=== PATIENT | female | born 1935 | race Caucasian/White ===

== ENCOUNTER → 2016-12-12 | Outpatient (CLI) | payer MEDICARE, BC ==
--- NOTE | 2016-12-12 14:02 | MR ---
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 Neck pain per patient. TECHNIQUE: Multiplanar, multisequence imaging of the cervical spine is performed without IV contrast. COMPARISON: MRI cervical spine December. FINDINGS: Sagittal images of the cervical spine show the craniocervical junction to remained within n ormal limits. The cervical and upper thoracic spinal cord is normal in course, caliber, and signal. Vertebral alignment is straightened. The vertebral body and intravertebral disk heights are felt wi thin normal limits. There are multilevel small posterior disc herniation redemonstrated on sagittal i mages effacing anterior thecal sac. The bone marrow signal intensity is within normal limits. No sign ificant spurring is seen. Axial images at C2-C3 level redemonstrate focal central disc protrusion effacing anterior thecal sac, bilateral neural foramina are patent on axial image 43. No significant change from prior. Axial images at C3-C4 level redemonstrate broad-based right paracentral disc protrusion with more radha tral focal disc protrusion effacing anterolateral thecal sac on axial image 36, findings are slightly more prominent than prior study. Bilateral neural foramina remain patent. Slight flattening of ventr al wall spinal cord is noted. No cord effacement however is seen. Axial images C4-C5 level show broad-based right paracentral disc protrusion effacing anterolateral th ecal sac and causing asymmetric mild right-sided neural foraminal narrowing. Left-sided neural forame n is patent. No significant change from prior study is seen. Axial images at C5-C6 level show some uncovertebral facet arthropathy bilaterally with broad-based po sterior disc protrusion mildly effacing anterior thecal sac, bilateral neural foramina remain patent. No significant change from prior study is identified. Axial images at C6-C7 level show lobulated broad-based posterior and left paracentral disc protrusion effacing anterior thecal sac, bilateral neural foramina remain patent. No significant change from pr ior study is identified. Axial images at C7-T1 level are felt within normal limits. Thyroid gland is atrophic in appearance or surgically absent particularly right thyroid lobe. Tortuou s medial course to left common carotid artery is redemonstrated. IMPRESSION: Straightening of cervical spine with multilevel degenerative changes redemonstrated as de tailed above. No significant change from prior study.
== END | disposition home or self-care (01) ==
LOC: RADMRIMAIN 12:16
PROVIDERS: ATTEND Psychiatry & Neurology Neurology
DX: M47.812 Spondylosis without myelopathy or radiculopathy, cervical region (principal); M43.8X2 Other specified deforming dorsopathies, cervical region
CPT/HCPCS: 72141

== ENCOUNTER → 2017-10-05 | Outpatient (CLI) | payer MEDICARE, BC ==
--- NOTE | 2017-10-05 14:04 | MR ---
EXAMINATION TYPE: MR lumbar spine wo/w con DATE OF EXAM: 10/05/2017 COMPARISON: NONE HISTORY: Spinal stenosis, lumbar region per order. Bilateral leg weakness for couple years per patien t with history of back surgery roughly 10 years ago per patient. TECHNIQUE: Multiplanar, multisequence images of the lumbar spine is performed without and with IV contrast, util izing 7 mL intravenous Gadavist FINDINGS : Survey images shows levoconvex scoliosis centered in the mid lumbar spine with compression type fractures in the lower thoracic spine.: Sagittal images of the lumbar spine confirm moderate to advanced compression fracture at T11 level, moderate compression fracture at T12 level, mild to mode rate compression fracture at L1 level, mild height loss superior T10 endplate and moderate to advance d compression fracture at L4 level. No suspicious edema or enhancement is clearly seen to suggest acu te fractures. Multilevel disc desiccation is seen. There are multilevel posterior disc herniations on sagittal images effacing anterior thecal sac. Exaggerated lumbar lordosis is noted. The conus medul dl is normal in position and signal ending inferior L1 level. Moderate multilevel anterior spurrin g is present. Axial images at T12-L1 level shows mild facet degenerative change and ligamentum flavum hypertrophy e ffacing posterior lateral thecal sac and mild broad disc bulge minimally effacing anterior thecal sac near axial image 30. Bilateral neural foramina are patent. Axial images at L1-L2 level show mild to moderate facet degenerative changes and ligamentum flavum hy pertrophy effacing posterior lateral thecal sac on axial image 25. There is mild to moderate broad di sc bulge with left paracentral disc protrusion component effacing anterior thecal sac. Bilateral neur al foramina are patent. Axial images at L2-L3 level show mild to moderate facet arthropathy ligament flavum hypertrophy effac ing posterior lateral thecal sac. There is moderate broad disc bulge effacing anterior thecal sac on axial image 20. There is mild bilateral neural foraminal narrowing noted. Axial images at L3-L4 level show mild to moderate facet degenerative changes bilaterally. There is br oad-based posterior disc protrusion mildly effacing anterior thecal sac on axial image 14. There is m oderate to severe bilateral neural foraminal narrowing. Axial images at L4-L5 level show advanced left-sided facet degenerative change. There are bilateral l aminectomy defects and spinous process resection. Spinal canal is grossly preserved. There is broad d isc bulge seen. There is mild to moderate bilateral neural foraminal narrowing identified. Axial images at L5-S1 level show bilateral laminectomy defects and spinous process resection. There i s persistent moderate facet arthropathy this along with scar tissue effaces posterior lateral thecal sac on axial image 3. There is central disc protrusion. Bilateral neural foramina show mild to modera te narrowing. There is simple appearing 1.1 cm cyst medially lower pole level right kidney axial image 19. IMPRESSION: Postsurgical changes lower lumbar spine. There are multiple compression type fracture def ormities presumed chronic throughout the thoracolumbar spine. There are multilevel degenerative laura es seen as detailed above, most prominent spinal canal effacement or stenosis is noted L2-L3 level.
== END | disposition home or self-care (01) ==
LOC: RADMRIMAIN 12:12
PROVIDERS: ATTEND Psychiatry & Neurology Neurology
DX: M48.061 Spinal stenosis, lumbar region without neurogenic claudication (principal); M47.816 Spondylosis without myelopathy or radiculopathy, lumbar region; S22.000A Wedge compression fracture of unspecified thoracic vertebra, initial encounter for closed fracture; S32.000A Wedge compression fracture of unspecified lumbar vertebra, initial encounter for closed fracture; Z98.890 Other specified postprocedural states; Z13.89 Encounter for screening for other disorder
CPT/HCPCS: 82565; 72158; A9581

== ENCOUNTER → 2018-10-08 | Outpatient (CLI) | payer MEDICARE, BC ==
--- NOTE | 2018-10-08 17:12 | MR ---
EXAMINATION TYPE: MR lumbar spine wo/w con DATE OF EXAM: 10/08/2018 COMPARISON: 10/05/2017 HISTORY: 83-year-old female Spondylosis without myelopathy or radiculopathy Technique: Multiplanar, multisequence images of the lumbar spine were obtained before and after admin istration of 7 mL intravenous Gadavist gadolinium contrast. FINDINGS: Heterogeneous marrow redemonstrated without definite suspicious bone marrow placement. Multiple vertebral compression deformities are present. These appear to be largely chronic, involving T11, T12, L1, and L4 vertebral bodies. Some low signal within these vertebral bodies could represent vacuum or vertebroplasty cement. No new vertebral compression collapse is seen. Mild retropulsion at the T11, T12, L1, and L4 levels encroaching onto the ventral spinal canal. Accentuated lower lumbar lordosis. Hypertrophic facet arthropathy throughout with a degenerated levoconvex scoliosis. Moderate multilevel degenerative disc disease with disc desiccation and disc bulging throughout. Scattered ligamentum flavum thickening is also present. The graft conus medullaris is normal. Laminectomy changes lower lumbar spine redemonstrated. At T10-T11, redemonstrated retropulsion impressing on to the ventral thecal sac and ventral cord with mild overall spinal canal stenosis which may be slightly increased from prior. At T11-T12, mild retropulsion impressing on the ventral thecal sac. Mild to moderate bilateral neurof oraminal stenosis. At T12-L1, mild retropulsion impressing on the ventral thecal sac. Facet arthropathy with mild bilate ral neuroforaminal narrowing. At L1-L2, bulging disc with ligamentum flavum thickening and facet arthropathy. Changes result in mod erate spinal canal stenosis, similar to prior. There is left paracentral annular fissure here. Change s within mild right neuroforaminal stenosis. At L2-L3, bulging disc with ligamentum flavum thickening and facet degenerative change. There has bee n interval laminectomy change here with enhancing scar tissue posteriorly. There is a 2.6 x 0.6 x 1.3 cm peripherally enhancing fluid collection along the posterior midline located 6 mm deep to the skin surface at this level. Residual mild narrowing of the spinal canal at this level, improved from prio r. Similar moderate right greater than left neuroforaminal stenosis. At L3-L4, retropulsion impressing on the ventral thecal sac. Ligamentum flavum thickening and hypertr ophic facet arthropathy. Changes result in moderate to severe left and moderate right neuroforaminal stenosis without significant spinal canal stenosis. At L4-L5, bulging disc with hypertrophic facet arthropathy and prior laminectomy. Similar severe left and [id number] right neuroforaminal stenosis. At L5-S1, bulging disc with prior laminectomy and hypertrophic facet arthropathy. Similar moderate le ft neural foraminal stenosis. No spinal canal stenosis. No abnormal enhancement seen within the spinal canal. IMPRESSION: 1. Multiple chronic compression collapse is as above. Associated low signal areas could represent air clefts or cement from prior vertebroplasty. Clinically correlate. No new vertebral compression colla pse as compared to 10/05/2017. 2. Interval laminectomy at L2-L3 with improvement in the spinal canal stenosis at this level. However , there is enhancing posterior paraspinal scar/granulation tissue and a 2.6 x 0.6 x 1.3 cm peripheral ly enhancing fluid collection along the posterior midline, 6 mm deep to the skin surface. Chronic hem atoma, postoperative seroma, and postoperative abscess are all in the differential. Further clinical correlation recommended. Similar moderate right greater than left neuroforaminal stenosis. 3. Continued moderate spinal canal stenosis at L1-L2. Left paracentral annular fissure here. 4. Continued moderate to severe left and moderate right neural foraminal stenosis at L3-L4. Severe le ft and [id number] right at L4-L5. Similar moderate left L5-S1. 5. Retropulsion impressing on the ventral thecal sac at T10-T11 with increased mild overall spinal ca nal stenosis at this level.
== END ==
LOC: RADMRIMAIN 12:32
PROVIDERS: ATTEND Neurological Surgery
DX: M48.061 Spinal stenosis, lumbar region without neurogenic claudication (principal); M48.07 Spinal stenosis, lumbosacral region
CPT/HCPCS: 72158; A9585

== ENCOUNTER 2019-05-12 16:02 | Inpatient (IN) | payer MEDICARE, BC ==
[2019-05-12 16:50] LABS: Glucose,Whole Blood 196 mg/dL (75-99)
[2019-05-12] MEDS ORDERED: SODIUM CHLORIDE 0.9% 1,000 ML IV STA ×2 (16:58)
--- NOTE | 2019-05-12 17:05 | ED ---
General Adult HPI - General Chief complaint: Syncope Stated complaint: Syncope Time Seen by Provider: 05/12/19 16:36 Source: patient, family, RN notes reviewed Mode of arrival: ambulatory Limitations: no limitations - History of Present Illness Initial comments: Patient is a pleasant 84-year-old female presenting to the emergency department following syncopal episode. Patient was doing fine at the grocery store and then did not feel well at checkout. Family had the patient sit down and she became unresponsive for a second or 2. Patient then seemed to do better. Patient did vomit during triage and again just now on them room. Patient does complain of some abdominal discomfort. Patient did not complain of any abdominal discomfort earlier. Family states they do not believe patient urinated in the past several hours. They also added that patient took 2 of her pain pills today where normally she only takes 1. Patient takes pain pills for chronic back pain. Chronic back pain is unchanged from baseline. No confusion or weakness. - Related Data Home Medications Medication Instructions Recorded Confirmed ALPRAZolam [Xanax] 0.25 mg PO DAILY PRN 07/25/15 07/25/15 Ascorbic Acid [Vitamin C] 500 mg PO HS 07/25/15 07/25/15 Aspirin 81 mg PO HS 07/25/15 07/25/15 Atorvastatin [Lipitor] 80 mg PO HS 07/25/15 07/25/15 Citalopram Hydrobromide [CeleXA] 20 mg PO HS 07/25/15 07/25/15 Fluticasone/Salmeterol [Advair 1 puff INHALATION RT-BID 07/25/15 07/25/15 250-50 Diskus] Levothyroxine Sodium [Synthroid] 75 mcg PO QAM 07/25/15 07/25/15 Metoprolol Succinate [Toprol XL] 25 mg PO HS 07/25/15 07/25/15 Nitroglycerin Sl Tabs [Nitrostat] 0.4 mg SUBLINGUAL Q5M PRN 07/25/15 07/25/15 Omeprazole [PriLOSEC] 20 mg PO AC-BID 07/25/15 07/25/15 Propranolol [Inderal] 40 mg PO BID 07/25/15 07/25/15 Sucralfate [Carafate] 1 gm PO BID 07/25/15 07/25/15 buPROPion HCL [Wellbutrin XL] 300 mg PO QAM 07/25/15 07/25/15 Previous Rx's Medication Instructions Recorded Cefuroxime Axetil [Ceftin] 500 mg PO BID #14 tablet 07/29/15 predniSONE 10 mg PO DIRECTED #40 tab 07/29/15 Albuterol Nebulized [Ventolin 2.5 mg INHALATION QID #120 nebu 07/30/15 Nebulized] Ibuprofen [Motrin] 600 mg PO BID PRN #0 07/30/15 Ipratropium Nebulized [Atrovent 0.5 mg INHALATION RT-QID #120 nebu 07/30/15 Nebulized 0.2 MG/ML] Isosorbide Mononitrate ER [Imdur] 30 mg PO DAILY #30 tab.er.24h 07/30/15 Multivitamins, Thera [Multivitamin 1 each PO DAILY@1200 #30 tab 07/30/15 (formulary)] Nicotine 14Mg/24Hr Patch [Habitrol] 1 patch TRANSDERM DAILY #30 patch 07/30/15 amLODIPine [Norvasc] 10 mg PO DAILY #30 tab 07/30/15 Allergies Allergy/AdvReac Type Severity Reaction Status Date / Time venom-honey bee Allergy Anaphylaxis Verified 07/25/15 15:44 [bee venom (honey bee)] Review of Systems ROS Statement: Those systems with pertinent positive or pertinent negative responses have been documented in the HPI. ROS Other: All systems not noted in ROS Statement are negative. Constitutional: Denies: fever Eyes: Denies: eye pain ENT: Denies: ear pain Respiratory: Denies: cough, dyspnea Cardiovascular: Denies: chest pain Endocrine: Denies: fatigue Gastrointestinal: Reports: as per HPI, abdominal pain, nausea, vomiting. Denies: diarrhea, constipation Genitourinary: Denies: dysuria Musculoskeletal: Reports: as per HPI Skin: Denies: rash Neurological: Reports: as per HPI. Denies: headache Past Medical History Past Medical History: Coronary Artery Disease (CAD), GERD/Reflux, Hypertension, Osteoarthritis (OA), Thyroid Disorder Additional Past Medical History / Comment(s): Parkinson's disease, depression. History of Any Multi-Drug Resistant Organisms: None Reported Past Surgical History: Coronary Bypass/CABG Additional Past Surgical History / Comment(s): STENT X1 Past Anesthesia/Blood Transfusion Reactions: Postoperative Nausea & Vomiting (PONV) Past Psychological History: Anxiety, Depression Smoking Status: Current every day smoker Past Alcohol Use History: None Reported Past Drug Use History: None Reported - Past Family History Mother Family Medical History: CVA/TIA, Myocardial Infarction ([place]), Rheumatoid Arthritis ([place]) Father Family Medical History: Myocardial Infarction ([place]) Additional Family Medical History / Comment(s): ANEURYSM-UNKNOWN LOCATION General Exam Limitations: no limitations General appearance: alert, in no apparent distress Head exam: Present: normocephalic Eye exam: Present: normal appearance, PERRL ENT exam: Present: normal oropharynx Neck exam: Present: normal inspection Respiratory exam: Present: normal lung sounds bilaterally Cardiovascular Exam: Present: regular rate, normal rhythm Expanded Peripheral pulses: 2+: Radial (R), Radial (L), Posterior Tibialis (R), Posterior Tibialis (L), Dorsalis Pedis (R), Dorsalis Pedis (L) GI/Abdominal exam: Present: soft, normal bowel sounds. Absent: distended, tenderness, guarding, rebound, rigid, pulsatile mass Extremities exam: Present: normal inspection. Absent: pedal edema, calf tenderness Neurological exam: Present: alert, oriented X3, CN II-XII intact. Absent: motor sensory deficit Expanded Neurological exam: Present: protecting the airway Patient oriented to: Present: person, place, time Speech: Present: fluid speech Cranial nerves: EOM's Intact: Normal Sensory exam: Upper Extremity Light Touch: Normal, Lower Extremity Light Touch: Normal Motor strength exam: RUE: 5, LUE: 5, RLE: 5, LLE: 5 Eye Response: (4) open spontaneously Motor Response: (6) obeys commands Verbal Response: (5) oriented Psychiatric exam: Present: normal affect, normal mood Skin exam: Present: normal color Course Vital Signs 05/12/19 16:06 Temperature 97.5 F L Pulse Rate 63 Respiratory 17 Rate Blood Pressure 106/38 O2 Sat by Pulse 90 L Oximetry EKG Findings - EKG Comments: EKG Findings:: Sinus rhythm at 73. For screening AV block GA of 236. QRS 128. QT 474. QTC 522. Superior axis. Nonspecific interventricular block. Diffuse Q waves. Previous EKGs reviewed. Medical Decision Making - Medical Decision Making Patient reevaluated. Patient and family updated. Case discussed with Dr. Whyte, who will admit for Dr. Kang. - Lab Data Result diagrams: 05/12/19 16:46 05/12/19 16:46 Lab Results 05/12/19 05/12/19 05/12/19 Range/Units 16:46 16:46 16:46 WBC 7.4 (3.8-10.6) k/uL RBC 4.69 (3.80-5.40) m/uL Hgb 15.0 (11.4-16.0) gm/dL Hct 45.4 (34.0-46.0) % MCV 96.8 (80.0-100.0) fL MCH 32.0 (25.0-35.0) pg MCHC 33.1 (31.0-37.0) g/dL RDW 12.4 (11.5-15.5) % Plt Count 326 (150-450) k/uL Neutrophils % 69 % Lymphocytes % 26 % Monocytes % 3 % Eosinophils % 1 % Basophils % 0 % Neutrophils # 5.1 (1.3-7.7) k/uL Lymphocytes # 2.0 (1.0-4.8) k/uL Monocytes # 0.2 (0-1.0) k/uL Eosinophils # 0.1 (0-0.7) k/uL Basophils # 0.0 (0-0.2) k/uL PT 10.5 (9.0-12.0) sec INR 1.0 (<1.2) APTT 19.1 L (22.0-30.0) sec Sodium 135 L (137-145) mmol/L Potassium 4.7 (3.5-5.1) mmol/L Chloride 105 (98-107) mmol/L Carbon Dioxide 17 L (22-30) mmol/L Anion Gap 13 mmol/L BUN 23 H (7-17) mg/dL Creatinine 1.35 H (0.52-1.04) mg/dL Est GFR (CKD-EPI)AfAm 42 (>60 ml/min/1.73 sqM) Est GFR (CKD-EPI)NonAf 37 (>60 ml/min/1.73 sqM) Glucose 184 H (74-99) mg/dL POC Glucose (mg/dL) (75-99) mg/dL POC Glu [employer] Hand ID Calcium 10.3 H (8.4-10.2) mg/dL Magnesium 2.1 (1.6-2.3) mg/dL Total Bilirubin 0.7 (0.2-1.3) mg/dL AST 46 H (14-36) U/L ALT 30 (9-52) U/L Alkaline Phosphatase 135 H (38-126) U/L Troponin I (0.000-0.034) ng/mL Total Protein 6.8 (6.3-8.2) g/dL Albumin 4.1 (3.5-5.0) g/dL 05/12/19 05/12/19 Range/Units 16:46 16:48 WBC (3.8-10.6) k/uL RBC (3.80-5.40) m/uL Hgb (11.4-16.0) gm/dL Hct (34.0-46.0) % MCV (80.0-100.0) fL MCH (25.0-35.0) pg MCHC (31.0-37.0) g/dL RDW (11.5-15.5) % Plt Count (150-450) k/uL Neutrophils % % Lymphocytes % % Monocytes % % Eosinophils % % Basophils % % Neutrophils # (1.3-7.7) k/uL Lymphocytes # (1.0-4.8) k/uL Monocytes # (0-1.0) k/uL Eosinophils # (0-0.7) k/uL Basophils # (0-0.2) k/uL PT (9.0-12.0) sec INR (<1.2) APTT (22.0-30.0) sec Sodium (137-145) mmol/L Potassium (3.5-5.1) mmol/L Chloride (98-107) mmol/L Carbon Dioxide (22-30) mmol/L Anion Gap mmol/L BUN (7-17) mg/dL Creatinine (0.52-1.04) mg/dL Est GFR (CKD-EPI)AfAm (>60 ml/min/1.73 sqM) Est GFR (CKD-EPI)NonAf (>60 ml/min/1.73 sqM) Glucose (74-99) mg/dL POC Glucose (mg/dL) 196 H (75-99) mg/dL POC Glu [employer] Hand ID Abril Christopher Calcium (8.4-10.2) mg/dL Magnesium (1.6-2.3) mg/dL Total Bilirubin (0.2-1.3) mg/dL AST (14-36) U/L ALT (9-52) U/L Alkaline Phosphatase (38-126) U/L Troponin I 0.020 (0.000-0.034) ng/mL Total Protein (6.3-8.2) g/dL Albumin (3.5-5.0) g/dL - Radiology Data Radiology results: report reviewed (Computed tomography scan of the brain shows no acute process. Atrophy. Computed tomography scan abdomen pelvis shows some fluid and large bowel, correlate for colitis.), image reviewed (Chest x-ray shows no acute lung disease.) Disposition Clinical Impression: Syncope Disposition: ADMITTED IP TO THIS HOSP Is patient prescribed a controlled substance at d/c from ED?: No Referrals: Lashaun Kang III, MD [Primary Care Provider] - 1-2 days Decision Time: 19:16
[2019-05-12 17:19] LABS: Basophils % (A) 0 %; Eosinophils # (A) 0.1 k/uL (0-0.7); Eosinophils % (A) 1 %; HCT 45.4 % (34.0-46.0); Lymphocytes % (A) 26 %; MCHC 33.1 g/dL (31.0-37.0); MCV 96.8 fL (80.0-100.0); Mean Platelet Volume 8.5; Monocytes # (A) 0.2 k/uL (0-1.0); Monocytes % (A) 3 %; Neutrophils # (A) 5.1 k/uL (1.3-7.7); Neutrophils % (A) 69 %; Platelet Count 326 k/uL (150-450); RBC 4.69 m/uL (3.80-5.40); RDW 12.4 % (11.5-15.5); WBC 7.4 k/uL (3.8-10.6)
[2019-05-12 17:28] LABS: Albumin 4.1 g/dL (3.5-5.0); Calcium 10.3 mg/dL (8.4-10.2); Magnesium 2.1 mg/dL (1.6-2.3); Potassium 4.7 mmol/L (3.5-5.1); Total Bilirubin 0.7 mg/dL (0.2-1.3); Total Protein 6.8 g/dL (6.3-8.2)
[2019-05-12 18:01] LABS: Prothrombin Time 10.5 sec (9.0-12.0)
[2019-05-12 18:03] LABS: Partial Thromboplastin Time 19.1 sec (22.0-30.0)
--- NOTE | 2019-05-12 18:54 | XR ---
EXAMINATION TYPE: XR chest 2V DATE OF EXAM: 05/12/2019 COMPARISON: 07/29/2015 HISTORY: Weakness TECHNIQUE: Frontal and lateral views of the chest are obtained. FINDINGS: There is no heart failure nor confluent pneumonic infiltrate. Costophrenic angles are greyson r. There are sternal wires. There is thoracolumbar kyphotic deformity with anterior wedging of lower thoracic vertebra and multil evel vertebroplasty. There is hiatal hernia. IMPRESSION: Hiatal hernia. No acute lung disease. Osteoporotic multiple compression fractures. No si gnificant change compared to old exam.
--- NOTE | 2019-05-12 18:59 | CT ---
EXAMINATION TYPE: CT abdomen pelvis w con DATE OF EXAM: 05/12/2019 COMPARISON: None HISTORY: Weakness, vomiting and diarrhea CT DLP: 664.2 mGycm Automated exposure control for dose reduction was used. CONTRAST: Performed with IV Contrast, patient injected with 80 mL of Isovue 300. Lung bases show no pulmonary consolidation. There is no pleural effusion. There is moderate size hiat al hernia. There is no pericardial effusion. Liver and spleen appear normal. Bile ducts are not dilated. Gallbladder is intact. There is no pancre atic mass. There is no adrenal mass. Kidneys show satisfactory contrast opacification. There is no hydronephrosi s. There are renal vascular calcifications. I see no definite urinary tract calculus. There is no hyd ronephrosis. There is 1 cm cortical cyst lower pole right kidney. Ureters are not dilated. Bladder di stends smoothly. There is no inguinal hernia. There are some distended fluid-filled loops of the left colon down to the rectum. There is mild wall thickening of the transverse colon distally. There is n o free air. There is no ascites. Small bowel is not dilated. There is multiple compression fractures in the lumbar spine involving L4 and L1 and T12 and T11 with vertebral plasties. There is osteopenia. The bony pelvis is intact. There is mild lumbar levoscoliosis. IMPRESSION: Hiatal hernia. Atherosclerotic vascular disease. Large bowel fluid consistent with diarrhea. Nonspecific mild wall thickening of the distal transverse colon could relate to some colitis.
--- NOTE | 2019-05-12 19:01 | CT ---
EXAMINATION TYPE: CT brain wo con DATE OF EXAM: 05/12/2019 COMPARISON: None HISTORY: Weakness, vomiting and diarrhea CT DLP: 1086.4 mGycm Automated exposure control for dose reduction was used. There is cerebral cortical atrophy. There is no mass effect nor midline shift. There is no sign of in tracranial hemorrhage. Calvarium is intact. IMPRESSION: Cerebral atrophy. No acute intracranial abnormality.
[2019-05-12] MEDS ORDERED: NALOXONE 0.4 MG/ML 1 ML VIAL IV PRN (19:17)
[2019-05-12] MEDS ORDERED: SODIUM CHLORIDE 0.9% 1,000 ML IV SCH (19:30)
[2019-05-12] MEDS ORDERED: PANTOPRAZOLE 40 MG/10 ML VIAL IV SCH (19:30)
[2019-05-12] MEDS: ONDANSETRON 4 MG/2 ML VIAL IVP PRN (21:04)
[2019-05-12 21:53] LABS: Basophils % (A) 0 %; Eosinophils # (A) 0.2 k/uL (0-0.7); Eosinophils % (A) 1 %; HCT 39.4 % (34.0-46.0); HGB 12.8 gm/dL (11.4-16.0); Lymphocytes # (A) 0.6 k/uL (1.0-4.8); Lymphocytes % (A) 4 %; MCH 32.1 pg (25.0-35.0); MCHC 32.4 g/dL (31.0-37.0); MCV 99.1 fL (80.0-100.0); Mean Platelet Volume 7.7; Monocytes # (A) 0.5 k/uL (0-1.0); Monocytes % (A) 3 %; Neutrophils # (A) 14.3 k/uL (1.3-7.7); Neutrophils % (A) 91 %; Platelet Count 298 k/uL (150-450); RBC 3.98 m/uL (3.80-5.40); RDW 12.5 % (11.5-15.5); WBC 15.7 k/uL (3.8-10.6)
[2019-05-12 22:08] LABS: Calcium 8.7 mg/dL (8.4-10.2); Magnesium 1.9 mg/dL (1.6-2.3); Potassium 4.1 mmol/L (3.5-5.1)
[2019-05-12] MEDS: MORPHINE SULFATE 2 MG/ML SYRINGE IVP PRN (23:33)
[2019-05-12] MEDS: SODIUM CHLORIDE 0.9% 1,000 ML IV SCH (23:37)
[2019-05-13 02:32] LABS: Appearance,Urine Clear (Clear); Bilirubin,Urine Negative (Negative); Blood,Urine Trace (Negative); Color,Urine Yellow; Glucose,Urine (UA) Negative (Negative); Hyaline Casts,Urine 3 /lpf (0-2); Ketones,Urine Trace (Negative); Leukocyte Esterase,Urine Negative (Negative); Mucus,Urine Rare /hpf; Nitrite,Urine Negative (Negative); PH, Urine 5.5 (5.0-8.0); Protein,Urine Trace (Negative); RBC,Urine 2 /hpf (0-5); Squamous Epithelial Cell,Urine <1 /hpf (0-4); WBC,Urine 1 /hpf (0-5)
[2019-05-13] MEDS: MORPHINE SULFATE 2 MG/ML SYRINGE IVP PRN ×2 (03:11→16:41)
[2019-05-13 05:30] LABS: Basophils % (A) 0 %; Eosinophils # (A) 0.1 k/uL (0-0.7); Eosinophils % (A) 1 %; HCT 37.3 % (34.0-46.0); HGB 12.1 gm/dL (11.4-16.0); Lymphocytes # (A) 0.7 k/uL (1.0-4.8); Lymphocytes % (A) 5 %; MCH 31.8 pg (25.0-35.0); MCHC 32.4 g/dL (31.0-37.0); MCV 98.1 fL (80.0-100.0); Mean Platelet Volume 7.5; Monocytes # (A) 0.4 k/uL (0-1.0); Monocytes % (A) 3 %; Neutrophils # (A) 13.7 k/uL (1.3-7.7); Neutrophils % (A) 91 %; Platelet Count 288 k/uL (150-450); RDW 12.6 % (11.5-15.5); WBC 15.2 k/uL (3.8-10.6)
[2019-05-13 05:43] LABS: Calcium 8.4 mg/dL (8.4-10.2); Magnesium 1.9 mg/dL (1.6-2.3); Phosphorus 4.7 mg/dL (2.5-4.5); Potassium 4.2 mmol/L (3.5-5.1); Total Bilirubin 0.5 mg/dL (0.2-1.3); Total Protein 5.3 g/dL (6.3-8.2)
[2019-05-13] MEDS ORDERED: Magnesium Replacement Protocol 1 EACH MISC MISCELLANE PRN (05:48)
[2019-05-13] MEDS: MAGNESIUM SULFATE-D5W PMX 1 GM in DEXTROSE/WATER 1 100ML.BAG IVPB SCH ×2 (05:56→06:54)
--- NOTE | 2019-05-13 08:16 | XR ---
EXAMINATION TYPE: XR chest 1V DATE OF EXAM: 05/13/2019 COMPARISON: Prior chest x-ray 05/12/[address] 05/12/2019 HISTORY: Abnormal chest x-ray, weakness TECHNIQUE: Single frontal view of the chest is obtained. FINDINGS: Patient is post median sternotomy. Aorta is dense. Heart is enlarged. Interstitium is incr eased. Some patchy density at the lung bases may represent scarring or subsegmental atelectatic laura e, correlate for pneumonia. No evident pneumothorax. Multiple vertebral plasty levels are noted near the lower thoracic and lumbar spine level. There are overlying cardiac leads. Pulmonary vascularity a nd oliver within normal limits. Retrocardiac density persists. Nodular density seen on prior CT in the right lower lobe is not seen definitively. IMPRESSION: Correlate for pneumonia, subsegmental atelectasis. Hiatal hernia. Right lower lobe lung nodule not seen on plain film, follow-up recommended. Cardiomegaly. Postop changes. A Yellow level critical message alert has been initiated for Rafa Rivas via the [employer] Critical Results System on 05/13/2019 8:13 AM. This message alert has been sent to Rafa Rivas via the preferences provided by the clinician for the receipt of Radiology Critical Findings. Message ID [id number].
--- NOTE | 2019-05-13 08:31 | P.HPIM ---
History of Present Illness This is a pleasant 84 years old female with past medical history of coronary artery disease status post CABG and 1 stent, hypertension, cigarette smoker, GERD, hypothyroidism, Parkinson disease, depression, chronic back pain. Patient presents because of syncope. Patient states that she was going to the grocery store with her daughter when she felt lightheadedness and she has to sit on a chair, and immediately she was on and off about 2 times associated with urine incontinence but no seizure like activity as per patient daughter. Patient decided to come to the hospital where she started having upper and lower abdominal pain with diarrhea, pain is in the mid part of the abdomen both upper and lower, about 6-8/10 in severity, pain is nonradiating but continuous home associated with 5-6 times of loose bowel movement with some blunt as the patient has been told, associated with coffee ground vomitus. Patient is smokes about 1 pack per day, she follows with Dr. Ibrahim the reinsurance claim analyst and she supposed to see him today for checkup. On admission patient had fever of 100.6, blood pressure 132/44, she is saturatin g 93% on 2 L oxygen. Labs showed leukocytosis of 15.2, INR is normal at 1.0, sodium 135 and 136, creatinine was elevated 1.35, came down to normal this morning at 1.0, glucose 184 and 120, Is not suspicious of infection. Troponins are negative 3.chest x-ray: Clinical hernia, no acute process. CT of the abdomen and pelvis with contrast: Possible distal transverse colitis with wall thickening and large fluid consistent with the area. CT of the brain showed no acute process per radiologist. EKG: Showing sinus rhythm with first-degree AV block at 73 BPM, with QTC of 522 In the emergency room patient was given magnesium replacement and IV fluid, 2 L of normal saline and then started at 75 mL/h From emergency room so far consults has been ordered including pulmonary, gastroenterology for GI bleed and neurologist Review of Systems CONSTITUTIONAL: No fever, no malaise, no fatigue. HEENT: No recent visual problems or hearing problems. Denied any sore throat. CARDIOVASCULAR: No orthopnea, PND, no palpitations, no syncope. PULMONARY: No shortness of breath, no cough, no hemoptysis. GASTROINTESTINAL: Normoactive bowel sounds. NEUROLOGICAL: No headaches, no weakness, no numbness. HEMATOLOGICAL: Denies any bleeding or petechiae. GENITOURINARY: Denies any burning micturition, frequency, or urgency. MUSCULOSKELETAL/RHEUMATOLOGICAL: Denies any joint pain, swelling, or any muscle pain. ENDOCRINE: Denies any polyuria or polydipsia. Past Medical History Past Medical History: Coronary Artery Disease (CAD), GERD/Reflux, Hypertension, Osteoarthritis (OA), Thyroid Disorder Additional Past Medical History / Comment(s): Parkinson's disease, depression. History of Any Multi-Drug Resistant Organisms: None Reported Past Surgical History: Coronary Bypass/CABG Additional Past Surgical History / Comment(s): STENT X1 Past Anesthesia/Blood Transfusion Reactions: Postoperative Nausea & Vomiting (PONV) Past Psychological History: Anxiety, Depression Smoking Status: Current every day smoker Past Alcohol Use History: None Reported Past Drug Use History: None Reported - Past Family History Mother Family Medical History: CVA/TIA, Myocardial Infarction ([place]), Rheumatoid Arthritis (RA) Father Family Medical History: Myocardial Infarction ([place]) Additional Family Medical History / Comment(s): ANEURYSM-UNKNOWN LOCATION Medications and Allergies Home Medications Medication Instructions Recorded Confirmed Type ALPRAZolam [Xanax] 0.25 mg PO Q12H PRN 07/25/15 05/12/19 History Ascorbic Acid [Vitamin C] 500 mg PO HS 07/25/15 05/12/19 History Aspirin 81 mg PO HS 07/25/15 05/12/19 History Atorvastatin [Lipitor] 80 mg PO HS 07/25/15 05/12/19 History Citalopram Hydrobromide [CeleXA] 20 mg PO HS 07/25/15 05/12/19 History Fluticasone/Salmeterol [Advair 1 puff INHALATION RT-BID 07/25/15 05/12/19 History 250-50 Diskus] Levothyroxine Sodium [Synthroid] 75 mcg PO QAM 07/25/15 05/12/19 History Nitroglycerin Sl Tabs [Nitrostat] 0.4 mg SUBLINGUAL Q5M PRN 07/25/15 05/12/19 History Omeprazole [PriLOSEC] 20 mg PO AC-BID 07/25/15 05/12/19 History buPROPion HCL [Wellbutrin XL] 300 mg PO QAM 07/25/15 05/12/19 History Isosorbide Mononitrate ER [Imdur] 30 mg PO DAILY #30 tab.er.24h 07/30/15 05/12/19 Rx Nicotine 14Mg/24Hr Patch [Habitrol] 1 patch TRANSDERM DAILY #30 patch 07/30/15 05/12/19 Rx Gabapentin [Neurontin] 100 mg PO BID 05/12/19 05/12/19 History Lisinopril [Zestril] 2.5 mg PO DAILY 05/12/19 05/12/19 History Primidone [Mysoline] 50 mg PO HS 05/12/19 05/12/19 History Propranolol HCl [Inderal Xl] 80 mg PO DAILY 05/12/19 05/12/19 History Allergies Allergy/AdvReac Type Severity Reaction Status Date / Time venom-honey bee Allergy Anaphylaxis Verified 05/12/19 20:48 [bee venom (honey bee)] Physical Exam Vitals: Vital Signs Temp Pulse Pulse Resp BP BP Pulse Ox 05/13/19 06:00 87 17 132/44 93 L 05/13/19 05:00 79 25 H 137/48 92 L 05/13/19 04:00 100.6 F H 80 19 120/47 92 L 05/13/19 03:00 72 15 142/31 94 L 05/13/19 02:00 73 23 100/81 96 05/13/19 01:00 70 13 130/47 93 L 05/13/19 00:00 98.4 F 70 21 151/58 92 L 05/12/19 23:00 66 13 145/55 93 L 05/12/19 22:00 98.6 F 72 18 96 05/12/19 21:23 97.8 F 77 18 149/74 96 05/12/19 20:25 18 05/12/19 20:00 97.5 F L 67 18 132/66 98 05/12/19 19:49 71 18 154/90 98 05/12/19 16:06 97.5 F L 63 17 106/38 90 L Intake and Output 05/12/19 05/13/19 05/13/19 22:59 06:59 14:59 Intake Total 600 Output Total 400 690 Balance -400 -90 Intake: IV 600 0.9 NS 600 Output: Urine 690 Uretheral (Schafer) 450 Stool 200 Emesis 200 Other: Voiding Method Indwelling Catheter # Bowel Movements 1 Weight 58.967 kg 62.3 kg GENERAL: The patient is alert and oriented x3, not in any acute distress. Well developed, well nourished. HEENT: Pupils are round and equally reacting to light. EOMI. No scleral icterus. No conjunctival pallor. Normocephalic, atraumatic. No pharyngeal erythema. No thyromegaly. CARDIOVASCULAR: S1 and S2 present. No murmurs, rubs, or gallops. PULMONARY: Chest is clear to auscultation, no wheezing or crackles. -ABDOMEN: Soft, mid abdominal tenderness with no rebound tenderness or guarding, nondistended, normoactive bowel sounds. No palpable organomegaly. MUSCULOSKELETAL: No joint swelling or deformity. EXTREMITIES: No cyanosis, clubbing, or pedal edema. NEUROLOGICAL: Gross neurological examination did not reveal any focal deficits. SKIN: No rashes. No petechiae Results CBC & Chem 7: 05/13/19 05:12 05/13/19 05:12 Labs: Abnormal Lab Results - Last 24 Hours (Table) 05/12/19 05/12/19 05/12/19 Range/Units 16:46 16:46 16:48 WBC (3.8-10.6) k/uL Neutrophils # (1.3-7.7) k/uL Lymphocytes # (1.0-4.8) k/uL APTT 19.1 L (22.0-30.0) sec Sodium 135 L (137-145) mmol/L Chloride (98-107) mmol/L Carbon Dioxide 17 L (22-30) mmol/L BUN 23 H (7-17) mg/dL Creatinine 1.35 H (0.52-1.04) mg/dL Glucose 184 H (74-99) mg/dL POC Glucose (mg/dL) 196 H (75-99) mg/dL Calcium 10.3 H (8.4-10.2) mg/dL Phosphorus (2.5-4.5) mg/dL AST 46 H (14-36) U/L Alkaline Phosphatase 135 H (38-126) U/L Total Protein (6.3-8.2) g/dL Albumin (3.5-5.0) g/dL Urine Protein (Negative) Urine Ketones (Negative) Urine Blood (Negative) Hyaline Casts (0-2) /lpf Urine Mucus (None) /hpf 05/12/19 05/12/19 05/13/19 Range/Units 21:36 21:36 02:15 WBC 15.7 H (3.8-10.6) k/uL Neutrophils # 14.3 H (1.3-7.7) k/uL Lymphocytes # 0.6 L (1.0-4.8) k/uL APTT (22.0-30.0) sec Sodium 135 L (137-145) mmol/L Chloride 110 H (98-107) mmol/L Carbon Dioxide 19 L (22-30) mmol/L BUN 25 H (7-17) mg/dL Creatinine 1.19 H (0.52-1.04) mg/dL Glucose 128 H (74-99) mg/dL POC Glucose (mg/dL) (75-99) mg/dL Calcium (8.4-10.2) mg/dL Phosphorus (2.5-4.5) mg/dL AST (14-36) U/L Alkaline Phosphatase (38-126) U/L Total Protein (6.3-8.2) g/dL Albumin (3.5-5.0) g/dL Urine Protein Trace H (Negative) Urine Ketones Trace H (Negative) Urine Blood Trace H (Negative) Hyaline Casts 3 H (0-2) /lpf Urine Mucus Rare H (None) /hpf 05/13/19 05/13/19 Range/Units 05:12 05:12 WBC 15.2 H (3.8-10.6) k/uL Neutrophils # 13.7 H (1.3-7.7) k/uL Lymphocytes # 0.7 L (1.0-4.8) k/uL APTT (22.0-30.0) sec Sodium 136 L (137-145) mmol/L Chloride 112 H (98-107) mmol/L Carbon Dioxide 17 L (22-30) mmol/L BUN 21 H (7-17) mg/dL Creatinine (0.52-1.04) mg/dL Glucose 120 H (74-99) mg/dL POC Glucose (mg/dL) (75-99) mg/dL Calcium (8.4-10.2) mg/dL Phosphorus 4.7 H (2.5-4.5) mg/dL AST 40 H (14-36) U/L Alkaline Phosphatase (38-126) U/L Total Protein 5.3 L (6.3-8.2) g/dL Albumin 3.0 L (3.5-5.0) g/dL Urine Protein (Negative) Urine Ketones (Negative) Urine Blood (Negative) Hyaline Casts (0-2) /lpf Urine Mucus (None) /hpf Thrombosis Risk Factor Assmnt - Choose All That Apply Other congenital or acquired thrombophilia - If yes, enter type in comment: No Assessment and Plan Assessment: Syncope SIRS syndrome with leukocytosis and fever Possible sepsis secondary to colitis History of coronary artery disease status post CABG and stent Nicotine dependence Hypertension Hypothyroidism Parkinson disease Gastroesophageal reflux disease Primary osteoarthritis History of depression, not an active issue Chronic back pain Plan: This is a pleasant 84 years old female who presents with syncope and colitis. We'll start the patient on ceftriaxone and flagyl, send for stool culture. Follow-up recommendations by other consultants from GI, pulmonary/critical care and neurologist services consulted from ED. Last for reinsurance claim analyst evaluation since patient has significant heart disease and she supposed to see her c ardiologist. We'll send for stool culture and C. diff, and occult blood in stool. Continue with hydration and pain management. Continue with Protonix twice daily. Labs and medication were reviewed.. Continue same treatment. Continue with symptomatic treatment. Resume home medication. Monitor lytes and vitals. DVT and GI prophylaxis. Further recommendations of the clinical course of the patient DVT Prophylaxis : no heparin in view of GI bleed GI Prophylaxis: Protonix Prognosis is guarded
[2019-05-13] MEDS: ONDANSETRON 4 MG/2 ML VIAL IVP PRN (09:31)
[2019-05-13] MEDS: metroNIDAZOLE-NS PMX 500 MG in SALINE 1 100ML.BAG IVPB SCH ×3 (09:37→23:13)
[2019-05-13] MEDS: PANTOPRAZOLE 40 MG/10 ML VIAL IVP SCH ×2 (09:41→21:37)
--- NOTE | 2019-05-13 10:20 | CONS ---
CONSULTATION PULMONARY/CRITICAL CARE CONSULTATION DATE OF CONSULTATION: May 13, 2019 This is an 84-year-old female who apparently was admitted through the emergency room with a diagnosis of syncope and GI bleed. She apparently presented to the emergency room on 05/12. She apparently had a syncopal episode. She was apparently doing fine and then at the grocery store did not feel well at the checkout counter. The patient apparently had to sit down and became unresponsive for a few seconds. In triage, she apparently vomited up some blood. She was complaining of some abdominal discomfort. The patient was admitted to the hospital to the observation unit with GI bleed. Sometime thereafter, because of ongoing hematemesis, the patient was transferred to the ICU. Currently, she is resting comfortably. She is getting O2 at 2 L. Her IV is saline at 75 mL an hour. Her hemoglobin has gone from 15 to 12.8 to 12.1. Since coming to the ICU, she has had no further episodes of any vomiting up of blood. She has had a few small bowel movements that were apparently darker or maroon colored. She has been stable and the plan is possible EGD today. I think the patient could probably be transferred out to the general medical floor pending the results of the EGD. Currently not complaining of anything. Feeling back to baseline. Denies a prior history of any GI bleed. She only takes a baby aspirin daily. Does not take any thing like nonsteroidal anti-inflammatory drugs or steroids. Currently, she is very stable, both from the respiratory status and from the hemodynamic status. HOME MEDICATIONS: Her home medications include Xanax, vitamin C, baby aspirin, Lipitor, Celexa, Advair Diskus, Synthroid, Toprol XL, Nitrostat, Prilosec, Inderal, Carafate, Wellbutrin XL, Imdur, multivitamins, nicotine patch, and amlodipine. ALLERGIES: Allergies include BEE VENOM. PAST MEDICAL HISTORY: Her past medical history is positive for CAD, GERD, hypertension, DJD, hypothyroidism, Parkinson disease, depression, and COPD. SURGICAL HISTORY: Surgical history includes bypass grafting and stent placement x1. SOCIAL HISTORY: Positive for ongoing tobacco use with nicotine addiction, without evidence of any illicit drug use or significant alcohol use. FAMILY HISTORY: Family history is positive for a mother with CVA, myocardial infarction, and rheumatoid arthritis. Father's history is positive for an aneurysm and myocardial infarction. REVIEW OF SYSTEMS: CONSTITUTIONAL: Weakness. NEUROLOGIC: Presyncope. HEENT: Negative. CARDIOVASCULAR: Negative. PULMONARY: Negative. GI: Apparent hematemesis/GI bleed and maroon stools per rectum. : Negative. RHEUMATOLOGIC: Negative. IMMUNOLOGIC: Negative. ENDOCRINOLOGIC: Negative. DERMATOLOGIC: Negative. PHYSICAL EXAMINATION: VITAL SIGNS: Current vital signs are reviewed. Temperature is 99, heart rate 77, respiratory rate 19, blood pressure 132/57, mean 82 and 2 L saturation 95%. GENERAL: Appears in no acute distress. HEENT: Examination is grossly unremarkable. Mucous membranes are moist. No oral lesions. NECK: Supple. Full range of motion. No adenopathy or thyromegaly. Neck veins are flat. CARDIOVASCULAR: Examination reveals regular rhythm and rate. Heart rate 77. S1, S2 normal. No S3, S4, or murmur. LUNGS: Reveal relatively clear breath sounds. No wheezes, rhonchi, or crackles. ABDOMEN: Soft. Bowel sounds are heard. No tenderness. EXTREMITIES: Are intact. No cyanosis, clubbing, or edema. SKIN: Without rash. NEUROLOGIC: Examination is brief but nonfocal. LAB DATA: Lab data is reviewed. White count 15.2, hemoglobin 12.1, hematocrit 37.3, platelet count 288,000. PT, INR and PTT are all normal. Sodium 136, potassium 4.2, chloride 112, CO2 of 17. Anion gap is 7. BUN and creatinine were 21 and 1.03. The rest of the labs look okay. Urine is noted. A chest x-ray shows some atelectasis, left greater than right at the lung bases. CT scan of the belly shows hiatal hernia, atherosclerotic cardiovascular disease, and some nonspecific mild wall thickening of the distal transverse colon which could relate to some colitis. Brain CT is negative with a trace of cerebral atrophy. MEDICATIONS: Medications are reviewed. She is currently on Rocephin, magnesium replacement, Flagyl, morphine, Narcan, Zofran, Protonix. ASSESSMENT: 1. Acute gastrointestinal bleed, with suspected upper gastrointestinal source. 2. No prior history of gastrointestinal bleed. 3. Suspected chronic obstructive pulmonary disease from previous heavy tobacco use. 4. Hyperlipidemia. 5. Hypothyroidism. 6. History of hypertension. 7. History of coronary artery disease with previous bypass grafting. 8. History of gastroesophageal reflux disease. 9. Degenerative joint disease. 10.History of Parkinson disease. 11.History of depression. PLAN: Currently, the patient is doing well. Since she has been here in the ICU, her respiratory status and hemodynamic status has been stable. The patient's hemoglobin is stable. The patient may be going for an EGD today. We will continue to follow. Prognosis is guarded. No additional recommendations are made. If the EGD is negative, without evidence of active GI bleed or stigmata of bleeding, the patient could be transferred to general medical floor. MMRAHATL / JASMYNEN: [id number] /
--- NOTE | 2019-05-13 11:06 | CONS ---
CONSULTATION Mrs. Vences is an 84-year-old female who is seen for the evaluation of syncope. Patient's electronic medical records as well as the old charts were reviewed. This patient has a known history of coronary artery disease with a prior history of coronary artery bypass surgery as well as history of stent placement and hypertension. The patient has Parkinson disease and chronic back pain. The patient gives a history that she went to the grocery store with her daughter when she started feeling lightheadedness and she had to sit down. According to the daughter, patient was having some upper and lower abdominal pain with diarrhea. Patient had 5 to 6 loose bowel movements. She also took one extra pain pill. She did not have any chest pain or palpitations. When the patient arrived, she appeared to be dehydrated and she was given intravenous fluids. During the night, the patient had a temperature of 100.6. The CT of the abdomen is suggestive of possible some degree of transverse colitis with wall thickening. PAST MEDICAL HISTORY: Past medical history includes coronary artery bypass surgery, stent placement. The patient is currently everyday smoker. History of Parkinson disease, hypertension and thyroid disorder. MEDICATIONS: Patient's medications include Xanax, vitamin C, Lipitor, Advair, Prilosec, Imdur, Neurontin, Zestril, Mysoline, and Inderal XL. PHYSICAL EXAMINATION: Physical examination at present reveals an 84-year-old female who does not appear to be in any acute distress. Patient has a low-grade temperature of 99. The patient had a temperature of a 100.6 yesterday. Blood pressure is 123/53 mmHg. Head/EENT examination is negative. Neck is supple. There is no increase in jugular venous pressure. Both the carotid pulses are felt. There is no bruit. Chest is symmetrical. HEART: The PMI is not felt. First and second heart sounds are heard. Lungs are clinically clear to auscultation and percussion. Abdomen is soft. There is a mild generalized tenderness present. EXTREMITIES: Peripheral pulsations are 1+. EKG shows normal sinus rhythm with intraventricular conduction delay. It is unchanged from before. Cardiac enzymes are normal. Patient's initial creatinine was 1.35. Repeat creatinine is 1.03. FINAL IMPRESSION: 1. Syncope most likely secondary to abdominal pain, diarrhea, and vasovagal syncope or orthostatic hypotension. At present, there is no evidence of any acute myocardial infarction. No significant dysrhythmias are noted. 2. Patient has a stable coronary artery disease with a prior history of coronary artery bypass surgery. We will do echocardiogram to assess the left ventricular systolic function. DAPHNE / JASMYNEN: [id number] /
--- NOTE | 2019-05-13 11:29 | P.CNNES ---
History of Present Illness Consult date: 05/13/19 Requesting physician: Jay Colon Reason for Consult: Syncope History of Present Illness: Patient is a 84-year-old female, who was at grocery, doing shopping, when while standing at the line at checkout, patient started feeling weak, sat down in the chair and then passed out when her eyes rolled back and was not responsive, jaw tremoring. Patient then started vomiting dark brown material, which it later turned to coffee color. Patient's daughter brought her to the hospital. Her blood pressure was 106/38, pulse rate 63 temperature 97.5 and saturation 90% on room air. Patient's hemoglobin on arrival was 15, which dropped down to 12.1 now. WBC 15.2. Sodium 136 potassium 4.2, BUN 23, creatinine 1.35. It has i mproved to 21 and 1.03 respectively. Patient's AST was mildly elevated 46 with ALT normal 30. Troponin negative, UA negative. Patient's B12 was 423 on 09/02/2018, RBC folate was normal. Patient states that she does take Motrin, for her osteoarthritis and chronic back pain. Patient also has history of tremors for which patient follows a Dr. Orona, and is currently on primidone. Patient states that she has Parkinson's disease, previously tried Sinemet, which made her tremors worse, but now is better on primidone. CT head showed cerebral atrophy with no acute process. Chest x-ray shows c orrelation for pneumonia, subsegmental atelectasis, hiatal hernia. Right lower lobe lung nodule not seen on plain film, follow-up recommended. Cardiomegaly. Patient states that she had history of a syncopal spell a Dr. Orona's office few years ago. No other history of syncopal spells. No history of seizures. Patient has history of right CEA more than 5 years ago. She has not had any carotid ultrasound follow-up since then. Patient smokes, smokes one pack per day for last 50 years. Review of Systems Complains of abdominal pain, nausea, denies any focal symptoms. Denies any diplopia, no numbness. Denies chest pain. She appears slightly short of breath. Past Medical History Past Medical History: Coronary Artery Disease (CAD), GERD/Reflux, Hypertension, Osteoarthritis (OA), Thyroid Disorder Additional Past Medical History / Comment(s): Parkinson's disease, depression. History of Any Multi-Drug Resistant Organisms: None Reported Past Surgical History: Coronary Bypass/CABG Additional Past Surgical History / Comment(s): STENT X1. Right carotid endarterectomy Past Anesthesia/Blood Transfusion Reactions: Postoperative Nausea & Vomiting (PONV) Past Psychological History: Anxiety, Depression Smoking Status: Current every day smoker Past Alcohol Use History: None Reported Past Drug Use History: None Reported - Past Family History Mother Family Medical History: CVA/TIA, Myocardial Infarction ([place]), Rheumatoid Arthritis ([place]) Father Family Medical History: Myocardial Infarction ([place]) Additional Family Medical History / Comment(s): ANEURYSM-UNKNOWN LOCATION Medications and Allergies Home Medications Medication Instructions Recorded Confirmed Type ALPRAZolam [Xanax] 0.25 mg PO Q12H PRN 07/25/15 05/12/19 History Ascorbic Acid [Vitamin C] 500 mg PO HS 07/25/15 05/12/19 History Aspirin 81 mg PO HS 07/25/15 05/12/19 History Atorvastatin [Lipitor] 80 mg PO HS 07/25/15 05/12/19 History Citalopram Hydrobromide [CeleXA] 20 mg PO HS 07/25/15 05/12/19 History Fluticasone/Salmeterol [Advair 1 puff INHALATION RT-BID 07/25/15 05/12/19 History 250-50 Diskus] Levothyroxine Sodium [Synthroid] 75 mcg PO QAM 07/25/15 05/12/19 History Nitroglycerin Sl Tabs [Nitrostat] 0.4 mg SUBLINGUAL Q5M PRN 07/25/15 05/12/19 History Omeprazole [PriLOSEC] 20 mg PO AC-BID 07/25/15 05/12/19 History buPROPion HCL [Wellbutrin XL] 300 mg PO QAM 07/25/15 05/12/19 History Isosorbide Mononitrate ER [Imdur] 30 mg PO DAILY #30 tab.er.24h 07/30/15 05/12/19 Rx Nicotine 14Mg/24Hr Patch [Habitrol] 1 patch TRANSDERM DAILY #30 patch 07/30/15 05/12/19 Rx Gabapentin [Neurontin] 100 mg PO BID 05/12/19 05/12/19 History Lisinopril [Zestril] 2.5 mg PO DAILY 05/12/19 05/12/19 History Primidone [Mysoline] 50 mg PO HS 05/12/19 05/12/19 History Propranolol HCl [Inderal Xl] 80 mg PO DAILY 05/12/19 05/12/19 History Allergies Allergy/AdvReac Type Severity Reaction Status Date / Time venom-honey bee Allergy Anaphylaxis Verified 05/12/19 20:48 [bee venom (honey bee)] Physical Examination - Vital Signs Vital Signs: Vital Signs Temp Pulse Pulse Resp BP BP Pulse Ox 05/13/19 10:00 77 23 142/77 96 05/13/19 09:00 73 21 123/53 95 05/13/19 08:00 99.0 F 77 19 132/57 95 05/13/19 07:00 78 20 133/44 92 L 05/13/19 06:00 87 17 132/44 93 L 05/13/19 05:00 79 25 H 137/48 92 L 05/13/19 04:00 100.6 F H 80 19 120/47 92 L 05/13/19 03:00 72 15 142/31 94 L 05/13/19 02:00 73 23 100/81 96 05/13/19 01:00 70 13 130/47 93 L 05/13/19 00:00 98.4 F 70 21 151/58 92 L 05/12/19 23:00 66 13 145/55 93 L 05/12/19 22:00 98.6 F 72 18 96 05/12/19 21:23 97.8 F 77 18 149/74 96 05/12/19 20:25 18 05/12/19 20:00 97.5 F L 67 18 132/66 98 05/12/19 19:49 71 18 154/90 98 05/12/19 16:06 97.5 F L 63 17 106/38 90 L Intake and Output 05/12/19 05/13/19 05/13/19 22:59 06:59 14:59 Intake Total 600 380 Output Total 400 690 260 Balance -400 -90 120 Intake: IV 600 300 0.9 NS 600 300 Lipid 80 0.9 NS 80 Output: Urine 690 260 Uretheral (Schafer) 450 Stool 200 Emesis 200 Other: Voiding Method Indwelling Catheter Indwelling Catheter # Bowel Movements 1 1 Weight 58.967 kg 62.3 kg On examination patient is an elderly female, appears slightly restless and ill. Patient is alert awake oriented to time place and person. Speech and language functions are normal. Patient appears slightly restless, ill. On cranial nerve examination pupils are round and reacting. Patient has prominent arcus senilis. Visual felipe are full, extraocular muscles are intact. Face is symmetric and tongue protrudes the midline. On muscle strength testing there is no pronator drift and the strength is normal in the arms and legs. Patient has mild resting tremor of the right hand, and also of the feet. Tone is very mildly increased. Bulk of muscles normal. No ataxia. Gait deferred. Patient has mild bruit on the right side. Results - Laboratory Findings CBC and BMP: 05/13/19 05:12 05/13/19 05:12 Abnormal Lab Findings: Abnormal Labs 05/12/19 05/12/19 05/12/19 16:46 16:46 16:48 WBC Neutrophils # Lymphocytes # APTT 19.1 L Sodium 135 L Chloride Carbon Dioxide 17 L BUN 23 H Creatinine 1.35 H Glucose 184 H POC Glucose (mg/dL) 196 H Calcium 10.3 H Phosphorus AST 46 H Alkaline Phosphatase 135 H Total Protein Albumin Urine Protein Urine Ketones Urine Blood Hyaline Casts Urine Mucus 05/12/19 05/12/19 05/13/19 21:36 21:36 02:15 WBC 15.7 H Neutrophils # 14.3 H Lymphocytes # 0.6 L APTT Sodium 135 L Chloride 110 H Carbon Dioxide 19 L BUN 25 H Creatinine 1.19 H Glucose 128 H POC Glucose (mg/dL) Calcium Phosphorus AST Alkaline Phosphatase Total Protein Albumin Urine Protein Trace H Urine Ketones Trace H Urine Blood Trace H Hyaline Casts 3 H Urine Mucus Rare H 05/13/19 05/13/19 05:12 05:12 WBC 15.2 H Neutrophils # 13.7 H Lymphocytes # 0.7 L APTT Sodium 136 L Chloride 112 H Carbon Dioxide 17 L BUN 21 H Creatinine Glucose 120 H POC Glucose (mg/dL) Calcium Phosphorus 4.7 H AST 40 H Alkaline Phosphatase Total Protein 5.3 L Albumin 3.0 L Urine Protein Urine Ketones Urine Blood Hyaline Casts Urine Mucus Assessment and Plan Assessment: * Syncopal spell, likely orthostatic from hypovolemia due to acute GI bleed. * History of right ICA stenosis, status post CEA * Chronic back pain. * History of tremors, currently on primidone. Plan: * Patient's syncope was likely due to hypovolemia from GI bleed. Patient to undergo EGD later today. * Patient has history of right ICA stenosis, status post CEA several years ago. She continues to smoke a pack per day. We will recheck carotid Doppler to rule out restenosis. * Counseled about tobacco cessation.
[2019-05-13] MEDS ORDERED: fentaNYL (PF) 50 MCG/ML 2 ML AMP ONE (12:35)
[2019-05-13] MEDS ORDERED: PROPOFOL 10 MG/ML 20 ML VIAL IV ONE (12:35)
[2019-05-13] MEDS ORDERED: LIDOCAINE 1% INJ 10MG/ML (20 ML MDV) ONE (12:35)
[2019-05-13] MEDS ORDERED: IV FLUID CONTINUATION 1,000 ML IV ONE (12:41)
--- NOTE | 2019-05-13 14:17 | P.CONS ---
History of Present Illness - Reason for Consult Consult date: 05/13/19 Coffee-ground emesis Requesting physician: Alexys E Sheet - Chief Complaint Syncope - History of Present Illness 84-year-old female with a medical history significant for tobacco abuse, GERD, hypothyroidism, Parkinson's disease, depression, chronic back pain and prior coronary artery bypass graft who presented to the hospital with complaints of a syncopal episode. The patient reported this sensation of lightheadedness after which she sat down and subsequently had the episodes of syncope with associated urinary incontinence no witnessed seizure-like activity. The patient in the hospital for further evaluation. In the emergency department the patient episodes of coffee-ground emesis. She also had multiple episodes of loose mucoid diarrhea with some associated blood tinge seen. She denies any excessive NSAID use. Reports a remote HISTORY of prior endoscopy. No prior episodes of GI bleed. The patient did have a significant leukocytosis with a WBC of 15 on presentation and computed tomography scan findings of a hiatal hernia with fluid in the colon suggestive of diarrhea and some mild thickening of the distal transverse colon suggestive of possible colitis. Review of Systems REVIEW OF SYSTEMS: CONSTITUTIONAL: Denies any fevers, chills, weight change or fatigue. CARDIOVASCULAR: Denies any chest pain, palpitations high or low blood pressures, but did report 2 syncopal episodes prior to presentation RESPIRATORY: Denies any shortness of breath, hemoptysis or cough. GENITOURINARY: No dysuria or hematuria. MUSCULOSKELETAL: No weakness reported. SKIN: Denies any new rashes or lesions, jaundice or pallor. PSYCHIATRIC: Denies any depression or anxiety. NEUROLOGY: Denies headache, denies any new focal deficits. EARS/NOSE/THROAT: No recent hearing change, congestion, nasal discharge or sore throat. EYES: No pain in eyes, discharge or change in vision. GASTROINTESTINAL: As per HPI. Past Medical History Past Medical History: Coronary Artery Disease (CAD), GERD/Reflux, Hypertension, Osteoarthritis (OA), Thyroid Disorder Additional Past Medical History / Comment(s): Parkinson's disease, depression. History of Any Multi-Drug Resistant Organisms: None Reported Past Surgical History: Coronary Bypass/CABG Additional Past Surgical History / Comment(s): STENT X1 Past Anesthesia/Blood Transfusion Reactions: Postoperative Nausea & Vomiting (PONV) Past Psychological History: Anxiety, Depression Smoking Status: Current every day smoker Past Alcohol Use History: None Reported Past Drug Use History: None Reported - Past Family History Mother Family Medical History: CVA/TIA, Myocardial Infarction ([place]), Rheumatoid Arthritis (RA) Father Family Medical History: Myocardial Infarction ([place]) Additional Family Medical History / Comment(s): ANEURYSM-UNKNOWN LOCATION Medications and Allergies Home Medications Medication Instructions Recorded Confirmed Type ALPRAZolam [Xanax] 0.25 mg PO Q12H PRN 07/25/15 05/12/19 History Ascorbic Acid [Vitamin C] 500 mg PO HS 07/25/15 05/12/19 History Aspirin 81 mg PO HS 07/25/15 05/12/19 History Atorvastatin [Lipitor] 80 mg PO HS 07/25/15 05/12/19 History Citalopram Hydrobromide [CeleXA] 20 mg PO HS 07/25/15 05/12/19 History Fluticasone/Salmeterol [Advair 1 puff INHALATION RT-BID 07/25/15 05/12/19 History 250-50 Diskus] Levothyroxine Sodium [Synthroid] 75 mcg PO QAM 07/25/15 05/12/19 History Nitroglycerin Sl Tabs [Nitrostat] 0.4 mg SUBLINGUAL Q5M PRN 07/25/15 05/12/19 History Omeprazole [PriLOSEC] 20 mg PO AC-BID 07/25/15 05/12/19 History buPROPion HCL [Wellbutrin XL] 300 mg PO QAM 07/25/15 05/12/19 History Isosorbide Mononitrate ER [Imdur] 30 mg PO DAILY #30 tab.er.24h 07/30/15 Rx Nicotine 14Mg/24Hr Patch [Habitrol] 1 patch TRANSDERM DAILY #30 patch 07/30/15 05/12/19 Rx Gabapentin [Neurontin] 100 mg PO BID 05/12/19 05/12/19 History Lisinopril [Zestril] 2.5 mg PO DAILY 05/12/19 05/12/19 History Primidone [Mysoline] 50 mg PO HS 05/12/19 05/12/19 History Propranolol HCl [Inderal Xl] 80 mg PO DAILY 05/12/19 05/12/19 History Allergies Allergy/AdvReac Type Severity Reaction Status Date / Time venom-honey bee Allergy Anaphylaxis Verified 05/12/19 20:48 [bee venom (honey bee)] Physical Exam Vitals: Vital Signs Temp Pulse Pulse Resp BP BP Pulse Ox 05/13/19 06:00 87 17 132/44 93 L 05/13/19 05:00 79 25 H 137/48 92 L 05/13/19 04:00 100.6 F H 80 19 120/47 92 L 05/13/19 03:00 72 15 142/31 94 L 05/13/19 02:00 73 23 100/81 96 05/13/19 01:00 70 13 130/47 93 L 05/13/19 00:00 98.4 F 70 21 151/58 92 L 05/12/19 23:00 66 13 145/55 93 L 05/12/19 22:00 98.6 F 72 18 96 05/12/19 21:23 97.8 F 77 18 149/74 96 05/12/19 20:25 18 05/12/19 20:00 97.5 F L 67 18 132/66 98 05/12/19 19:49 71 18 154/90 98 05/12/19 16:06 97.5 F L 63 17 106/38 90 L Intake and Output 05/12/19 05/12/19 05/13/19 14:59 22:59 06:59 Intake Total 600 Output Total 400 690 Balance -400 -90 Intake: IV 600 0.9 NS 600 Output: Urine 690 Uretheral (Schafer) 450 Stool 200 Emesis 200 Other: Voiding Method Indwelling Catheter # Bowel Movements 1 Weight 58.967 kg 62.3 kg On physical examination, patient appears comfortable in no apparent distress. HEAD: Normocephalic, atraumatic. EYES: No scleral icterus. No conjunctival injection. MOUTH: No lesions, tongue midline. NECK: Trachea midline, no gross abnormalities. CHEST: Clear to auscultation with no wheezing or rhonchi appreciated. HEART: S1-S2 appreciated. ABDOMEN: Soft, mildly tender to palpation. Bowel sounds are positive. No organomegaly. No guarding or rigidity. EXTREMITIES: No pedal edema. SKIN: No rashes, no jaundice. NEUROLOGIC: Alert and oriented x3. No focal deficits. Results CBC & Chem 7: 05/13/19 05:12 05/13/19 05:12 Labs: Abnormal Lab Results - Last 24 Hours (Table) 05/12/19 05/12/19 05/12/19 Range/Units 16:46 16:46 16:48 WBC (3.8-10.6) k/uL Neutrophils # (1.3-7.7) k/uL Lymphocytes # (1.0-4.8) k/uL APTT 19.1 L (22.0-30.0) sec Sodium 135 L (137-145) mmol/L Chloride (98-107) mmol/L Carbon Dioxide 17 L (22-30) mmol/L BUN 23 H (7-17) mg/dL Creatinine 1.35 H (0.52-1.04) mg/dL Glucose 184 H (74-99) mg/dL POC Glucose (mg/dL) 196 H (75-99) mg/dL Calcium 10.3 H (8.4-10.2) mg/dL Phosphorus (2.5-4.5) mg/dL AST 46 H (14-36) U/L Alkaline Phosphatase 135 H (38-126) U/L Total Protein (6.3-8.2) g/dL Albumin (3.5-5.0) g/dL Urine Protein (Negative) Urine Ketones (Negative) Urine Blood (Negative) Hyaline Casts (0-2) /lpf Urine Mucus (None) /hpf 05/12/19 05/12/19 05/13/19 Range/Units 21:36 21:36 02:15 WBC 15.7 H (3.8-10.6) k/uL Neutrophils # 14.3 H (1.3-7.7) k/uL Lymphocytes # 0.6 L (1.0-4.8) k/uL APTT (22.0-30.0) sec Sodium 135 L (137-145) mmol/L Chloride 110 H (98-107) mmol/L Carbon Dioxide 19 L (22-30) mmol/L BUN 25 H (7-17) mg/dL Creatinine 1.19 H (0.52-1.04) mg/dL Glucose 128 H (74-99) mg/dL POC Glucose (mg/dL) (75-99) mg/dL Calcium (8.4-10.2) mg/dL Phosphorus (2.5-4.5) mg/dL AST (14-36) U/L Alkaline Phosphatase (38-126) U/L Total Protein (6.3-8.2) g/dL Albumin (3.5-5.0) g/dL Urine Protein Trace H (Negative) Urine Ketones Trace H (Negative) Urine Blood Trace H (Negative) Hyaline Casts 3 H (0-2) /lpf Urine Mucus Rare H (None) /hpf 05/13/19 05/13/19 Range/Units 05:12 05:12 WBC 15.2 H (3.8-10.6) k/uL Neutrophils # 13.7 H (1.3-7.7) k/uL Lymphocytes # 0.7 L (1.0-4.8) k/uL APTT (22.0-30.0) sec Sodium 136 L (137-145) mmol/L Chloride 112 H (98-107) mmol/L Carbon Dioxide 17 L (22-30) mmol/L BUN 21 H (7-17) mg/dL Creatinine (0.52-1.04) mg/dL Glucose 120 H (74-99) mg/dL POC Glucose (mg/dL) (75-99) mg/dL Calcium (8.4-10.2) mg/dL Phosphorus 4.7 H (2.5-4.5) mg/dL AST 40 H (14-36) U/L Alkaline Phosphatase (38-126) U/L Total Protein 5.3 L (6.3-8.2) g/dL Albumin 3.0 L (3.5-5.0) g/dL Urine Protein (Negative) Urine Ketones (Negative) Urine Blood (Negative) Hyaline Casts (0-2) /lpf Urine Mucus (None) /hpf CT scan - abdomen: report reviewed (Computed tomography scan of the abdomen with findings of a hiatal hernia, fluid-filled colon and mild thickening of the distal transverse colon suggestive of colitis.) Assessment and Plan (1) Colitis Narrative/Plan: 84-year-old female with multiple medical comorbidities who presented to the hospital with complaints of syncopal episode. The patient also reported abdominal pain with multiple episodes of coffee-ground emesis as well as diarrhea with some blood noted with bowel movements. No similar presentations. No prior hospitalizations for GI bleed. Does report a remote history of endosc opy. Denies any NSAID use. Patient was found to have a significant leukocytosis with a WBC of 15 on presentation with computed tomography scan of the abdomen with findings of a hiatal hernia, fluid-filled colon and some mild thickening of the distal transverse colon suggestive of colitis. Unknown etiology, suspicion is for infectious or ischemic etiology with inflammatory process less likely. Current Visit: Yes Status: Acute Code(s): K52.9 - NONINFECTIVE GASTROENTERITIS AND COLITIS, UNSPECIFIED SNOMED Code(s): 42069914 (2) Abdominal pain Current Visit: Yes Status: Acute Code(s): R10.9 - UNSPECIFIED ABDOMINAL PAIN SNOMED Code(s): 08148461 (3) Coffee ground emesis Narrative/Plan: Multiple episodes of reported coffee-ground emesis. Hemoglobin has remained stable at 12. No prior episodes of upper GI bleed. No excessive NSAID use. Unclear if patient has previously had EGD. Current Visit: Yes Status: Acute Code(s): K92.0 - HEMATEMESIS SNOMED Code(s): 19002240 Plan: Supportive care IV fluid hydration Nothing by mouth Protonix 40 mg IV twice a day Continue to monitor hemoglobin and hematocrit and transfuse as needed Continue antibiotic therapy with metronidazole and ceftriaxone Plan for EGD for evaluation of symptoms of coffee-ground emesis Patient will need colonoscopy in 4-6 weeks after discharge for evaluation of suspected colitis Thank you for allowing us to participate in the care of the patient we will continue to follow
--- NOTE | 2019-05-13 14:19 | P.PCN ---
Date of Procedure: 05/13/19 Description of Procedure: BRIEF HISTORY: 84-year-old female with a medical history significant for tobacco abuse, GERD, hypothyroidism, Parkinson's disease, depression, chronic back pain and prior coronary artery bypass graft who presented to the hospital with complaints of a syncopal episode. The patient reported this sensation of lightheadedness after which she sat down and subsequently had the episodes of syncope with associated urinary incontinence no witnessed seizure-like activity. The patient in the hospital for further evaluation. In the emergency department the patient episodes of coffee-ground emesis. She also had multiple episodes of loose mucoid diarrhea with some associated blood tinge seen. She denies any excessive NSAID use. Reports a remote HISTORY of prior endoscopy. No prior episodes of GI bleed. The patient did have a significant leukocytosis with a WBC of 15 on presentation and computed tomography scan findings of a hiatal hernia with fluid in the colon suggestive of diarrhea and some mild thickening of the distal transverse colon suggestive of possible colitis. PROCEDURE PERFORMED: Esophagogastroduodenoscopy. PREOPERATIVE DIAGNOSIS: Coffee-ground emesis, nausea and vomiting. ESTIMATED BLOOD LOSS: Minimal. IV sedation per anesthesia. PROCEDURE: After informed consent was obtained, the patient was brought into the endoscopy unit. IV sedation was administered by Anesthesia under continuous monitoring. Initially the Olympus GIF-190 video endoscope was inserted into the mouth. Esophagus intubated without any difficulty. It was gradually advanced into the stomach and duodenum and carefully examined. The bulb and the second part of the duodenum appeared normal. The scope at this time was withdrawn to the stomach, adequately insufflated with air, and upon careful examination, mucosa of the antrum, body, cardia and the fundus appeared normal. The scope was then withdrawn into the esophagus. The GE junction was located at 32 cm from the incisors, with a 3 cm hiatal hernia noted. The esophagus appeared normal. There were no erosions or ulcerations seen and the patient tolerated the procedure well. IMPRESSION: 1. No active bleeding, old blood or pathology to explain symptoms of coffee- ground emesis. 2. Moderate sized hiatal hernia. RECOMMENDATIONS: The findings of this examination were discussed with the patient and her family. Okay for liquid diet. Continue current medical management with broad-spectrum antibiotic therapy. Continue evaluation by cardiology and neurology services. She will need colonoscopy in 4-6 weeks for evaluation of computed tomography scan findings of colitis of the distal transverse colon.
[2019-05-13] MEDS: SODIUM CHLORIDE 0.9% 1,000 ML IV SCH ×2 (16:41→21:37)
--- NOTE | 2019-05-13 17:05 | US ---
EXAMINATION TYPE: US carotid duplex BILAT DATE OF EXAM: 05/13/2019 COMPARISON: NONE CLINICAL HISTORY: Syncope, history of right CEA, currently smoker. EXAM MEASUREMENTS: RIGHT: Peak Systolic Velocity (PSV) cm/sec ----- Right CCA: 85.0 ----- Right ICA: 96.1 ----- Right ECA: 209.4 ICA/CCA ratio: 1.1 RIGHT: End Diastole cm/sec ----- Right CCA: 13.9 ----- Right ICA: 19.0 ----- Right ECA: 12.6 LEFT: Peak Systolic Velocity (PSV) cm/sec ----- Left CCA: 76.7 ----- Left ICA: 172.0 ----- Left ECA: 239.2 ICA/CCA ratio: 2.2 LEFT: End Diastole cm/sec ----- Left CCA: 13.1 ----- Left ICA: 27.7 ----- Left ECA: 10.7 VERTEBRALS (direction of flow): Right Vertebral: Antegrade Left Vertebral: Antegrade Rhythm: Normal IMPRESSION: JAMES IMPRESSION: Mild atherosclerotic changes on right with no significant velocity incre ase in ICA; patient had endarterectomy 5 years ago. LICA IMPRESSION: Left side shows severe plaque and atherosclerotic changes with narrow vessels; no s ignificant velocity increase in ICA. BILATERAL VERTEBRALS: Antegrade flow.
[2019-05-14] MEDS: MORPHINE SULFATE 2 MG/ML SYRINGE IVP PRN (03:04)
[2019-05-14] MEDS ORDERED: PROPRANOLOL HCL 80 MG PO SCH (05:00)
[2019-05-14] MEDS: LISINOPRIL 2.5 MG TAB PO SCH (05:15)
[2019-05-14] MEDS: ISOSORBIDE MONONITRATE ER 30 MG TAB.ER.24H PO SCH (05:15)
[2019-05-14] MEDS: PROPRANOLOL LA 80 MG CAP.SA.24H PO SCH (05:16)
[2019-05-14] MEDS: PANTOPRAZOLE 40 MG/10 ML VIAL IVP SCH (08:06)
[2019-05-14] MEDS: metroNIDAZOLE-NS PMX 500 MG in SALINE 1 100ML.BAG IVPB SCH (08:07)
[2019-05-14 08:12] LABS: Basophils % (A) 0 %; Eosinophils % (A) 0 %; HCT 33.6 % (34.0-46.0); HGB 11.4 gm/dL (11.4-16.0); Lymphocytes # (A) 1.4 k/uL (1.0-4.8); Lymphocytes % (A) 11 %; MCH 32.6 pg (25.0-35.0); MCHC 33.9 g/dL (31.0-37.0); MCV 96.3 fL (80.0-100.0); Mean Platelet Volume 7.5; Monocytes # (A) 0.5 k/uL (0-1.0); Monocytes % (A) 4 %; Neutrophils # (A) 10.6 k/uL (1.3-7.7); Neutrophils % (A) 84 %; Platelet Count 242 k/uL (150-450); RBC 3.49 m/uL (3.80-5.40); RDW 12.6 % (11.5-15.5); WBC 12.7 k/uL (3.8-10.6)
[2019-05-14 08:25] LABS: Calcium 8.1 mg/dL (8.4-10.2); Magnesium 2.1 mg/dL (1.6-2.3); Potassium 3.8 mmol/L (3.5-5.1)
--- NOTE | 2019-05-14 10:00 | ECHOF ---
Referral Reason:syncope MEASUREMENTS -------- HEIGHT: 149.9 cm WEIGHT: 62.1 kg BP: 123/53 RVIDd: 2.6 cm (< 3.3) IVSd: 1.1 cm (0.6 - 1.1) LVIDd: 3.9 cm (3.9 - 5.3) LVPWd: 1.2 cm (0.6 - 1.1) IVSs: 1.7 cm LVIDs: 2.4 cm LVPWs: 1.7 cm LA Diam: 3.7 cm (2.7 - 3.8) LAESV Index (A-L): 24.21 ml/m Ao Diam: 2.7 cm (2.0 - 3.7) AV Cusp: 1.7 cm (1.5 - 2.6) MV EXCURSION: 18.525 mm (> 18.000) MV EF SLOPE: 60 mm/s (70 - 150) EPSS: 0.3 cm MV E Lewis: 1.22 m/s MV DecT: 204 ms MV A Lewis: 1.17 m/s MV E/A Ratio: 1.04 RAP: 5.00 mmHg RVSP: 39.23 mmHg FINDINGS -------- Sinus rhythm. This was a technically good study. The left ventricular size is normal. There is borderline concentric left ventricular hypertrophy. Overall left ventricular systolic function is low-normal with, an EF between 50 - 55 %. Apical inf erior LV wall motion is hypokinetic. The right ventricle is normal in size. Normal LA size by volume 22+/-6 ml/m2. The right atrium is normal in size. Interatrial and interventricular septum intact. There is mild aortic valve sclerosis. There is trace mitral regurgitation. Mild tricuspid regurgitation present. There is mild pulmonary hypertension. The right ventricular systolic pressure, as measured by Doppler, is 39.23mmHg. Trace/mild (physiologic) pulmonic regurgitation. The aortic root size is normal. Normal inferior vena cava with normal inspiratory collapse consistent with estimated right atrial pre ssure of 5 mmHg. There is no pericardial effusion. CONCLUSIONS -------- 1. Sinus rhythm. 2. This was a technically good study. 3. The left ventricular size is normal. 4. There is borderline concentric left ventricular hypertrophy. 5. Overall left ventricular systolic function is low-normal with, an EF between 50 - 55 %. 6. Apical inferior LV wall motion is hypokinetic. 7. The right ventricle is normal in size. 8. Normal LA size by volume 22+/-6 ml/m2. 9. The right atrium is normal in size. 10. Interatrial and interventricular septum intact. 11. There is mild aortic valve sclerosis. 12. There is trace mitral regurgitation. 13. Mild tricuspid regurgitation present. 14. There is mild pulmonary hypertension. 15. The right ventricular systolic pressure, as measured by Doppler, is 39.23mmHg. 16. Trace/mild (physiologic) pulmonic regurgitation. 17. The aortic root size is normal. 18. Normal inferior vena cava with normal inspiratory collapse consistent with estimated right atrial pressure of 5 mmHg. 19. There is no pericardial effusion. OIL SPRAYER: Tasha Sue RDCS
[2019-05-14] MEDS: ACETAMINOPHEN TAB 325 MG TAB PO PRN ×3 (10:02→22:38)
[2019-05-14] MEDS ORDERED: MORPHINE SULFATE 4 MG/ML SYRINGE IVP PRN (10:12)
--- NOTE | 2019-05-14 11:57 | P.PN ---
Subjective Progress Note Date: 05/14/19 Patient denies any new symptoms. No further syncopal spells. She is now on a regular floor. She had EGD performed yesterday, which showed no significant abnormalities. Patient has evidence of colitis for which she will need colonoscopy in the future. Patient's hemoglobin A1c 11.4, hematocrit 33.6, platelets 242. WBC 12.7. Sodium 131 potassium 3.8 renal functions normal. Stool occult blood is pos itive. Objective - Vital Signs Vital signs: Vital Signs Temp 98.4 F 05/14/19 04:43 Pulse 63 05/14/19 04:43 Resp 17 05/14/19 04:43 BP 183/73 05/14/19 04:43 Pulse Ox 92 L 05/14/19 04:43 Intake & Output 05/13/19 05/14/19 05/14/19 18:59 06:59 18:59 Intake Total 875 200 Output Total 940 1200 Balance -65 -1000 Weight 59 kg Intake: IV 875 200 0.9 NS 675 100 metroNIDAZOLE-NS PMX 500 100 mg In Saline 1 100ml.bag @ 100 mls/hr IVPB Q8HR [facility] Rx#:[id number] Output: Urine 740 1200 Stool 200 Other: Voiding Method Indwelling Catheter Indwelling Catheter Bedside Commode # Bowel Movements 1 - Exam Nonfocal. Mental status speech and language functions cranial nerves normal. - Labs CBC & Chem 7: 05/14/19 07:32 05/14/19 07:32 Labs: Abnormal Lab Results - Last 24 Hours (Table) 05/13/19 05/14/19 05/14/19 Range/Units 15:00 07:32 07:32 WBC 12.7 H (3.8-10.6) k/uL RBC 3.49 L (3.80-5.40) m/uL Hct 33.6 L (34.0-46.0) % Neutrophils # 10.6 H (1.3-7.7) k/uL Sodium 131 L (137-145) mmol/L Carbon Dioxide 19 L (22-30) mmol/L Calcium 8.1 L (8.4-10.2) mg/dL Stool Occult Blood Positive H (Negative) Microbiology - Last 24 Hours (Table) 05/13/19 05:12 Blood Culture - Preliminary Blood No Growth after 24 hours 05/13/19 15:00 Stool Culture - Preliminary Stool Assessment and Plan Assessment: * Syncopal spell, likely orthostatic from hypovolemia due to acute GI bleed. * History of right ICA stenosis, status post CEA * Chronic back pain. * History of tremors, currently on primidone. Plan: * Patient's syncope was likely due to hypovolemia from GI bleed. EGD showed no significant abnormalities. * Carotid Doppler showed mild atherosclerotic changes on the right with no significant velocity increase in the ICA. Patient had endarterectomy 5 years ago. On the left side showed severe plaque and atherosclerotic changes with narrow vessels, no significant velocity increase in ICA. Antegrade flow in both vertebral arteries. * Suggested patient to resume aspirin 81 mg daily, when medically cleared. * Counseled about tobacco cessation. * No other neurological workup indicated. Patient clear from neurology point.
--- NOTE | 2019-05-14 12:36 | P.PN ---
Subjective This is a pleasant 84 years old female with past medical history of coronary artery disease status post CABG and 1 stent, hypertension, cigarette smoker, GERD, hypothyroidism, Parkinson disease, depression, chronic back pain. Patient presents because of syncope. Patient states that she was going to the grocery store with her daughter when she felt lightheadedness and she has to sit on a chair, and immediately she was on and off about 2 times associated with urine incontinence but no seizure like activity as per patient daughter. Patient d ecided to come to the hospital where she started having upper and lower abdominal pain with diarrhea, pain is in the mid part of the abdomen both upper and lower, about 6-8/10 in severity, pain is nonradiating but continuous home associated with 5-6 times of loose bowel movement with some blunt as the patient has been told, associated with coffee ground vomitus. Patient is smokes about 1 pack per day, she follows with Dr. Ibrahim the media strategist and she supposed to see him today for checkup. On admission patient had fever of 100.6, blood pressure 132/44, she is saturating 93% on 2 L oxygen. Labs showed leukocytosis of 15.2, INR is normal at 1.0, sodium 135 and 136, creatinine was elevated 1.35, came down to normal this morning at 1.0, glucose 184 and 120, Is not suspicious of infection. Troponins are negative 3.chest x-ray: Clinical hernia, no acute process. CT of the abdomen and pelvis with contrast: Possible distal transverse colitis with wall thickening and large fluid consistent with the area. CT of the brain showed no acute process per radiologist. EKG: Showing sinus rhythm with first-degree AV block at 73 BPM, with QTC of 522 In the emergency room patient was given magnesium replacement and IV fluid, 2 L of normal saline and then started at 75 mL/h From emergency room so far consults has been ordered including pulmonary, gastroenterology for GI bleed and neurologist 05/14/2019 Patient breathing is better today, she is tolerating diet with no nausea vomiting, however she still have significant abdominal pain about 8/10 however improved compared to yesterday. She has one episode of loose bowel movement. Abdominal exam showing tenderness with no rebound tenderness. Patient was transferred to the general medical floor. EGD was unremarkable. Patient c ontinued on antibiotics in the form of ceftriaxone and Flagyl as well as normal saline and Protonix twice a day.leukocytosis is improving from 15.2 down to 12.7 K. Hemoglobin stable at 11.4.occult blood in the stool is positive as well as lactoferrin in the stool. C. diff test is negative review of systems CONSTITUTIONAL: No fever, no malaise, no fatigue. HEENT: No recent visual problems or hearing problems. Denied any sore throat. CARDIOVASCULAR: No orthopnea, PND, no palpitations, no syncope. PULMONARY: No shortness of breath, no cough, no hemoptysis. GASTROINTESTINAL: Normoactive bowel sounds. NEUROLOGICAL: No headaches, no weakness, no numbness. HEMATOLOGICAL: Denies any bleeding or petechiae. GENITOURINARY: Denies any burning micturition, frequency, or urgency. MUSCULOSKELETAL/RHEUMATOLOGICAL: Denies any joint pain, swelling, or any muscle pain. ENDOCRINE: Denies any polyuria or polydipsia. Active Medications Generic Name Dose Route Start Last Admin Trade Name Freq PRN Reason Stop Dose Admin Acetaminophen 650 mg 05/14/19 09:36 05/14/19 10:02 Tylenol Tab PO 650 mg Q6HR PRN Administration Fever and/ or Pain Sodium Chloride 1,000 mls @ 75 mls/hr 05/12/19 23:30 05/13/19 21:37 Saline 0.9% IV 75 mls/hr .[id number] [facility] Administration Ceftriaxone Sodium 1 gm/ 50 mls @ 100 mls/hr 05/13/19 09:00 05/14/19 09:18 Sodium Chloride IVPB 100 mls/hr Q24HR [facility] Administration Isosorbide Mononitrate 30 mg 05/14/19 05:00 05/14/19 05:15 Imdur PO 30 mg DAILY [facility] Administration Lisinopril 2.5 mg 05/14/19 05:00 05/14/19 05:15 Zestril PO 2.5 mg DAILY [facility] Administration Metronidazole 500 mg 05/14/19 16:00 Flagyl PO Q8HR [facility] Morphine Sulfate 4 mg 05/14/19 10:12 Morphine Sulfate (Inj) IVP Q4H PRN Pain/Discomfort Naloxone HCl 0.2 mg 05/12/19 19:17 Narcan IV Q2M PRN Opioid Reversal Ondansetron HCl 4 mg 05/12/19 19:17 05/13/19 09:31 Zofran IVP 4 mg Q8HR PRN Administration Nausea And Vomiting Pantoprazole Sodium 40 mg 05/14/19 17:30 Protonix PO AC-BID [facility] Propranolol HCl 80 mg 05/14/19 05:00 05/14/19 05:16 Inderal La PO 80 mg DAILY [facility] Administration Objective - Vital Signs Vital signs: Vital Signs Temp 98.5 F 05/14/19 12:30 Pulse 59 L 05/14/19 12:30 Resp 18 05/14/19 12:30 BP 136/57 05/14/19 12:30 Pulse Ox 94 L 05/14/19 12:30 Intake & Output 05/13/19 05/14/19 05/14/19 18:59 06:59 18:59 Intake Total 875 200 Output Total 940 1200 Balance -65 -1000 Weight 59 kg Intake: IV 875 200 0.9 NS 675 100 metroNIDAZOLE-NS PMX 500 100 mg In Saline 1 100ml.bag @ 100 mls/hr IVPB Q8HR [facility] Rx#:[id number] Output: Urine 740 1200 Stool 200 Other: Voiding Method Indwelling Catheter Indwelling Catheter Bedside Commode # Bowel Movements 1 - Exam GENERAL: The patient is alert and oriented x3, not in any acute distress. Well developed, well nourished. HEENT: Pupils are round and equally reacting to light. EOMI. No scleral icterus. No conjunctival pallor. Normocephalic, atraumatic. No pharyngeal erythema. No thyromegaly. CARDIOVASCULAR: S1 and S2 present. No murmurs, rubs, or gallops. PULMONARY: Chest is clear to auscultation, no wheezing or crackles. -ABDOMEN: Soft, mid abdominal tenderness with no rebound tenderness or guarding, nondistended, normoactive bowel sounds. No palpable organomegaly. MUSCULOSKELETAL: No joint swelling or deformity. EXTREMITIES: No cyanosis, clubbing, or pedal edema. NEUROLOGICAL: Gross neurological examination did not reveal any focal deficits. SKIN: No rashes. No petechiae - Labs CBC & Chem 7: 05/14/19 07:32 05/14/19 07:32 Labs: Abnormal Lab Results - Last 24 Hours (Table) 05/13/19 05/13/19 05/14/19 Range/Units 15:00 15:00 07:32 WBC 12.7 H (3.8-10.6) k/uL RBC 3.49 L (3.80-5.40) m/uL Hct 33.6 L (34.0-46.0) % Neutrophils # 10.6 H (1.3-7.7) k/uL Sodium (137-145) mmol/L Carbon Dioxide (22-30) mmol/L Calcium (8.4-10.2) mg/dL Stool Occult Blood Positive H (Negative) Stool Lactoferrin POSITIVE H (NEGATIVE) 05/14/19 Range/Units 07:32 WBC (3.8-10.6) k/uL RBC (3.80-5.40) m/uL Hct (34.0-46.0) % Neutrophils # (1.3-7.7) k/uL Sodium 131 L (137-145) mmol/L Carbon Dioxide 19 L (22-30) mmol/L Calcium 8.1 L (8.4-10.2) mg/dL Stool Occult Blood (Negative) Stool Lactoferrin (NEGATIVE) Microbiology - Last 24 Hours (Table) 05/13/19 05:12 Blood Culture - Preliminary Blood No Growth after 24 hours 05/13/19 15:00 Stool Culture - Preliminary Stool Assessment and Plan Assessment: Syncope SIRS syndrome with leukocytosis and fever Possible sepsis secondary to colitis History of coronary artery disease status post CABG and stent Nicotine dependence Hypertension Hypothyroidism Parkinson disease Gastroesophageal reflux disease Primary osteoarthritis History of depression, not an active issue Chronic back pain Plan: This is a pleasant 84 years old female who presents with syncope and colitis. We'll start the patient on ceftriaxone and flagyl, pending stool culture. Follow-up recommendations by other consultants from GI, pulmonary/critical care, media strategist and neurologist services consulted from ED. Continue with hydration and pain management. Continue with Protonix twice daily. Labs and medication were reviewed.. Continue same treatment. Continue with symptomatic treatment. Resume home medication. Monitor lytes and vitals. DVT and GI prophylaxis. Further recommendations of the clinical course of the patient DVT Prophylaxis : no heparin in view of GI bleed GI Prophylaxis: Protonix Prognosis is guarded son at bedside and his questions were answered
--- NOTE | 2019-05-14 13:34 | P.PN ---
Subjective Progress Note Date: 05/14/19 Principal diagnosis: Acute gastrointestinal bleed suspect upper GI in nature The patient is seen today 05/14/2019 in follow-up on the regular medical floor. She was seen in consultation yesterday in the intensive care unit for an acute GI bleed. She has not had any further bleeding in the past 24 hours. EGD was performed yesterday with no active bleeding, old blood or pathology to explain coffee-ground emesis. There is a moderate sized hiatal hernia. She is currently awake and alert in no acute distress. She is maintaining O2 saturations in the 90s on room air. She's afebrile. Hemodynamically stable. Blood cultures reveal no growth. White count 12.7. Hemoglobin 11.4. Creatinine 0.74. Stool for occult blood was positive. Stool for lactoferrin was positive. C. difficile screen was negative. She remains on ceftriaxone and Flagyl. Objective - Vital Signs Vital signs: Vital Signs Temp 98.5 F 05/14/19 12:30 Pulse 59 L 05/14/19 12:30 Resp 18 05/14/19 12:30 BP 136/57 05/14/19 12:30 Pulse Ox 94 L 05/14/19 12:30 Intake & Output 05/13/19 05/14/19 05/14/19 18:59 06:59 18:59 Intake Total 290 186 9358 Output Total 940 1200 Balance -65 -1000 1550 Weight 59 kg Intake: IV 875 200 100 0.9 NS 675 100 metroNIDAZOLE-NS PMX 500 100 100 mg In Saline 1 100ml.bag @ 100 mls/hr IVPB Q8HR [facility] Rx#:[id number] Intake, IV Titration 600 Amount Sodium Chloride 0.9% 1, 600 000 ml @ 75 mls/hr IV . [id number] [facility] Rx#:[id number] Oral 850 Output: Urine 740 1200 Stool 200 Other: Voiding Method Indwelling Catheter Indwelling Catheter Bedside Commode # Voids 2 # Bowel Movements 1 - Exam GENERAL EXAM: Alert, pleasant 84-year-old female patient, active, comfortable in no apparent distress. On room air. HEAD: Normocephalic. EYES: Normal reaction of pupils, equal size. NOSE: Clear with pink turbinates. THROAT: No erythema or exudates. NECK: No masses, no JVD. CHEST: No chest wall deformity. LUNGS: Equal air entry with no crackles, wheeze, rhonchi or dullness. CVS: S1 and S2 normal with no audible murmur, regular rhythm. ABDOMEN: No hepatosplenomegaly, normal bowel sounds, no guarding or rigidity. SPINE: No scoliosis or deformity SKIN: No rashes CENTRAL NERVOUS SYSTEM: No focal deficits, tone is normal in all 4 extremities. EXTREMITIES: There is no peripheral edema. No clubbing, no cyanosis. Peripheral pulses are intact. - Labs CBC & Chem 7: 05/14/19 07:32 05/14/19 07:32 Labs: Abnormal Lab Results - Last 24 Hours (Table) 05/13/19 05/13/19 05/14/19 Range/Units 15:00 15:00 07:32 WBC 12.7 H (3.8-10.6) k/uL RBC 3.49 L (3.80-5.40) m/uL Hct 33.6 L (34.0-46.0) % Neutrophils # 10.6 H (1.3-7.7) k/uL Sodium (137-145) mmol/L Carbon Dioxide (22-30) mmol/L Calcium (8.4-10.2) mg/dL Stool Occult Blood Positive H (Negative) Stool Lactoferrin POSITIVE H (NEGATIVE) 05/14/19 Range/Units 07:32 WBC (3.8-10.6) k/uL RBC (3.80-5.40) m/uL Hct (34.0-46.0) % Neutrophils # (1.3-7.7) k/uL Sodium 131 L (137-145) mmol/L Carbon Dioxide 19 L (22-30) mmol/L Calcium 8.1 L (8.4-10.2) mg/dL Stool Occult Blood (Negative) Stool Lactoferrin (NEGATIVE) Microbiology - Last 24 Hours (Table) 05/13/19 05:12 Blood Culture - Preliminary Blood No Growth after 24 hours 05/13/19 15:00 Stool Culture - Preliminary Stool Assessment and Plan Assessment: #1 Acute gastrointestinal bleed, EGD did not reveal any active bleeding, old blood or pathology to explain coffee-ground emesis. #2 Chronic tobacco dependence with some suspected chronic obstructive pulmonary disease, currently inactive and stable. #3 Hyperlipidemia. #4 Hypothyroidism. #5 Gastroesophageal reflux disease. #6 Degenerative joint disease. #7 History of Parkinson's disease. #8 History of depression. Plan: The patient was seen and evaluated by Dr. Rivas. She remains stable from the pulmonary and critical care standpoint. We'll see the patient on as-needed basis. I, the cosigning physician, performed a history & physical examination of the patient. Lungs sounds are clear. Maintaining good O2 saturations in the 90s on room air. I discussed the assessment and plan of care with my nurse practitioner, Gladys Carcamo. I attest to the above note as dictated by her.
[2019-05-14] MEDS: metroNIDAZOLE 500 MG TAB PO SCH ×2 (16:04→23:15)
[2019-05-14] MEDS: SODIUM CHLORIDE 0.9% 1,000 ML IV SCH (16:05)
[2019-05-14] MEDS ORDERED: PANTOPRAZOLE 40 MG TABLET PO SCH (17:30)
--- NOTE | 2019-05-14 19:54 | P.PN ---
Subjective Progress Note Date: 05/14/19 Principal diagnosis: GI bleed, colitis Patient seen walking in the halls and bedside today. Feeling better. As tolerated a liquid diet and asking for diet to be advanced. No signs or symptoms of GI bleed reported. Objective - Vital Signs Vital signs: Vital Signs Temp 98.4 F 05/14/19 04:43 Pulse 63 05/14/19 04:43 Resp 17 05/14/19 04:43 BP 183/73 05/14/19 04:43 Pulse Ox 92 L 05/14/19 04:43 Intake & Output 05/13/19 05/14/19 05/14/19 18:59 06:59 18:59 Intake Total 875 200 Output Total 940 1200 Balance -65 -1000 Weight 59 kg Intake: IV 875 200 0.9 NS 675 100 metroNIDAZOLE-NS PMX 500 100 mg In Saline 1 100ml.bag @ 100 mls/hr IVPB Q8HR [facility] Rx#:[id number] Output: Urine 740 1200 Stool 200 Other: Voiding Method Indwelling Catheter Indwelling Catheter Bedside Commode # Bowel Movements 1 - Exam On physical examination, patient appears comfortable in no apparent distress. HEAD: Normocephalic, atraumatic. EYES: No scleral icterus. No conjunctival injection. MOUTH: No lesions, tongue midline. NECK: Trachea midline, no gross abnormalities. CHEST: Decreased air entry in all lung felipe. ABDOMEN: Soft, thin, nontender. Bowel sounds are positive. No organomegaly. No guarding or rigidity. EXTREMITIES: No pedal edema. SKIN: No rashes, no jaundice. NEUROLOGIC: Alert and oriented x3. No focal deficits. - Labs CBC & Chem 7: 05/14/19 07:32 05/14/19 07:32 Labs: Abnormal Lab Results - Last 24 Hours (Table) 05/13/19 05/14/19 05/14/19 Range/Units 15:00 07:32 07:32 WBC 12.7 H (3.8-10.6) k/uL RBC 3.49 L (3.80-5.40) m/uL Hct 33.6 L (34.0-46.0) % Neutrophils # 10.6 H (1.3-7.7) k/uL Sodium 131 L (137-145) mmol/L Carbon Dioxide 19 L (22-30) mmol/L Calcium 8.1 L (8.4-10.2) mg/dL Stool Occult Blood Positive H (Negative) Microbiology - Last 24 Hours (Table) 05/13/19 05:12 Blood Culture - Preliminary Blood No Growth after 24 hours 05/13/19 15:00 Stool Culture - Preliminary Stool Assessment and Plan (1) Colitis Narrative/Plan: 84-year-old female with multiple medical comorbidities who presented to the hospital with complaints of syncopal episode. The patient also reported abdominal pain with multiple episodes of coffee-ground emesis as well as diarrhea with some blood noted with bowel movements. No similar presentations. No prior hospitalizations for GI bleed. Does report a remote history of endoscopy. Denies any NSAID use. Patient was found to have a significant leukocytosis with a WBC of 15 on presentation with computed tomography scan of the abdomen with findings of a hiatal hernia, fluid-filled colon and some mild thickening of the distal transverse colon suggestive of colitis. Unknown e tiology, suspicion is for infectious or ischemic etiology with inflammatory process less likely. Current Visit: Yes Status: Acute Code(s): K52.9 - NONINFECTIVE GASTROENTERITIS AND COLITIS, UNSPECIFIED SNOMED Code(s): 52859300 (2) Abdominal pain Current Visit: Yes Status: Acute Code(s): R10.9 - UNSPECIFIED ABDOMINAL PAIN SNOMED Code(s): 36184665 (3) Coffee ground emesis Narrative/Plan: Multiple episodes of reported coffee-ground emesis. Hemoglobin has remained stable at 11.4 today. No prior episodes of upper GI bleed. No excessive NSAID use. EGD significant for hiatal hernia without old blood, active bleeding or source of bleeding, maybe secondary to Jamilah-Beltran tear in the setting of retching.. Current Visit: Yes Status: Acute Code(s): K92.0 - HEMATEMESIS SNOMED Code(s): 45814646 Plan: Supportive care IV fluid hydration Full liquid diet, okay to advance to low fiber/low residual tomorrow if stable We'll change Protonix to 40 mg daily Continue to monitor hemoglobin and hematocrit and transfuse as needed Continue antibiotic therapy with metronidazole and ceftriaxone, for possible infectious versus ischemic colitis Patient will need colonoscopy in 4-6 weeks after discharge for evaluation of suspected colitis Thank you for allowing us to participate in the care of the patient we will continue to follow
[2019-05-15] MEDS: SODIUM CHLORIDE 0.9% 1,000 ML IV SCH ×3 (04:30→19:30)
[2019-05-15 08:31] LABS: Basophils % (A) 0 %; Eosinophils # (A) 0.1 k/uL (0-0.7); Eosinophils % (A) 1 %; HCT 36.2 % (34.0-46.0); HGB 11.7 gm/dL (11.4-16.0); Lymphocytes # (A) 0.9 k/uL (1.0-4.8); Lymphocytes % (A) 9 %; MCH 30.9 pg (25.0-35.0); MCHC 32.4 g/dL (31.0-37.0); MCV 95.3 fL (80.0-100.0); Mean Platelet Volume 7.4; Monocytes # (A) 0.4 k/uL (0-1.0); Monocytes % (A) 4 %; Neutrophils # (A) 8.7 k/uL (1.3-7.7); Neutrophils % (A) 85 %; Platelet Count 238 k/uL (150-450); RDW 12.5 % (11.5-15.5); WBC 10.3 k/uL (3.8-10.6)
[2019-05-15] MEDS ORDERED: NITROGLYCERIN SL TABS 0.4 MG TAB SUBLINGUAL PRN (08:45)
[2019-05-15 08:47] LABS: African American GFR (CKD) >90 (>60 ml/min/1.73 sqM); Anion Gap 9 mmol/L; Blood Urea Nitrogen 8 mg/dL (7-17); Calcium 8.3 mg/dL (8.4-10.2); Carbon Dioxide 18 mmol/L (22-30); Chloride 108 mmol/L (98-107); Glucose 113 mg/dL (74-99); Non-African American GFR(CKD) 81 (>60 ml/min/1.73 sqM); Potassium 3.2 mmol/L (3.5-5.1); Sodium 135 mmol/L (137-145)
[2019-05-15] MEDS ORDERED: amLODIPine 2.5 MG TAB PO SCH (09:00)
--- NOTE | 2019-05-15 09:22 | P.PN ---
Subjective This is a pleasant 84 years old female with past medical history of coronary artery disease status post CABG and 1 stent, hypertension, cigarette smoker, GERD, hypothyroidism, Parkinson disease, depression, chronic back pain. Patient presents because of syncope. Patient states that she was going to the grocery store with her daughter when she felt lightheadedness and she has to sit on a chair, and immediately she was on and off about 2 times associated with urine incontinence but no seizure like activity as per patient daughter. Patient d ecided to come to the hospital where she started having upper and lower abdominal pain with diarrhea, pain is in the mid part of the abdomen both upper and lower, about 6-8/10 in severity, pain is nonradiating but continuous home associated with 5-6 times of loose bowel movement with some blunt as the patient has been told, associated with coffee ground vomitus. Patient is smokes about 1 pack per day, she follows with Dr. Ibrahim the bee worker and she supposed to see him today for checkup. On admission patient had fever of 100.6, blood pressure 132/44, she is saturating 93% on 2 L oxygen. Labs showed leukocytosis of 15.2, INR is normal at 1.0, sodium 135 and 136, creatinine was elevated 1.35, came down to normal this morning at 1.0, glucose 184 and 120, Is not suspicious of infection. Troponins are negative 3.chest x-ray: Clinical hernia, no acute process. CT of the abdomen and pelvis with contrast: Possible distal transverse colitis with wall thickening and large fluid consistent with the area. CT of the brain showed no acute process per radiologist. EKG: Showing sinus rhythm with first-degree AV block at 73 BPM, with QTC of 522 In the emergency room patient was given magnesium replacement and IV fluid, 2 L of normal saline and then started at 75 mL/h From emergency room so far consults has been ordered including pulmonary, gastroenterology for GI bleed and neurologist 05/14/2019 Patient breathing is better today, she is tolerating diet with no nausea vomiting, however she still have significant abdominal pain about 8/10 however improved compared to yesterday. She has one episode of loose bowel movement. Abdominal exam showing tenderness with no rebound tenderness. Patient was transferred to the general medical floor. EGD was unremarkable. Patient c ontinued on antibiotics in the form of ceftriaxone and Flagyl as well as normal saline and Protonix twice a day.leukocytosis is improving from 15.2 down to 12.7 K. Hemoglobin stable at 11.4.occult blood in the stool is positive as well as lactoferrin in the stool. C. diff test is negative 05/15/2019 Patient is breathing quietly. She is fully awake and oriented. She's generally weak. She still complaining of from left lower quadrant abdominal pain and tenderness. She has about 3-4 loose bowel movement small amount since yesterday no blood. No nausea vomiting. Blood pressure on the high side at 173/64. We lowered the normal saline from 75 down to 50 mL per hour and was started Norvasc 2.5 mg daily. We'll discuss with GI team the need to restart subcu heparin and baby aspirin in view of positive FOBT in her stool although her hemoglobin was stable. Her sodium is better at 135, potassium is low at 3.2. WBC is 10.3 K. Hemoglobin 11.7. Patient is feeling generally weak, physical therapy recommended subacute rehab, I have elected discussion with the patient, as well as the staff and family who are aware with this recommendation. We are going to consult social media editor for placement and patient agrees with going to rehab at this time. Also I emphasized to the patient as yesterday when her son was at bedside the need for outpatient colonoscopy in 4-6 weeks after resolution of her colitis. Risks including but not limited to cancer are explained and she verbalized understanding and acceptance and follow-up. review of systems CONSTITUTIONAL: No fever, no malaise, no fatigue. HEENT: No recent visual problems or hearing problems. Denied any sore throat. CARDIOVASCULAR: No orthopnea, PND, no palpitations, no syncope. PULMONARY: No shortness of breath, no cough, no hemoptysis. GASTROINTESTINAL: Normoactive bowel sounds. NEUROLOGICAL: No headaches, no weakness, no numbness. HEMATOLOGICAL: Denies any bleeding or petechiae. GENITOURINARY: Denies any burning micturition, frequency, or urgency. MUSCULOSKELETAL/RHEUMATOLOGICAL: Denies any joint pain, swelling, or any muscle pain. ENDOCRINE: Denies any polyuria or polydipsia. Active Medications Generic Name Dose Route Start Last Admin Trade Name Freq PRN Reason Stop Dose Admin Acetaminophen 650 mg 05/14/19 09:36 05/14/19 10:02 Tylenol Tab PO 650 mg Q6HR PRN Administration Fever and/ or Pain Sodium Chloride 1,000 mls @ 75 mls/hr 05/12/19 23:30 05/13/19 21:37 Saline 0.9% IV 75 mls/hr .[id number] AMBROSIO Administration Ceftriaxone Sodium 1 gm/ 50 mls @ 100 mls/hr 05/13/19 09:00 05/14/19 09:18 Sodium Chloride IVPB 100 mls/hr Q24HR AMBROSIO Administration Isosorbide Mononitrate 30 mg 05/14/19 05:00 05/14/19 05:15 Imdur PO 30 mg DAILY AMBROSIO Administration Lisinopril 2.5 mg 05/14/19 05:00 05/14/19 05:15 Zestril PO 2.5 mg DAILY AMBROSIO Administration Metronidazole 500 mg 05/14/19 16:00 Flagyl PO Q8HR AMBROSIO Morphine Sulfate 4 mg 05/14/19 10:12 Morphine Sulfate (Inj) IVP Q4H PRN Pain/Discomfort Naloxone HCl 0.2 mg 05/12/19 19:17 Narcan IV Q2M PRN Opioid Reversal Ondansetron HCl 4 mg 05/12/19 19:17 05/13/19 09:31 Zofran IVP 4 mg Q8HR PRN Administration Nausea And Vomiting Pantoprazole Sodium 40 mg 05/14/19 17:30 Protonix PO AC-BID [facility] Propranolol HCl 80 mg 05/14/19 05:00 05/14/19 05:16 Inderal La PO 80 mg DAILY AMBROSIO Administration Objective - Vital Signs Vital signs: Vital Signs Temp 97.7 F 05/15/19 05:00 Pulse 75 05/15/19 05:00 Resp 20 05/15/19 05:00 BP 173/64 05/15/19 05:00 Pulse Ox 90 L 05/15/19 05:00 Intake & Output 05/14/19 05/15/19 05/15/19 18:59 06:59 18:59 Intake Total 1550 1095 Balance 1550 1095 Weight 59.466 kg Intake: IV 100 metroNIDAZOLE-NS PMX 500 100 mg In Saline 1 100ml.bag @ 100 mls/hr IVPB Q8HR [facility] Rx#:[id number] Intake, IV Titration 600 675 Amount Sodium Chloride 0.9% 1, 600 675 000 ml @ 75 mls/hr IV . [id number] [facility] Rx#:[id number] Oral 850 420 Other: Voiding Method Toilet Toilet Bedside Commode Bedside Commode # Voids 2 2 - Exam GENERAL: The patient is alert and oriented x3, not in any acute distress. Well developed, well nourished. HEENT: Pupils are round and equally reacting to light. EOMI. No scleral icterus. No conjunctival pallor. Normocephalic, atraumatic. No pharyngeal erythema. No thyromegaly. CARDIOVASCULAR: S1 and S2 present. No murmurs, rubs, or gallops. PULMONARY: Chest is clear to auscultation, no wheezing or crackles. -ABDOMEN: Soft, LLQ tenderness with no rebound tenderness or guarding, nond istended, normoactive bowel sounds. No palpable organomegaly. MUSCULOSKELETAL: No joint swelling or deformity. EXTREMITIES: No cyanosis, clubbing, or pedal edema. NEUROLOGICAL: Gross neurological examination did not reveal any focal deficits. SKIN: No rashes. No petechiae - Labs CBC & Chem 7: 05/15/19 08:16 05/15/19 08:16 Labs: Abnormal Lab Results - Last 24 Hours (Table) 05/13/19 05/15/19 05/15/19 Range/Units 15:00 08:16 08:16 Neutrophils # 8.7 H (1.3-7.7) k/uL Lymphocytes # 0.9 L (1.0-4.8) k/uL Sodium 135 L (137-145) mmol/L Potassium 3.2 L (3.5-5.1) mmol/L Chloride 108 H (98-107) mmol/L Carbon Dioxide 18 L (22-30) mmol/L Glucose 113 H (74-99) mg/dL Calcium 8.3 L (8.4-10.2) mg/dL Stool Lactoferrin POSITIVE H (NEGATIVE) Microbiology - Last 24 Hours (Table) 05/13/19 05:12 Blood Culture - Preliminary Blood No Growth after 48 hours Assessment and Plan Assessment: Left lower quadrant colitis Syncope, mostly related to her colitis and hypovolemia SIRS syndrome with leukocytosis and fever Possible sepsis secondary to colitis History of coronary artery disease status post CABG and stent Nicotine dependence Hypertension Hypothyroidism Parkinson disease Gastroesophageal reflux disease Primary osteoarthritis History of depression, not an active issue Chronic back pain Plan: This is a pleasant 84 years old female who presents with syncope and colitis. We'll start the patient on ceftriaxone and flagyl, pending stool culture. F ollow-up recommendations by other consultants from GI, pulmonary/critical care, bee worker and neurologist services consulted from ED. Continue with gentle hydration and pain management. Continue with Protonix twice daily. Labs and medication were reviewed.. Continue same treatment. Continue with symptomatic treatment. Resume home medication. Monitor lytes and vitals. DVT and GI prophylaxis. Further recommendations of the clinical course of the patient DVT Prophylaxis : no heparin in view of GI bleed GI Prophylaxis: Protonix Prognosis is guarded son at bedside and his questions were answered
[2019-05-15] MEDS: PANTOPRAZOLE 40 MG TABLET PO SCH (10:15)
[2019-05-15] MEDS: metroNIDAZOLE 500 MG TAB PO SCH ×3 (10:15→22:54)
[2019-05-15] MEDS: ISOSORBIDE MONONITRATE ER 30 MG TAB.ER.24H PO SCH (10:15)
[2019-05-15] MEDS: LISINOPRIL 2.5 MG TAB PO SCH (10:15)
[2019-05-15] MEDS: NICOTINE 14MG/24HR PATCH TRANSDERM SCH (10:16)
[2019-05-15] MEDS: GABAPENTIN 100 MG CAP PO SCH ×2 (10:16→22:55)
[2019-05-15] MEDS: buPROPion XL 300 MG TAB.ER.24H PO SCH (10:16)
--- NOTE | 2019-05-15 10:23 | P.PN ---
Subjective Progress Note Date: 05/15/19 Patient denies any new symptoms. No further syncopal spells. She is now on a regular floor. She had EGD performed 05/13/2019, which showed no significant abnormalities. Patient has evidence of colitis for which she will need colonoscopy in the future. Patient's hemoglobin 11.7, hematocrit 36.2, platelets 242. Patient's hemoglobin A1c 6.3 on 07/25/2015. B12 423, RBC folate normal. WBC 12.7. Sodium 131 potassium 3.8 renal functions normal. Stool occult blood is positive. Objective - Vital Signs Vital signs: Vital Signs Temp 97.7 F 05/15/19 05:00 Pulse 75 05/15/19 05:00 Resp 20 05/15/19 05:00 BP 173/64 05/15/19 05:00 Pulse Ox 90 L 05/15/19 05:00 Intake & Output 05/14/19 05/15/19 05/15/19 18:59 06:59 18:59 Intake Total 1550 1095 Balance 1550 1095 Weight 59.466 kg Intake: IV 100 metroNIDAZOLE-NS PMX 500 100 mg In Saline 1 100ml.bag @ 100 mls/hr IVPB Q8HR [facility] Rx#:[id number] Intake, IV Titration 600 675 Amount Sodium Chloride 0.9% 1, 600 675 000 ml @ 75 mls/hr IV . [id number] [facility] Rx#:[id number] Oral 850 420 Other: Voiding Method Toilet Toilet Bedside Commode Bedside Commode # Voids 2 2 - Exam Nonfocal. Mental status speech and language functions cranial nerves normal. Muscle strength is normal in the arms and legs. - Labs CBC & Chem 7: 05/15/19 08:16 05/15/19 08:16 Labs: Abnormal Lab Results - Last 24 Hours (Table) 05/13/19 05/15/19 05/15/19 Range/Units 15:00 08:16 08:16 Neutrophils # 8.7 H (1.3-7.7) k/uL Lymphocytes # 0.9 L (1.0-4.8) k/uL Sodium 135 L (137-145) mmol/L Potassium 3.2 L (3.5-5.1) mmol/L Chloride 108 H (98-107) mmol/L Carbon Dioxide 18 L (22-30) mmol/L Glucose 113 H (74-99) mg/dL Calcium 8.3 L (8.4-10.2) mg/dL Stool Lactoferrin POSITIVE H (NEGATIVE) Microbiology - Last 24 Hours (Table) 05/13/19 05:12 Blood Culture - Preliminary Blood No Growth after 48 hours Assessment and Plan Assessment: * Syncopal spell, likely orthostatic from hypovolemia due to acute GI bleed. * History of right ICA stenosis, status post CEA * Chronic back pain. * History of tremors, currently on primidone. Plan: * Patient's syncope was likely due to hypovolemia from GI bleed. EGD showed no significant abnormalities. * Carotid Doppler showed mild atherosclerotic changes on the right with no s ignificant velocity increase in the ICA. Patient had endarterectomy 5 years ago. On the left side showed severe plaque and atherosclerotic changes with narrow vessels, no significant velocity increase in ICA. Antegrade flow in both vertebral arteries. * Suggested patient to resume aspirin 81 mg daily, when medically cleared. * Counseled about tobacco cessation. * No other neurological workup indicated. Patient clear from neurology point. * Neurology will sign off.
[2019-05-15] MEDS: PROPRANOLOL LA 80 MG CAP.SA.24H PO SCH (12:20)
[2019-05-15] MEDS ORDERED: Potassium Replacement Protocol 1 EACH MISC MISCELLANE PRN (17:34)
[2019-05-15] MEDS ORDERED: amLODIPine 5 MG TAB PO SCH (18:15)
[2019-05-15] MEDS: POTASSIUM CHLORIDE ER 20 MEQ TAB.ER PO SCH ×2 (19:31→20:08)
[2019-05-15] MEDS ORDERED: ATORVASTATIN 80 MG TAB PO SCH (21:00)
[2019-05-15] MEDS ORDERED: ASPIRIN 81 MG PO SCH (21:00)
[2019-05-15] MEDS ORDERED: PRIMIDONE 50 MG TAB PO SCH (21:00)
[2019-05-15] MEDS ORDERED: CITALOPRAM HYDROBROMIDE 20 MG TAB PO SCH (21:00)
--- NOTE | 2019-05-15 21:03 | P.PN ---
Subjective Progress Note Date: 05/15/19 Principal diagnosis: GI bleed, colitis Attempts to see the patient today however she was not in her room, will follow up tomorrow Objective - Vital Signs Vital signs: Vital Signs Temp 97.7 F 05/15/19 05:00 Pulse 75 05/15/19 05:00 Resp 20 05/15/19 05:00 BP 173/64 05/15/19 05:00 Pulse Ox 90 L 05/15/19 05:00 Intake & Output 05/14/19 05/15/19 05/15/19 18:59 06:59 18:59 Intake Total 1550 1095 Output Total 200 Balance 1550 1095 -200 Weight 59.466 kg Intake: IV 100 metroNIDAZOLE-NS PMX 500 100 mg In Saline 1 100ml.bag @ 100 mls/hr IVPB Q8HR [facility] Rx#:[id number] Intake, IV Titration 600 675 Amount Sodium Chloride 0.9% 1, 600 675 000 ml @ 75 mls/hr IV . [id number] [facility] Rx#:[id number] Oral 850 420 Output: Stool 200 Other: Voiding Method Toilet Toilet Toilet Bedside Commode Bedside Commode Bedside Commode # Voids 2 2 - Labs CBC & Chem 7: 05/15/19 08:16 05/15/19 20:40 Labs: Abnormal Lab Results - Last 24 Hours (Table) 05/15/19 05/15/19 Range/Units 08:16 08:16 Neutrophils # 8.7 H (1.3-7.7) k/uL Lymphocytes # 0.9 L (1.0-4.8) k/uL Sodium 135 L (137-145) mmol/L Potassium 3.2 L (3.5-5.1) mmol/L Chloride 108 H (98-107) mmol/L Carbon Dioxide 18 L (22-30) mmol/L Glucose 113 H (74-99) mg/dL Calcium 8.3 L (8.4-10.2) mg/dL Microbiology - Last 24 Hours (Table) 05/13/19 05:12 Blood Culture - Preliminary Blood No Growth after 48 hours Assessment and Plan (1) Colitis Current Visit: Yes Status: Acute Code(s): K52.9 - NONINFECTIVE GASTROENTERITIS AND COLITIS, UNSPECIFIED SNOMED Code(s): 30911394 (2) Abdominal pain Current Visit: Yes Status: Acute Code(s): R10.9 - UNSPECIFIED ABDOMINAL PAIN SNOMED Code(s): 83886407 (3) Coffee ground emesis Current Visit: Yes Status: Acute Code(s): K92.0 - HEMATEMESIS SNOMED Code(s): 22530909
[2019-05-15] MEDS: HEPARIN SODIUM,PORCINE 5,000 UNIT/ML 1 ML VIAL SQ SCH (22:55)
[2019-05-16] MEDS: hydrALAZINE HCL 25 MG TAB PO PRN ×2 (04:06→12:55)
[2019-05-16] MEDS ORDERED: LEVOTHYROXINE 75 MCG TAB PO SCH (06:30)
[2019-05-16 07:54] LABS: African American GFR (CKD) >90 (>60 ml/min/1.73 sqM); Anion Gap 8 mmol/L; Blood Urea Nitrogen 10 mg/dL (7-17); Calcium 8.3 mg/dL (8.4-10.2); Carbon Dioxide 19 mmol/L (22-30); Chloride 108 mmol/L (98-107); Glucose 90 mg/dL (74-99); Magnesium 1.7 mg/dL (1.6-2.3); Non-African American GFR(CKD) 78 (>60 ml/min/1.73 sqM); Potassium 3.4 mmol/L (3.5-5.1); Sodium 135 mmol/L (137-145)
[2019-05-16] MEDS ORDERED: hydrALAZINE HCL 25 MG TAB PO SCH (09:00)
[2019-05-16] MEDS: NICOTINE 14MG/24HR PATCH TRANSDERM SCH (09:23)
[2019-05-16] MEDS: GABAPENTIN 100 MG CAP PO SCH (09:31)
[2019-05-16] MEDS: LISINOPRIL 2.5 MG TAB PO SCH (09:31)
[2019-05-16] MEDS: buPROPion XL 300 MG TAB.ER.24H PO SCH (09:31)
[2019-05-16] MEDS: metroNIDAZOLE 500 MG TAB PO SCH (09:31)
[2019-05-16] MEDS: HEPARIN SODIUM,PORCINE 5,000 UNIT/ML 1 ML VIAL SQ SCH (09:31)
[2019-05-16] MEDS: ISOSORBIDE MONONITRATE ER 30 MG TAB.ER.24H PO SCH (09:31)
[2019-05-16] MEDS: PANTOPRAZOLE 40 MG TABLET PO SCH (09:31)
[2019-05-16] MEDS: PROPRANOLOL LA 80 MG CAP.SA.24H PO SCH (09:32)
[2019-05-16] MEDS ORDERED: POTASSIUM CHLORIDE ER 20 MEQ TAB.ER PO STA (09:49)
--- NOTE | 2019-05-16 11:15 | P.DS ---
Providers Date of admission: 05/12/19 21:47 Attending physician: Alpesh Bo MD Consults: 05/12/19 19:17 Consult Physician Urgent Consulting Provider: Mary Noe Consult Reason/Comments: syncope Do you want consulting provider notified?: Yes 05/12/19 19:18 Consult Physician Urgent Consulting Provider: Pablo Harper Consult Reason/Comments: syncope Do you want consulting provider notified?: Yes 05/12/19 22:33 Consult Physician Routine Consulting Provider: Rafa Rivas Consult Reason/Comments: ICU management Do you want consulting provider notified?: Already Contacted 05/12/19 23:17 Consult Physician Routine Consulting Provider: Damon Gleason Consult Reason/Comments: GI Bleed Do you want consulting provider notified?: Already Contacted Primary care physician: Lashaun Uriostegui [facility] Course: diagnoses: Left lower quadrant Abdominal pain secondary to acute colitis Syncope, mostly related to her colitis and hypovolemia SIRS syndrome with leukocytosis and fever Possible sepsis secondary to colitis right lower lung nodulein the chest x-ray from 05/13/2019 History of coronary artery disease status post CABG and stent Nicotine dependence Hypertension Hypothyroidism Parkinson disease Gastroesophageal reflux disease Primary osteoarthritis History of depression, not an active issue Chronic back pain hospital course: This is a pleasant 84 years old female with past medical history of coronary artery disease status post CABG and 1 stent, hypertension, cigarette smoker, GERD, hypothyroidism, Parkinson disease, depression, chronic back pain. Patient presents because of syncope. Patient states that she was going to the grocery store with her daughter when she felt lightheadedness and she has to sit on a chair, and immediately she was on and off about 2 times associated with urine incontinence but no seizure like activity as per patient daughter. Patient decided to come to the hospital where she started having upper and lower abdominal pain with diarrhea, pain is in the mid part of the abdomen both upper and lower, about 6-8/10 in severity, pain is nonradiating but continuous home associated with 5-6 times of loose bowel movement with some blunt as the patient has been told, associated with possiblecoffee ground vomitus.lecturer in computer science evaluated the patient. EGD was unremarkable.Patient was treated with Rocephin and Flagyl and IV fluids. Patient showed interval improvement.and on the discharge day she is tolerating diet well, no nausea vomiting. Abdominal pain is completely resolved and draped in 0/10 by patient. She still have loose eduard l movement. No other symptoms. No chest pain or dyspnea. No dizziness. No fever. No change in urine bowel habits. low k and mg replaced. Patient was cleared by all consultants for discharge including the lecturer in computer science, vision impaired teacher, hooker up and neurologist physical therapist recommended subacute rehab, Patient be discharged a short course of antibiotics and antiacids. Also patient was informed about her lung nodule and the need to follow up as an outpatient with her lung specialist, risks including but not limited to cancer are explained to the patient and she verbalized understanding and acceptance. also patient will need colonoscopy in 4-6 weeks with the lecturer in computer science as an outpatient. Risk of cancer is also explained to her and she understands. Problems and management plan were discussed with the patient and he verbalized understanding and acceptance Patient was found stable and can be discharged home however he needs follow-up as an outpatient. Patient was instructed to follow up with PCP within one week and patient agrees. pt agrees with appointments and timing made for her with pcp, pulmonology and GI service and pt agree ( i talked to the daughter at bed side and she agrees with all appointments as well) risk of cancer explained to pt and cornell . Gen: patient is a AAOx3, no distress CVS: S1-S2, RRR, no murmur Lungs: B/L CTA, no wheezing Abdomen: soft, no distention, no tenderness, positive bowel sounds Extremity: no leg edema or induration Time spent more than 35 minutes Plan - Discharge Summary Discharge Rx Participant: No New Discharge Prescriptions: New Cefuroxime Axetil [Ceftin] 500 mg PO BID 7 Days #14 tab metroNIDAZOLE [Flagyl] 500 mg PO Q8HR #21 tab hydrALAZINE HCL [Apresoline] 25 mg PO BID #60 tab Nicotine 14Mg/24Hr Patch [Habitrol] 1 patch TRANSDERM DAILY #30 patch Continue Nitroglycerin Sl Tabs [Nitrostat] 0.4 mg SUBLINGUAL Q5M PRN PRN Reason: Pain Fluticasone/Salmeterol [Advair 250-50 Diskus] 1 puff INHALATION RT-BID buPROPion HCL [Wellbutrin XL] 300 mg PO QAM Citalopram Hydrobromide [CeleXA] 20 mg PO HS Omeprazole [PriLOSEC] 20 mg PO AC-BID Levothyroxine Sodium [Synthroid] 75 mcg PO QAM Atorvastatin [Lipitor] 80 mg PO HS Ascorbic Acid [Vitamin C] 500 mg PO HS Isosorbide Mononitrate ER [Imdur] 30 mg PO DAILY #30 tab.er.24h Nicotine 14Mg/24Hr Patch [Habitrol] 1 patch TRANSDERM DAILY #30 patch Propranolol HCl [Inderal Xl] 80 mg PO DAILY Lisinopril [Zestril] 2.5 mg PO DAILY Primidone [Mysoline] 50 mg PO HS Gabapentin [Neurontin] 100 mg PO BID Aspirin 81 mg PO HS #30 tab Discontinued ALPRAZolam [Xanax] 0.25 mg PO Q12H PRN PRN Reason: Anxiety Discharge Medication List Ascorbic Acid [Vitamin C] 500 mg PO HS 07/25/15 [History] Atorvastatin [Lipitor] 80 mg PO HS 07/25/15 [History] Citalopram Hydrobromide [CeleXA] 20 mg PO HS 07/25/15 [History] Fluticasone/Salmeterol [Advair 250-50 Diskus] 1 puff INHALATION RT-BID 07/25/15 [History] Levothyroxine Sodium [Synthroid] 75 mcg PO QAM 07/25/15 [History] Nitroglycerin Sl Tabs [Nitrostat] 0.4 mg SUBLINGUAL Q5M PRN 07/25/15 [History] Omeprazole [PriLOSEC] 20 mg PO AC-BID 07/25/15 [History] buPROPion HCL [Wellbutrin XL] 300 mg PO QAM 07/25/15 [History] Isosorbide Mononitrate ER [Imdur] 30 mg PO DAILY #30 tab.er.24h 07/30/15 [Rx] Nicotine 14Mg/24Hr Patch [Habitrol] 1 patch TRANSDERM DAILY #30 patch 07/30/15 [Rx] Gabapentin [Neurontin] 100 mg PO BID 05/12/19 [History] Lisinopril [Zestril] 2.5 mg PO DAILY 05/12/19 [History] Primidone [Mysoline] 50 mg PO HS 05/12/19 [History] Propranolol HCl [Inderal Xl] 80 mg PO DAILY 05/12/19 [History] Cefuroxime Axetil [Ceftin] 500 mg PO BID 7 Days #14 tab 05/15/19 [Rx] metroNIDAZOLE [Flagyl] 500 mg PO Q8HR #21 tab 05/15/19 [Rx] Aspirin 81 mg PO HS #30 tab 05/16/19 [Rx] Nicotine 14Mg/24Hr Patch [Habitrol] 1 patch TRANSDERM DAILY #30 patch 05/16/19 [Rx] hydrALAZINE HCL [Apresoline] 25 mg PO BID #60 tab 05/16/19 [Rx] Follow up Appointment(s)/Referral(s): Lashaun Kang III, MD [Primary Care Provider] - 05/20/19 3:00 pm Rafa Rivas DO [Doctor of Osteopathic Medicine] - 05/29/19 1:15 pm (for your right lung nodule on cxr) [facility] Visiting Nurse, [NON-STAFF] - 1 Week Damon Gleason MD [STAFF PHYSICIAN] - 05/26/19 11:45 am (We recommend colonoscopy in 4-6 weeks. please arrive at 11:20 to fill out paper work.) Patient Instructions/Handouts: Cefuroxime (By mouth), Aspirin (By mouth), Metronidazole (By mouth), Nicotine (Absorbed through the skin), Hydralazine (By mouth), How to Stop Smoking (DC), Syncope (DC), Fall Prevention for Older Adults (DC), Infectious Colitis (GEN) Activity/Diet/Wound Care/Special Instructions: Activity as tolerated---Safety precautions to ensure fall prevention. Diet as tolerated. Discharge Disposition: HOME WITH HOME HEALTH SERVICES
[2019-05-16] MEDS: MAGNESIUM SULFATE-D5W PMX 1 GM in DEXTROSE/WATER 1 100ML.BAG IVPB SCH ×2 (11:27→12:49)
[2019-05-16 11:45] VITALS: BP 192/79; PULSE 59; RESP 18; TEMP 97.9
== END 2019-05-16 14:40 | disposition home health service (06) | DRG 872 ==
LOC: EC 16:02 → 1SOBS 19:17 → 2SICU 21:45 → OBSVTOIN 21:47 → 3NMEDONC 05-14 02:47
PROVIDERS: ADMIT Internal Medicine; ATTEND Internal Medicine
PROC: 0DJ08ZZ Inspection of Upper Intestinal Tract, Via Natural or Artificial Opening Endoscopic (ICD-10-PCS; principal; 2019-05-13 07:30)
DX: A41.9 Sepsis, unspecified organism (principal); J98.11 Atelectasis; K52.9 Noninfective gastroenteritis and colitis, unspecified; E03.9 Hypothyroidism, unspecified; E78.5 Hyperlipidemia, unspecified; E86.1 Hypovolemia; F17.210 Nicotine dependence, cigarettes, uncomplicated; F32.9 Major depressive disorder, single episode, unspecified; F41.9 Anxiety disorder, unspecified; G20 Parkinson's disease; G89.29 Other chronic pain; I11.9 Hypertensive heart disease without heart failure; I25.10 Atherosclerotic heart disease of native coronary artery without angina pectoris; I44.0 Atrioventricular block, first degree; J44.9 Chronic obstructive pulmonary disease, unspecified; K21.9 Gastro-esophageal reflux disease without esophagitis; K44.9 Diaphragmatic hernia without obstruction or gangrene; M19.91 Primary osteoarthritis, unspecified site; R32 Unspecified urinary incontinence; Z79.82 Long term (current) use of aspirin; Z79.890 Hormone replacement therapy; Z79.899 Other long term (current) drug therapy; Z82.3 Family history of stroke; Z82.49 Family history of ischemic heart disease and other diseases of the circulatory system; Z95.1 Presence of aortocoronary bypass graft; Z95.5 Presence of coronary angioplasty implant and graft; M54.9 Dorsalgia, unspecified; Z91.030 Bee allergy status
CPT/HCPCS: 36415; 43235; 70450; 71045; 71046; 74177; 80048; 80053; 81001; 82272; 83630; 83735; 84100; 84132; 84484; 85025; 85610; 85730; 87040; 87045; 87046; 87324; 93005; 93306; 93880; 96360; 99285

== ENCOUNTER 2020-01-19 17:09 | Inpatient (IN) | payer MEDICARE, BC ==
[2020-01-19] MEDS ORDERED: SODIUM CHLORIDE 0.9% 500 ML 500 ML IV ONE (17:28)
[2020-01-19 17:36] LABS: Glucose,Whole Blood 163 mg/dL (75-99)
--- NOTE | 2020-01-19 17:37 | ED ---
General Adult HPI - General Chief complaint: Seizure Stated complaint: seizures Time Seen by Provider: 01/19/20 17:22 Source: patient, RN notes reviewed, old records reviewed Mode of arrival: ambulatory Limitations: no limitations - History of Present Illness Initial comments: 84-year-old female presenting for evaluation of vomiting and suspected seizure activity. Patient had an episode similar to this in the past approximately one year ago where she became dehydrated, had several episodes of vomiting and developed seizures. She is not currently on any seizure medication. She was out with her daughter, shopping and had eaten lunch at a restaurant. She began vomiting while at a department store and had an episode of her body shaking which was similar to previous episode and was concerning for seizure. There was no postictal period patient denies headache. She denies chest pain. She does report abdominal pain and persistent nausea. She's had 2 episodes of vomiting since her arrival to the emergency department. - Related Data Home Medications Medication Instructions Recorded Confirmed Ascorbic Acid [Vitamin C] 500 mg PO HS 07/25/15 05/12/19 Atorvastatin [Lipitor] 80 mg PO HS 07/25/15 05/12/19 Citalopram Hydrobromide [CeleXA] 20 mg PO HS 07/25/15 05/12/19 Fluticasone/Salmeterol [Advair 1 puff INHALATION RT-BID 07/25/15 05/12/19 250-50 Diskus] Levothyroxine Sodium [Synthroid] 75 mcg PO QAM 07/25/15 05/12/19 Nitroglycerin Sl Tabs [Nitrostat] 0.4 mg SUBLINGUAL Q5M PRN 07/25/15 05/12/19 Omeprazole [PriLOSEC] 20 mg PO AC-BID 07/25/15 05/12/19 buPROPion HCL [Wellbutrin XL] 300 mg PO QAM 07/25/15 05/12/19 Gabapentin [Neurontin] 100 mg PO BID 05/12/19 05/12/19 Primidone [Mysoline] 50 mg PO HS 05/12/19 05/12/19 Propranolol HCl [Inderal Xl] 80 mg PO DAILY 05/12/19 05/12/19 lisinopriL [Zestril] 2.5 mg PO DAILY 05/12/19 05/12/19 Previous Rx's Medication Instructions Recorded Isosorbide Mononitrate ER [Imdur] 30 mg PO DAILY #30 tab.er.24h 07/30/15 Nicotine 14Mg/24Hr Patch [Habitrol] 1 patch TRANSDERM DAILY #30 patch 07/30/15 Cefuroxime Axetil [Ceftin] 500 mg PO BID 7 Days #14 tab 05/15/19 metroNIDAZOLE [Flagyl] 500 mg PO Q8HR #21 tab 05/15/19 Aspirin 81 mg PO HS #30 tab 05/16/19 Nicotine 14Mg/24Hr Patch [Habitrol] 1 patch TRANSDERM DAILY #30 patch 05/16/19 hydrALAZINE HCL [Apresoline] 25 mg PO BID #60 tab 05/16/19 Allergies Allergy/AdvReac Type Severity Reaction Status Date / Time venom-honey bee Allergy Anaphylaxis Verified 01/19/20 19:26 [bee venom (honey bee)] Review of Systems ROS Statement: Those systems with pertinent positive or pertinent negative responses have been documented in the HPI. ROS Other: All systems not noted in ROS Statement are negative. Past Medical History Past Medical History: Coronary Artery Disease (CAD), GERD/Reflux, Hypertension, Osteoarthritis (OA), Thyroid Disorder Additional Past Medical History / Comment(s): Parkinson's disease, depression. History of Any Multi-Drug Resistant Organisms: None Reported Past Surgical History: Coronary Bypass/CABG Additional Past Surgical History / Comment(s): STENT X1 Past Anesthesia/Blood Transfusion Reactions: Postoperative Nausea & Vomiting (PONV) Past Psychological History: Anxiety, Depression Smoking Status: Never smoker Past Alcohol Use History: None Reported Past Drug Use History: None Reported - Past Family History Mother Family Medical History: CVA/TIA, Myocardial Infarction ([place]), Rheumatoid Arthritis (RA) Father Family Medical History: Myocardial Infarction ([place]) Additional Family Medical History / Comment(s): ANEURYSM-UNKNOWN LOCATION General Exam Limitations: no limitations General appearance: lethargic, in distress Head exam: Present: atraumatic, normocephalic Eye exam: Present: normal appearance, PERRL ENT exam: Present: mucous membranes dry Neck exam: Present: normal inspection. Absent: tenderness, meningismus Respiratory exam: Present: normal lung sounds bilaterally. Absent: respiratory distress, wheezes Cardiovascular Exam: Present: regular rate, normal rhythm GI/Abdominal exam: Present: soft, tenderness (Mild generalized tenderness) Extremities exam: Present: pedal edema Neurological exam: Present: alert Skin exam: Present: diaphoretic. Absent: warm (Cool) Course Vital Signs 01/19/20 01/19/20 01/19/20 17:12 17:40 18:12 Temperature 97.9 F Pulse Rate 66 81 75 Respiratory 18 18 18 Rate Blood Pressure 149/110 74/47 93/38 O2 Sat by Pulse 92 L 99 97 Oximetry 01/19/20 18:50 Temperature Pulse Rate 82 Respiratory 18 Rate Blood Pressure 114/68 O2 Sat by Pulse 96 Oximetry EKG Findings - EKG Comments: EKG Findings:: EKG: Sinus rhythm with a first-degree AV block, left bundle branch block, rate of 93, KS interval 220, QRS duration 1:30, QTC 419, does not meet Sgarbossa criteria. Previous intraventricular block compared to EKG May. Medical Decision Making - Medical Decision Making 84-year-old female presenting for evaluation of nausea vomiting, suspected seizure. At this time I doubt seizure activity as the patient is alert and oriented with no postictal phase. She did have some generalized shaking prior to episode of vomiting. She had several episodes of vomiting followed by profound diarrhea. Workup was initiated, chest x-ray showing left-sided atelect asis, no cough, no fever doubt pneumonia at this time. She has normal CBC, CMP shows some mild acidosis with a CO2 of 18. She has a CT brain which is negative for intracranial hemorrhage, showing chronic ischemic change. CT CT of the abdomen shows fecal impaction although she has had a large amount of stool output while in the emergency department. She will be admitted for IV hydration and close monitoring. - Lab Data Result diagrams: 01/19/20 17:33 01/19/20 17:33 Lab Results 01/19/20 01/19/20 01/19/20 Range/Units 17:23 17:33 17:33 WBC 8.0 (3.8-10.6) k/uL RBC 4.40 (3.80-5.40) m/uL Hgb 13.7 (11.4-16.0) gm/dL Hct 43.2 (34.0-46.0) % MCV 98.1 (80.0-100.0) fL MCH 31.1 (25.0-35.0) pg MCHC 31.7 (31.0-37.0) g/dL RDW 13.4 (11.5-15.5) % Plt Count 310 (150-450) k/uL Neutrophils % 45 % Lymphocytes % 49 % Monocytes % 3 % Eosinophils % 2 % Basophils % 0 % Neutrophils # 3.6 (1.3-7.7) k/uL Lymphocytes # 3.9 (1.0-4.8) k/uL Monocytes # 0.3 (0-1.0) k/uL Eosinophils # 0.1 (0-0.7) k/uL Basophils # 0.0 (0-0.2) k/uL PT 9.9 (9.0-12.0) sec INR 1.0 (<1.2) APTT 18.7 L (22.0-30.0) sec Sodium (137-145) mmol/L Potassium (3.5-5.1) mmol/L Chloride (98-107) mmol/L Carbon Dioxide (22-30) mmol/L Anion Gap mmol/L BUN (7-17) mg/dL Creatinine (0.52-1.04) mg/dL Est GFR (CKD-EPI)AfAm (>60 ml/min/1.73 sqM) Est GFR (CKD-EPI)NonAf (>60 ml/min/1.73 sqM) Glucose (74-99) mg/dL POC Glucose (mg/dL) 163 H (75-99) mg/dL POC Glu [employer] Director ID Scales, Julia Calcium (8.4-10.2) mg/dL Magnesium (1.6-2.3) mg/dL Total Bilirubin (0.2-1.3) mg/dL AST (14-36) U/L ALT (4-34) U/L Alkaline Phosphatase (38-126) U/L Troponin I (0.000-0.034) ng/mL NT-Pro-B Natriuret Pep pg/mL Total Protein (6.3-8.2) g/dL Albumin (3.5-5.0) g/dL 01/19/20 01/19/20 01/19/20 Range/Units 17:33 17:33 17:33 WBC (3.8-10.6) k/uL RBC (3.80-5.40) m/uL Hgb (11.4-16.0) gm/dL Hct (34.0-46.0) % MCV (80.0-100.0) fL MCH (25.0-35.0) pg MCHC (31.0-37.0) g/dL RDW (11.5-15.5) % Plt Count (150-450) k/uL Neutrophils % % Lymphocytes % % Monocytes % % Eosinophils % % Basophils % % Neutrophils # (1.3-7.7) k/uL Lymphocytes # (1.0-4.8) k/uL Monocytes # (0-1.0) k/uL Eosinophils # (0-0.7) k/uL Basophils # (0-0.2) k/uL PT (9.0-12.0) sec INR (<1.2) APTT (22.0-30.0) sec Sodium 133 L (137-145) mmol/L Potassium 4.4 (3.5-5.1) mmol/L Chloride 105 (98-107) mmol/L Carbon Dioxide 18 L (22-30) mmol/L Anion Gap 10 mmol/L BUN 16 (7-17) mg/dL Creatinine 1.01 (0.52-1.04) mg/dL Est GFR (CKD-EPI)AfAm 60 (>60 ml/min/1.73 sqM) Est GFR (CKD-EPI)NonAf 52 (>60 ml/min/1.73 sqM) Glucose 154 H (74-99) mg/dL POC Glucose (mg/dL) (75-99) mg/dL POC Glu [employer] Director ID Calcium 9.4 (8.4-10.2) mg/dL Magnesium 2.3 (1.6-2.3) mg/dL Total Bilirubin 0.5 (0.2-1.3) mg/dL AST 54 H (14-36) U/L ALT 23 (4-34) U/L Alkaline Phosphatase 139 H (38-126) U/L Troponin I <0.012 (0.000-0.034) ng/mL NT-Pro-B Natriuret Pep 805 pg/mL Total Protein 6.5 (6.3-8.2) g/dL Albumin 3.9 (3.5-5.0) g/dL Disposition Clinical Impression: Syncope, Nausea vomiting and diarrhea, Dehydration Disposition: ADMITTED IP TO THIS HOSP Condition: Stable Is patient prescribed a controlled substance at d/c from ED?: No Referrals: Lashaun Kang III, MD [Primary Care Provider] - 1-2 days Decision to Admit Reason: Admit from EC Decision Date: 01/19/20 Decision Time: 19:33
[2020-01-19 17:49] LABS: Basophils % (A) 0 %; Eosinophils # (A) 0.1 k/uL (0-0.7); Eosinophils % (A) 2 %; HCT 43.2 % (34.0-46.0); HGB 13.7 gm/dL (11.4-16.0); Lymphocytes # (A) 3.9 k/uL (1.0-4.8); Lymphocytes % (A) 49 %; MCH 31.1 pg (25.0-35.0); MCHC 31.7 g/dL (31.0-37.0); MCV 98.1 fL (80.0-100.0); Mean Platelet Volume 8.5; Monocytes # (A) 0.3 k/uL (0-1.0); Monocytes % (A) 3 %; Neutrophils # (A) 3.6 k/uL (1.3-7.7); Neutrophils % (A) 45 %; Platelet Count 310 k/uL (150-450); RDW 13.4 % (11.5-15.5)
[2020-01-19 17:58] LABS: Albumin 3.9 g/dL (3.5-5.0); Calcium 9.4 mg/dL (8.4-10.2); Magnesium 2.3 mg/dL (1.6-2.3); Potassium 4.4 mmol/L (3.5-5.1); Total Bilirubin 0.5 mg/dL (0.2-1.3); Total Protein 6.5 g/dL (6.3-8.2)
[2020-01-19] MEDS ORDERED: METOCLOPRAMIDE 5 MG/ML 2 ML VIAL IVP STA (18:04)
[2020-01-19 18:26] LABS: Prothrombin Time 9.9 sec (9.0-12.0)
[2020-01-19 18:29] LABS: Partial Thromboplastin Time 18.7 sec (22.0-30.0)
--- NOTE | 2020-01-19 18:29 | CT ---
EXAMINATION TYPE: CT brain wo con DATE OF EXAM: 01/19/2020 COMPARISON: 05/12/2019 HISTORY: Weakness, vomiting CT DLP: 1103.4 mGycm Automated exposure control for dose reduction was used. There is cerebral cortical atrophy. There is no mass effect nor midline shift. There is no sign of in tracranial hemorrhage. There is some hypodensity in the periventricular white matter. The calvarium i s intact. IMPRESSION: Cerebral atrophy. Chronic small vessel ischemia. Atrophy more noticeable in the frontal lobes. No caron nge compared to old exam.
--- NOTE | 2020-01-19 18:38 | CT ---
EXAMINATION TYPE: CT abdomen pelvis wo con DATE OF EXAM: 01/19/2020 COMPARISON: 05/12/2019 HISTORY: Weakness, vomiting CT DLP: 524.2 mGycm Automated exposure control for dose reduction was used. Multiple axial sections were obtained from the diaphragm to the floor the pelvis without contrast. FINDINGS: There is minimal subsegmental atelectasis at the lung bases. There is moderate size hiatal hernia. He art appears normal. There is no pericardial effusion. Liver shows no focal defect. Spleen is intact. There is no evidence of pancreatic mass. There is yajaira edly dilated large bowel with gas and fecal material. There is retained fecal material in the rectum that measures 6.5 cm. Most of the stomach appears to be contained in the hiatal hernia. There is no adrenal mass. There is mild renal atrophy. There is no hydronephrosis. There is mild anushka l vascular calcification. Small renal calculi are possible. Ureters are not dilated. There is no retroperitoneal adenopathy. Abdominal aorta is atheromatous. The re is extensive calcification in the iliac arteries. Bladder distends smoothly. There is no evidence of ascites. There is no sign of free air. There is no mesenteric edema. There is evidence for some wall thickening of the distal small bowel. Small bowel measures up to 2.8 cm. There is compression deformity of multiple vertebra including L4 L1 and T12 and T11 and T9. There is loss of height up to 50%. The bony pelvis appears intact. IMPRESSION: Dilated large bowel consistent with constipation and rectal fecal impaction. There is probably large bowel ileus. There is secondarily apparent mild enlargement of the small bowel up to 2.8 cm in diamet er. Small bowel inflammatory process is possible.
--- NOTE | 2020-01-19 18:41 | XR ---
EXAMINATION TYPE: XR chest 1V portable DATE OF EXAM: 01/19/2020 COMPARISON: 05/13/2019 HISTORY: Chest pain TECHNIQUE: FINDINGS: There is some mild infiltrate left lower lobe. There is no gross heart failure. Heart size is probably normal. There is 4 inspiration. There are sternal wires. There are chest leads. IMPRESSION: There is some infiltrate and atelectasis left lower lobe slightly worse than old exam. No obvious heart failure. Poor inspiration that is worse than last exam.
[2020-01-19] MEDS ORDERED: NALOXONE 0.4 MG/ML 1 ML VIAL IV PRN (19:29)
[2020-01-19] MEDS ORDERED: ONDANSETRON 4 MG/2 ML VIAL IVP PRN (19:31)
[2020-01-19] MEDS: ACETAMINOPHEN TAB 325 MG TAB PO PRN (19:59)
[2020-01-19] MEDS: SODIUM CHLORIDE 0.9% 1,000 ML IV SCH (19:59)
[2020-01-19] MEDS ORDERED: BACLOFEN 10 MG TAB PO PRN (21:08)
[2020-01-19] MEDS ORDERED: ALBUTEROL NEBULIZED 2.5 MG/3 ML INHALATION PRN (21:08)
[2020-01-19] MEDS ORDERED: PROPRANOLOL LA 80 MG CAP.SA.24H PO SCH (21:15)
[2020-01-20] MEDS: ASPIRIN 81 MG PO SCH ×2 (02:16→20:27)
[2020-01-20] MEDS: GABAPENTIN 100 MG CAP PO SCH ×3 (02:16→20:27)
[2020-01-20] MEDS: ACETAMINOPHEN TAB 325 MG TAB PO PRN ×2 (03:55→16:15)
[2020-01-20] MEDS: SODIUM CHLORIDE 0.9% 1,000 ML IV SCH ×3 (06:02→20:28)
[2020-01-20] MEDS: LEVOTHYROXINE 75 MCG TAB PO SCH (06:02)
[2020-01-20] MEDS: PANTOPRAZOLE 40 MG TABLET PO SCH (06:03)
[2020-01-20 06:44] LABS: Basophils % (A) 0 %; Eosinophils # (A) 0.1 k/uL (0-0.7); Eosinophils % (A) 0 %; HCT 35.9 % (34.0-46.0); HGB 11.1 gm/dL (11.4-16.0); Lymphocytes # (A) 0.8 k/uL (1.0-4.8); Lymphocytes % (A) 5 %; MCH 29.9 pg (25.0-35.0); MCHC 30.9 g/dL (31.0-37.0); MCV 96.7 fL (80.0-100.0); Monocytes # (A) 0.7 k/uL (0-1.0); Monocytes % (A) 4 %; Neutrophils # (A) 14.9 k/uL (1.3-7.7); Neutrophils % (A) 90 %; Platelet Count 261 k/uL (150-450); RBC 3.71 m/uL (3.80-5.40); RDW 13.5 % (11.5-15.5); WBC 16.6 k/uL (3.8-10.6)
[2020-01-20 06:54] LABS: Potassium 4.6 mmol/L (3.5-5.1)
[2020-01-20] MEDS: SYMBICORT 160-4.5 MCG INHALER INHALATION SCH ×2 (08:08→19:48)
[2020-01-20] MEDS: CITALOPRAM HYDROBROMIDE 20 MG TAB PO SCH (09:08)
[2020-01-20] MEDS: ATORVASTATIN 80 MG TAB PO SCH (09:08)
[2020-01-20] MEDS: ASCORBIC ACID 500 MG TAB PO SCH (09:08)
[2020-01-20] MEDS: ISOSORBIDE MONONITRATE ER 30 MG TAB.ER.24H PO SCH (09:08)
[2020-01-20] MEDS: PRIMIDONE 50 MG TAB PO SCH (09:08)
--- NOTE | 2020-01-20 09:48 | CONS ---
CONSULTATION CHIEF COMPLAINT: Syncope. HISTORY OF PRESENT ILLNESS: Bria is an 84-year-old lady with history of coronary artery disease status post CABG, hypertension, dyslipidemia, prior inferior wall myocardial infarction who was out shopping with her daughter. She had lunch and subsequently was in the bathroom and developed episodes of vomiting and diarrhea. During this process, she had episodes of syncope and a seizure-like event. She came to the emergency room where again she was vomiting and had a syncopal event. Early this morning on telemetry, patient has had high-grade AV block with AV dissociation, but did not have any syncope. At the time of my evaluation this morning, she appears comfortable at rest. Her vomiting continues, but has improved. The patient has had a similar event about a year ago when she had a syncopal event when they thought she was dehydrated. Patient's EKG shows sinus rhythm with left bundle branch block. She had a CT scan of the brain that was stable compared to an old exam. Her white cell count is elevated. Potassium is normal. Creatinine is normal. One set of troponin is normal. BNP is elevated at 805, but this is not consistent with a diagnosis of congestive heart failure. The patient is definitely having episodes of high-grade AV block, but this is probably vasovagal related to the nausea and vomiting. I will obtain a 2D echo to evaluate her LV function. Monitor on telemetry and if she has episodes of high-grade AV block in the absence of nausea and vomiting, then she will need a pacemaker. The patient is on a beta ulysses, which I am going to hold at this time. PAST MEDICAL HISTORY: Significant for coronary artery disease status post CABG, hypothyroidism, hypertension, dyslipidemia. CURRENT MEDICATIONS: Include Prilosec, Neurontin, Zestril 2.5 daily, Synthroid, Imdur, Inderal, Wellbutrin, Celexa, Lipitor, aspirin, vitamin C. ALLERGIES: BEE VENOM. FAMILY HISTORY: Negative for premature coronary artery disease. SOCIAL HISTORY: Negative for smoking, EtOH abuse, or drug abuse. REVIEW OF SYSTEMS: HEENT: Significant for syncope. CARDIAC: As described above. RESPIRATORY: Negative. GI: Significant for vomiting and diarrhea. PSYCHOSOCIAL: Negative. ENDOCRINE: Negative. DERM: Negative. CONSTITUTIONAL: Negative. ONCOLOGICAL: Negative. The rest of the system review is not relevant. PHYSICAL EXAM: Patient is comfortable at rest. Heart rate is 76 beats per minute. Blood pressure is 133/63, respirations 16, temperature is 99.2, O2 saturation is 95% on room air. There is no jugular venous distention. Carotid upstroke is normal. There is no bruit. Chest exam reveals good air entry bilaterally. Heart exam reveals first and second heart sounds. Systolic murmur at the left lower sternal border. Abdomen is soft. Exam of extremities did not reveal any edema. Peripheral pulses are felt. TEST DATA: The patient had a stress test in October of 2018 that revealed normal myocardial perfusion and function. She has history of right carotid endarterectomy. Had an echo in 2016 that revealed normal LV function. LABS: As described above. ASSESSMENT: 1. Syncope secondary to bradycardia and high-grade AV block, probably vasovagal in origin. 2. Coronary artery disease, status post coronary artery bypass grafting. 3. Carotid stenosis status post carotid endarterectomy. 4. Hypertension. 5. Dyslipidemia. PLAN: We will continue to watch her on telemetry. Stop the beta blockers. Check a TSH. Check an echocardiogram. Obtain another set of troponins. If patient has evidence of high-grade AV block in the absence of nausea and vomiting, she will need a pacemaker. MMODL / IJN: [id number] /
[2020-01-20] MEDS ORDERED: LORazepam 2 MG/ML INJ IM PRN (09:57)
[2020-01-20] MEDS ORDERED: AMOXIC-POT CLAV 875-125MG 1 EACH TAB PO SCH (10:00)
[2020-01-20] MEDS ORDERED: PIPERACILLIN-TAZOBACTAM 3.375 GM in SODIUM CHLORIDE 0.9% 100 ML IVPB SCH (10:15)
--- NOTE | 2020-01-20 10:16 | P.HPIM ---
History of Present Illness This is a pleasant 84 years old female with past medical history of coronary artery disease status post CABG and 1 stent, hypertension, cigarette smoker, GERD, hypothyroidism, Parkinson disease, depression, chronic back pain. right lower lung nodule, history of colitis. She has history of COPD and follow-up with Dr. Rivas, she has Parkinson disease and follow-up with Fritz Pitts and she is patient of Dr. Kang. Patient was shopping with her daughter and after lunch went to the restroom and when she came out she started having several bouts of vomiting about 5-6 time, and the daughter drove her back where she kept vomiting and in the middle she passed out but a daughter thinks she had a seizure because her head was back in and her eyes rolled up, however patient woke up immediately. Also patient has periumbilical abdominal pain moderate to severe, radiating from one side to another about 9/10 in severity. Patient is every day smoker about half pack per day, she has chronic cough with white phlegm with no recent worsening, no recent worsening of dyspnea as per patient Patient states she has bowel movement every day, and in ER she has big bowel movement. Patient has stress incontinence as well Vitals are stable. Labs showed leukocytosis went up from normal WBC 8.0K to 16.6 K, hemoglobin 11.1, platelets normal at 260 1K, INR 1.0, BMP is unremarkable, sugar controlled. Troponin 1 is less than 0.012, TSH is normal at 1.2. EKG showing first-degree heart block at 93 BPM with nonspecific interventricular block and QTC of 519 Chest x-ray showing possible left lower lobe infiltrate CT of the abdomen and pelvis without contrast showing markedly dilated large bowel and fecal material in the rectum duct measures 6.[address] of the brain is negative for acute process. An emergency room patient got Reglan and normal saline 500 mL bolus and started at 4 30 mL/h [facility] [employer] evaluated the patient and recommended TSH and echocardiogram and telemetry Review of Systems CONSTITUTIONAL: No fever, no malaise, no fatigue. HEENT: No recent visual problems or hearing problems. Denied any sore throat. CARDIOVASCULAR: No orthopnea, PND, no palpitations, no syncope. PULMONARY: No shortness of breath, no hemoptysis. GASTROINTESTINAL: No diarrhea, Normoactive bowel sounds. NEUROLOGICAL: No headaches, no weakness, no numbness. HEMATOLOGICAL: Denies any bleeding or petechiae. GENITOURINARY: Denies any burning micturition, frequency, or urgency. MUSCULOSKELETAL/RHEUMATOLOGICAL: Denies any joint pain, swelling, or any muscle pain. ENDOCRINE: Denies any polyuria or polydipsia. Past Medical History Past Medical History: Coronary Artery Disease (CAD), COPD, GERD/Reflux, Hypertension, Myocardial Infarction ([place]), Osteoarthritis (OA), Thyroid Disorder Additional Past Medical History / Comment(s): Parkinson's disease, depression. Last Myocardial Infarction Date:: 2009 History of Any Multi-Drug Resistant Organisms: None Reported Past Surgical History: Back Surgery, Bladder Surgery, Coronary Bypass/CABG, Hysterectomy, Orthopedic Surgery Additional Past Surgical History / Comment(s): STENT X1 Past Anesthesia/Blood Transfusion Reactions: Postoperative Nausea & Vomiting (PONV) Past Psychological History: Anxiety, Depression Smoking Status: Current every day smoker Past Drug Use History: None Reported - Past Family History Mother Family Medical History: CVA/TIA, Myocardial Infarction ([place]), Rheumatoid Arthritis ([place]) Father Family Medical History: Myocardial Infarction ([place]) Additional Family Medical History / Comment(s): ANEURYSM-UNKNOWN LOCATION Medications and Allergies Home Medications Medication Instructions Recorded Confirmed Type Ascorbic Acid [Vitamin C] 500 mg PO DAILY 07/25/15 01/19/20 History Atorvastatin [Lipitor] 80 mg PO DAILY 07/25/15 01/19/20 History Levothyroxine Sodium [Synthroid] 75 mcg PO QAM 07/25/15 01/19/20 History Nitroglycerin Sl Tabs [Nitrostat] 0.4 mg SUBLINGUAL Q5M PRN 07/25/15 01/19/20 History Omeprazole [PriLOSEC] 20 mg PO AC-BID 07/25/15 01/19/20 History buPROPion HCL [Wellbutrin XL] 300 mg PO QAM 07/25/15 01/19/20 History Isosorbide Mononitrate ER [Imdur] 30 mg PO DAILY #30 tab.er.24h 07/30/15 01/19/20 Rx Gabapentin [Neurontin] 100 mg PO BID 05/12/19 01/19/20 History Primidone [Mysoline] 300 mg PO DAILY 05/12/19 01/19/20 History Propranolol HCl [Inderal Xl] 80 mg PO HS 05/12/19 01/19/20 History lisinopriL [Zestril] 2.5 mg PO DAILY 05/12/19 01/19/20 History Aspirin 81 mg PO HS #30 tab 05/16/19 01/19/20 Rx Albuterol Sulfate [Ventolin HFA] 2 puff INHALATION RT-Q4H PRN 01/19/20 01/19/20 History Baclofen [Lioresal] 5 - 10 mg PO TID PRN 01/19/20 01/19/20 History Budesonide/Formoterol Fumarate 2 puff INHALATION RT-BID 01/19/20 01/19/20 History [Symbicort 160-4.5 Mcg Inhaler] Citalopram Hydrobromide [CeleXA] 40 mg PO DAILY 01/19/20 01/19/20 History EPINEPHrine (Auto Inject) [Epipen] 0.3 mg IM ONCE PRN 01/19/20 01/19/20 History Lidocaine 5% Patch [Lidoderm] 1 - 3 patch TOPICAL DAILY PRN 01/19/20 01/19/20 History Allergies Allergy/AdvReac Type Severity Reaction Status Date / Time venom-honey bee Allergy Anaphylaxis Verified 01/19/20 19:26 [bee venom (honey bee)] Physical Exam Vitals: Vital Signs Temp Pulse Pulse Resp BP BP Pulse Ox 01/20/20 08:00 99.2 F 76 16 132/63 95 01/20/20 04:00 98.7 F 81 18 118/56 96 01/20/20 00:00 73 18 114/63 94 L 01/19/20 20:35 77 16 01/19/20 20:25 97.9 F 77 16 131/57 94 L 01/19/20 20:00 78 16 105/55 97 01/19/20 18:50 82 18 114/68 96 01/19/20 18:12 75 18 93/38 97 01/19/20 17:40 81 18 74/47 99 01/19/20 17:12 97.9 F 66 18 149/110 92 L Intake and Output 01/19/20 01/20/20 01/20/20 22:59 06:59 14:59 Intake Total 400 1170 Balance 400 1170 Intake: IV 1170 Sodium Chloride 0.9% 1, 1170 000 ml @ 130 mls/hr IV . [facility] Rx#:[id number] Oral 400 Other: Weight 54.431 kg 54.5 kg gENERAL: The patient is alert and oriented x3, not in any acute distress. Well developed, well nourished. HEENT: Pupils are round and equally reacting to light. EOMI. No scleral icterus. No conjunctival pallor. Normocephalic, atraumatic. No pharyngeal erythema. No thyromegaly. CARDIOVASCULAR: S1 and S2 present. No murmurs, rubs, or gallops. PULMONARY: Chest is clear to auscultation, no wheezing or crackles. -ABDOMEN: Soft, periumbilical tenderness with no guarding but no rebound tenderness, nondistended, normoactive bowel sounds. No palpable organomegaly. MUSCULOSKELETAL: No joint swelling or deformity. EXTREMITIES: No cyanosis, clubbing, or pedal edema. -NEUROLOGICAL: Gross neurological examination did not reveal any focal deficits. Bilateral contrasting tremor, more on the right side, stacchato speech SKIN: No rashes. No petechiae Results CBC & Chem 7: 01/20/20 06:14 01/20/20 06:14 Labs: Abnormal Lab Results - Last 24 Hours (Table) 01/19/20 01/19/20 01/19/20 Range/Units 17:23 17:33 17:33 WBC (3.8-10.6) k/uL RBC (3.80-5.40) m/uL Hgb (11.4-16.0) gm/dL MCHC (31.0-37.0) g/dL Neutrophils # (1.3-7.7) k/uL Lymphocytes # (1.0-4.8) k/uL APTT 18.7 L (22.0-30.0) sec Sodium 133 L (137-145) mmol/L Chloride (98-107) mmol/L Carbon Dioxide 18 L (22-30) mmol/L BUN (7-17) mg/dL Glucose 154 H (74-99) mg/dL POC Glucose (mg/dL) 163 H (75-99) mg/dL Calcium (8.4-10.2) mg/dL AST 54 H (14-36) U/L Alkaline Phosphatase 139 H (38-126) U/L 01/20/20 01/20/20 Range/Units 06:14 06:14 WBC 16.6 H (3.8-10.6) k/uL RBC 3.71 L (3.80-5.40) m/uL Hgb 11.1 L (11.4-16.0) gm/dL MCHC 30.9 L (31.0-37.0) g/dL Neutrophils # 14.9 H (1.3-7.7) k/uL Lymphocytes # 0.8 L (1.0-4.8) k/uL APTT (22.0-30.0) sec Sodium 135 L (137-145) mmol/L Chloride 109 H (98-107) mmol/L Carbon Dioxide (22-30) mmol/L BUN 19 H (7-17) mg/dL Glucose 138 H (74-99) mg/dL POC Glucose (mg/dL) (75-99) mg/dL Calcium 8.0 L (8.4-10.2) mg/dL AST (14-36) U/L Alkaline Phosphatase (38-126) U/L Thrombosis Risk Factor Assmnt - Choose All That Apply Any of the Below Risk Factors Present?: Yes Each Factor Represents 1 point: Abnormal pulmonary function (COPD), Obesity (BMI >25) Each Risk Factor Represents 3 Points: Age 75 years or older Thrombosis Risk Factor Assessment Total Risk Factor Score: 5 Thrombosis Risk Factor Assessment Level: High Risk Assessment and Plan Assessment: Dilated large bowel with constipation and rectal fecal impaction, suspicious for large bowel ileus. With secondary mild enlargement of the small bowel up to 2.8 cm Possible syncope could be present fecal or secondary to cardiac rhythm problem, less likely seizure Multiple pauses on telemetry with interventricular block on EKG. Possible left lower loben early aspiration pneumonia parkinson disease right lower lung nodulein the chest x-ray from 05/13/2019 History of coronary artery disease status post CABG and stent Nicotine dependence Hypertension Hypothyroidism Parkinson disease Gastroesophageal reflux disease Primary osteoarthritis History of depression, not an active issue Chronic back pain Plan: this is a pleasant 84 years old female who presents with ileus versus bowel obstruction secondary to fecal impaction. Continue with Ativan as needed and consult neurology. Placed patient on by mouth with bowel rest, continue with IV hydration and pain management and surgical consult. [facility] has been consulted for multiple pauses, we'll do serial troponins. Echocardiogram, TSH and telemetry. Continue with IV fluids, start the patient oZosyn or possible aspiration pneumonia with leukocytosis and possible bowel infection. Labs and medication were reviewed.. Continue same treatment. Continue with symptomatic treatment. Resume home medication. Monitor lytes and vitals. DVT and GI prophylaxis. Further recommendations of the clinical course of the patient DVT prophylaxis: Subcutaneous heparin GI Prophylaxis: Pepcid PT/OT: Pending Prognosis is guarded
[2020-01-20] MEDS: buPROPion XL 300 MG TAB.ER.24H PO SCH (10:31)
--- NOTE | 2020-01-20 12:38 | ECHOF ---
Referral Reason:pauses on EKG MEASUREMENTS -------- HEIGHT: 149.9 cm WEIGHT: 54.4 kg BP: 118/56 RVIDd: 3.4 cm (< 3.3) IVSd: 1.5 cm (0.6 - 1.1) LVIDd: 3.1 cm (3.9 - 5.3) LVPWd: 1.2 cm (0.6 - 1.1) IVSs: 1.8 cm LVIDs: 1.3 cm LVPWs: 1.7 cm LAESV Index (A-L): 35.40 ml/m Ao Diam: 2.6 cm (2.0 - 3.7) AV Cusp: 2.1 cm (1.5 - 2.6) LA Diam: 3.1 cm (2.7 - 3.8) MV EXCURSION: 15.488 mm (> 18.000) MV EF SLOPE: 34 mm/s (70 - 150) EPSS: 0.4 cm MV E Lewis: 1.05 m/s MV DecT: 137 ms MV A Lewis: 1.09 m/s MV E/A Ratio: 0.97 AR PHT: 180 ms RAP: 5.00 mmHg RVSP: 24.48 mmHg TAPSE: 22.56 mm FINDINGS -------- This was a technically good study. The left ventricular size is normal. There is moderate concentric left ventricular hypertrophy. O verall left ventricular systolic function is normal with, an EF between 55 - 60 %. Increased LAP Gr myrna 2 Diastolic Dysfunction. The right ventricle is mildly enlarged. LA is moderately dilated 34-39 ml/m2 The right atrial size is normal. Aortic valve is trileaflet and is mildly thickened. Trace amount of aortic regurgitation. The mitral valve is normal. The mitral valve leaflets are mildly thickened. There is trace mitral regurgitation. The tricuspid valve appears structurally normal. Mild tricuspid regurgitation present. Right vent ricular systolic pressure is normal at < 35 mmHg. There is no pulmonic regurgitation present. The aortic root size is normal. IVC Not well visulized. There is no pericardial effusion. CONCLUSIONS -------- 1. The left ventricular size is normal. 2. There is moderate concentric left ventricular hypertrophy. 3. Overall left ventricular systolic function is normal with, an EF between 55 - 60 %. 4. Increased LAP Grade 2 Diastolic Dysfunction. 5. The right ventricle is mildly enlarged. 6. LA is moderately dilated 34-39 ml/m2 7. Aortic valve is trileaflet and is mildly thickened. 8. Trace amount of aortic regurgitation. 9. The mitral valve leaflets are mildly thickened. 10. There is trace mitral regurgitation. 11. Mild tricuspid regurgitation present. DEPUTY CLERK OF SUPERIOR COURT: Skye Engel RDCS
--- NOTE | 2020-01-20 13:15 | P.GSCN ---
History of Present Illness Consult date: 01/20/20 History of present illness: CHIEF COMPLAINT: Abdominal pain with nausea and vomiting HISTORY OF PRESENT ILLNESS: This is a 84-year-old female with a known history of Parkinson's, myocardial infarction with CABG in 2009, GERD, hypertension and hypothyroidism. Yesterday she was at the diner eating with her daughter. She started vomiting and had shaking and there is questions of possible suspected seizure. Patient is reporting lower abdominal pain more so on the left. She is still having some clearish vomiting this morning. She had a CAT scan showed a dilated large bowel consistent with constipation and rectal fecal impaction. We have been consulted for her abdominal pain. She did have one large bowel movement of diarrhea yesterday in the ER. It appears that she is also having some cardiac causes and cardiology has been consulted. She denies any fever, chills or sweats. She does report having history of constipation. PAST MEDICAL HISTORY: See list. PAST SURGICAL HISTORY: See list. MEDICATIONS: See list. ALLERGIES: See list. SOCIAL HISTORY: No illicit drug use. REVIEW OF SYSTEMS: CONSTITUTIONAL: Denies fever or chills. HEENT: Denies blurred vision, vision changes, or eye pain. Denies hemoptysis CARDIOVASCULAR: Denies chest pain or pressure. RESPIRATORY: No shortness of breath. GASTROINTESTINAL: See HPI for pertinent findings HEMATOLOGIC: Denies bleeding disorders. GENITOURINARY: Denies any blood in urine or increased urinary frequency. SKIN: Denies pruitis. Denies rash. PHYSICAL EXAM: VITAL SIGNS: Reviewed GENERAL: Well-developed in no acute distress. HEENT: No sclera icterus. Extraocular movements grossly intact. Moist buccal mucosa. Head is atraumatic, normocephalic. No nasal drainage. ABDOMEN: Soft. Mildly distended. Diffuse tenderness. NEUROLOGIC: Alert and oriented. Cranial nerves II through XII grossly intact. LABORATORY DATA: WBC 16.6 hemoglobin 11.1 AST 54 ALT 23 alk phos 139 IMAGING: Computed tomography scan of the abdomen and pelvis reported a dilated large bowel consistent with constipation and rectal fecal impaction. There is probably large bowel ileus. There is secondary. Mild enlargement of the small bowel up to 2.8 centimeters in diameter. Small bowel inflammatory process is possible ASSESSMENT: 1. Abdominal pain likely secondary to constipation and rectal fecal impaction 2. Possible ileus PLAN: -We'll give 4 soapsuds enemas -Continue with IV fluids -Continue nothing by mouth -Continue Zofran for nausea and vomiting -GI and DVT prophylaxis Thank you for this consultation. We will continue to follow with you. Physician Director Of Patient Safety note has been reviewed by physician. Signing provider agrees with the documented findings, assessment, and plan of care. Abdominal pain with nausea and vomiting Past Medical History Past Medical History: Coronary Artery Disease (CAD), COPD, GERD/Reflux, Hypertension, Myocardial Infarction ([place]), Osteoarthritis (OA), Thyroid Disorder Additional Past Medical History / Comment(s): Parkinson's disease, depression. Last Myocardial Infarction Date:: 2009 History of Any Multi-Drug Resistant Organisms: None Reported Past Surgical History: Back Surgery, Bladder Surgery, Coronary Bypass/CABG, H ysterectomy, Orthopedic Surgery Additional Past Surgical History / Comment(s): STENT X1 Past Anesthesia/Blood Transfusion Reactions: Postoperative Nausea & Vomiting (PONV) Past Psychological History: Anxiety, Depression Smoking Status: Current every day smoker Past Drug Use History: None Reported - Past Family History Mother Family Medical History: CVA/TIA, Myocardial Infarction ([place]), Rheumatoid Arthritis ([place]) Father Family Medical History: Myocardial Infarction ([place]) Additional Family Medical History / Comment(s): ANEURYSM-UNKNOWN LOCATION Medications and Allergies Home Medications Medication Instructions Recorded Confirmed Type Ascorbic Acid [Vitamin C] 500 mg PO DAILY 07/25/15 01/19/20 History Atorvastatin [Lipitor] 80 mg PO DAILY 07/25/15 01/19/20 History Levothyroxine Sodium [Synthroid] 75 mcg PO QAM 07/25/15 01/19/20 History Nitroglycerin Sl Tabs [Nitrostat] 0.4 mg SUBLINGUAL Q5M PRN 07/25/15 01/19/20 History Omeprazole [PriLOSEC] 20 mg PO AC-BID 07/25/15 01/19/20 History buPROPion HCL [Wellbutrin XL] 300 mg PO QAM 07/25/15 01/19/20 History Isosorbide Mononitrate ER [Imdur] 30 mg PO DAILY #30 tab.er.24h 07/30/15 01/19/20 Rx Gabapentin [Neurontin] 100 mg PO BID 05/12/19 01/19/20 History Primidone [Mysoline] 300 mg PO DAILY 05/12/19 01/19/20 History Propranolol HCl [Inderal Xl] 80 mg PO HS 05/12/19 01/19/20 History lisinopriL [Zestril] 2.5 mg PO DAILY 05/12/19 01/19/20 History Aspirin 81 mg PO HS #30 tab 05/16/19 01/19/20 Rx Albuterol Sulfate [Ventolin HFA] 2 puff INHALATION RT-Q4H PRN 01/19/20 01/19/20 History Baclofen [Lioresal] 5 - 10 mg PO TID PRN 01/19/20 01/19/20 History Budesonide/Formoterol Fumarate 2 puff INHALATION RT-BID 01/19/20 01/19/20 His tory [Symbicort 160-4.5 Mcg Inhaler] Citalopram Hydrobromide [CeleXA] 40 mg PO DAILY 01/19/20 01/19/20 History EPINEPHrine (Auto Inject) [Epipen] 0.3 mg IM ONCE PRN 01/19/20 01/19/20 History Lidocaine 5% Patch [Lidoderm] 1 - 3 patch TOPICAL DAILY PRN 01/19/20 01/19/20 History Allergies Allergy/AdvReac Type Severity Reaction Status Date / Time venom-honey bee Allergy Anaphylaxis Verified 01/19/20 19:26 [bee venom (honey bee)] Surgical - Exam Vital Signs Temp Pulse Resp BP Pulse Ox 97.9 F 66 18 149/110 92 L 01/19/20 17:12 01/19/20 17:12 01/19/20 17:12 01/19/20 17:12 01/19/20 17:12 Results - Labs 01/20/20 06:14 01/20/20 06:14 Abnormal Lab Results - Last 24 Hours (Table) 01/19/20 01/19/20 01/19/20 Range/Units 17:23 17:33 17:33 WBC (3.8-10.6) k/uL RBC (3.80-5.40) m/uL Hgb (11.4-16.0) gm/dL MCHC (31.0-37.0) g/dL Neutrophils # (1.3-7.7) k/uL Lymphocytes # (1.0-4.8) k/uL APTT 18.7 L (22.0-30.0) sec Sodium 133 L (137-145) mmol/L Chloride (98-107) mmol/L Carbon Dioxide 18 L (22-30) mmol/L BUN (7-17) mg/dL Glucose 154 H (74-99) mg/dL POC Glucose (mg/dL) 163 H (75-99) mg/dL Calcium (8.4-10.2) mg/dL AST 54 H (14-36) U/L Alkaline Phosphatase 139 H (38-126) U/L 01/20/20 01/20/20 Range/Units 06:14 06:14 WBC 16.6 H (3.8-10.6) k/uL RBC 3.71 L (3.80-5.40) m/uL Hgb 11.1 L (11.4-16.0) gm/dL MCHC 30.9 L (31.0-37.0) g/dL Neutrophils # 14.9 H (1.3-7.7) k/uL Lymphocytes # 0.8 L (1.0-4.8) k/uL APTT (22.0-30.0) sec Sodium 135 L (137-145) mmol/L Chloride 109 H (98-107) mmol/L Carbon Dioxide (22-30) mmol/L BUN 19 H (7-17) mg/dL Glucose 138 H (74-99) mg/dL POC Glucose (mg/dL) (75-99) mg/dL Calcium 8.0 L (8.4-10.2) mg/dL AST (14-36) U/L Alkaline Phosphatase (38-126) U/L Diabetes panel 01/19/20 01/20/20 Range/Units 17:33 06:14 Sodium 133 L 135 L (137-145) mmol/L Potassium 4.4 4.6 (3.5-5.1) mmol/L Chloride 105 109 H (98-107) mmol/L Carbon Dioxide 18 L 22 (22-30) mmol/L BUN 16 19 H (7-17) mg/dL Creatinine 1.01 0.97 (0.52-1.04) mg/dL Glucose 154 H 138 H (74-99) mg/dL Calcium 9.4 8.0 L (8.4-10.2) mg/dL AST 54 H (14-36) U/L ALT 23 (4-34) U/L Alkaline Phosphatase 139 H (38-126) U/L Total Protein 6.5 (6.3-8.2) g/dL Albumin 3.9 (3.5-5.0) g/dL Thyroid panel 01/20/20 Range/Units 06:14 TSH 1.230 (0.465-4.680) mIU/L Calcium panel 01/19/20 01/20/20 Range/Units 17:33 06:14 Calcium 9.4 8.0 L (8.4-10.2) mg/dL Albumin 3.9 (3.5-5.0) g/dL Pituitary panel 01/19/20 01/20/20 01/20/20 Range/Units 17:33 06:14 06:14 Sodium 133 L 135 L (137-145) mmol/L Potassium 4.4 4.6 (3.5-5.1) mmol/L Chloride 105 109 H (98-107) mmol/L Carbon Dioxide 18 L 22 (22-30) mmol/L BUN 16 19 H (7-17) mg/dL Creatinine 1.01 0.97 (0.52-1.04) mg/dL Glucose 154 H 138 H (74-99) mg/dL Calcium 9.4 8.0 L (8.4-10.2) mg/dL TSH 1.230 (0.465-4.680) mIU/L Adrenal panel 01/19/20 01/20/20 Range/Units 17:33 06:14 Sodium 133 L 135 L (137-145) mmol/L Potassium 4.4 4.6 (3.5-5.1) mmol/L Chloride 105 109 H (98-107) mmol/L Carbon Dioxide 18 L 22 (22-30) mmol/L BUN 16 19 H (7-17) mg/dL Creatinine 1.01 0.97 (0.52-1.04) mg/dL Glucose 154 H 138 H (74-99) mg/dL Calcium 9.4 8.0 L (8.4-10.2) mg/dL Total Bilirubin 0.5 (0.2-1.3) mg/dL AST 54 H (14-36) U/L ALT 23 (4-34) U/L Alkaline Phosphatase 139 H (38-126) U/L Total Protein 6.5 (6.3-8.2) g/dL Albumin 3.9 (3.5-5.0) g/dL
--- NOTE | 2020-01-20 15:40 | P.CNNES ---
History of Present Illness Consult date: 01/20/20 Requesting physician: Iesha Dye Reason for Consult: Possible seizure History of Present Illness: Patient is a 84-year-old female admitted to the hospital for evaluation of vomiting and suspected seizure activity. Patient had an episode similar to this in the past about a year ago where she became dehydrated, had several episodes of vomiting and then had a syncopal episode. Patient states that she is out for only a very brief moment. No tongue bite or urinary incontinence. No previous history of seizures. Patient currently not on any seizure medication. She was out with her daughter, shopping and had eaten lunch at a restaurant. She began vomiting in the departmental store and had an episode of her body shaking which was similar to previous episode and was concerning for seizures. There was no postictal period. No headaches. No chest pain. Patient underwent CT head 01/19/2020 showed cerebral atrophy. Chronic small vessel ischemia. Atrophy more noticeable in the frontal lobe. No change co mpared to old exam. CT of abdomen and pelvis showed dilated large bowel consistent with constipation and rectal fecal impaction. This probably large bowel ileus. There is secondarily apparent mild enlargement of the small bowel up to 2.8 cm in diameter. Small bowel inflammatory process is possible. Chest x-ray showed some infiltrate and atelectasis left lower lobe slightly worse than old exam. No obvious heart failure. EKG shows sinus rhythm with first-degree AV block. Nonspecific intraventricular block. Anterolateral infarct, age undetermined. Patient's carotid Doppler from 05/13/2019 showed antegrade flow in both vertebral arteries. Mild atherosclerotic changes on right ICA with no significant velocity increase. Patient had endarterectomy 5 years ago. Left side shows severe plaque and atherosclerotic changes with narrow vessels. No significant velocity increase in ICA. 2-D echo from 05/13/2019 showed sinus rhythm, borderline concentric LVH. EF is between 50-55%. Apical inferior left- ventricular wall motion is hypokinetic. Normal left atrial size. MRI of the cervical spine from 12/12/2016 showed straightening of cervical spine with multilevel degenerative changes redemonstrated. MRI of the lumbar spine showed multiple chronic compression collapse. Associated low signal areas could represent air clefts or cement from prior vertebroplasty. No new vertebral compression collapse. Some degenerative changes as per report. Patient at present is complaining of stomach hurting. Patient has history of hypertension denies diabetes. Patient has smoked half pack per day for 60 years. Denies any alcohol use. Patient also has history of tremors involving her right side of the body. Patient states that she follows up with Dr. Yanes has been diagnosed with Parkinson's disease, however is currently on primidone, which is typically given for benign tremors. The tremors have been present for last couple years, involving right side more than left. Review of Systems As above in detail in HPI. All other 14 point review of systems unremarkable. Patient has impacted bowels, constipation, abdominal pain. Patient states that she does have bowel movement every morning but it is not full. Past Medical History Past Medical History: Coronary Artery Disease (CAD), COPD, GERD/Reflux, H ypertension, Myocardial Infarction (HI), Osteoarthritis (OA), Thyroid Disorder Additional Past Medical History / Comment(s): Parkinson's disease, depression. Last Myocardial Infarction Date:: 2009 History of Any Multi-Drug Resistant Organisms: None Reported Past Surgical History: Back Surgery, Bladder Surgery, Coronary Bypass/CABG, Hysterectomy, Orthopedic Surgery Additional Past Surgical History / Comment(s): STENT X1 Past Anesthesia/Blood Transfusion Reactions: Postoperative Nausea & Vomiting (PONV) Past Psychological History: Anxiety, Depression Smoking Status: Current every day smoker Past Drug Use History: None Reported - Past Family History Mother Family Medical History: CVA/TIA, Myocardial Infarction (HI), Rheumatoid Arthritis (RA) Father Family Medical History: Myocardial Infarction (HI) Additional Family Medical History / Comment(s): ANEURYSM-UNKNOWN LOCATION Medications and Allergies Home Medications Medication Instructions Recorded Confirmed Type Ascorbic Acid [Vitamin C] 500 mg PO DAILY 07/25/15 01/19/20 History Atorvastatin [Lipitor] 80 mg PO DAILY 07/25/15 01/19/20 History Levothyroxine Sodium [Synthroid] 75 mcg PO QAM 07/25/15 01/19/20 History Nitroglycerin Sl Tabs [Nitrostat] 0.4 mg SUBLINGUAL Q5M PRN 07/25/15 01/19/20 History Omeprazole [PriLOSEC] 20 mg PO AC-BID 07/25/15 01/19/20 History buPROPion HCL [Wellbutrin XL] 300 mg PO QAM 07/25/15 01/19/20 History Isosorbide Mononitrate ER [Imdur] 30 mg PO DAILY #30 tab.er.24h 07/30/15 01/19/20 Rx Gabapentin [Neurontin] 100 mg PO BID 05/12/19 01/19/20 History Primidone [Mysoline] 300 mg PO DAILY 05/12/19 01/19/20 History Propranolol HCl [Inderal Xl] 80 mg PO HS 05/12/19 01/19/20 History lisinopriL [Zestril] 2.5 mg PO DAILY 05/12/19 01/19/20 History Aspirin 81 mg PO HS #30 tab 05/16/19 01/19/20 Rx Albuterol Sulfate [Ventolin HFA] 2 puff INHALATION RT-Q4H PRN 01/19/20 01/19/20 History Baclofen [Lioresal] 5 - 10 mg PO TID PRN 01/19/20 01/19/20 History Budesonide/Formoterol Fumarate 2 puff INHALATION RT-BID 01/19/20 01/19/20 History [Symbicort 160-4.5 Mcg Inhaler] Citalopram Hydrobromide [CeleXA] 40 mg PO DAILY 01/19/20 01/19/20 History EPINEPHrine (Auto Inject) [Epipen] 0.3 mg IM ONCE PRN 01/19/20 01/19/20 History Lidocaine 5% Patch [Lidoderm] 1 - 3 patch TOPICAL DAILY PRN 01/19/20 01/19/20 History Allergies Allergy/AdvReac Type Severity Reaction Status Date / Time venom-honey bee Allergy Anaphylaxis Verified 01/19/20 19:26 [bee venom (honey bee)] Physical Examination - Vital Signs Vital Signs: Vital Signs Temp Pulse Pulse Resp BP BP Pulse Ox 01/20/20 08:00 99.2 F 76 16 132/63 95 01/20/20 04:00 98.7 F 81 18 118/56 96 01/20/20 00:00 73 18 114/63 94 L 01/19/20 20:35 77 16 01/19/20 20:25 97.9 F 77 16 131/57 94 L 01/19/20 20:00 78 16 105/55 97 01/19/20 18:50 82 18 114/68 96 01/19/20 18:12 75 18 93/38 97 01/19/20 17:40 81 18 74/47 99 01/19/20 17:12 97.9 F 66 18 149/110 92 L Intake and Output 01/19/20 01/20/20 01/20/20 22:59 06:59 14:59 Intake Total 400 1170 Balance 400 1170 Intake: IV 1170 Sodium Chloride 0.9% 1, 1170 000 ml @ 100 mls/hr IV . Q10H [facility] Rx#:[id number] Oral 400 Other: # Voids 1 Weight 54.431 kg 54.5 kg On examination patient is an elderly female, appears younger than her stated age. She is alert and awake fully oriented to time place and person. Speech is mildly hoarse but no aphasia or dysarthria. On cranial nerve ex amination pupils are round and reactive to light, visual felipe are full on confrontation. Extraocular muscles are intact with no nystagmus. Face is symmetric, tongue protrudes to the midline. Palatal elevation and sensation normal. Hearing and shoulder shrug normal. On muscle strength testing there is no pronator drift and the strength is normal in arms and legs distally and proximally, reflexes symmetric plantars downgoing. Sensory touch is equal. No ataxia for [id number] testing. Patient has some resting tremor noted of her right arm and right leg. Gait was deferred. He has bilateral carotid bruit. She is also a murmur heard. Abdomen is soft. Chest is clear. No peripheral edema. Results - Laboratory Findings CBC and BMP: 01/22/20 06:25 01/22/20 06:25 Abnormal Lab Findings: Abnormal Labs 01/19/20 01/19/20 01/19/20 17:23 17:33 17:33 WBC RBC Hgb MCHC Neutrophils # Lymphocytes # APTT 18.7 L Sodium 133 L Chloride Carbon Dioxide 18 L BUN Glucose 154 H POC Glucose (mg/dL) 163 H Calcium AST 54 H Alkaline Phosphatase 139 H 01/20/20 01/20/20 06:14 06:14 WBC 16.6 H RBC 3.71 L Hgb 11.1 L MCHC 30.9 L Neutrophils # 14.9 H Lymphocytes # 0.8 L APTT Sodium 135 L Chloride 109 H Carbon Dioxide BUN 19 H Glucose 138 H POC Glucose (mg/dL) Calcium 8.0 L AST Alkaline Phosphatase Assessment and Plan Assessment: * Syncopal spell, likely vasovagal, possible pancho-arrhythmia. Patient's telemetry monitoring showing sinus pauses of 5-8 seconds, probable heart block. * Tobacco use * Impacted bowels. * Carotid atherosclerotic disease with history of right CEA Plan: * EEG has been completed. We will review the results. * Patient's syncope is likely related to heart block versus vasovagal phenomenon. Cardiology following the patient. Continue telemetry monitoring. Patient may be candidate for pacemaker placement. * Continue aspirin 81 mg and Lipitor. * Suggest of Wellbutrin, as it can lower seizure threshold. * No other neurological workup indicated.
[2020-01-20] MEDS: PIPERACILLIN-TAZOBACTAM 3.375 GM in SODIUM CHLORIDE 0.9% 100 ML IVPB SCH (17:21)
--- NOTE | 2020-01-20 19:32 | EEG ---
ELECTROENCEPHALOGRAM REPORT DATE OF SERVICE: 01/20/2020 PREAMBLE: This is an 84-year-old female with syncopal spells. This study is performed to evaluate for any epileptiform activity. EEG FINDINGS: This is a 21-channel routine EEG recording in a patient utilizing 10-20 international system with referential and bipolar montages. Background consists of well- developed, moderately well-regulated, mixed frequencies of 8 hertz alpha, with some 6-7 hertz theta activity. Intermittent brief generalized rhythmic delta activity with frontal predominance was seen sporadically. Photic driving response was not seen. Different stages of sleep were not seen. No focal or generalized epileptiform activity was seen. IMPRESSION: This is a mildly abnormal EEG due to mild background slowing. This is suggestive of generalized cerebral dysfunction as can be seen with encephalopathy of toxic metabolic, vascular or degenerative process. No epileptiform activity was seen. MMODL / IJN: [id number] / MTDD
[2020-01-20] MEDS: FAMOTIDINE 20 MG/2 ML VIAL IV SCH (20:27)
[2020-01-20] MEDS: HEPARIN SODIUM,PORCINE 5,000 UNIT/ML 1 ML VIAL SQ SCH (20:27)
[2020-01-21] MEDS: PIPERACILLIN-TAZOBACTAM 3.375 GM in SODIUM CHLORIDE 0.9% 100 ML IVPB SCH ×3 (02:37→18:08)
[2020-01-21] MEDS: LEVOTHYROXINE 75 MCG TAB PO SCH (06:27)
[2020-01-21] MEDS: PANTOPRAZOLE 40 MG TABLET PO SCH (06:27)
[2020-01-21] MEDS: SODIUM CHLORIDE 0.9% 1,000 ML IV SCH ×2 (06:27→20:45)
[2020-01-21 06:28] LABS: Basophils % (A) 0 %; Eosinophils # (A) 0.1 k/uL (0-0.7); Eosinophils % (A) 1 %; HGB 10.9 gm/dL (11.4-16.0); Hypochromasia Slight; Lymphocytes # (A) 1.5 k/uL (1.0-4.8); Lymphocytes % (A) 12 %; MCH 31.3 pg (25.0-35.0); MCHC 32.2 g/dL (31.0-37.0); MCV 96.9 fL (80.0-100.0); Mean Platelet Volume 7.8; Monocytes # (A) 0.5 k/uL (0-1.0); Monocytes % (A) 4 %; Neutrophils # (A) 10.1 k/uL (1.3-7.7); Neutrophils % (A) 81 %; Platelet Count 218 k/uL (150-450); RDW 13.4 % (11.5-15.5); WBC 12.5 k/uL (3.8-10.6)
[2020-01-21 06:31] LABS: Calcium 8.1 mg/dL (8.4-10.2); Potassium 3.9 mmol/L (3.5-5.1)
[2020-01-21] MEDS: SYMBICORT 160-4.5 MCG INHALER INHALATION SCH ×2 (08:07→19:14)
[2020-01-21] MEDS: CITALOPRAM HYDROBROMIDE 20 MG TAB PO SCH (09:33)
[2020-01-21] MEDS: ISOSORBIDE MONONITRATE ER 30 MG TAB.ER.24H PO SCH (09:33)
[2020-01-21] MEDS: ATORVASTATIN 80 MG TAB PO SCH (09:33)
[2020-01-21] MEDS: ASCORBIC ACID 500 MG TAB PO SCH (09:33)
[2020-01-21] MEDS: HEPARIN SODIUM,PORCINE 5,000 UNIT/ML 1 ML VIAL SQ SCH ×2 (09:33→20:41)
[2020-01-21] MEDS: GABAPENTIN 100 MG CAP PO SCH ×2 (09:34→20:40)
[2020-01-21] MEDS: PRIMIDONE 50 MG TAB PO SCH (09:34)
[2020-01-21] MEDS: buPROPion XL 300 MG TAB.ER.24H PO SCH (09:40)
[2020-01-21] MEDS: IOPAMIDOL CONTRAST (ORAL USE) VIAL PO PRN ×2 (12:32→13:44)
--- NOTE | 2020-01-21 12:45 | P.PN ---
Subjective Progress Note Date: 01/21/20 CHIEF COMPLAINT: Abdominal pain with nausea and vomiting HISTORY OF PRESENT ILLNESS: Patient presented with abdominal pain secondary to constipation and rectal fecal impaction. She had large bowel movements after the forceps out in a month's. However, she is still having vomiting and her abdomen is more distended today. A repeat computed tomography scan of the abdomen with oral contrast has been ordered. She also reports poor emptying of her bladder. Bladder scan ordered. Patient did have cardiac causes yesterday he has been seen by cardiology. They've discontinued her beta ulysses. They're monitoring her for possible pacemaker. Patient afebrile. WBC 12.5 hemoglobin 10.9 PHYSICAL EXAM: VITAL SIGNS: Reviewed. GENERAL: Well-developed in no acute distress. HEENT: No sclera icterus. Extraocular movements grossly intact. Moist buccal mucosa. Head is atraumatic, normocephalic. ABDOMEN: Soft. More distended today mild tenderness with palpation NEUROLOGIC: Alert and oriented. Cranial nerves II through XII grossly intact. ASSESSMENT: 1. Abdominal pain likely secondary to constipation and rectal fecal impaction 2. Possible ileus 3. Syncope likely secondary to bradycardia and high grade AV block. Patient being followed by cardiology and they are assessing her for possible pacemaker. PLAN: -Repeat computed tomography scan of the abdomen and pelvis with oral contrast on ly for further evaluation of abdominal pain and abdominal distention -Continue with IV fluids -Continue nothing by mouth -Continue Zofran for nausea and vomiting -GI and DVT prophylaxis Physician Water Supervisor note has been reviewed by physician. Signing provider agrees with the documented findings, assessment, and plan of care. Objective - Vital Signs Vital signs: Vital Signs Temp 98.5 F 01/21/20 08:00 Pulse 90 01/21/20 08:00 Resp 18 01/21/20 08:00 BP 144/80 01/21/20 08:00 Pulse Ox 95 01/21/20 08:00 Intake & Output 01/20/20 01/21/20 01/21/20 18:59 06:59 18:59 Intake Total 500 240 Balance 500 240 Weight 56.5 kg Intake: IV 500 Sodium Chloride 0.9% 1, 500 000 ml @ 75 mls/hr IV . [id number] [facility] Rx#:[id number] Oral 240 Other: # Voids 2 1 - Labs CBC & Chem 7: 01/21/20 05:53 01/21/20 05:53 Labs: Abnormal Lab Results - Last 24 Hours (Table) 01/21/20 01/21/20 Range/Units 05:53 05:53 WBC 12.5 H (3.8-10.6) k/uL RBC 3.50 L (3.80-5.40) m/uL Hgb 10.9 L (11.4-16.0) gm/dL Neutrophils # 10.1 H (1.3-7.7) k/uL Sodium 135 L (137-145) mmol/L Chloride 111 H (98-107) mmol/L Carbon Dioxide 19 L (22-30) mmol/L Calcium 8.1 L (8.4-10.2) mg/dL
--- NOTE | 2020-01-21 13:00 | P.PN ---
Subjective This is a pleasant 84 years old female with past medical history of coronary artery disease status post CABG and 1 stent, hypertension, cigarette smoker, GERD, hypothyroidism, Parkinson disease, depression, chronic back pain. right lower lung nodule, history of colitis. She has history of COPD and follow-up with Dr. Rivas, she has Parkinson disease and follow-up with Fritz Pitts and she is patient of Dr. Kang. Patient was shopping with her daughter and after lunch went to the restroom and when she came out she started having several tresa uts of vomiting about 5-6 time, and the daughter drove her back where she kept vomiting and in the middle she passed out but a daughter thinks she had a seizure because her head was back in and her eyes rolled up, however patient woke up immediately. Also patient has periumbilical abdominal pain moderate to severe, radiating from one side to another about 9/10 in severity. Patient is every day smoker about half pack per day, she has chronic cough with white phlegm with no recent worsening, no recent worsening of dyspnea as per patient Patient states she has bowel movement every day, and in ER she has big bowel movement. Patient has stress incontinence as well Vitals are stable. Labs showed leukocytosis went up from normal WBC 8.0K to 16.6 K, hemoglobin 11.1, platelets normal at 260 1K, INR 1.0, BMP is unremarkable, sugar controlled. Troponin 1 is less than 0.012, TSH is normal at 1.2. EKG showing first-degree heart block at 93 BPM with nonspecific interventricular block and QTC of 519 Chest x-ray showing possible left lower lobe infiltrate CT of the abdomen and pelvis without contrast showing markedly dilated large bowel and fecal material in the rectum duct measures 6.[address] of the brain is negative for acute process. An emergency room patient got Reglan and normal saline 500 mL bolus and started at 4 30 mL/h Horse Wrangler evaluated the patient and recommended TSH and echocardiogram and telemetry 01/21/2020 Patient is awake and alert, she had an enema yesterday and she had bowel movement after that however today she vomited again one more time and she had a positive during the vomiting only. No chest pain or dyspnea however she has lower abdominal pain and tenderness, and patient is going for a CAT scan of the abdomen and pelvis with contrast per surgical team recommendation No more syncope, EEG showing no seizure. Leukocytosis improvement to 12.5, BMP is unremarkable. Continue with Zosyn and normal sinus 75 mL/h Review of Systems CONSTITUTIONAL: No fever, no malaise, no fatigue. HEENT: No recent visual problems or hearing problems. Denied any sore throat. CARDIOVASCULAR: No orthopnea, PND, no palpitations, no syncope. PULMONARY: No shortness of breath, no hemoptysis. GASTROINTESTINAL: No diarrhea, Normoactive bowel sounds. NEUROLOGICAL: No headaches, no weakness, no numbness. HEMATOLOGICAL: Denies any bleeding or petechiae. GENITOURINARY: Denies any burning micturition, frequency, or urgency. MUSCULOSKELETAL/RHEUMATOLOGICAL: Denies any joint pain, swelling, or any muscle pain. ENDOCRINE: Denies any polyuria or polydipsia. Active Medications Generic Name Dose Route Start Last Admin Trade Name Freq PRN Reason Stop Dose Admin Acetaminophen 650 mg 01/19/20 19:29 01/20/20 16:15 Tylenol Tab PO 650 mg Q6HR PRN Administration Mild Pain or Fever > 100.5 Albuterol Sulfate 2.5 mg 01/19/20 21:08 Ventolin Nebulized INHALATION RT-Q4H PRN Shortness Of Breath Ascorbic Acid 500 mg 01/20/20 09:00 01/21/20 09:33 Vitamin C PO 500 mg DAILY AMBROSIO Administration Aspirin 81 mg 01/19/20 21:15 01/20/20 20:27 Aspirin PO 81 mg HS [facility]BR[facility]IO Administration Atorvastatin Calcium 80 mg 01/20/20 09:00 01/21/20 09:33 Lipitor PO 80 mg DAILY AMBROSIO Administration Baclofen 5 - 10 mg 01/19/20 21:08 Lioresal PO TID PRN Muscle Pain Budesonide/Formoterol Fumarate 2 puff 01/20/20 08:00 01/21/20 08:07 Symbicort 160-4.5 Mcg Inhaler INHALATION 2 puff RT-BID [facility]IO Administration Bupropion HCl 300 mg 01/20/20 09:00 01/21/20 09:40 Wellbutrin Xl PO 300 mg QAM [facility]IO Administration Citalopram Hydrobromide 40 mg 01/20/20 09:00 01/21/20 09:33 Celexa PO 40 mg DAILY [facility]IO Administration Famotidine 20 mg 01/20/20 21:00 01/20/20 20:27 Pepcid IV 20 mg Q24H [facility]IO Administration Gabapentin 100 mg 01/19/20 21:15 01/21/20 09:34 Neurontin PO 100 mg BID [facility]IO Administration Heparin Sodium (Porcine) 5,000 unit 01/20/20 21:00 01/21/20 09:33 Heparin SQ 5,000 unit Q12HR [facility] Administration Sodium Chloride 1,000 mls @ 75 mls/hr 01/19/20 19:30 01/21/20 06:27 Saline 0.9% IV 75 mls/hr .[id number] [facility]IO Administration Piperacillin Sod/Tazobactam 100 mls @ 25 mls/hr 01/20/20 18:00 01/21/20 11:03 Sod 3.375 gm/ Sodium Chloride IVPB 25 mls/hr Q8H [facility] Administration Iopamidol 30 ml 01/21/20 11:20 01/21/20 12:32 Isovue-300 (For Oral Use) PO 01/22/20 11:21 30 ml Q60M PRN Administration CT Scan Isosorbide Mononitrate 30 mg 01/20/20 09:00 01/21/20 09:33 Imdur PO 30 mg DAILY [facility]IO Administration Levothyroxine Sodium 75 mcg 01/20/20 06:30 01/21/20 06:27 Synthroid PO 75 mcg DAILY@0630 [facility] Administration Lisinopril 2.5 mg 01/20/20 09:00 01/21/20 09:34 Zestril PO 2.5 mg DAILY [facility]IO Administration Lorazepam 1 mg 01/20/20 09:57 Ativan IM Q6HR PRN Seizures Naloxone HCl 0.2 mg 01/19/20 19:29 Narcan IV Q2M PRN Opioid Reversal Ondansetron HCl 4 mg 01/19/20 19:31 01/19/20 22:07 Zofran IVP 4 mg Q8HR PRN Administration Nausea And Vomiting Pantoprazole Sodium 40 mg 01/20/20 07:30 01/21/20 06:27 Protonix PO 40 mg [id number] [facility] Administration Primidone 300 mg 01/20/20 09:00 01/21/20 09:34 Mysoline PO 300 mg DAILY AMBR[facility]IO Administration Objective - Vital Signs Vital signs: Vital Signs Temp 98.5 F 01/21/20 08:00 Pulse 90 08/19/20 08:00 Resp 18 01/21/20 08:00 BP 144/80 01/21/20 08:00 Pulse Ox 95 01/21/20 08:00 Intake & Output 01/20/20 01/21/20 01/21/20 18:59 06:59 18:59 Intake Total 500 240 Balance 500 240 Weight 56.5 kg Intake: IV 500 Sodium Chloride 0.9% 1, 500 000 ml @ 75 mls/hr IV . [id number] [facility] Rx#:[id number] Oral 240 Other: # Voids 2 1 - Exam GENERAL: The patient is alert and oriented x3, not in any acute distress. Well developed, well nourished. HEENT: Pupils are round and equally reacting to light. EOMI. No scleral icterus. No conjunctival pallor. Normocephalic, atraumatic. No pharyngeal erythema. No thyromegaly. CARDIOVASCULAR: S1 and S2 present. No murmurs, rubs, or gallops. PULMONARY: Chest is clear to auscultation, no wheezing or crackles. -ABDOMEN: Soft, left lower abdomen tenderness with some guarding, no rebound tenderness, nondistended, normoactive bowel sounds. No palpable organomegaly. MUSCULOSKELETAL: No joint swelling or deformity. EXTREMITIES: No cyanosis, clubbing, or pedal edema. NEUROLOGICAL: Gross neurological examination did not reveal any focal deficits. SKIN: No rashes. no petechiae. - Labs CBC & Chem 7: 01/21/20 05:53 01/21/20 05:53 Labs: Abnormal Lab Results - Last 24 Hours (Table) 01/21/20 01/21/20 Range/Units 05:53 05:53 WBC 12.5 H (3.8-10.6) k/uL RBC 3.50 L (3.80-5.40) m/uL Hgb 10.9 L (11.4-16.0) gm/dL Neutrophils # 10.1 H (1.3-7.7) k/uL Sodium 135 L (137-145) mmol/L Chloride 111 H (98-107) mmol/L Carbon Dioxide 19 L (22-30) mmol/L Calcium 8.1 L (8.4-10.2) mg/dL Assessment and Plan Assessment: Dilated large bowel with constipation and rectal fecal impaction, suspicious for large bowel ileus. With secondary mild enlargement of the small bowel up to 2.8 cm Possible syncope could be present fecal or secondary to cardiac rhythm problem, less likely seizure Multiple pauses on telemetry with interventricular block on EKG. Possible left lower loben early aspiration pneumonia parkinson disease right lower lung nodulein the chest x-ray from 05/13/2019 History of coronary artery disease status post CABG and stent Nicotine dependence Hypertension Hypothyroidism Parkinson disease Gastroesophageal reflux disease Primary osteoarthritis History of depression, not an active issue Chronic back pain Plan: this is a pleasant 84 years old female who presents with ileus versus bowel obs truction secondary to fecal impaction. Patient likely has seizure, most likely she has bowel obstruction causing nausea vomiting with secondary pauses. Patient is felt also by surgery and cardiology team. Patient is going for a CAT scan of the abdomen On this she has pauses without vomiting, then she might need a pacemaker however currently she does not. Continue with Zosyn on normal saline Labs and medication were reviewed.. Continue same treatment. Continue with symptomatic treatment. Resume home medication. Monitor lytes and vitals. DVT and GI prophylaxis. Further recommendations of the clinical course of the patient DVT prophylaxis: Subcutaneous heparin GI Prophylaxis: Pepcid PT/OT: Pending Prognosis is guarded
--- NOTE | 2020-01-21 14:01 | P.PN ---
Subjective Progress Note Date: 01/21/20 CHIEF COMPLAINT: Pauses HISTORY OF PRESENT ILLNESS: Patient examined at the bedside this morning. She reports an episode of vomiting this morning. Patient has not had any further significant pauses per electro mechanical technologist. BP 144/80. HR 90s. Echocardiogram completed revealed ejection fraction between 55 and 60%. PHYSICAL EXAM: VITAL SIGNS: Reviewed. GENERAL: Well-developed in no acute distress. NECK: Supple. No JVD or thyromegaly LUNGS: Respirations even and unlabored. Lungs essentially clear to auscultation bilaterally. HEART: Regular rate and rhythm. S1 and S2 heard. EXTREMITIES: Normal range of motion. No clubbing or cyanosis. Peripheral pulses intact. No lower extremity edema ASSESSMENT: 1. Syncope related to bradycardia and high-grade AV block, likely vasovagal in origin 2 Coronary artery disease status post coronary artery bypass grafting 3. Carotid stenosis status post carotid endarterectomy 4. Hypertension 5. Hyperlipidemia PLAN: -Continue to monitor telemetry -If patient continues to have high grade AV block in the absence of nausea/vomiting, she will require a pacemaker Nurse practitioner note has been reviewed by physician. Signing provider agrees with the documented findings, assessment, and plan of care. Objective - Vital Signs Vital signs: Vital Signs Temp 98.5 F 01/21/20 08:00 Pulse 90 01/21/20 08:00 Resp 18 01/21/20 08:00 BP 144/80 01/21/20 08:00 Pulse Ox 95 01/21/20 08:00 Intake & Output 01/20/20 01/21/20 01/21/20 18:59 06:59 18:59 Intake Total 500 Balance 500 Weight 56.5 kg Intake: IV 500 Sodium Chloride 0.9% 1, 500 000 ml @ 75 mls/hr IV . [id number] [facility]BR[facility]IO Rx#:[id number] Other: # Voids 2 1 - Labs CBC & Chem 7: 01/21/20 05:53 01/21/20 05:53 Labs: Abnormal Lab Results - Last 24 Hours (Table) 01/21/20 01/21/20 Range/Units 05:53 05:53 WBC 12.5 H (3.8-10.6) k/uL RBC 3.50 L (3.80-5.40) m/uL Hgb 10.9 L (11.4-16.0) gm/dL Neutrophils # 10.1 H (1.3-7.7) k/uL Sodium 135 L (137-145) mmol/L Chloride 111 H (98-107) mmol/L Carbon Dioxide 19 L (22-30) mmol/L Calcium 8.1 L (8.4-10.2) mg/dL
--- NOTE | 2020-01-21 14:47 | CT ---
EXAMINATION TYPE: CT abdomen pelvis wo con DATE OF EXAM: 01/21/2020 HISTORY: Nausea, vomiting, diarrhea, hypotension and near syncope. Abdominal pain and distention. CT DLP: 481.2 mGycm. Automated Exposure Control for Dose Reduction was Utilized. TECHNIQUE: CT scan of the abdomen and pelvis is performed with oral but without IV contrast. COMPARISON: CT abdomen and pelvis 2 days earlier and older study May 12, 2019 FINDINGS: Within the limitations of a non-contrast study, the following observations are made. LUNG BASES: New tiny right and small left bilateral pleural effusions. Elevated left hemidiaphragm re demonstrated with associated left basilar compressive atelectasis. Partial visualization post-CABG ch anges. LIVER/GB: No significant abnormality is appreciated. PANCREAS: No significant abnormality is seen. SPLEEN: No significant abnormality is seen. ADRENALS: No significant abnormality is seen. KIDNEYS: Central vascular calcifications. No renal stones or hydronephrosis. Cortical thinning bilate rally. New Moderate to severely distended bladder extending to above level of the iliac crests. BOWEL: Persistent large fixed hiatal hernia or intrathoracic stomach with abnormal twisting redemons trated. Oral contrast seen in nondistended stomach above the level below diaphragm. No suspicious dil atation of the duodenal sweep. There is contrast dilated jejunal loops in the left and mid abdomen. T here is gradual transition into fluid dilated small bowel loops throughout the upper to mid abdomen. There are fluid-filled prominent less dilated small bowel loops in the right abdomen. There is moderate to severe concentric wall thickening of the colon from the splenic flexure to the p roximal sigmoid colon level. [id number]-zo-mamdffru surrounding fat stranding and fluid is noted. Some redu ndancy of the sigmoid colon at level of splenic flexure is present. Cecum now not identified in the r ight lower quadrant. It likely is dilated with air-fluid level in the right upper quadrant anterior t o the liver. There is poor visualization of the mid transverse colon on current study. GENITAL ORGANS: Uterus surgically absent or markedly atrophic. LYMPH NODES: No new greater than 1cm abdominal or pelvic lymph nodes are appreciated. OSSEOUS STRUCTURES: Demineralization with underlying scoliosis. Multilevel compression type fracture deformities and vertebroplasty in the thoracolumbar spine. OTHER: Moderate to severe calcified plaque of the aorta extends into branch vessels. Somewhat small c aliber aortoiliac system redemonstrated. IMPRESSION: 1. Marginal improvement in severe colonic fecal stasis. There is however marked worsening of diffuse small bowel dilatation and proximal colonic distention with multiple air-fluid levels. There is left- sided colitis noted. This is not definitive etiology of the new worsening bowel obstruction. Change i n position of the cecum is present. 2. New moderate to severe distention of bladder. Consider Schafer catheter placement.
--- NOTE | 2020-01-21 15:30 | P.PN ---
Subjective Progress Note Date: 01/21/20 Patient states she is feeling better. No further syncopal spells. Patient's daughter was present today. Telemetry monitoring showing 2 second pause on one occasion, and 1.2 second on another. No focal symptoms. Objective - Vital Signs Vital signs: Vital Signs Temp 98.5 F 01/21/20 08:00 Pulse 101 H 01/21/20 12:00 Resp 18 01/21/20 12:00 BP 136/95 01/21/20 12:00 Pulse Ox 93 L 01/21/20 12:00 Intake & Output 01/20/20 01/21/20 01/21/20 18:59 06:59 18:59 Intake Total 500 940 Balance 500 940 Weight 56.5 kg Intake: IV 500 Sodium Chloride 0.9% 1, 500 000 ml @ 75 mls/hr IV . [id number] [facility] Rx#:[id number] Intake, IV Titration 100 Amount Piperacillin-Tazobactam 3 100 .375 gm In Sodium Chloride 0.9% 100 ml @ 25 mls/hr IVPB Q8H [facility] Rx#: [id number] Oral 840 Other: # Voids 2 1 - Exam Nonfocal. - Labs CBC & Chem 7: 01/21/20 05:53 01/21/20 05:53 Labs: Abnormal Lab Results - Last 24 Hours (Table) 01/21/20 01/21/20 Range/Units 05:53 05:53 WBC 12.5 H (3.8-10.6) k/uL RBC 3.50 L (3.80-5.40) m/uL Hgb 10.9 L (11.4-16.0) gm/dL Neutrophils # 10.1 H (1.3-7.7) k/uL Sodium 135 L (137-145) mmol/L Chloride 111 H (98-107) mmol/L Carbon Dioxide 19 L (22-30) mmol/L Calcium 8.1 L (8.4-10.2) mg/dL Assessment and Plan Assessment: * Syncopal spell, likely vasovagal, possible pancho-arrhythmia. Patient's telemetry monitoring showing sinus pauses of 5-8 seconds, probable heart block. * Tobacco use * Impacted bowels. * Carotid atherosclerotic disease with history of right CEA Plan: * EEG was reviewed. No epileptiform activity seen. Patient has mild generalized slowing, which may be related to mild encephalopathy. * Patient's syncope is likely related to heart block versus vasovagal phenomenon. Cardiology following the patient. Continue telemetry monitoring. Patient had 2 second pause associated with vomiting today, noted on telemetry. * Continue aspirin 81 mg and Lipitor. * Suggest discontinue Wellbutrin, as it can lower seizure threshold. * Patient also has possible bowel obstruction with constipation. Patient underwent CT abdomen and pelvis. Report reviewed. * No other neurological workup indicated. * Patient recommended complete tobacco cessation. * Neurology will sign off. Please reconsult neurology if any other concerns.
[2020-01-21] MEDS: ASPIRIN 81 MG PO SCH (20:40)
[2020-01-21] MEDS: FAMOTIDINE 20 MG/2 ML VIAL IV SCH (20:40)
[2020-01-21] MEDS: ACETAMINOPHEN TAB 325 MG TAB PO PRN (20:41)
[2020-01-22] MEDS: PIPERACILLIN-TAZOBACTAM 3.375 GM in SODIUM CHLORIDE 0.9% 100 ML IVPB SCH ×3 (02:59→17:12)
[2020-01-22] MEDS: LEVOTHYROXINE 75 MCG TAB PO SCH (06:11)
[2020-01-22] MEDS: PANTOPRAZOLE 40 MG TABLET PO SCH (06:11)
[2020-01-22 06:59] LABS: Basophils % (A) 0 %; Eosinophils % (A) 0 %; HGB 10.5 gm/dL (11.4-16.0); Hypochromasia Slight; Lymphocytes # (A) 1.2 k/uL (1.0-4.8); Lymphocytes % (A) 10 %; MCH 29.9 pg (25.0-35.0); MCHC 30.8 g/dL (31.0-37.0); Mean Platelet Volume 7.8; Monocytes # (A) 0.5 k/uL (0-1.0); Monocytes % (A) 4 %; Neutrophils # (A) 10.3 k/uL (1.3-7.7); Neutrophils % (A) 83 %; Platelet Count 235 k/uL (150-450); RBC 3.51 m/uL (3.80-5.40); RDW 13.5 % (11.5-15.5); WBC 12.3 k/uL (3.8-10.6)
[2020-01-22 07:20] LABS: Potassium 3.5 mmol/L (3.5-5.1)
[2020-01-22] MEDS: SYMBICORT 160-4.5 MCG INHALER INHALATION SCH ×2 (07:58→19:52)
--- NOTE | 2020-01-22 08:27 | XR ---
EXAMINATION TYPE: XR chest 1V portable DATE OF EXAM: 01/22/2020 Comparison: 01/19/2020 Clinical History: 84-year-old female NG tube placement Findings: Median sternotomy wires are present. Strandy right mid to lower lung opacities. More patchy and confl uent airspace opacity at the left base and retrocardiac region. The NG tube has a tortuous course and tip is not seen beyond the diaphragmatic level. Impression: 1. Tortuous course of the NG tube in keeping with the patient's underlying moderate to large hiatal h ernia. The tip is seen to approximately the diaphragmatic level which would place it in the stomach l umen. The sidehole could be at the GE junction or outside the stomach. 2. Left basilar and retrocardiac airspace disease and more strandy atelectasis at the right lower edinson g.
[2020-01-22] MEDS: ATORVASTATIN 80 MG TAB PO SCH (09:40)
[2020-01-22] MEDS: GABAPENTIN 100 MG CAP PO SCH ×2 (09:41→19:48)
[2020-01-22] MEDS: PRIMIDONE 50 MG TAB PO SCH (09:41)
[2020-01-22] MEDS: CITALOPRAM HYDROBROMIDE 20 MG TAB PO SCH (09:41)
[2020-01-22] MEDS: ASCORBIC ACID 500 MG TAB PO SCH (09:41)
[2020-01-22] MEDS: HEPARIN SODIUM,PORCINE 5,000 UNIT/ML 1 ML VIAL SQ SCH ×2 (09:42→19:48)
[2020-01-22] MEDS: ISOSORBIDE MONONITRATE ER 30 MG TAB.ER.24H PO SCH (09:52)
[2020-01-22] MEDS: buPROPion XL 300 MG TAB.ER.24H PO SCH (09:52)
[2020-01-22] MEDS: SODIUM CHLORIDE 0.9% 1,000 ML IV SCH (10:06)
--- NOTE | 2020-01-22 12:54 | P.PN ---
Subjective Progress Note Date: 01/22/20 CHIEF COMPLAINT: Abdominal pain with nausea and vomiting HISTORY OF PRESENT ILLNESS: Patient presented with abdominal pain secondary to constipation and rectal fecal impaction. Patient had a repeat computed tomography scan of the abdomen and pelvis yesterday due to abdominal distention with vomiting. Computed tomography scan shows marginal improvement in severe colonic fecal stasis. There is however marked worsening of diffuse small bowel dilation and proximal colonic distention with multiple air-fluid levels. There is left-sided colitis noted. There is not definitive etiology of new worsening bowel obstruction. Change in position of the cecum is present. New moderate to severe distention of bladder. Also noted a large fixed hiatal hernia or intrathoracic stomach with abnormal twisting redemonstrated. Those results were reviewed with Dr. Bray and he ordered NG tube and Schafer catheter to be placed. Patient did have a large bowel movement this morning. NG tube output had decreased. NG tube was pulled this morning. And she's been started on a clear liquid diet. Patient still having some abdominal distention. Her pain is better than when she came in. Afebrile. WBC 12.3 hemoglobin 10.5 PHYSICAL EXAM: VITAL SIGNS: Reviewed. GENERAL: Well-developed in no acute distress. HEENT: No sclera icterus. Extraocular movements grossly intact. Moist buccal mucosa. Head is atraumatic, normocephalic. ABDOMEN: Soft. More distended today mild tenderness with palpation NEUROLOGIC: Alert and oriented. Cranial nerves II through XII grossly intact. ASSESSMENT: 1. Abdominal pain 2. constipation and rectal fecal impaction 3. Ileus 4. Large hiatal hernia with twisting of the stomach 5. Urinary retention: Continue Schafer catheter 6. Syncope likely secondary to bradycardia and high grade AV block. Patient being followed by cardiology and they are assessing her for possible pacemaker. PLAN: -NG tube pulled this morning. -Start patient on clear liquid diet -Continue with IV fluids -Continue Zofran for nausea and vomiting -GI and DVT prophylaxis Physician Ground Crewman note has been reviewed by physician. Signing provider agrees with the documented findings, assessment, and plan of care. Objective - Vital Signs Vital signs: Vital Signs Temp 97.6 F 01/22/20 08:00 Pulse 80 01/22/20 11:48 Resp 16 01/22/20 11:48 BP 156/70 01/22/20 11:48 Pulse Ox 98 01/22/20 11:48 Intake & Output 01/21/20 01/22/20 01/22/20 18:59 06:59 18:59 Intake Total 940 100 0 Output Total 1450 640 Balance -510 -540 0 Weight 58.5 kg Intake: Intake, IV Titration 100 100 Amount Piperacillin-Tazobactam 3 100 100 .375 gm In Sodium Chloride 0.9% 100 ml @ 25 mls/hr IVPB Q8H [facility] Rx#: [id number] Oral 840 0 0 Output: Gastric Drainage 190 Urine 1450 450 Uretheral (Schafer) 1450 Other: Voiding Method Indwelling Catheter Indwelling Catheter # Bowel Movements 2 - Labs CBC & Chem 7: 01/22/20 06:25 01/22/20 06:25 Labs: Abnormal Lab Results - Last 24 Hours (Table) 01/22/20 01/22/20 Range/Units 06:25 06:25 WBC 12.3 H (3.8-10.6) k/uL RBC 3.51 L (3.80-5.40) m/uL Hgb 10.5 L (11.4-16.0) gm/dL MCHC 30.8 L (31.0-37.0) g/dL Neutrophils # 10.3 H (1.3-7.7) k/uL Chloride 113 H (98-107) mmol/L Carbon Dioxide 15 L (22-30) mmol/L Glucose 63 L (74-99) mg/dL Calcium 8.0 L (8.4-10.2) mg/dL
--- NOTE | 2020-01-22 17:33 | P.PN ---
Subjective Progress Note Date: 01/22/20 Principal diagnosis: Bradycardia Patient examined at the bedside this morning. She denies any chest pain or pressure. She states overall she is feeling better without any further episodes of vomiting. No further bradycardic or high-grade AV block noted. PHYSICAL EXAM: VITAL SIGNS: Reviewed. GENERAL: Well-developed in no acute distress. NECK: Supple. No JVD or thyromegaly LUNGS: Respirations even and unlabored. Lungs essentially clear to auscultation bilaterally. HEART: Regular rate and rhythm. S1 and S2 heard. EXTREMITIES: Normal range of motion. No clubbing or cyanosis. Peripheral pulses intact. No lower extremity edema ASSESSMENT: 1. Syncope related to bradycardia and high-grade AV block, likely vasovagal in origin 2 Coronary artery disease status post coronary artery bypass grafting 3. Carotid stenosis status post carotid endarterectomy 4. Hypertension 5. Hyperlipidemia PLAN: -Continue to monitor telemetry -No further high degree AV block noted. Continue to monitor. Your workup of patient's nausea and vomiting which appears to be improving. Continue supportive care. Objective - Vital Signs Vital signs: Vital Signs Temp 98.3 F 01/22/20 15:59 Pulse 80 01/22/20 15:59 Resp 16 01/22/20 15:59 BP 155/68 01/22/20 15:59 Pulse Ox 95 01/22/20 15:59 Intake & Output 01/21/20 01/22/20 01/22/20 18:59 06:59 18:59 Intake Total 940 100 600 Output Total 1450 640 Balance -510 -540 600 Weight 58.5 kg Intake: Intake, IV Titration 100 100 Amount Piperacillin-Tazobactam 3 100 100 .375 gm In Sodium Chloride 0.9% 100 ml @ 25 mls/hr IVPB Q8H [facility] Rx#: [id number] Oral 840 0 600 Output: Gastric Drainage 190 Urine 1450 450 Uretheral (Schfaer) 1450 Other: Voiding Method Indwelling Catheter Indwelling Catheter # Bowel Movements 2 4 - Labs CBC & Chem 7: 01/22/20 06:25 01/22/20 06:25 Labs: Abnormal Lab Results - Last 24 Hours (Table) 01/22/20 01/22/20 Range/Units 06:25 06:25 WBC 12.3 H (3.8-10.6) k/uL RBC 3.51 L (3.80-5.40) m/uL Hgb 10.5 L (11.4-16.0) gm/dL MCHC 30.8 L (31.0-37.0) g/dL Neutrophils # 10.3 H (1.3-7.7) k/uL Chloride 113 H (98-107) mmol/L Carbon Dioxide 15 L (22-30) mmol/L Glucose 63 L (74-99) mg/dL Calcium 8.0 L (8.4-10.2) mg/dL
[2020-01-22] MEDS: ASPIRIN 81 MG PO SCH (19:48)
--- NOTE | 2020-01-22 20:54 | P.PN ---
Subjective This is a pleasant 84 years old female with past medical history of coronary artery disease status post CABG and 1 stent, hypertension, cigarette smoker, GERD, hypothyroidism, Parkinson disease, depression, chronic back pain. right lower lung nodule, history of colitis. She has history of COPD and follow-up with Dr. Rivas, she has Parkinson disease and follow-up with Fritz Pitts and she is patient of Dr. Kang. Patient was shopping with her daughter and after lunch went to the restroom and when she came out she started having several tresa uts of vomiting about 5-6 time, and the daughter drove her back where she kept vomiting and in the middle she passed out but a daughter thinks she had a seizure because her head was back in and her eyes rolled up, however patient woke up immediately. Also patient has periumbilical abdominal pain moderate to severe, radiating from one side to another about 9/10 in severity. Patient is every day smoker about half pack per day, she has chronic cough with white phlegm with no recent worsening, no recent worsening of dyspnea as per patient Patient states she has bowel movement every day, and in ER she has big bowel movement. Patient has stress incontinence as well Vitals are stable. Labs showed leukocytosis went up from normal WBC 8.0K to 16.6 K, hemoglobin 11.1, platelets normal at 260 1K, INR 1.0, BMP is unremarkable, sugar controlled. Troponin 1 is less than 0.012, TSH is normal at 1.2. EKG showing first-degree heart block at 93 BPM with nonspecific interventricular block and QTC of 519 Chest x-ray showing possible left lower lobe infiltrate CT of the abdomen and pelvis without contrast showing markedly dilated large bowel and fecal material in the rectum duct measures 6.[address] of the brain is negative for acute process. An emergency room patient got Reglan and normal saline 500 mL bolus and started at 4 30 mL/h Car Dumper Operator evaluated the patient and recommended TSH and echocardiogram and telemetry 01/21/2020 Patient is awake and alert, she had an enema yesterday and she had bowel movement after that however today she vomited again one more time and she had a positive during the vomiting only. No chest pain or dyspnea however she has lower abdominal pain and tenderness, and patient is going for a CAT scan of the abdomen and pelvis with contrast per surgical team recommendation No more syncope, EEG showing no seizure. Leukocytosis improvement to 12.5, BMP is unremarkable. Continue with Zosyn and normal sinus 75 mL/h 01/22/2020 Patient is awake. Her abdominal pain is significantly improved, she is finishing about 5200% of her meal. I've. today and her abdomen is significantly soft compared to the lower abdominal pain and tenderness are noted yesterday. NG tube was taken out and patient was started on clear liquid diet patient Schafer catheter is in place, it was placed due to urinary retention, I admitted the patient about the plan and she verbali zed understanding and acceptance, PT/OT recommended subacute rehab, social media strategist was consulted Objective - Vital Signs Vital signs: Vital Signs Temp 98.3 F 01/22/20 15:59 Pulse 80 01/22/20 15:59 Resp 16 01/22/20 15:59 BP 155/68 01/22/20 15:59 Pulse Ox 95 01/22/20 15:59 Intake & Output 01/21/20 01/22/20 01/22/20 18:59 06:59 18:59 Intake Total 940 100 600 Output Total 1450 640 Balance -510 -540 600 Weight 58.5 kg Intake: Intake, IV Titration 100 100 Amount Piperacillin-Tazobactam 3 100 100 .375 gm In Sodium Chloride 0.9% 100 ml @ 25 mls/hr IVPB Q8H [facility] Rx#: [id number] Oral 840 0 600 Output: Gastric Drainage 190 Urine 1450 450 Uretheral (Schafer) 1450 Other: Voiding Method Indwelling Catheter Indwelling Catheter # Bowel Movements 2 4 - Exam GENERAL: The patient is alert and oriented x3, not in any acute distress. Well developed, well nourished. HEENT: Pupils are round and equally reacting to light. EOMI. No scleral icterus. No conjunctival pallor. Normocephalic, atraumatic. No pharyngeal erythema. No thyromegaly. CARDIOVASCULAR: S1 and S2 present. No murmurs, rubs, or gallops. PULMONARY: Chest is clear to auscultation, no wheezing or crackles. -ABDOMEN: Soft, left lower abdomen tenderness with some guarding, no rebound tenderness, nondistended, normoactive bowel sounds. No palpable organomegaly. MUSCULOSKELETAL: No joint swelling or deformity. EXTREMITIES: No cyanosis, clubbing, or pedal edema. NEUROLOGICAL: Gross neurological examination did not reveal any focal deficits. SKIN: No rashes. no petechiae. - Labs CBC & Chem 7: 01/22/20 06:25 01/22/20 06:25 Labs: Abnormal Lab Results - Last 24 Hours (Table) 01/22/20 01/22/20 Range/Units 06:25 06:25 WBC 12.3 H (3.8-10.6) k/uL RBC 3.51 L (3.80-5.40) m/uL Hgb 10.5 L (11.4-16.0) gm/dL MCHC 30.8 L (31.0-37.0) g/dL Neutrophils # 10.3 H (1.3-7.7) k/uL Chloride 113 H (98-107) mmol/L Carbon Dioxide 15 L (22-30) mmol/L Glucose 63 L (74-99) mg/dL Calcium 8.0 L (8.4-10.2) mg/dL Assessment and Plan Assessment: Dilated large bowel with constipation and rectal fecal impaction, suspicious for large bowel ileus. With secondary mild enlargement of the small bowel up to 2.8 cm, improving Possible syncope could be present fecal or secondary to cardiac rhythm problem, no more syncope Multiple pauses on telemetry with interventricular block on EKG. improved Possible left lower loben early aspiration pneumonia. Improved parkinson disease right lower lung nodulein the chest x-ray from 05/13/2019 History of coronary artery disease status post CABG and stent Nicotine dependence Hypertension Hypothyroidism Parkinson disease Gastroesophageal reflux disease Primary osteoarthritis History of depression, not an active issue Chronic back pain Plan: this is a pleasant 84 years old female who presents with ileus versus bowel obstruction secondary to fecal impaction. Patient seems improvement, advance diet, continue with Zosyn, pain management. Also keep Schafer catheter in follow- up with urologist as an outpatient. Discontinue IV fluids . Patient is felt also by surgery and cardiology team. Labs and medication were reviewed.. Continue same treatment. Continue with symptomatic treatment. Resume home medication. Monitor lytes and vitals. DVT and GI prophylaxis. Further recommendations of the clinical course of the patient DVT prophylaxis: Subcutaneous heparin GI Prophylaxis: Pepcid PT/OT: Pending Prognosis is guarded
[2020-01-23] MEDS: PIPERACILLIN-TAZOBACTAM 3.375 GM in SODIUM CHLORIDE 0.9% 100 ML IVPB SCH ×3 (03:07→17:25)
[2020-01-23] MEDS: PANTOPRAZOLE 40 MG TABLET PO SCH (06:09)
[2020-01-23] MEDS: LEVOTHYROXINE 75 MCG TAB PO SCH (06:09)
[2020-01-23] MEDS: SYMBICORT 160-4.5 MCG INHALER INHALATION SCH ×2 (07:50→19:58)
[2020-01-23] MEDS ORDERED: FAMOTIDINE 20 MG TAB PO SCH (09:00)
[2020-01-23 09:07] LABS: Basophils % (A) 0 %; Eosinophils % (A) 0 %; HCT 31.4 % (34.0-46.0); HGB 10.1 gm/dL (11.4-16.0); Hypochromasia Slight; Lymphocytes # (A) 1.2 k/uL (1.0-4.8); Lymphocytes % (A) 11 %; MCHC 32.1 g/dL (31.0-37.0); MCV 96.7 fL (80.0-100.0); Mean Platelet Volume 7.5; Monocytes # (A) 0.5 k/uL (0-1.0); Monocytes % (A) 5 %; Neutrophils # (A) 8.4 k/uL (1.3-7.7); Neutrophils % (A) 81 %; Platelet Count 254 k/uL (150-450); RBC 3.25 m/uL (3.80-5.40); RDW 13.3 % (11.5-15.5); WBC 10.4 k/uL (3.8-10.6)
[2020-01-23 09:08] LABS: African American GFR (CKD) >90 (>60 ml/min/1.73 sqM); Anion Gap 7 mmol/L; Blood Urea Nitrogen 9 mg/dL (7-17); Calcium 7.8 mg/dL (8.4-10.2); Carbon Dioxide 17 mmol/L (22-30); Chloride 112 mmol/L (98-107); Glucose 70 mg/dL (74-99); Magnesium 1.9 mg/dL (1.6-2.3); Non-African American GFR(CKD) 82 (>60 ml/min/1.73 sqM); Potassium 3.1 mmol/L (3.5-5.1); Sodium 136 mmol/L (137-145)
--- NOTE | 2020-01-23 09:48 | P.PN ---
Subjective Progress Note Date: 01/23/20 CHIEF COMPLAINT: Abdominal pain with nausea and vomiting HISTORY OF PRESENT ILLNESS: Patient seen and examined with Dr. Chiang. Patient presented with abdominal pain secondary to constipation, rectal fecal impaction, ileus and hiatal hernia. Patient is tolerating a clear liquid diet. She is having bowel movements and passing gas. She is afebrile. White count normalized to 10.4 hemoglobin 10.1 PHYSICAL EXAM: VITAL SIGNS: Reviewed. GENERAL: Well-developed in no acute distress. HEENT: No sclera icterus. Extraocular movements grossly intact. Moist buccal mucosa. Head is atraumatic, normocephalic. ABDOMEN: Soft. Nondistended. Mild tenderness with palpation. NEUROLOGIC: Alert and oriented. Cranial nerves II through XII grossly intact. ASSESSMENT: 1. Abdominal pain 2. constipation and rectal fecal impaction 3. Ileus 4. Large hiatal hernia with twisting of the stomach 5. Urinary retention: Continue Schafer catheter 6. Syncope likely secondary to bradycardia and high grade AV block. Patient being followed by cardiology and they are assessing her for possible pacemaker. PLAN: -Advanced diet to a full liquid diet -Continue Zofran for nausea and vomiting -GI and DVT prophylaxis Physician Concrete Carpenter note has been reviewed by physician. Signing provider agrees with the documented findings, assessment, and plan of care. Objective - Vital Signs Vital signs: Vital Signs Temp 98.7 F 01/23/20 03:20 Pulse 68 01/23/20 03:21 Resp 16 01/23/20 03:21 BP 145/84 01/23/20 03:20 Pulse Ox 96 01/23/20 03:20 Intake & Output 01/22/20 01/23/20 01/23/20 18:59 06:59 18:59 Intake Total 840 80 Output Total 575 275 Balance 265 -275 80 Weight 62.5 kg Intake: Oral 840 80 Output: Urine 575 275 Other: Voiding Method Indwelling Catheter Indwelling Catheter # Bowel Movements 4 - Labs CBC & Chem 7: 01/23/20 07:56 01/23/20 07:56 Labs: Abnormal Lab Results - Last 24 Hours (Table) 01/23/20 01/23/20 Range/Units 07:56 07:56 RBC 3.25 L (3.80-5.40) m/uL Hgb 10.1 L (11.4-16.0) gm/dL Hct 31.4 L (34.0-46.0) % Neutrophils # 8.4 H (1.3-7.7) k/uL Sodium 136 L (137-145) mmol/L Potassium 3.1 L (3.5-5.1) mmol/L Chloride 112 H (98-107) mmol/L Carbon Dioxide 17 L (22-30) mmol/L Glucose 70 L (74-99) mg/dL Calcium 7.8 L (8.4-10.2) mg/dL
[2020-01-23] MEDS ORDERED: Potassium Replacement Protocol 1 EACH MISC MISCELLANE PRN (10:05)
[2020-01-23] MEDS: HEPARIN SODIUM,PORCINE 5,000 UNIT/ML 1 ML VIAL SQ SCH ×2 (10:46→20:24)
[2020-01-23] MEDS: PRIMIDONE 50 MG TAB PO SCH (10:46)
[2020-01-23] MEDS: GABAPENTIN 100 MG CAP PO SCH ×2 (10:47→20:24)
[2020-01-23] MEDS: ISOSORBIDE MONONITRATE ER 30 MG TAB.ER.24H PO SCH (10:47)
[2020-01-23] MEDS: ATORVASTATIN 80 MG TAB PO SCH (10:47)
[2020-01-23] MEDS: buPROPion XL 300 MG TAB.ER.24H PO SCH (10:48)
[2020-01-23] MEDS: CITALOPRAM HYDROBROMIDE 20 MG TAB PO SCH (10:48)
[2020-01-23] MEDS: ASCORBIC ACID 500 MG TAB PO SCH (10:48)
[2020-01-23] MEDS: ACETAMINOPHEN TAB 325 MG TAB PO PRN (14:30)
--- NOTE | 2020-01-23 19:41 | P.PN ---
Subjective This is a pleasant 84 years old female with past medical history of coronary artery disease status post CABG and 1 stent, hypertension, cigarette smoker, GERD, hypothyroidism, Parkinson disease, depression, chronic back pain. right lower lung nodule, history of colitis. She has history of COPD and follow-up with Dr. Rivas, she has Parkinson disease and follow-up with Fritz Pitts and she is patient of Dr. Kang. Patient was shopping with her daughter and after lunch went to the restroom and when she came out she started having several tresa uts of vomiting about 5-6 time, and the daughter drove her back where she kept vomiting and in the middle she passed out but a daughter thinks she had a seizure because her head was back in and her eyes rolled up, however patient woke up immediately. Also patient has periumbilical abdominal pain moderate to severe, radiating from one side to another about 9/10 in severity. Patient is every day smoker about half pack per day, she has chronic cough with white phlegm with no recent worsening, no recent worsening of dyspnea as per patient Patient states she has bowel movement every day, and in ER she has big bowel movement. Patient has stress incontinence as well Vitals are stable. Labs showed leukocytosis went up from normal WBC 8.0K to 16.6 K, hemoglobin 11.1, platelets normal at 260 1K, INR 1.0, BMP is unremarkable, sugar controlled. Troponin 1 is less than 0.012, TSH is normal at 1.2. EKG showing first-degree heart block at 93 BPM with nonspecific interventricular block and QTC of 519 Chest x-ray showing possible left lower lobe infiltrate CT of the abdomen and pelvis without contrast showing markedly dilated large bowel and fecal material in the rectum duct measures 6.[address] of the brain is negative for acute process. An emergency room patient got Reglan and normal saline 500 mL bolus and started at 4 30 mL/h Program Checker evaluated the patient and recommended TSH and echocardiogram and telemetry 01/21/2020 Patient is awake and alert, she had an enema yesterday and she had bowel movement after that however today she vomited again one more time and she had a positive during the vomiting only. No chest pain or dyspnea however she has lower abdominal pain and tenderness, and patient is going for a CAT scan of the abdomen and pelvis with contrast per surgical team recommendation No more syncope, EEG showing no seizure. Leukocytosis improvement to 12.5, BMP is unremarkable. Continue with Zosyn and normal sinus 75 mL/h 01/22/2020 Patient is awake. Her abdominal pain is significantly improved, she is finishing about 5200% of her meal. I've. today and her abdomen is significantly soft compared to the lower abdominal pain and tenderness are noted yesterday. NG tube was taken out and patient was started on clear liquid diet patient Schafer catheter is in place, it was placed due to urinary retention, I admitted the patient about the plan and she verbali zed understanding and acceptance, PT/OT recommended subacute rehab, social media project manager was consulted 01/23/2020 Patient is keeping improving, and he started diet well, and abdominal pain is improving, she is passing a lot of gas. She still has Schafer catheter Hemodynamically stable. WBC is back to normal today at 10.4, hemoglobin 10.1. BMP stable Advanced in diet to full liquid diet and continue with Zofran for nausea vomiting. Physical and occupational therapy recommended inpatient rehab given her generalized weakness, however patient and family declined. Risks including but limited to risk of fall, recurrent bowel obstruction, worsening condition are explained to her and she still does not want to go to rehab. Objective - Vital Signs Vital signs: Vital Signs Temp 98.1 F 01/23/20 08:00 Pulse 69 01/23/20 08:00 Resp 16 01/23/20 03:21 BP 146/69 01/23/20 08:00 Pulse Ox 97 01/23/20 08:00 Intake & Output 01/22/20 01/23/20 01/23/20 18:59 06:59 18:59 Intake Total 840 80 Output Total 575 275 450 Balance 265 -275 -370 Weight 62.5 kg Intake: Oral 840 80 Output: Urine 575 275 450 Uretheral (Cshafer) 450 Other: Voiding Method Indwelling Catheter Indwelling Catheter Indwelling Catheter # Bowel Movements 4 2 - Exam GENERAL: The patient is alert and oriented x3, not in any acute distress. Well developed, well nourished. HEENT: Pupils are round and equally reacting to light. EOMI. No scleral icterus. No conjunctival pallor. Normocephalic, atraumatic. No pharyngeal erythema. No thyromegaly. CARDIOVASCULAR: S1 and S2 present. No murmurs, rubs, or gallops. PULMONARY: Chest is clear to auscultation, no wheezing or crackles. -ABDOMEN: Soft, left lower abdomen tenderness with some guarding, no rebound tenderness, nondistended, normoactive bowel sounds. No palpable organomegaly. MUSCULOSKELETAL: No joint swelling or deformity. EXTREMITIES: No cyanosis, clubbing, or pedal edema. NEUROLOGICAL: Gross neurological examination did not reveal any focal deficits. SKIN: No rashes. no petechiae. - Labs CBC & Chem 7: 01/23/20 07:56 01/23/20 07:56 Labs: Abnormal Lab Results - Last 24 Hours (Table) 01/23/20 01/23/20 Range/Units 07:56 07:56 RBC 3.25 L (3.80-5.40) m/uL Hgb 10.1 L (11.4-16.0) gm/dL Hct 31.4 L (34.0-46.0) % Neutrophils # 8.4 H (1.3-7.7) k/uL Sodium 136 L (137-145) mmol/L Potassium 3.1 L (3.5-5.1) mmol/L Chloride 112 H (98-107) mmol/L Carbon Dioxide 17 L (22-30) mmol/L Glucose 70 L (74-99) mg/dL Calcium 7.8 L (8.4-10.2) mg/dL Assessment and Plan Assessment: Dilated large bowel with constipation and rectal fecal impaction, suspicious for large bowel ileus. With secondary mild enlargement of the small bowel up to 2.8 cm, improving He'll return urinary retention status post Schafer catheter Possible syncope could be present fecal or secondary to cardiac rhythm problem, no more syncope Multiple pauses on telemetry with interventricular block on EKG. improved Possible left lower loben early aspiration pneumonia. Improved parkinson disease right lower lung nodulein the chest x-ray from 05/13/2019 History of coronary artery disease status post CABG and stent Nicotine dependence Hypertension Hypothyroidism Parkinson disease Gastroesophageal reflux disease Primary osteoarthritis History of depression, not an active issue Chronic back pain Plan: this is a pleasant 84 years old female who presents with ileus versus bowel obstruction secondary to fecal impaction. Also with urinary retention. Patient seems improvement, advance diet, continue with Zosyn, pain management. Also keep Schafer catheter in follow-up with urologist as an outpatient. Discontinue IV fluids . Patient is felt also by surgery and cardiology team. Labs and medication were reviewed.. Continue same treatment. Continue with symptomatic treatment. Resume home medication. Monitor lytes and vitals. DVT and GI prophylaxis. Further recommendations of the clinical course of the patient DVT prophylaxis: Subcutaneous heparin GI Prophylaxis: Pepcid PT/OT: Pending Prognosis is guarded
[2020-01-23] MEDS: ASPIRIN 81 MG PO SCH (20:24)
[2020-01-24] MEDS: PIPERACILLIN-TAZOBACTAM 3.375 GM in SODIUM CHLORIDE 0.9% 100 ML IVPB SCH ×3 (02:14→17:58)
[2020-01-24] MEDS: LEVOTHYROXINE 75 MCG TAB PO SCH (06:47)
[2020-01-24] MEDS: PANTOPRAZOLE 40 MG TABLET PO SCH (06:47)
[2020-01-24] MEDS: SYMBICORT 160-4.5 MCG INHALER INHALATION SCH ×2 (09:02→19:33)
[2020-01-24] MEDS: ISOSORBIDE MONONITRATE ER 30 MG TAB.ER.24H PO SCH (09:33)
[2020-01-24] MEDS: ATORVASTATIN 80 MG TAB PO SCH (09:33)
[2020-01-24] MEDS: CITALOPRAM HYDROBROMIDE 20 MG TAB PO SCH (09:33)
[2020-01-24] MEDS: PRIMIDONE 50 MG TAB PO SCH (09:33)
[2020-01-24] MEDS: buPROPion XL 300 MG TAB.ER.24H PO SCH (09:34)
[2020-01-24] MEDS: ASCORBIC ACID 500 MG TAB PO SCH (09:34)
[2020-01-24] MEDS: GABAPENTIN 100 MG CAP PO SCH ×2 (09:34→20:04)
[2020-01-24] MEDS: HEPARIN SODIUM,PORCINE 5,000 UNIT/ML 1 ML VIAL SQ SCH ×2 (09:34→20:04)
--- NOTE | 2020-01-24 10:33 | P.PN ---
Subjective This is a pleasant 84 years old female with past medical history of coronary artery disease status post CABG and 1 stent, hypertension, cigarette smoker, GERD, hypothyroidism, Parkinson disease, depression, chronic back pain. right lower lung nodule, history of colitis. She has history of COPD and follow-up with Dr. Rivas, she has Parkinson disease and follow-up with Fritz Pitts and she is patient of Dr. Kagn. Patient was shopping with her daughter and after lunch went to the restroom and when she came out she started having several tresa uts of vomiting about 5-6 time, and the daughter drove her back where she kept vomiting and in the middle she passed out but a daughter thinks she had a seizure because her head was back in and her eyes rolled up, however patient woke up immediately. Also patient has periumbilical abdominal pain moderate to severe, radiating from one side to another about 9/10 in severity. Patient is every day smoker about half pack per day, she has chronic cough with white phlegm with no recent worsening, no recent worsening of dyspnea as per patient Patient states she has bowel movement every day, and in ER she has big bowel movement. Patient has stress incontinence as well Vitals are stable. Labs showed leukocytosis went up from normal WBC 8.0K to 16.6 K, hemoglobin 11.1, platelets normal at 260 1K, INR 1.0, BMP is unremarkable, sugar controlled. Troponin 1 is less than 0.012, TSH is normal at 1.2. EKG showing first-degree heart block at 93 BPM with nonspecific interventricular block and QTC of 519 Chest x-ray showing possible left lower lobe infiltrate CT of the abdomen and pelvis without contrast showing markedly dilated large bowel and fecal material in the rectum duct measures 6.[address] of the brain is negative for acute process. An emergency room patient got Reglan and normal saline 500 mL bolus and started at 4 30 mL/h Lung Puller evaluated the patient and recommended TSH and echocardiogram and telemetry 01/21/2020 Patient is awake and alert, she had an enema yesterday and she had bowel movement after that however today she vomited again one more time and she had a positive during the vomiting only. No chest pain or dyspnea however she has lower abdominal pain and tenderness, and patient is going for a CAT scan of the abdomen and pelvis with contrast per surgical team recommendation No more syncope, EEG showing no seizure. Leukocytosis improvement to 12.5, BMP is unremarkable. Continue with Zosyn and normal sinus 75 mL/h 01/22/2020 Patient is awake. Her abdominal pain is significantly improved, she is finishing about 5200% of her meal. I've. today and her abdomen is significantly soft compared to the lower abdominal pain and tenderness are noted yesterday. NG tube was taken out and patient was started on clear liquid diet patient Schafer catheter is in place, it was placed due to urinary retention, I admitted the patient about the plan and she verbali zed understanding and acceptance, PT/OT recommended subacute rehab, long term care social worker was consulted 01/23/2020 Patient is keeping improving, and he started diet well, and abdominal pain is improving, she is passing a lot of gas. She still has Schafer catheter Hemodynamically stable. WBC is back to normal today at 10.4, hemoglobin 10.1. BMP stable Advanced in diet to full liquid diet and continue with Zofran for nausea vomiting. Physical and occupational therapy recommended inpatient rehab given her generalized weakness, however patient and family declined. Risks including but limited to risk of fall, recurrent bowel obstruction, worsening condition are explained to her and she still does not want to go to rehab. 01/24/2020 Patient is awake, no chest pain or dyspnea. No abdominal pain, she has no nausea vomiting and abdominal pain is controlled, she has some little bowel movement. Vitas looks stable. We will order abdominal x-ray, Case discussed with surgery team. She still has Schafer catheter. Patient and family refused rehab, patient will be had risk of falling, complication, readmission. We will keep monitoring for now Objective - Vital Signs Vital signs: Vital Signs Temp 98.1 F 01/24/20 00:07 Pulse 68 01/24/20 00:07 Resp 16 01/24/20 00:07 BP 135/80 01/24/20 00:07 Pulse Ox 99 01/24/20 00:07 Intake & Output 01/23/20 01/24/20 01/24/20 18:59 06:59 18:59 Intake Total 258 Output Total 750 Balance -492 Weight 53.6 kg Intake: Oral 258 Output: Urine 750 Uretheral (Schafer) 750 Other: Voiding Method Indwelling Catheter Indwelling Catheter # Bowel Movements 3 1 - Exam GENERAL: The patient is alert and oriented x3, not in any acute distress. Well developed, well nourished. HEENT: Pupils are round and equally reacting to light. EOMI. No scleral icterus. No conjunctival pallor. Normocephalic, atraumatic. No pharyngeal erythema. No thyromegaly. CARDIOVASCULAR: S1 and S2 present. No murmurs, rubs, or gallops. PULMONARY: Chest is clear to auscultation, no wheezing or crackles. -ABDOMEN: Soft, left lower abdomen tenderness with some guarding, no rebound tenderness, nondistended, normoactive bowel sounds. No palpable organomegaly. MUSCULOSKELETAL: No joint swelling or deformity. EXTREMITIES: No cyanosis, clubbing, or pedal edema. NEUROLOGICAL: Gross neurological examination did not reveal any focal deficits. SKIN: No rashes. no petechiae. - Labs CBC & Chem 7: 01/23/20 07:56 01/23/20 07:56 Assessment and Plan Assessment: Dilated large bowel with constipation and rectal fecal impaction, suspicious for large bowel ileus. With secondary mild enlargement of the small bowel up to 2.8 cm, improving He'll return urinary retention status post Schafer catheter Possible syncope could be present fecal or secondary to cardiac rhythm problem, no more syncope Multiple pauses on telemetry with interventricular block on EKG. improved Possible left lower loben early aspiration pneumonia. Improved parkinson disease right lower lung nodulein the chest x-ray from 05/13/2019 History of coronary artery disease status post CABG and stent Nicotine dependence Hypertension Hypothyroidism Parkinson disease Gastroesophageal reflux disease Primary osteoarthritis History of depression, not an active issue Chronic back pain Plan: this is a pleasant 84 years old female who presents with ileus versus bowel obstruction secondary to fecal impaction. Also with urinary retention. Patient seems improvement, advance diet, continue with Zosyn, pain management. Also keep Schafre catheter in follow-up with urologist as an outpatient. Discontinue IV fluids . Patient is felt also by surgery and cardiology team. Labs and medication were reviewed.. Continue same treatment. Continue with symptomatic treatment. Resume home medication. Monitor lytes and vitals. DVT and GI prophylaxis. Further recommendations of the clinical course of the patient DVT prophylaxis: Subcutaneous heparin GI Prophylaxis: Pepcid PT/OT: Pending Prognosis is guarded
--- NOTE | 2020-01-24 11:28 | P.PN ---
Subjective Progress Note Date: 01/24/20 Principal diagnosis: Abdominal pain Patient seems to be doing better today. She is tolerating her full liquid diet. Denies pain currently. Urinary catheter was placed for urinary retention. She is having loose bowel movements. Objective - Vital Signs Vital signs: Vital Signs Temp 97.9 F 01/24/20 07:00 Pulse 79 01/24/20 07:00 Resp 16 01/24/20 00:07 BP 147/77 01/24/20 07:00 Pulse Ox 93 L 01/24/20 07:00 Intake & Output 01/23/20 01/24/20 01/24/20 18:59 06:59 18:59 Intake Total 258 Output Total 750 Balance -492 Weight 53.6 kg Intake: Oral 258 Output: Urine 750 Uretheral (Schafer) 750 Other: Voiding Method Indwelling Catheter Indwelling Catheter Indwelling Catheter # Bowel Movements 3 1 - Exam Abdomen: Soft, nontender, nondistended - Labs CBC & Chem 7: 01/23/20 07:56 01/23/20 07:56 Assessment and Plan (1) Nausea vomiting and diarrhea Narrative/Plan: Patient seems to be slowly improving. We'll gradually advance diet further. Check abdominal x-rays today for follow-up of dilated small bowel loops. Discussed the patient's case with her daughter by phone. She was updated as to her current condition and our plans. They would like to avoid any form of ECF at this time and preferred to have her take an home. They're questioning whether anything further should be done for her urinary retention at this time. We'll discuss with hospitalist. Current Visit: Yes Status: Acute Code(s): R11.2 - NAUSEA WITH VOMITING, UNSPECIFIED; R19.7 - DIARRHEA, UNSPECIFIED SNOMED Code(s): 4761662
[2020-01-24] MEDS: ASPIRIN 81 MG PO SCH (20:04)
[2020-01-25] MEDS: PIPERACILLIN-TAZOBACTAM 3.375 GM in SODIUM CHLORIDE 0.9% 100 ML IVPB SCH ×2 (02:46→10:23)
[2020-01-25 06:18] LABS: HCT 32.4 % (34.0-46.0); HGB 10.4 gm/dL (11.4-16.0); MCHC 32.2 g/dL (31.0-37.0); Mean Platelet Volume 7.3; Platelet Count 273 k/uL (150-450); RBC 3.48 m/uL (3.80-5.40); RDW 13.7 % (11.5-15.5); WBC 6.4 k/uL (3.8-10.6)
[2020-01-25] MEDS: PANTOPRAZOLE 40 MG TABLET PO SCH (06:32)
[2020-01-25] MEDS: LEVOTHYROXINE 75 MCG TAB PO SCH (06:32)
[2020-01-25 06:43] LABS: African American GFR (CKD) >90 (>60 ml/min/1.73 sqM); Anion Gap 6 mmol/L; Blood Urea Nitrogen 4 mg/dL (7-17); Carbon Dioxide 20 mmol/L (22-30); Chloride 108 mmol/L (98-107); Glucose 88 mg/dL (74-99); Non-African American GFR(CKD) 87 (>60 ml/min/1.73 sqM); Potassium 3.2 mmol/L (3.5-5.1); Sodium 134 mmol/L (137-145)
--- NOTE | 2020-01-25 07:10 | XR ---
EXAMINATION TYPE: XR abdomen 2V DATE OF EXAM: 01/25/2020 CLINICAL HISTORY: Small bowel obstruction. Pain and distention. TECHNIQUE: Supine and upright views of the abdomen are obtained. COMPARISON: CT from 4 days ago. FINDINGS: Retrocardiac opacity consistent with fairly moderate size hiatal hernia remains present. Pe rsistent gas distended small bowel loops in the midabdomen. Improvement in gaseous distention noted e specially in bowel loops in the lower abdomen. Gas is seen in nondistended colonic loops along the pe riphery though few in the right lower quadrant are slightly more prominent. Oral contrast from recent CT now not clearly identified suggesting interval passage. Overlying sternal wires and mediastinal clips are present. Persistent patchy left basilar opacity. Pe rsistent demineralization with multilevel vertebroplasty. Vascular calcification overlies the bilater al pelvis. Fairly moderate narrowing and spurring in both hip joints redemonstrated. IMPRESSION: Improving small and large bowel gaseous distention noted.
[2020-01-25] MEDS: PRIMIDONE 50 MG TAB PO SCH (07:48)
[2020-01-25] MEDS: ASCORBIC ACID 500 MG TAB PO SCH (07:48)
[2020-01-25] MEDS: GABAPENTIN 100 MG CAP PO SCH ×2 (07:49→20:10)
[2020-01-25] MEDS: POTASSIUM CHLORIDE ER 20 MEQ TAB.ER PO SCH ×4 (07:49→15:36)
[2020-01-25] MEDS: ISOSORBIDE MONONITRATE ER 30 MG TAB.ER.24H PO SCH (07:49)
[2020-01-25] MEDS: CITALOPRAM HYDROBROMIDE 20 MG TAB PO SCH (07:49)
[2020-01-25] MEDS: ATORVASTATIN 80 MG TAB PO SCH (07:50)
[2020-01-25] MEDS: buPROPion XL 300 MG TAB.ER.24H PO SCH (07:50)
[2020-01-25] MEDS: HEPARIN SODIUM,PORCINE 5,000 UNIT/ML 1 ML VIAL SQ SCH ×2 (07:50→20:10)
[2020-01-25] MEDS: SYMBICORT 160-4.5 MCG INHALER INHALATION SCH ×2 (08:13→20:04)
--- NOTE | 2020-01-25 10:49 | P.PN ---
Subjective Progress Note Date: 01/25/20 Principal diagnosis: Abdominal pain Patient seems to be doing better today. Tolerating diet. Mild heartburn. White blood cell count normal. Potassium slightly low. Abdominal x-rays show improvement and bowel gas pattern. She is passing flatus. She had loose bowel movements yesterday. Objective - Vital Signs Vital signs: Vital Signs Temp 98.1 F 01/25/20 07:00 Pulse 75 01/25/20 07:00 Resp 18 01/25/20 07:00 BP 150/69 01/25/20 07:00 Pulse Ox 95 01/25/20 07:00 Intake & Output 01/24/20 01/25/20 01/25/20 18:59 06:59 18:59 Output Total 2500 Balance -2500 Weight 52.7 kg Output: Urine 2500 Other: Voiding Method Indwelling Catheter Indwelling Catheter Indwelling Catheter # Voids 0 # Bowel Movements 0 1 - Exam Abdomen: Soft, nontender, nondistended - Labs CBC & Chem 7: 01/25/20 05:50 01/25/20 05:50 Labs: Abnormal Lab Results - Last 24 Hours (Table) 01/25/20 01/25/20 Range/Units 05:50 05:50 RBC 3.48 L (3.80-5.40) m/uL Hgb 10.4 L (11.4-16.0) gm/dL Hct 32.4 L (34.0-46.0) % Sodium 134 L (137-145) mmol/L Potassium 3.2 L (3.5-5.1) mmol/L Chloride 108 H (98-107) mmol/L Carbon Dioxide 20 L (22-30) mmol/L BUN 4 L (7-17) mg/dL Calcium 8.0 L (8.4-10.2) mg/dL Assessment and Plan (1) Nausea vomiting and diarrhea Narrative/Plan: Patient doing better. Continue dysphagia diet. Continue antiacids. Possible discharge per primary service. Current Visit: Yes Status: Acute Code(s): R11.2 - NAUSEA WITH VOMITING, UNSPECIFIED; R19.7 - DIARRHEA, UNSPECIFIED SNOMED Code(s): 6807373
--- NOTE | 2020-01-25 11:58 | P.PN ---
Subjective This is a pleasant 84 years old female with past medical history of coronary artery disease status post CABG and 1 stent, hypertension, cigarette smoker, GERD, hypothyroidism, Parkinson disease, depression, chronic back pain. right lower lung nodule, history of colitis. She has history of COPD and follow-up with Dr. Rivas, she has Parkinson disease and follow-up with Fritz Pitts and she is patient of Dr. Kang. Patient was shopping with her daughter and after lunch went to the restroom and when she came out she started having several tresa uts of vomiting about 5-6 time, and the daughter drove her back where she kept vomiting and in the middle she passed out but a daughter thinks she had a seizure because her head was back in and her eyes rolled up, however patient woke up immediately. Also patient has periumbilical abdominal pain moderate to severe, radiating from one side to another about 9/10 in severity. Patient is every day smoker about half pack per day, she has chronic cough with white phlegm with no recent worsening, no recent worsening of dyspnea as per patient Patient states she has bowel movement every day, and in ER she has big bowel movement. Patient has stress incontinence as well Vitals are stable. Labs showed leukocytosis went up from normal WBC 8.0K to 16.6 K, hemoglobin 11.1, platelets normal at 260 1K, INR 1.0, BMP is unremarkable, sugar controlled. Troponin 1 is less than 0.012, TSH is normal at 1.2. EKG showing first-degree heart block at 93 BPM with nonspecific interventricular block and QTC of 519 Chest x-ray showing possible left lower lobe infiltrate CT of the abdomen and pelvis without contrast showing markedly dilated large bowel and fecal material in the rectum duct measures 6.[address] of the brain is negative for acute process. An emergency room patient got Reglan and normal saline 500 mL bolus and started at 4 30 mL/h Reservationist evaluated the patient and recommended TSH and echocardiogram and telemetry 01/21/2020 Patient is awake and alert, she had an enema yesterday and she had bowel movement after that however today she vomited again one more time and she had a positive during the vomiting only. No chest pain or dyspnea however she has lower abdominal pain and tenderness, and patient is going for a CAT scan of the abdomen and pelvis with contrast per surgical team recommendation No more syncope, EEG showing no seizure. Leukocytosis improvement to 12.5, BMP is unremarkable. Continue with Zosyn and normal sinus 75 mL/h 01/22/2020 Patient is awake. Her abdominal pain is significantly improved, she is finishing about 5200% of her meal. I've. today and her abdomen is significantly soft compared to the lower abdominal pain and tenderness are noted yesterday. NG tube was taken out and patient was started on clear liquid diet patient Schafer catheter is in place, it was placed due to urinary retention, I admitted the patient about the plan and she verbali zed understanding and acceptance, PT/OT recommended subacute rehab, perinatal social worker was consulted 01/23/2020 Patient is keeping improving, and he started diet well, and abdominal pain is improving, she is passing a lot of gas. She still has Schafer catheter Hemodynamically stable. WBC is back to normal today at 10.4, hemoglobin 10.1. BMP stable Advanced in diet to full liquid diet and continue with Zofran for nausea vomiting. Physical and occupational therapy recommended inpatient rehab given her generalized weakness, however patient and family declined. Risks including but limited to risk of fall, recurrent bowel obstruction, worsening condition are explained to her and she still does not want to go to rehab. 01/24/2020 Patient is awake, no chest pain or dyspnea. No abdominal pain, she has no nausea vomiting and abdominal pain is controlled, she has some little bowel movement. Vitas looks stable. We will order abdominal x-ray, Case discussed with surgery team. She still has Schafer catheter. Patient and family refused rehab, patient will be had risk of falling, complication, readmission. We will keep monitoring for now 01/25/2020 Patient bulb suction is improving, she is tolerating diet, no abdominal pain or nausea vomiting, she has little bowel movement. Abdominal x-ray: Improving small and large bowel gaseous distention noted. CBC and BMP were unremarkable except for mild hypokalemia replaced. The patient keep improving possible discharge tomorrow to home with home health care as patient and family refused rehab, risks and benefits and alternatives are explained. Schafer catheter still in place and patient was instructed to follow up with urologist upon discharge with Dr. Suarez and she agrees Objective - Vital Signs Vital signs: Vital Signs Temp 98.1 F 01/25/20 07:00 Pulse 75 01/25/20 07:00 Resp 18 01/25/20 07:00 BP 150/69 01/25/20 07:00 Pulse Ox 95 01/25/20 07:00 Intake & Output 01/24/20 01/25/20 01/25/20 18:59 06:59 18:59 Output Total 2500 Balance -2500 Weight 52.7 kg Output: Urine 2500 Other: Voiding Method Indwelling Catheter Indwelling Catheter Indwelling Catheter # Voids 0 # Bowel Movements 0 1 - Exam GENERAL: The patient is alert and oriented x3, not in any acute distress. Well developed, well nourished. HEENT: Pupils are round and equally reacting to light. EOMI. No scleral icterus. No conjunctival pallor. Normocephalic, atraumatic. No pharyngeal erythema. No thyromegaly. CARDIOVASCULAR: S1 and S2 present. No murmurs, rubs, or gallops. PULMONARY: Chest is clear to auscultation, no wheezing or crackles. -ABDOMEN: Soft, left lower abdomen tenderness with some guarding, no rebound tenderness, nondistended, normoactive bowel sounds. No palpable organomegaly. MUSCULOSKELETAL: No joint swelling or deformity. EXTREMITIES: No cyanosis, clubbing, or pedal edema. NEUROLOGICAL: Gross neurological examination did not reveal any focal deficits. SKIN: No rashes. no petechiae. - Labs CBC & Chem 7: 01/25/20 05:50 01/25/20 05:50 Labs: Abnormal Lab Results - Last 24 Hours (Table) 01/25/20 01/25/20 Range/Units 05:50 05:50 RBC 3.48 L (3.80-5.40) m/uL Hgb 10.4 L (11.4-16.0) gm/dL Hct 32.4 L (34.0-46.0) % Sodium 134 L (137-145) mmol/L Potassium 3.2 L (3.5-5.1) mmol/L Chloride 108 H (98-107) mmol/L Carbon Dioxide 20 L (22-30) mmol/L BUN 4 L (7-17) mg/dL Calcium 8.0 L (8.4-10.2) mg/dL Assessment and Plan Assessment: Dilated large bowel with constipation and rectal fecal impaction, suspicious for large bowel ileus. With secondary mild enlargement of the small bowel up to 2.8 cm, improving He'll return urinary retention status post Schafer catheter Possible syncope could be present fecal or secondary to cardiac rhythm problem, no more syncope Multiple pauses on telemetry with interventricular block on EKG. improved Possible left lower loben early aspiration pneumonia. Improved parkinson disease right lower lung nodulein the chest x-ray from 05/13/2019 History of coronary artery disease status post CABG and stent Nicotine dependence Hypertension Hypothyroidism Parkinson disease Gastroesophageal reflux disease Primary osteoarthritis History of depression, not an active issue Chronic back pain Plan: this is a pleasant 84 years old female who presents with ileus versus bowel obstruction secondary to fecal impaction. Also with urinary retention. Patient seems improvement, advance diet, continue with Zosyn, pain management. Also keep Schafer catheter in follow-up with urologist as an outpatient. Discontinue IV fluids . Patient is felt also by surgery and cardiology team. Labs and medication were reviewed.. Continue same treatment. Continue with symptomatic treatment. Resume home medication. Monitor lytes and vitals. DVT and GI prophylaxis. Further recommendations of the clinical course of the gretchen ent DVT prophylaxis: Subcutaneous heparin GI Prophylaxis: Pepcid PT/OT: Pending Prognosis is guarded
[2020-01-25] MEDS ORDERED: Potassium Replacement Protocol 1 EACH MISC MISCELLANE PRN (12:44)
[2020-01-25] MEDS ORDERED: Magnesium Replacement Protocol 1 EACH MISC MISCELLANE PRN (17:00)
[2020-01-25] MEDS: MAGNESIUM SULFATE-D5W PMX 1 GM in DEXTROSE/WATER 1 100ML.BAG IVPB SCH ×2 (18:19→20:10)
[2020-01-25] MEDS: ASPIRIN 81 MG PO SCH (20:10)
[2020-01-25] MEDS: AMOXIC-POT CLAV 875-125MG 1 EACH TAB PO SCH (21:11)
[2020-01-26] MEDS: LEVOTHYROXINE 75 MCG TAB PO SCH (05:42)
[2020-01-26 08:10] LABS: Magnesium 1.9 mg/dL (1.6-2.3); Potassium 3.5 mmol/L (3.5-5.1)
[2020-01-26] MEDS: AMOXIC-POT CLAV 875-125MG 1 EACH TAB PO SCH (08:12)
[2020-01-26] MEDS: CITALOPRAM HYDROBROMIDE 20 MG TAB PO SCH (08:12)
[2020-01-26] MEDS: GABAPENTIN 100 MG CAP PO SCH (08:12)
[2020-01-26] MEDS: HEPARIN SODIUM,PORCINE 5,000 UNIT/ML 1 ML VIAL SQ SCH (08:12)
[2020-01-26] MEDS: ATORVASTATIN 80 MG TAB PO SCH (08:12)
[2020-01-26] MEDS: PANTOPRAZOLE 40 MG TABLET PO SCH (08:12)
[2020-01-26] MEDS: buPROPion XL 300 MG TAB.ER.24H PO SCH (08:12)
[2020-01-26] MEDS: ISOSORBIDE MONONITRATE ER 30 MG TAB.ER.24H PO SCH (08:13)
[2020-01-26] MEDS: PRIMIDONE 50 MG TAB PO SCH (08:13)
[2020-01-26] MEDS: ASCORBIC ACID 500 MG TAB PO SCH (08:13)
[2020-01-26] MEDS: SYMBICORT 160-4.5 MCG INHALER INHALATION SCH (08:22)
--- NOTE | 2020-01-26 10:15 | P.PN ---
Subjective Progress Note Date: 01/26/20 CHIEF COMPLAINT: Abdominal pain with nausea and vomiting HISTORY OF PRESENT ILLNESS: Patient presented with abdominal pain secondary to constipation, rectal fecal impaction, ileus and hiatal hernia. Patient is tolerating ground diet. She is having bowel movements and passing gas. She is afebrile. PHYSICAL EXAM: VITAL SIGNS: Reviewed. GENERAL: Well-developed in no acute distress. HEENT: No sclera icterus. Extraocular movements grossly intact. Moist buccal mucosa. Head is atraumatic, normocephalic. ABDOMEN: Soft. Nondistended. Nontender NEUROLOGIC: Alert and oriented. Cranial nerves II through XII grossly intact. ASSESSMENT: 1. Abdominal pain 2. constipation and rectal fecal impaction 3. Ileus 4. Large hiatal hernia with twisting of the stomach 5. Urinary retention has Schafer catheter PLAN: -Patient to be discharged from surgical standpoint -Patient follow-up with Dr. Chiang in 1 week -GI and DVT prophylaxis Physician Technical Mgr note has been reviewed by physician. Signing provider agrees with the documented findings, assessment, and plan of care. Objective - Vital Signs Vital signs: Vital Signs Temp 98.1 F 01/26/20 07:00 Pulse 75 01/26/20 08:18 Resp 18 01/26/20 08:18 BP 166/70 01/26/20 07:00 Pulse Ox 97 01/26/20 08:25 Intake & Output 01/25/20 01/26/20 01/26/20 18:59 06:59 18:59 Intake Total 380 Output Total 1000 900 550 Balance -620 -900 -550 Intake: Oral 380 Output: Urine 1000 900 550 Uretheral (Schafer) 550 Other: Voiding Method Indwelling Catheter Indwelling Catheter Indwelling Catheter - Labs CBC & Chem 7: 01/25/20 05:50 01/26/20 07:19 Labs: Abnormal Lab Results - Last 24 Hours (Table) 01/25/20 01/25/20 Range/Units 05:35 11:47 Potassium 3.0 L (3.5-5.1) mmol/L Magnesium 1.5 L (1.6-2.3) mg/dL
[2020-01-26] MEDS ORDERED: POTASSIUM CHLORIDE ER 10 MEQ TAB.ER.PRT PO STA (13:46)
[2020-01-26] MEDS ORDERED: MAGNESIUM SULFATE-D5W PMX 1 GM in DEXTROSE/WATER 1 100ML.BAG IVPB ONE (14:00)
[2020-01-26 14:53] VITALS: BP 107/57; PULSE 79; RESP 16; TEMP 98.2
[2020-01-26 15:08] VITALS: BMI 25.1
== END 2020-01-26 15:58 | disposition home health service (06) | DRG 388 ==
LOC: EC 17:09 → 3SCARD 19:29 → 3NCARDOBS 01-22 20:45 → 3SCARD 01-22 20:45 → 4SSUR 01-25 17:41
PROVIDERS: ADMIT Hospitalist; ATTEND Hospitalist
DX: K56.7 Ileus, unspecified (principal); J69.0 Pneumonitis due to inhalation of food and vomit; K51.50 Left sided colitis without complications; E87.2 Acidosis; J98.11 Atelectasis; K56.41 Fecal impaction; M19.91 Primary osteoarthritis, unspecified site; N39.3 Stress incontinence (female) (male); K44.9 Diaphragmatic hernia without obstruction or gangrene; N32.89 Other specified disorders of bladder; K21.9 Gastro-esophageal reflux disease without esophagitis; E03.9 Hypothyroidism, unspecified; D72.829 Elevated white blood cell count, unspecified; E78.5 Hyperlipidemia, unspecified; E86.0 Dehydration; E87.6 Hypokalemia; F17.210 Nicotine dependence, cigarettes, uncomplicated; F32.9 Major depressive disorder, single episode, unspecified; F41.9 Anxiety disorder, unspecified; G20 Parkinson's disease; G89.29 Other chronic pain; M54.9 Dorsalgia, unspecified; I10 Essential (primary) hypertension; I25.10 Atherosclerotic heart disease of native coronary artery without angina pectoris; I25.2 Old myocardial infarction; I44.0 Atrioventricular block, first degree; I44.7 Left bundle-branch block, unspecified; J44.9 Chronic obstructive pulmonary disease, unspecified; Z79.51 Long term (current) use of inhaled steroids; Z79.82 Long term (current) use of aspirin; Z79.890 Hormone replacement therapy; Z79.899 Other long term (current) drug therapy; Z82.49 Family history of ischemic heart disease and other diseases of the circulatory system; Z90.710 Acquired absence of both cervix and uterus; Z91.81 History of falling; Z95.1 Presence of aortocoronary bypass graft; Z95.5 Presence of coronary angioplasty implant and graft; Z82.61 Family history of arthritis; Z82.3 Family history of stroke; Z91.030 Bee allergy status; R33.9 Retention of urine, unspecified; R00.1 Bradycardia, unspecified; R91.1 Solitary pulmonary nodule; Z87.19 Personal history of other diseases of the digestive system
CPT/HCPCS: 36415; 70450; 71045; 74019; 74176; 80048; 80053; 83735; 83880; 84132; 84443; 84484; 85025; 85027; 85610; 85730; 93005; 93306; 94640; 94760; 95816; 96361; 96374; 99285

== ENCOUNTER → 2020-02-16 | Outpatient (CLI) | payer MEDICARE, BC ==
--- NOTE | 2020-02-16 10:50 | FL ---
EXAMINATION TYPE: FL UGI air w esophagus DATE OF EXAM: 02/16/2020 COMPARISON: CT abdomen and pelvis January 21, 2020. HISTORY: GERD and hiatal hernia. TECHNIQUE: A double contrast UGI study is attempted. Total of 23 seconds of fluoroscopic time utiliz ed during procedure. 43 spot images saved to PACS. FINDINGS: Floor Cleaner image of the abdomen shows overall nonobstructive bowel gas pattern. There is multil evel vertebroplasty involving the lower thoracic and lumbar spine. Scoliotic curvature is seen. Overl mendez vascular calcification left pelvis is present. The exam is noted suboptimal as patient has limited mobility. Less than optimal projections were obta ined due to patient's underlying age and limited mobility. Overlying sternal wires and mediastinal cl ips are seen. The esophagus shows satisfactory motility and emptying into the stomach. There is moder ate to large size fixed hiatal hernia or intrathoracic stomach with abnormal twisting redemonstrated. There is good flow of contrast through the diaphragmatic hiatus into the stomach below diaphragm. Sub optimal distention noted. No obvious jesusita ulcer below diaphragm. The duodenal bulb, sweep, and proximal small bowel loops are thought within normal limits. IMPRESSION: Suboptimal study, redemonstration of moderate to large size fixed hiatal hernia or intrat horacic stomach with abnormal twisting. No significant delay in passage of contrast to proximal small bowel noted.
== END | disposition home or self-care (01) ==
LOC: RADUSWWP 09:01
PROVIDERS: ATTEND Surgery
DX: K44.9 Diaphragmatic hernia without obstruction or gangrene (principal)
CPT/HCPCS: 74246

== ENCOUNTER 2020-02-20 14:01 | Inpatient (IN) | payer MEDICARE, BC ==
[2020-02-20] MEDS ORDERED: SODIUM CHLORIDE 0.9% 1,000 ML IV STA (14:21)
--- NOTE | 2020-02-20 14:37 | ED ---
General Adult HPI - General Chief complaint: Weakness Stated complaint: Weakness Time Seen by Provider: 02/20/20 14:21 Source: patient Mode of arrival: ambulatory Limitations: no limitations - History of Present Illness Initial comments: Dictation was produced using [employer] dictation software. please excuse any grammatical, word or spelling errors. This patient was cared for during a federal and state declared state of emergency secondary to Covid 19 Chief Complaint: 84-year-old female brought in by her son for weakness. History of Present Illness: His 84-year-old female she was noted to be getting weak about 2 days ago. Today she became so bad that she was brought to the emergency room. Patient typically ambulates with a walker around the house. She is noted to have problems ambulating. Patient has a history of Parkinson's disease. Son at bedside reports that patient had multiple falls over the last 48 hours. Patient denies any focal neurologic weakness. She feels weak throughout her whole body. She feels that she is dehydrated. She had her blood pressure measured at home and son noted that her diastolic measurement was in the 40s. She doesn't usually have blood pressure readings that low. Son does not remember what her systolic measurement was. Patient has any fever, chills or any other constitutional symptoms. Denies any chest pain shortness of breath. Denies abdominal pain. No nausea vomiting. She's had poor appetite for the last several months. The ROS documented in this emergency department record has been reviewed and confirmed by me. Those systems with pertinent positive or negative responses have been documented in the HPI. All other systems are other negative and/or noncontributory. PHYSICAL EXAM: General Impression: Alert and oriented x3, not in acute distress HEENT: Normocephalic atraumatic, extra-ocular movements intact, pupils equal and reactive to light bilaterally, dry mucous membranes Cardiovascular: Heart regular rate and rhythm Chest: Able to complete full sentences, no retractions, no tachypnea Abdomen: abdomen soft, non-tender, non-distended, no organomegaly Musculoskeletal: Pulses present and equal in all extremities, no peripheral edema Motor: no focal deficits noted Neurological: CN II-XII grossly intact, no focal motor or sensory deficits noted, global weakness to extremities no tremulousness Skin: Intact with no visualized rashes Psych: Normal affect and mood ED course: 84-year-old female presents with generalized weakness for the last 48 hours. Vital signs upon arrival are within acceptable limits. Patient is having difficulty voiding. Bladder scan was performed showing large amount of retained urine. Schafer catheter was placed. Patient does appear very dry on physical examination. Laboratory evaluation obtained. Mild leukocytosis of 14.9. Hemoglobin is 10.5 which appears to be patient's baseline. Coag panel is negative. Metabolic panel shows sodium 125. Slightly from dehydration. Slight elevation of renal markers. Troponin is slightly elevated likely from a HPI. Brain natruretic peptide is 1940. Slight hypocalcemia. Urinalysis shows positive nitrites. Patient will be admitted for IV hydration patient did receive 1 g of Rocephin. Discussed patient case with Dr. Holman who is willing to accept patients care on behalf of [facility] hospitalist group. Urology will be consulted for urinary retention. EKG interpretation: Ventricular rate 70, sinus rhythm, AL interval 212, QRS 1:30, QTc 438.. No AL prolongation, no QTC prolongation, no ST or T-wave changes noted. EKG compared to oximetry 2019 showing no changes. Overall, this EKG is unremarkable - Related Data Home Medications Medication Instructions Recorded Confirmed Ascorbic Acid [Vitamin C] 500 mg PO DAILY 07/25/15 02/20/20 Atorvastatin [Lipitor] 80 mg PO DAILY 07/25/15 02/20/20 Levothyroxine Sodium [Synthroid] 75 mcg PO DAILY 07/25/15 02/20/20 Nitroglycerin Sl Tabs [Nitrostat] 0.4 mg SL Q5M PRN 07/25/15 02/20/20 buPROPion HCL [Wellbutrin XL] 300 mg PO DAILY 07/25/15 02/20/20 Gabapentin [Neurontin] 100 mg PO BID 05/12/19 02/20/20 Primidone [Mysoline] 300 mg PO DAILY 05/12/19 02/20/20 lisinopriL [Zestril] 2.5 mg PO DAILY 05/12/19 02/20/20 Albuterol Sulfate [Ventolin HFA] 2 puff INHALATION RT-QID PRN 01/19/20 02/20/20 Baclofen [Lioresal] 10 mg PO TID PRN 01/19/20 02/20/20 Budesonide/Formoterol Fumarate 2 puff INHALATION RT-BID 01/19/20 02/20/20 [Symbicort 160-4.5 Mcg Inhaler] Citalopram Hydrobromide [CeleXA] 40 mg PO DAILY 01/19/20 02/20/20 EPINEPHrine (Auto Inject) [Epipen] 0.3 mg IM ONCE PRN 01/19/20 02/20/20 Lidocaine 5% Patch [Lidoderm 5% 1 patch TOPICAL DAILY PRN 01/19/20 02/20/20 Patch] Doxazosin [Cardura] 4 mg PO DAILY 02/20/20 02/20/20 Nicotine 14Mg/24Hr Patch [Habitrol 1 patch TRANSDERM DAILY 02/20/20 02/20/20 14Mg/24Hr Patch] Omeprazole Magnesium [PriLOSEC OTC] 20 mg PO BID 02/20/20 02/20/20 Propranolol LA [Inderal LA] 80 mg PO HS 02/20/20 02/20/20 Previous Rx's Medication Instructions Recorded Isosorbide Mononitrate ER [Imdur] 30 mg PO DAILY #30 tab.er.24h 07/30/15 Aspirin 81 mg PO HS #30 tab 05/16/19 Allergies Allergy/AdvReac Type Severity Reaction Status Date / Time venom-honey bee Allergy Anaphylaxis Verified 02/20/20 16:35 [bee venom (honey bee)] Review of Systems ROS Statement: Those systems with pertinent positive or pertinent negative responses have been documented in the HPI. ROS Other: All systems not noted in ROS Statement are negative. Past Medical History Past Medical History: Coronary Artery Disease (CAD), COPD, GERD/Reflux, Hypertension, Myocardial Infarction (OR), Osteoarthritis (OA), Thyroid Disorder Additional Past Medical History / Comment(s): Parkinson's disease, depression. Last Myocardial Infarction Date:: 2009 History of Any Multi-Drug Resistant Organisms: None Reported Past Surgical History: Back Surgery, Bladder Surgery, Coronary Bypass/CABG, Hysterectomy, Orthopedic Surgery Additional Past Surgical History / Comment(s): STENT X1 Past Anesthesia/Blood Transfusion Reactions: Postoperative Nausea & Vomiting (PONV) Past Psychological History: Anxiety, Depression Smoking Status: Current every day smoker Past Alcohol Use History: None Reported Past Drug Use History: None Reported - Past Family History Mother Family Medical History: CVA/TIA, Myocardial Infarction (OR), Rheumatoid Arthritis (RA) Father Family Medical History: Myocardial Infarction (OR) Additional Family Medical History / Comment(s): ANEURYSM-UNKNOWN LOCATION General Exam Limitations: no limitations Course Vital Signs 02/20/20 02/20/20 14:05 16:23 Temperature 98.3 F Pulse Rate 73 66 Respiratory 16 18 Rate Blood Pressure 112/41 108/56 O2 Sat by Pulse 96 94 L Oximetry Medical Decision Making - Lab Data Result diagrams: 02/20/20 14:38 02/20/20 14:38 Lab Results 02/20/20 02/20/20 02/20/20 Range/Units 14:38 14:38 14:38 WBC 14.9 H (3.8-10.6) k/uL RBC 3.59 L (3.80-5.40) m/uL Hgb 10.5 L (11.4-16.0) gm/dL Hct 32.6 L (34.0-46.0) % MCV 90.8 (80.0-100.0) fL MCH 29.2 (25.0-35.0) pg MCHC 32.2 (31.0-37.0) g/dL RDW 14.4 (11.5-15.5) % Plt Count 219 (150-450) k/uL Neutrophils % 82 % Lymphocytes % 10 % Monocytes % 5 % Eosinophils % 1 % Basophils % 0 % Neutrophils # 12.2 H (1.3-7.7) k/uL Lymphocytes # 1.5 (1.0-4.8) k/uL Monocytes # 0.8 (0-1.0) k/uL Eosinophils # 0.2 (0-0.7) k/uL Basophils # 0.0 (0-0.2) k/uL Hypochromasia Slight PT 10.5 (9.0-12.0) sec INR 1.0 (<1.2) APTT 24.2 (22.0-30.0) sec Sodium 125 L (137-145) mmol/L Potassium 3.8 (3.5-5.1) mmol/L Chloride 99 (98-107) mmol/L Carbon Dioxide 20 L (22-30) mmol/L Anion Gap 6 mmol/L BUN 27 H (7-17) mg/dL Creatinine 1.20 H (0.52-1.04) mg/dL Est GFR (CKD-EPI)AfAm 48 (>60 ml/min/1.73 sqM) Est GFR (CKD-EPI)NonAf 42 (>60 ml/min/1.73 sqM) Glucose 100 H (74-99) mg/dL Plasma Lactic Acid Marcio (0.7-2.0) mmol/L Calcium 8.2 L (8.4-10.2) mg/dL Ionized Calcium Dinesh 4.4 L (4.5-5.3) mg/dL Magnesium 1.8 (1.6-2.3) mg/dL Total Bilirubin 0.4 (0.2-1.3) mg/dL AST 133 H (14-36) U/L ALT 36 H (4-34) U/L Alkaline Phosphatase 123 (38-126) U/L Creatine Kinase 539 H (30-135) U/L Troponin I (0.000-0.034) ng/mL NT-Pro-B Natriuret Pep pg/mL Total Protein 5.7 L (6.3-8.2) g/dL Albumin 3.0 L (3.5-5.0) g/dL TSH 1.880 (0.465-4.680) mIU/L Urine Color Urine Appearance (Clear) Urine pH (5.0-8.0) Ur Specific Ider (1.001-1.035) Urine Protein (Negative) Urine Glucose (UA) (Negative) Urine Ketones (Negative) Urine Blood (Negative) Urine Nitrite (Negative) Urine Bilirubin (Negative) Urine Urobilinogen (<2.0) mg/dL Ur Leukocyte Esterase (Negative) Blood Type Blood Type Recheck Bld Type Recheck Status Antibody Screen Spec Expiration Date 02/20/20 02/20/20 02/20/20 Range/Units 14:38 14:38 14:38 WBC (3.8-10.6) k/uL RBC (3.80-5.40) m/uL Hgb (11.4-16.0) gm/dL Hct (34.0-46.0) % MCV (80.0-100.0) fL MCH (25.0-35.0) pg MCHC (31.0-37.0) g/dL RDW (11.5-15.5) % Plt Count (150-450) k/uL Neutrophils % % Lymphocytes % % Monocytes % % Eosinophils % % Basophils % % Neutrophils # (1.3-7.7) k/uL Lymphocytes # (1.0-4.8) k/uL Monocytes # (0-1.0) k/uL Eosinophils # (0-0.7) k/uL Basophils # (0-0.2) k/uL Hypochromasia PT (9.0-12.0) sec INR (<1.2) APTT (22.0-30.0) sec Sodium (137-145) mmol/L Potassium (3.5-5.1) mmol/L Chloride (98-107) mmol/L Carbon Dioxide (22-30) mmol/L Anion Gap mmol/L BUN (7-17) mg/dL Creatinine (0.52-1.04) mg/dL Est GFR (CKD-EPI)AfAm (>60 ml/min/1.73 sqM) Est GFR (CKD-EPI)NonAf (>60 ml/min/1.73 sqM) Glucose (74-99) mg/dL Plasma Lactic Acid Marcio 1.6 (0.7-2.0) mmol/L Calcium (8.4-10.2) mg/dL Ionized Calcium Dinesh (4.5-5.3) mg/dL Magnesium (1.6-2.3) mg/dL Total Bilirubin (0.2-1.3) mg/dL AST (14-36) U/L ALT (4-34) U/L Alkaline Phosphatase (38-126) U/L Creatine Kinase (30-135) U/L Troponin I 0.034 (0.000-0.034) ng/mL NT-Pro-B Natriuret Pep 1940 pg/mL Total Protein (6.3-8.2) g/dL Albumin (3.5-5.0) g/dL TSH (0.465-4.680) mIU/L Urine Color Urine Appearance (Clear) Urine pH (5.0-8.0) Ur Specific Ider (1.001-1.035) Urine Protein (Negative) Urine Glucose (UA) (Negative) Urine Ketones (Negative) Urine Blood (Negative) Urine Nitrite (Negative) Urine Bilirubin (Negative) Urine Urobilinogen (<2.0) mg/dL Ur Leukocyte Esterase (Negative) Blood Type Blood Type Recheck Bld Type Recheck Status Antibody Screen Spec Expiration Date 02/20/20 02/20/20 Range/Units 15:03 15:48 WBC (3.8-10.6) k/uL RBC (3.80-5.40) m/uL Hgb (11.4-16.0) gm/dL Hct (34.0-46.0) % MCV (80.0-100.0) fL MCH (25.0-35.0) pg MCHC (31.0-37.0) g/dL RDW (11.5-15.5) % Plt Count (150-450) k/uL Neutrophils % % Lymphocytes % % Monocytes % % Eosinophils % % Basophils % % Neutrophils # (1.3-7.7) k/uL Lymphocytes # (1.0-4.8) k/uL Monocytes # (0-1.0) k/uL Eosinophils # (0-0.7) k/uL Basophils # (0-0.2) k/uL Hypochromasia PT (9.0-12.0) sec INR (<1.2) APTT (22.0-30.0) sec Sodium (137-145) mmol/L Potassium (3.5-5.1) mmol/L Chloride (98-107) mmol/L Carbon Dioxide (22-30) mmol/L Anion Gap mmol/L BUN (7-17) mg/dL Creatinine (0.52-1.04) mg/dL Est GFR (CKD-EPI)AfAm (>60 ml/min/1.73 sqM) Est GFR (CKD-EPI)NonAf (>60 ml/min/1.73 sqM) Glucose (74-99) mg/dL Plasma Lactic Acid Marcio (0.7-2.0) mmol/L Calcium (8.4-10.2) mg/dL Ionized Calcium Dinesh (4.5-5.3) mg/dL Magnesium (1.6-2.3) mg/dL Total Bilirubin (0.2-1.3) mg/dL AST (14-36) U/L ALT (4-34) U/L Alkaline Phosphatase (38-126) U/L Creatine Kinase (30-135) U/L Troponin I (0.000-0.034) ng/mL NT-Pro-B Natriuret Pep pg/mL Total Protein (6.3-8.2) g/dL Albumin (3.5-5.0) g/dL TSH (0.465-4.680) mIU/L Urine Color Yellow Urine Appearance Slightly Cloudy H (Clear) Urine pH 6.0 (5.0-8.0) Ur Specific Ider 1.010 (1.001-1.035) Urine Protein 1+ (Negative) Urine Glucose (UA) Negative (Negative) Urine Ketones Negative (Negative) Urine Blood Small (Negative) Urine Nitrite Positive H (Negative) Urine Bilirubin Negative (Negative) Urine Urobilinogen <2.0 (<2.0) mg/dL Ur Leukocyte Esterase Large (Negative) Blood Type O Negative Blood Type Recheck O Neg Bld Type Recheck Status No Antibody Screen NEGATIVE Spec Expiration Date 02/23/2020 - 2303 Disposition Clinical Impression: Dehydration, Urinary retention Disposition: ADMITTED IP TO THIS [facility] Condition: Fair Referrals: Lashaun Kang III, MD [Primary Care Provider] - 1-2 days Decision Time: 17:20
[2020-02-20 14:54] LABS: Ionized Calcium 4.4 mg/dL (4.5-5.3)
[2020-02-20 15:01] LABS: Partial Thromboplastin Time 24.2 sec (22.0-30.0); Prothrombin Time 10.5 sec (9.0-12.0)
[2020-02-20 15:02] LABS: Basophils % (A) 0 %; Eosinophils # (A) 0.2 k/uL (0-0.7); Eosinophils % (A) 1 %; HCT 32.6 % (34.0-46.0); HGB 10.5 gm/dL (11.4-16.0); Hypochromasia Slight; Lymphocytes # (A) 1.5 k/uL (1.0-4.8); Lymphocytes % (A) 10 %; MCH 29.2 pg (25.0-35.0); MCHC 32.2 g/dL (31.0-37.0); MCV 90.8 fL (80.0-100.0); Mean Platelet Volume 7.9; Monocytes # (A) 0.8 k/uL (0-1.0); Monocytes % (A) 5 %; Neutrophils # (A) 12.2 k/uL (1.3-7.7); Neutrophils % (A) 82 %; Platelet Count 219 k/uL (150-450); RBC 3.59 m/uL (3.80-5.40); RDW 14.4 % (11.5-15.5); WBC 14.9 k/uL (3.8-10.6)
[2020-02-20 15:06] LABS: Calcium 8.2 mg/dL (8.4-10.2); Magnesium 1.8 mg/dL (1.6-2.3); Potassium 3.8 mmol/L (3.5-5.1); Total Bilirubin 0.4 mg/dL (0.2-1.3); Total Protein 5.7 g/dL (6.3-8.2)
--- NOTE | 2020-02-20 15:44 | CT ---
EXAMINATION TYPE: CT brain wo con DATE OF EXAM: 02/20/2020 COMPARISON: 01/19/2020 INDICATION: Weakness, fall. DLP: 1194.4 mGycm, Automated exposure control for dose reduction was used. CONTRAST: None CT of the brain is performed utilizing 3 mm thick sections through the posterior fossa and 3 mm thick sections through the remaining calvarium. Study is performed within 24 hours of arrival to the hosp [facility]. No abnormal hyperdensity is present to suggest an acute intracranial hemorrhage. No mass lesion is evident. No acute infarcts are evident. Periventricular white matter hypodensity is present, likely on the bas is of chronic white matter ischemic changes. Ventricles and sulci are prominent for the patient age. Extra-axial spaces are prominent more so on the frontal regions. Paranasal sinuses and mastoid air cells within the [id number] are clear. IMPRESSIONS: 1. Atrophy with chronic appearing periventricular white matter ischemic type changes
--- NOTE | 2020-02-20 15:58 | XR ---
EXAMINATION TYPE: XR chest 1V portable DATE OF EXAM: 02/20/2020 COMPARISON: Prior chest x-ray 01/22/2020 HISTORY: Weakness, hypotension TECHNIQUE: Single frontal view of the chest is obtained. FINDINGS: Patient is post median sternotomy. Heart size is stable. Contrast material is present with in the colon. There are vertebroplasty changes again noted incidentally. Interstitium is increased. T here is no pneumothorax or pleural effusion. Aorta is dense. NG tube has been removed. Retrocardiac d ensity with lucency consistent with hiatal hernia and partial intrathoracic stomach. IMPRESSION: Difficult to exclude pulmonary venous hypertension and early interstitial edema.
[2020-02-20] MEDS ORDERED: cefTRIAXone IN SWFI 1,000 MG/10 ML SYRINGE IVP STA (17:15)
[2020-02-20] MEDS ORDERED: NALOXONE 0.4 MG/ML 1 ML VIAL IV PRN (17:16)
[2020-02-20] MEDS ORDERED: LIDOCAINE 5% PATCH TOPICAL PRN (19:11)
[2020-02-20] MEDS ORDERED: ALBUTEROL NEBULIZED 2.5 MG/3 ML INHALATION PRN (19:11)
[2020-02-20] MEDS: SODIUM CHLORIDE 0.9% 1,000 ML IV SCH (19:42)
[2020-02-20] MEDS: PROPRANOLOL LA 80 MG CAP.SA.24H PO SCH (21:39)
[2020-02-20] MEDS: GABAPENTIN 100 MG CAP PO SCH (21:39)
[2020-02-20] MEDS: PANTOPRAZOLE 40 MG TABLET PO SCH (21:39)
[2020-02-20] MEDS: ASPIRIN 81 MG PO SCH (21:39)
[2020-02-20] MEDS: SYMBICORT 160-4.5 MCG INHALER INHALATION SCH (22:05)
[2020-02-20 22:29] LABS: Appearance,Urine Slightly Cloudy (Clear); Color,Urine Yellow
[2020-02-20 22:30] LABS: Bilirubin,Urine Negative (Negative); Glucose,Urine (UA) Negative (Negative); Ketones,Urine Negative (Negative); Protein,Urine 1+ (Negative)
[2020-02-20 22:31] LABS: Blood,Urine Small (Negative); Leukocyte Esterase,Urine Large (Negative); Nitrite,Urine Positive (Negative); Urobilinogen,Urine <2.0 mg/dL (<2.0)
[2020-02-21] MEDS: LEVOTHYROXINE 75 MCG TAB PO SCH (05:47)
[2020-02-21 05:53] LABS: Glucose,Whole Blood 95 mg/dL (75-99)
[2020-02-21] MEDS: SODIUM CHLORIDE 0.9% 1,000 ML IV SCH (05:57)
[2020-02-21] MEDS: SYMBICORT 160-4.5 MCG INHALER INHALATION SCH (07:33)
[2020-02-21] MEDS: ASCORBIC ACID 500 MG TAB PO SCH (07:41)
[2020-02-21] MEDS: PRIMIDONE 50 MG TAB PO SCH (07:41)
[2020-02-21] MEDS: NICOTINE 14MG/24HR PATCH TRANSDERM SCH (07:41)
[2020-02-21] MEDS: ATORVASTATIN 80 MG TAB PO SCH (07:42)
[2020-02-21] MEDS: PANTOPRAZOLE 40 MG TABLET PO SCH ×2 (07:42→20:10)
[2020-02-21] MEDS: GABAPENTIN 100 MG CAP PO SCH ×2 (07:42→20:10)
[2020-02-21] MEDS: buPROPion XL 300 MG TAB.ER.24H PO SCH (07:42)
[2020-02-21] MEDS: DOXAZOSIN 4 MG TAB PO SCH (07:42)
[2020-02-21] MEDS: CITALOPRAM HYDROBROMIDE 20 MG TAB PO SCH (07:42)
[2020-02-21] MEDS: ISOSORBIDE MONONITRATE ER 30 MG TAB.ER.24H PO SCH (07:43)
[2020-02-21 12:41] VITALS: BMI 22.4
--- NOTE | 2020-02-21 14:22 | P.HPIM ---
History of Present Illness 54-year-old the male was brought in because of hypotension and multiple falls for last few days. Patient does have history of Parkinson's and has been falling lately. Patient is admitted for dehydration with hyponatremia and elevated serum creatinine of 1.2 patient does have urinary retention as well patient had a Schafer catheter now urology evaluated the patient. Patient doesn't have any fevers chills. Patient baseline creatinine is 0.5 patient's present creatinine is around 1.2 and patient doesn't have any JVD patient does have history of congestive heart failure has normal EF and diastolic dysfunction chest x-ray is suspicious for some pulmonary edema. Patient is receiving IV fluids and patient blood pressure is low. She does have tremor was diagnosed with concerns in the past although patient appears to her essential tremor patient is on the propranolol for that and patient is also on FENG inhibitor which will be held. Review of Systems REVIEW OF SYSTEMS: CONSTITUTIONAL: Generalized weakness. HEENT: No recent visual problems or hearing problems. Denied any sore throat. CARDIOVASCULAR: No chest pain, orthopnea, PND, no palpitations, no syncope. PULMONARY: No shortness of breath, no cough, no hemoptysis. GASTROINTESTINAL: No diarrhea, no nausea, no vomiting, no abdominal pain. NEUROLOGICAL: No headaches, no weakness, no numbness. HEMATOLOGICAL: Denies any bleeding or petechiae. GENITOURINARY: Denies any burning micturition, frequency, or urgency. MUSCULOSKELETAL/RHEUMATOLOGICAL: Denies any joint pain, swelling, or any muscle pain. ENDOCRINE: Denies any polyuria or polydipsia. The rest of the 14-point review of systems is negative. Past Medical History Past Medical History: Coronary Artery Disease (CAD), COPD, GERD/Reflux, Hypertension, Myocardial Infarction ([place]), Osteoarthritis (OA), Thyroid Disorder Additional Past Medical History / Comment(s): Parkinson's disease, depression. Last Myocardial Infarction Date:: 2009 History of Any Multi-Drug Resistant Organisms: None Reported Past Surgical History: Back Surgery, Bladder Surgery, Coronary Bypass/CABG, Hysterectomy, Orthopedic Surgery Additional Past Surgical History / Comment(s): STENT X1 Past Anesthesia/Blood Transfusion Reactions: Postoperative Nausea & Vomiting (PONV) Past Psychological History: Anxiety, Depression Smoking Status: Current every day smoker Past Alcohol Use History: None Reported Past Drug Use History: None Reported - Past Family History Mother Family Medical History: CVA/TIA, Myocardial Infarction ([place]), Rheumatoid Arthritis ([place]) Father Family Medical History: Myocardial Infarction ([place]) Additional Family Medical History / Comment(s): ANEURYSM-UNKNOWN LOCATION Medications and Allergies Home Medications Medication Instructions Recorded Confirmed Type Ascorbic Acid [Vitamin C] 500 mg PO DAILY 07/25/15 02/20/20 History Atorvastatin [Lipitor] 80 mg PO DAILY 07/25/15 02/20/20 History Levothyroxine Sodium [Synthroid] 75 mcg PO DAILY 07/25/15 02/20/20 History Nitroglycerin Sl Tabs [Nitrostat] 0.4 mg SL Q5M PRN 07/25/15 02/20/20 History buPROPion HCL [Wellbutrin XL] 300 mg PO DAILY 07/25/15 02/20/20 History Isosorbide Mononitrate ER [Imdur] 30 mg PO DAILY #30 tab.er.24h 07/30/15 02/20/20 Rx Gabapentin [Neurontin] 100 mg PO BID 05/12/19 02/20/20 History Primidone [Mysoline] 300 mg PO DAILY 05/12/19 02/20/20 History lisinopriL [Zestril] 2.5 mg PO DAILY 05/12/19 02/20/20 History Aspirin 81 mg PO HS #30 tab 05/16/19 02/20/20 Rx Albuterol Sulfate [Ventolin HFA] 2 puff INHALATION RT-QID PRN 01/19/20 02/20/20 History Baclofen [Lioresal] 10 mg PO TID PRN 01/19/20 02/20/20 History Budesonide/Formoterol Fumarate 2 puff INHALATION RT-BID 01/19/20 02/20/20 History [Symbicort 160-4.5 Mcg Inhaler] Citalopram Hydrobromide [CeleXA] 40 mg PO DAILY 01/19/20 02/20/20 History EPINEPHrine (Auto Inject) [Epipen] 0.3 mg IM ONCE PRN 01/19/20 02/20/20 History Lidocaine 5% Patch [Lidoderm 5% 1 patch TOPICAL DAILY PRN 01/19/20 02/20/20 History Patch] Doxazosin [Cardura] 4 mg PO DAILY 02/20/20 02/20/20 History Nicotine 14Mg/24Hr Patch [Habitrol 1 patch TRANSDERM DAILY 02/20/20 02/20/20 History 14Mg/24Hr Patch] Omeprazole Magnesium [PriLOSEC OTC] 20 mg PO BID 02/20/20 02/20/20 History Propranolol LA [Inderal LA] 80 mg PO HS 02/20/20 02/20/20 History Allergies Allergy/AdvReac Type Severity Reaction Status Date / Time venom-honey bee Allergy Anaphylaxis Verified 02/20/20 16:35 [bee venom (honey bee)] Physical Exam Vitals: Vital Signs Temp Pulse Pulse Resp BP BP Pulse Ox 02/21/20 07:40 68 02/21/20 07:35 68 02/21/20 07:34 16 02/21/20 07:32 98.7 F 68 16 98/59 97 02/21/20 02:55 98.6 F 92 19 125/65 93 L 02/21/20 02:20 92 19 02/20/20 19:30 75 16 02/20/20 19:15 98.2 F 75 16 168/70 96 02/20/20 19:08 98.5 F 69 18 136/63 96 02/20/20 16:23 66 18 108/56 94 L 02/20/20 14:05 98.3 F 73 16 112/41 96 Intake and Output 02/20/20 02/21/20 02/21/20 22:59 06:59 14:59 Intake Total 240 Output Total 1800 1500 Balance -1560 -1500 Intake: Oral 240 Output: Urine 1800 1500 Uretheral (Schafer) 1800 Other: Voiding Method Indwelling Catheter Indwelling Catheter Indwelling Catheter Weight 52.163 kg 52.163 kg PHYSICAL EXAMINATION: GENERAL: The patient is alert and oriented x3, not in any acute distress. Frail elderly female HEENT: Pupils are round and equally reacting to light. EOMI. No scleral icterus. No conjunctival pallor. Normocephalic, atraumatic. No pharyngeal erythema. No thyromegaly. CARDIOVASCULAR: S1 and S2 present. No murmurs, rubs, or gallops. PULMONARY: There is some rhonchi bilaterally. ABDOMEN: Soft, nontender, nondistended, normoactive bowel sounds. No palpable organomegaly. MUSCULOSKELETAL: No joint swelling or deformity. EXTREMITIES: No cyanosis, clubbing, or pedal edema. NEUROLOGICAL: Gross neurological examination did not reveal any focal deficits. SKIN: No rashes. Results CBC & Chem 7: 02/20/20 14:38 02/20/20 14:38 Labs: Abnormal Lab Results - Last 24 Hours (Table) 02/20/20 02/20/20 02/20/20 Range/Units 14:38 14:38 15:48 WBC 14.9 H (3.8-10.6) k/uL RBC 3.59 L (3.80-5.40) m/uL Hgb 10.5 L (11.4-16.0) gm/dL Hct 32.6 L (34.0-46.0) % Neutrophils # 12.2 H (1.3-7.7) k/uL Sodium 125 L (137-145) mmol/L Carbon Dioxide 20 L (22-30) mmol/L BUN 27 H (7-17) mg/dL Creatinine 1.20 H (0.52-1.04) mg/dL Glucose 100 H (74-99) mg/dL Calcium 8.2 L (8.4-10.2) mg/dL Ionized Calcium Dinesh 4.4 L (4.5-5.3) mg/dL AST 133 H (14-36) U/L ALT 36 H (4-34) U/L Creatine Kinase 539 H (30-135) U/L Total Protein 5.7 L (6.3-8.2) g/dL Albumin 3.0 L (3.5-5.0) g/dL Urine Appearance Slightly Cloudy H (Clear) Urine Protein 1+ H (Negative) Urine Nitrite Positive H (Negative) Thrombosis Risk Factor Assmnt - Choose All That Apply Each Factor Represents 1 point: Abnormal pulmonary function (COPD) Other Risk Factors: No Other congenital or acquired thrombophilia - If yes, enter type in comment: No Thrombosis Risk Factor Assessment Total Risk Factor Score: 1 Thrombosis Risk Factor Assessment Level: Low Risk Assessment and Plan Plan: -Hyponatremia: Etiology is not clear chest x-ray showing pulmonary edema patient is hypotensive because of which patient will not be started on Lasix at this time. We'll repeat basic metabolic profile again stopped IV fluids in the consult nephrology will obtain a urine osmolality serum osmolality, urine random sodium. Urine random creatinine. -Hypotension probably secondary to antidepressant medications lisinopril will be held no clear evidence of infection at this time. -Acute renal failure probably secondary to lisinopril and from [place] azotemia and probably heart failure diastolic dysfunction extended-can start failure chronic diastolic dysfunction with a possible mild acute exacerbation next line- COPD with without any significant exacerbation -Tremors appears to be benign essential tremor rather than Parkinson's continue with propranolol if blood pressure tolerates -Coronary artery disease with CABG in the past -Generalized weakness secondary to her age and multiple other medical problems -Hypertension patient is actually hypotensive -Gases visual reflux disease -Primary asked arthritis Hypertension depression -Chronic low back pain -DVT prophylaxis with subcutaneous heparin
[2020-02-21 14:39] LABS: Calcium 7.7 mg/dL (8.4-10.2); Potassium 3.6 mmol/L (3.5-5.1)
--- NOTE | 2020-02-21 15:50 | P.GSCN ---
History of Present Illness Consult date: 02/21/20 Reason for Consult: Urinary retention History of present illness: Ms Vences is a 84-year-old the female admitted to the hospital with recurrent falls and dehydration. Urology is consulted for urinary retention. She has hx of urinary retention she follows up with Dr Connell for that. She had gomes recently removed and indicated she is been having difficulty voiding since gomes removal. She denies any gross hematuria or dysuria. In the ED a gomes catheter was placed with return of 1.8 L. Since admission gomes catheter has been draining w/o i ssue. Review of Systems - Constitutional Reports weakness, Denies fever, Denies weight loss - Cardiovascular Denies chest pain, Denies shortness of breath - Respiratory Denies cough, Denies 7 - Gastrointestinal Reports as per HPI, Denies abdominal pain, Denies nausea, Denies vomiting - Genitourinary Genitourinary: Denies dysuria, Denies flank pain, Denies hematuria, Denies kidney stones - Neurological Denies headaches, Denies syncope Past Medical History Past Medical History: Coronary Artery Disease (CAD), COPD, GERD/Reflux, Hypertension, Myocardial Infarction ([place]), Osteoarthritis ([place]), Thyroid Disorder Additional Past Medical History / Comment(s): Parkinson's disease, depression. Last Myocardial Infarction Date:: 2009 History of Any Multi-Drug Resistant Organisms: None Reported Past Surgical History: Back Surgery, Bladder Surgery, Coronary Bypass/CABG, Hysterectomy, Orthopedic Surgery Additional Past Surgical History / Comment(s): STENT X1 Past Anesthesia/Blood Transfusion Reactions: Postoperative Nausea & Vomiting (PONV) Past Psychological History: Anxiety, Depression Smoking Status: Current every day smoker Past Alcohol Use History: None Reported Past Drug Use History: None Reported - Past Family History Mother Family Medical History: CVA/TIA, Myocardial Infarction ([place]), Rheumatoid Arthritis ([place]) Father Family Medical History: Myocardial Infarction ([place]) Additional Family Medical History / Comment(s): ANEURYSM-UNKNOWN LOCATION Medications and Allergies Home Medications Medication Instructions Recorded Confirmed Type Ascorbic Acid [Vitamin C] 500 mg PO DAILY 07/25/15 02/20/20 History Atorvastatin [Lipitor] 80 mg PO DAILY 07/25/15 02/20/20 History Levothyroxine Sodium [Synthroid] 75 mcg PO DAILY 07/25/15 02/20/20 History Nitroglycerin Sl Tabs [Nitrostat] 0.4 mg SL Q5M PRN 07/25/15 02/20/20 History buPROPion HCL [Wellbutrin XL] 300 mg PO DAILY 07/25/15 02/20/20 History Isosorbide Mononitrate ER [Imdur] 30 mg PO DAILY #30 tab.er.24h 07/30/15 02/20/20 Rx Gabapentin [Neurontin] 100 mg PO BID 05/12/19 02/20/20 History Primidone [Mysoline] 300 mg PO DAILY 05/12/19 02/20/20 History lisinopriL [Zestril] 2.5 mg PO DAILY 05/12/19 02/20/20 History Aspirin 81 mg PO HS #30 tab 05/16/19 02/20/20 Rx Albuterol Sulfate [Ventolin HFA] 2 puff INHALATION RT-QID PRN 01/19/20 02/20/20 History Baclofen [Lioresal] 10 mg PO TID PRN 01/19/20 02/20/20 History Budesonide/Formoterol Fumarate 2 puff INHALATION RT-BID 01/19/20 02/20/20 History [Symbicort 160-4.5 Mcg Inhaler] Citalopram Hydrobromide [CeleXA] 40 mg PO DAILY 01/19/20 02/20/20 History EPINEPHrine (Auto Inject) [Epipen] 0.3 mg IM ONCE PRN 01/19/20 02/20/20 History Lidocaine 5% Patch [Lidoderm 5% 1 patch TOPICAL DAILY PRN 01/19/20 02/20/20 History Patch] Doxazosin [Cardura] 4 mg PO DAILY 02/20/20 02/20/20 History Nicotine 14Mg/24Hr Patch [Habitrol 1 patch TRANSDERM DAILY 02/20/20 02/20/20 History 14Mg/24Hr Patch] Omeprazole Magnesium [PriLOSEC OTC] 20 mg PO BID 02/20/20 02/20/20 History Propranolol LA [Inderal LA] 80 mg PO HS 02/20/20 02/20/20 History Allergies Allergy/AdvReac Type Severity Reaction Status Date / Time venom-honey bee Allergy Anaphylaxis Verified 02/20/20 16:35 [bee venom (honey bee)] Surgical - Exam Vital Signs Temp Pulse Resp BP Pulse Ox 98.3 F 73 16 112/41 96 02/20/20 14:05 02/20/20 14:05 02/20/20 14:05 02/20/20 14:05 02/20/20 14:05 - General well developed, no distress, no pain - Eyes normal ocular movement, no pale - Respiratory normal expansion, normal respiratory effort - Abdomen Abdomen: soft, non tender - Psychiatric oriented to time, oriented to person, oriented to place Results - Labs 02/20/20 14:38 02/21/20 12:31 Abnormal Lab Results - Last 24 Hours (Table) 02/20/20 02/21/20 02/21/20 Range/Units 15:48 12:31 12:31 Sodium 131 L (137-145) mmol/L Carbon Dioxide 20 L (22-30) mmol/L BUN 19 H (7-17) mg/dL Osmolality 275 L (280-301) mosm/kg Calcium 7.7 L (8.4-10.2) mg/dL Urine Appearance Slightly Cloudy H (Clear) Urine Protein 1+ H (Negative) Urine Nitrite Positive H (Negative) Diabetes panel 02/21/20 Range/Units 12:31 Sodium 131 L (137-145) mmol/L Potassium 3.6 (3.5-5.1) mmol/L Chloride 106 (98-107) mmol/L Carbon Dioxide 20 L (22-30) mmol/L BUN 19 H (7-17) mg/dL Creatinine 0.94 (0.52-1.04) mg/dL Glucose 89 (74-99) mg/dL Calcium 7.7 L (8.4-10.2) mg/dL Thyroid panel 02/20/20 Range/Units 14:38 TSH 1.880 (0.465-4.680) mIU/L Calcium panel 02/21/20 Range/Units 12:31 Calcium 7.7 L (8.4-10.2) mg/dL Pituitary panel 02/20/20 02/21/20 Range/Units 14:38 12:31 Sodium 131 L (137-145) mmol/L Potassium 3.6 (3.5-5.1) mmol/L Chloride 106 (98-107) mmol/L Carbon Dioxide 20 L (22-30) mmol/L BUN 19 H (7-17) mg/dL Creatinine 0.94 (0.52-1.04) mg/dL Glucose 89 (74-99) mg/dL Calcium 7.7 L (8.4-10.2) mg/dL TSH 1.880 (0.465-4.680) mIU/L Adrenal panel 02/21/20 Range/Units 12:31 Sodium 131 L (137-145) mmol/L Potassium 3.6 (3.5-5.1) mmol/L Chloride 106 (98-107) mmol/L Carbon Dioxide 20 L (22-30) mmol/L BUN 19 H (7-17) mg/dL Creatinine 0.94 (0.52-1.04) mg/dL Glucose 89 (74-99) mg/dL Calcium 7.7 L (8.4-10.2) mg/dL Assessment and Plan Assessment: 84 yo female admitted with hypotension and dehydration. Urology is consulted for urinary retention of 1.8 L, she recently had gomes removed for retention by Dr Connell. Her UA on presentation is concerning for UTI. Plan: -Her UA is concerning for UTI, given her urinary retention recommend to continue antibiotics -She can can the gomes for 10-14 days, she can f/u with Dr Connell as an outpatient for management of her retention. Given her retention of 1.8 L she might require a chronic gomes.
[2020-02-21] MEDS: PROPRANOLOL LA 80 MG CAP.SA.24H PO SCH ×2 (20:09→20:10)
[2020-02-21] MEDS: ASPIRIN 81 MG PO SCH (20:10)
[2020-02-21] MEDS: HEPARIN SODIUM,PORCINE 5,000 UNIT/ML 1 ML VIAL SQ SCH (20:10)
[2020-02-22] MEDS ORDERED: ACETAMINOPHEN TAB 325 MG TAB PO STA (04:36)
[2020-02-22] MEDS: SYMBICORT 160-4.5 MCG INHALER INHALATION SCH ×3 (07:02→20:22)
[2020-02-22 07:59] LABS: Calcium 7.4 mg/dL (8.4-10.2); Potassium 3.2 mmol/L (3.5-5.1)
[2020-02-22] MEDS: GABAPENTIN 100 MG CAP PO SCH ×2 (08:14→20:32)
[2020-02-22] MEDS: ATORVASTATIN 80 MG TAB PO SCH (08:14)
[2020-02-22] MEDS: HEPARIN SODIUM,PORCINE 5,000 UNIT/ML 1 ML VIAL SQ SCH ×2 (08:14→20:32)
[2020-02-22] MEDS: LEVOTHYROXINE 75 MCG TAB PO SCH (08:14)
[2020-02-22] MEDS: PANTOPRAZOLE 40 MG TABLET PO SCH ×2 (08:14→20:32)
[2020-02-22] MEDS: CITALOPRAM HYDROBROMIDE 20 MG TAB PO SCH (08:14)
[2020-02-22] MEDS: PRIMIDONE 50 MG TAB PO SCH (08:15)
[2020-02-22] MEDS: DOXAZOSIN 4 MG TAB PO SCH (08:15)
[2020-02-22] MEDS: ASCORBIC ACID 500 MG TAB PO SCH (08:15)
[2020-02-22] MEDS: buPROPion XL 300 MG TAB.ER.24H PO SCH (08:15)
[2020-02-22] MEDS: ISOSORBIDE MONONITRATE ER 30 MG TAB.ER.24H PO SCH (08:16)
[2020-02-22] MEDS: NICOTINE 14MG/24HR PATCH TRANSDERM SCH (08:33)
[2020-02-22] MEDS ORDERED: POTASSIUM CHLORIDE ER 20 MEQ TAB.ER PO STA (09:21)
--- NOTE | 2020-02-22 12:39 | P.PN ---
Subjective 54-year-old the male was brought in because of hypotension and multiple falls for last few days. Patient does have history of Parkinson's and has been falling lately. Patient is admitted for dehydration with hyponatremia and elevated serum creatinine of 1.2 patient does have urinary retention as well patient had a Schafer catheter now urology evaluated the patient. Patient doesn't have any fevers chills. Patient baseline creatinine is 0.5 patient's present creatinine is around 1.2 and patient doesn't have any JVD patient does have history of congestive heart failure has normal EF and diastolic dysfunction chest x-ray is suspicious for some pulmonary edema. Patient is receiving IV fluids and patient blood pressure is low. She does have tremor was diagnosed with concerns in the past although patient appears to her essential tremor gretchen ent is on the propranolol for that and patient is also on FENG inhibitor which will be held. 02/22/2020 Hyponatremia is improving blood pressure improved. Patient is on Rocephin which is being continued. Urine cultures are pending. Urology evaluated the patient nephrology evaluated the patient's.. Patient is off IV fluids and not on any diuretics at this time.Patient still has tremor. It doesn't have significant generalized weakness may need to go to subacute rehabilitation same thing was d iscussed with the patient and family. Constitutional: Denied any fatigue denied any fever. Cardio vascular: denied any chest pain, palpitations Gastrointestinal denied any nausea vomiting Pulmonary: Denied any shortness of breath cough Neurologic denied any new focal deficits All inpatient medications were reviewed and appropriate changes in these medications as dictated in the interval history and assessment and plan. Objective - Vital Signs Vital signs: Vital Signs Temp 97.6 F 02/22/20 08:11 Pulse 58 L 02/22/20 08:11 Resp 16 02/22/20 08:11 BP 122/55 02/22/20 08:11 Pulse Ox 98 02/22/20 08:11 Intake & Output 02/21/20 02/22/20 02/22/20 18:59 06:59 18:59 Intake Total 240 Output Total 2300 Balance -2059 Weight 52.163 kg Intake: Oral 240 Output: Urine 2300 Other: Voiding Method Indwelling Catheter Indwelling Catheter Indwelling Catheter - Exam PHYSICAL EXAMINATION: GENERAL: The patient is alert and oriented x3, not in any acute distress. Frail elderly femaleaphasia and overall looks better today HEENT: Pupils are round and equally reacting to light. EOMI. No scleral icterus. No conjunctival pallor. Normocephalic, atraumatic. No pharyngeal erythema. No thyromegaly. CARDIOVASCULAR: S1 and S2 present. No murmurs, rubs, or gallops. PULMONARY: There is some rhonchi bilaterally. ABDOMEN: Soft, nontender, nondistended, normoactive bowel sounds. No palpable organomegaly. MUSCULOSKELETAL: No joint swelling or deformity. EXTREMITIES: No cyanosis, clubbing, or pedal edema. NEUROLOGICAL: Gross neurological examination did not reveal any focal deficits. SKIN: No rashes. - Labs CBC & Chem 7: 02/20/20 14:38 02/22/20 07:23 Labs: Abnormal Lab Results - Last 24 Hours (Table) 02/21/20 02/21/20 02/22/20 Range/Units 12:31 12:31 07:23 Sodium 131 L 132 L (137-145) mmol/L Potassium 3.2 L (3.5-5.1) mmol/L Chloride 108 H (98-107) mmol/L Carbon Dioxide 20 L 21 L (22-30) mmol/L BUN 19 H (7-17) mg/dL Osmolality 275 L (280-301) mosm/kg Calcium 7.7 L 7.4 L (8.4-10.2) mg/dL Assessment and Plan Plan: -Hyponatremia: probably hypovolemic hyponatremia improved with IV fluids.presently of fluids nephrology evaluated the patient a urine osmolality serum osmolality, urine random sodium. Urine random creatinineare pending TSH is within normal limits. -Hypotension probably secondary to antidepressant medications lisinopril will be held no clear evidence of infection at this time. -Acute renal failure probably secondary to lisinopril and prerenalazotemia and probably heart failure diastolic dysfunction extended -congestive heartfailure chronic diastolic dysfunction with a possible mild acute exacerbation -COPD with without any significant exacerbation -Tremors appears to be benign essential tremor rather than Parkinson's continue with propranolol if blood pressure tolerates -Coronary artery disease with CABG in the past -Generalized weakness secondary to her age and multiple other medical problems -Hypertension patient is actually hypotensive -Gases visual reflux disease -Primary asked arthritis Hypertension depression -Chronic low back pain -DVT prophylaxis with subcutaneous heparin
--- NOTE | 2020-02-22 13:12 | CONS ---
CONSULTATION REASON FOR CONSULT: Hyponatremia. PRESENT ILLNESS: Patient is an 84-year-old female who was admitted to the hospital with history of falls and increased weakness. Patient was found to have a serum sodium of 125. She denied any previous history of low sodium levels. She denies any history of kidney diseases. The patient is maintained on IV fluids and her serum sodium came up to 131 yesterday afternoon and 132 today. IV fluids were discontinued. Yesterday serum creatinine was 1.2 and now down to 0.9 mg/dL. PAST MEDICAL HISTORY: Significant for coronary artery disease, COPD, gastroesophageal reflux disease, hypertension, [place], osteoarthritis, hypothyroidism, Parkinson disease, depression, and anxiety. PAST SURGICAL HISTORY: Back surgery, bladder surgery, coronary artery bypass surgery, hysterectomy, coronary stent placement. SOCIAL HISTORY: Positive for smoking. No history of drug abuse or alcohol abuse. MEDICATIONS PRIOR TO ADMISSION: Include vitamin C, Lipitor, Synthroid, Nitrostat, Wellbutrin, Imdur, Neurontin, Mysoline, Zestril, aspirin, Ventolin, baclofen, Celexa, Symbicort, Prilosec, propranolol. ALLERGIES: ALLERGIES include BEE VENOM. REVIEW OF SYSTEMS: As per HPI. Other systems negative. EXAMINATION: Patient is comfortable, awake, not in any acute distress. Blood pressure was 122/55, heart rate 58 per minute. She is afebrile. Examination of the heart S1, S2. Examination of the lungs, bilateral breath sounds are heard. Abdomen is soft, nontender. Examination of lower extremities shows no significant edema. WOOL MERCHANT exam is grossly intact. LABS: Show sodium of 132, potassium 3.2, chloride 108, CO2 is 21, BUN 16, creatinine 0.8. UA shows 1+ protein, positive nitrite, no significant WBCs. TSH was 1.8. Chest x-ray on admission on February 19 shows possible pulmonary venous hypertension. ASSESSMENT: 1. Hyponatremia appears to be hypovolemic on initial admission, currently improved. The patient received IV fluids. She is currently off IV fluids. Possible component of poor oral intake and decreased solute in the urine contributing to the hyponatremia. The patient is encouraged to increase protein intake. I will add a urine osmolality to the urine from yesterday. 2. Possible urinary tract infection. Urine culture is pending. The patient is maintained on empiric antibiotics. 3. Hypokalemia associated with decreased oral intake. We will replace. 4. Hypertension currently controlled. 5. Hypothyroidism. TSH is within range. PLAN: Check urine osmolality. Continue off IV fluids and increase oral intake. Continue to avoid any thiazide diuretics. Thank you for this consultation. We will continue to follow the patient with you during her hospitalization. DAPHNE / DENISE: [id number] /
[2020-02-22] MEDS: PROPRANOLOL LA 80 MG CAP.SA.24H PO SCH (20:32)
[2020-02-22] MEDS: ASPIRIN 81 MG PO SCH (20:32)
[2020-02-23] MEDS: BACLOFEN 10 MG TAB PO PRN ×2 (02:28→16:40)
[2020-02-23] MEDS: LEVOTHYROXINE 75 MCG TAB PO SCH (06:04)
[2020-02-23 06:18] LABS: HCT 29.8 % (34.0-46.0); HGB 9.4 gm/dL (11.4-16.0); Hypochromasia Moderate; MCHC 31.4 g/dL (31.0-37.0); MCV 89.2 fL (80.0-100.0); Mean Platelet Volume 7.5; Platelet Count 199 k/uL (150-450); RBC 3.34 m/uL (3.80-5.40); RDW 14.2 % (11.5-15.5); WBC 6.4 k/uL (3.8-10.6)
[2020-02-23 06:27] LABS: African American GFR (CKD) >90 (>60 ml/min/1.73 sqM); Anion Gap 2 mmol/L; Blood Urea Nitrogen 12 mg/dL (7-17); Calcium 7.9 mg/dL (8.4-10.2); Carbon Dioxide 21 mmol/L (22-30); Chloride 107 mmol/L (98-107); Glucose 94 mg/dL (74-99); Non-African American GFR(CKD) 82 (>60 ml/min/1.73 sqM); Potassium 3.9 mmol/L (3.5-5.1); Sodium 130 mmol/L (137-145)
[2020-02-23] MEDS: CITALOPRAM HYDROBROMIDE 20 MG TAB PO SCH (08:19)
[2020-02-23] MEDS: buPROPion XL 300 MG TAB.ER.24H PO SCH (08:19)
[2020-02-23] MEDS: ISOSORBIDE MONONITRATE ER 30 MG TAB.ER.24H PO SCH (08:19)
[2020-02-23] MEDS: PRIMIDONE 50 MG TAB PO SCH (08:19)
[2020-02-23] MEDS: ATORVASTATIN 80 MG TAB PO SCH (08:19)
[2020-02-23] MEDS: PANTOPRAZOLE 40 MG TABLET PO SCH ×2 (08:19→19:55)
[2020-02-23] MEDS: GABAPENTIN 100 MG CAP PO SCH ×2 (08:19→19:55)
[2020-02-23] MEDS: ASCORBIC ACID 500 MG TAB PO SCH (08:20)
[2020-02-23] MEDS: NICOTINE 14MG/24HR PATCH TRANSDERM SCH (08:20)
[2020-02-23] MEDS: DOXAZOSIN 4 MG TAB PO SCH (08:20)
[2020-02-23] MEDS: HEPARIN SODIUM,PORCINE 5,000 UNIT/ML 1 ML VIAL SQ SCH ×2 (08:20→19:56)
[2020-02-23] MEDS: SYMBICORT 160-4.5 MCG INHALER INHALATION SCH ×2 (08:33→18:55)
--- NOTE | 2020-02-23 11:38 | P.PN ---
Subjective patient is seen in follow-up for hyponatremia. Sodium level is 130 today. Oral intake is just fair. She's been drinking ensure. No vomiting or diarrhea. has a Schafer catheter for urinary retention. Vital signs are stable. General: The patient appeared well nourished and normally developed. HEENT: Head exam is unremarkable. Neck is without jugular venous distension. LUNGS: Lungs are clear to auscultation and percussion. Breath sounds decreased. HEART: Rate and Rhythm are regular. ABDOMEN: soft, nontender. EXTREMITITES: No clubbing, cyanosis, or edema. Objective - Vital Signs Vital signs: Vital Signs Temp 97.7 F 02/23/20 08:27 Pulse 65 02/23/20 08:27 Resp 15 02/23/20 08:27 BP 121/73 02/23/20 08:27 Pulse Ox 99 02/23/20 08:27 Intake & Output 02/22/20 02/23/20 02/23/20 18:59 06:59 18:59 Intake Total 790 Output Total 900 3050 Balance -900 -2260 Intake: Oral 790 Output: Urine 900 3050 Other: Voiding Method Indwelling Catheter Indwelling Catheter Indwelling Catheter # Bowel Movements 2 - Labs CBC & Chem 7: 02/23/20 05:47 02/23/20 05:47 Labs: Abnormal Lab Results - Last 24 Hours (Table) 02/23/20 02/23/20 Range/Units 05:47 05:47 RBC 3.34 L (3.80-5.40) m/uL Hgb 9.4 L (11.4-16.0) gm/dL Hct 29.8 L (34.0-46.0) % Sodium 130 L (137-145) mmol/L Carbon Dioxide 21 L (22-30) mmol/L Calcium 7.9 L (8.4-10.2) mg/dL Assessment and Plan Plan: assessment: 1. Hyponatremia initially improved with IV hydration. component of poor solute intake. Sodium level 130 today. TSH normal. 2. Urinary retention. Now has a Schafer catheter. 3. Hypokalemia from poor intake. Status post replacement. Better. 4. Metabolic acidosis secondary to acute kidney injury. Better. 5. Benign hypertension. Controlled. 6. Pyuria. Urine culture pending. On antibiotics. Plan: Urine osmolality pending. 1500 mL fluid restriction. encourage oral intake, particularly protein. Avoid thiazide diuretics in the future. Repeat electrolytes in the morning.
--- NOTE | 2020-02-23 14:03 | P.PN ---
Subjective 54-year-old the male was brought in because of hypotension and multiple falls for last few days. Patient does have history of Parkinson's and has been falling lately. Patient is admitted for dehydration with hyponatremia and elevated serum creatinine of 1.2 patient does have urinary retention as well patient had a Schafer catheter now urology evaluated the patient. Patient doesn't have any fevers chills. Patient baseline creatinine is 0.5 patient's present creatinine is around 1.2 and patient doesn't have any JVD patient does have history of congestive heart failure has normal EF and diastolic dysfunction chest x-ray is suspicious for some pulmonary edema. Patient is receiving IV fluids and patient blood pressure is low. She does have tremor was diagnosed with concerns in the past although patient appears to her essential tremor gretchen ent is on the propranolol for that and patient is also on FENG inhibitor which will be held. 02/22/2020 Hyponatremia is improving blood pressure improved. Patient is on Rocephin which is being continued. Urine cultures are pending. Urology evaluated the patient nephrology evaluated the patient's.. Patient is off IV fluids and not on any diuretics at this time.Patient still has tremor. It doesn't have significant generalized weakness may need to go to subacute rehabilitation same thing was d iscussed with the patient and family. 2019 current remains believed to be secondary to poor solute intakeurine osmolality is pending nephrology evaluate the patient is recommending fluid restriction today and see how low her sodium will respond tomorrow. Patient will require subacute rehabilitation but the family wants to take the patient home. Constitutional: Denied any fatigue denied any fever. Cardio vascular: denied any chest pain, palpitations Gastrointestinal denied any nausea vomiting Pulmonary: Denied any shortness of breath cough Neurologic denied any new focal deficits All inpatient medications were reviewed and appropriate changes in these medications as dictated in the interval history and assessment and plan. Objective - Vital Signs Vital signs: Vital Signs Temp 97.7 F 02/23/20 08:27 Pulse 65 02/23/20 08:27 Resp 15 02/23/20 08:27 BP 121/73 02/23/20 08:27 Pulse Ox 99 02/23/20 08:27 Intake & Output 02/22/20 02/23/20 02/23/20 18:59 06:59 18:59 Intake Total 790 Output Total 900 3050 Balance -900 -2260 Intake: Oral 790 Output: Urine 900 3050 Other: Voiding Method Indwelling Catheter Indwelling Catheter Indwelling Catheter # Bowel Movements 2 - Exam PHYSICAL EXAMINATION: GENERAL: The patient is alert and oriented x3, not in any acute distress. Frail elderly femaleaphasia and overall looks better today HEENT: Pupils are round and equally reacting to light. EOMI. No scleral icterus. No conjunctival pallor. Normocephalic, atraumatic. No pharyngeal erythema. No thyromegaly. CARDIOVASCULAR: S1 and S2 present. No murmurs, rubs, or gallops. PULMONARY: There is some rhonchi bilaterally. ABDOMEN: Soft, nontender, nondistended, normoactive bowel sounds. No palpable organomegaly. MUSCULOSKELETAL: No joint swelling or deformity. EXTREMITIES: No cyanosis, clubbing, or pedal edema. NEUROLOGICAL: Gross neurological examination did not reveal any focal deficits. SKIN: No rashes. - Labs CBC & Chem 7: 02/23/20 05:47 02/23/20 05:47 Labs: Abnormal Lab Results - Last 24 Hours (Table) 02/23/20 02/23/20 Range/Units 05:47 05:47 RBC 3.34 L (3.80-5.40) m/uL Hgb 9.4 L (11.4-16.0) gm/dL Hct 29.8 L (34.0-46.0) % Sodium 130 L (137-145) mmol/L Carbon Dioxide 21 L (22-30) mmol/L Calcium 7.9 L (8.4-10.2) mg/dL Assessment and Plan Plan: -Hyponatremia: probably hypovolemic hyponatremia improved with IV fluids.presently of fluids nephrology evaluated the patient a urine osmolality serum osmolality, urine random sodiumare still not available. TSH is within normal limits.further management of hyponatremia as mentioned aboveher hydrochlorothiazide may have contributed to her hyperemia. -Hypotension probably secondary to antihypertensive medications lisinopril will be held no clear evidence of infection at this time. -Acute renal failure probably secondary to lisinopril and prerenalazotemiaimproved now -No clear evidence of heart failure. -COPD with without any significant exacerbation -Tremors appears to be benign essential tremor rather than Parkinson's continue with propranolol. -history of Parkinson's -Coronary artery disease with CABG in the past -Generalized weakness secondary to her age and multiple other medical problems -Hypertension patient is actually hypotensive -Gases visual reflux disease -Primary osteoarthritis Hypertension depression -Chronic low back pain -DVT prophylaxis with subcutaneous heparin
[2020-02-23] MEDS: ASPIRIN 81 MG PO SCH (19:55)
[2020-02-23] MEDS: PROPRANOLOL LA 80 MG CAP.SA.24H PO SCH (19:56)
[2020-02-24] MEDS: LEVOTHYROXINE 75 MCG TAB PO SCH (05:59)
[2020-02-24 07:39] VITALS: BP 117/55; RESP 14; TEMP 98.8
[2020-02-24] MEDS: ISOSORBIDE MONONITRATE ER 30 MG TAB.ER.24H PO SCH (07:40)
[2020-02-24] MEDS: buPROPion XL 300 MG TAB.ER.24H PO SCH (07:40)
[2020-02-24] MEDS: ATORVASTATIN 80 MG TAB PO SCH (07:40)
[2020-02-24] MEDS: PRIMIDONE 50 MG TAB PO SCH (07:40)
[2020-02-24] MEDS: HEPARIN SODIUM,PORCINE 5,000 UNIT/ML 1 ML VIAL SQ SCH (07:40)
[2020-02-24] MEDS: CITALOPRAM HYDROBROMIDE 20 MG TAB PO SCH (07:40)
[2020-02-24] MEDS: ASCORBIC ACID 500 MG TAB PO SCH (07:40)
[2020-02-24] MEDS: GABAPENTIN 100 MG CAP PO SCH (07:40)
[2020-02-24] MEDS: NICOTINE 14MG/24HR PATCH TRANSDERM SCH (07:40)
[2020-02-24] MEDS: PANTOPRAZOLE 40 MG TABLET PO SCH (07:41)
[2020-02-24] MEDS: DOXAZOSIN 4 MG TAB PO SCH (07:41)
[2020-02-24] MEDS: SYMBICORT 160-4.5 MCG INHALER INHALATION SCH (08:36)
[2020-02-24 08:49] VITALS: PULSE 72
[2020-02-24 08:49] LABS: African American GFR (CKD) >90 (>60 ml/min/1.73 sqM); Anion Gap 3 mmol/L; Blood Urea Nitrogen 13 mg/dL (7-17); Calcium 8.3 mg/dL (8.4-10.2); Carbon Dioxide 24 mmol/L (22-30); Chloride 107 mmol/L (98-107); Glucose 93 mg/dL (74-99); Magnesium 1.7 mg/dL (1.6-2.3); Non-African American GFR(CKD) 83 (>60 ml/min/1.73 sqM); Potassium 4.1 mmol/L (3.5-5.1); Sodium 134 mmol/L (137-145)
--- NOTE | 2020-02-24 09:31 | P.PN ---
Subjective patient is seen in follow-up for hyponatremia. Sodium level is 134 today. Oral intake is improving. No vomiting or diarrhea. Has a Schafer catheter for urinary retention. Vital signs are stable. General: The patient appeared well nourished and normally developed. HEENT: Head exam is unremarkable. Neck is without jugular venous distension. LUNGS: Lungs are clear to auscultation and percussion. Breath sounds decreased. HEART: Rate and Rhythm are regular. ABDOMEN: soft, nontender. EXTREMITITES: No clubbing, cyanosis, or edema. Objective - Vital Signs Vital signs: Vital Signs Temp 98.8 F 02/24/20 07:38 Pulse 72 02/24/20 08:49 Resp 14 02/24/20 07:38 BP 117/55 02/24/20 07:38 Pulse Ox 97 02/24/20 07:38 Intake & Output 02/23/20 02/24/20 02/24/20 18:59 06:59 18:59 Intake Total 240 Output Total 3850 Balance -3610 Intake: Oral 240 Output: Urine 3850 Other: Voiding Method Indwelling Catheter Indwelling Catheter Indwelling Catheter # Bowel Movements 2 - Labs CBC & Chem 7: 02/23/20 05:47 02/24/20 07:55 Labs: Abnormal Lab Results - Last 24 Hours (Table) 02/24/20 Range/Units 07:55 Sodium 134 L (137-145) mmol/L Calcium 8.3 L (8.4-10.2) mg/dL Assessment and Plan Plan: assessment: 1. Hyponatremia initially improved with IV hydration. component of poor solute intake. Sodium level 134 today. TSH normal. urine osmolality 277. 2. Urinary retention. Now has a Schafer catheter. 3. Hypokalemia from poor intake. Status post replacement. Better. 4. Metabolic acidosis secondary to acute kidney injury. Better. 5. Benign hypertension. Controlled. 6. Pyuria. Urine culture pending. On antibiotics. Plan: 1500 mL fluid restriction. encourage oral intake, particularly protein. Avoid thiazide diuretics in the future. stable for discharge from nephrology standpoint.
--- NOTE | 2020-02-24 10:06 | P.DS ---
Providers Date of admission: 02/20/20 17:16 Attending physician: Sidra Mello Consults: 02/20/20 17:17 Consult Physician Routine Consulting Provider: Fredi Connell Consult Reason/Comments: urinary retention Do you want consulting provider notified?: Yes 02/21/20 12:23 Consult Physician Routine Consulting Provider: Hannah Khan Consult Reason/Comments: Hyponatremia Do you want consulting provider notified?: Yes Primary care physician: Lashaun Kang [facility] Course: 54-year-old the male was brought in because of hypotension and multiple falls for last few days. Patient does have history of Parkinson's and has been falling lately. Patient is admitted for dehydration with hyponatremia and elevated serum creatinine of 1.2 patient does have urinary retention as well patient had a Schafer catheter now urology evaluated the patient. Patient doesn't have any fevers chills. Patient baseline creatinine is 0.5 patient's present creatinine is around 1.2 and patient doesn't have any JVD patient does have history of congestive heart failure has normal EF and diastolic dysfunction chest x-ray is suspicious for some pulmonary edema. Patient is receiving IV fluids and patient blood pressure is low. She does have tremor was diagnosed with concerns in the past although patient appears to her essential tremor patient is on the propranolol for that and patient is also on FENG inhibitor which will be held. 02/22/2020 Hyponatremia is improving blood pressure improved. Patient is on Rocephin which is being continued. Urine cultures are pending. Urology evaluated the patient nephrology evaluated the patient's.. Patient is off IV fluids and not on any diuretics at this time.Patient still has tremor. It doesn't have significant generalized weakness may need to go to subacute rehabilitation same thing was discussed with the patient and family. 2019 current remains believed to be secondary to poor solute intakeurine osmolality is pending nephrology evaluate the patient is recommending fluid restriction today and see how low her sodium will respond tomorrow. Patient will require subacute rehabilitation but the family wants to take the patient home. 02/24/2020 Patient's serum sodium improved. Patient is definitely high risk for readmission because of her the significant generalized weakness high fall risk. But the family doesn't want to do subacute rehabilitation at this time. Patient does have Parkinson's as well. Patient will be discharged today to follow with the Dr. Kang PCP as outpatient, home care was ordered. Patient will be on fluid restricted diet. PHYSICAL EXAMINATION: GENERAL: The patient is alert and oriented x3, not in any acute distress. Frail elderly female and overall looks better today still has a tremor HEENT: Pupils are round and equally reacting to light. EOMI. No scleral icterus. No conjunctival pallor. Normocephalic, atraumatic. No pharyngeal erythema. No thyromegaly. CARDIOVASCULAR: S1 and S2 present. No murmurs, rubs, or gallops. PULMONARY: There is some rhonchi bilaterally. ABDOMEN: Soft, nontender, nondistended, normoactive bowel sounds. No palpable organomegaly. MUSCULOSKELETAL: No joint swelling or deformity. EXTREMITIES: No cyanosis, clubbing, or pedal edema. NEUROLOGICAL: Gross neurological examination did not reveal any focal deficits. significant generalized weakness SKIN: No rashes. Assessment and Plan Plan: -Hyponatremia: initially believed to be secondary to hypovolemia, presently improved nephrology is recommending fluid restriction. -Hypotension probably secondary to antihypertensive medications lisinopril will be held -Acute renal failure probably secondary to lisinopril and prerenalazotemia improved now -No clear evidence of heart failure. -COPD with without any significant exacerbation -Tremors appears to be benign essential tremor rather than Parkinson's continue with propranolol.patient although was diagnosed with Parkinson's in the past. -history of Parkinson's -Coronary artery disease with CABG in the past -Generalized weakness secondary to her age and multiple other medical problems -Hypertension patient is actually hypotensivewill not require lisinopril but from will be continued at this being used for treatment -Gases he is aphasia reflux disease -Primary osteoarthritis Hypertension depression -Chronic low back pain generalized weakness patient is more appropriate for subacute rehabilitation rather than home. Patient Condition at Discharge: Fair Plan - Discharge Summary New Discharge Prescriptions: Continue Nitroglycerin Sl Tabs [Nitrostat] 0.4 mg SL Q5M PRN PRN Reason: Pain buPROPion HCL [Wellbutrin XL] 300 mg PO DAILY Levothyroxine Sodium [Synthroid] 75 mcg PO DAILY Atorvastatin [Lipitor] 80 mg PO DAILY Ascorbic Acid [Vitamin C] 500 mg PO DAILY Isosorbide Mononitrate ER [Imdur] 30 mg PO DAILY #30 tab.er.24h Primidone [Mysoline] 300 mg PO DAILY Gabapentin [Neurontin] 100 mg PO BID Aspirin 81 mg PO HS #30 tab Albuterol Sulfate [Ventolin HFA] 2 puff INHALATION RT-QID PRN PRN Reason: Shortness Of Breath Citalopram Hydrobromide [CeleXA] 40 mg PO DAILY Budesonide/Formoterol Fumarate [Symbicort 160-4.5 Mcg Inhaler] 2 puff INHALATION RT-BID EPINEPHrine (Auto Inject) [Epipen] 0.3 mg IM ONCE PRN PRN Reason: Anaphylaxis Lidocaine 5% Patch [Lidoderm 5% Patch] 1 patch TOPICAL DAILY PRN PRN Reason: Pain Propranolol LA [Inderal LA] 80 mg PO HS Omeprazole Magnesium [PriLOSEC OTC] 20 mg PO BID Nicotine 14Mg/24Hr Patch [Habitrol] 1 patch TRANSDERM DAILY Doxazosin [Cardura] 4 mg PO DAILY Changed Baclofen [Lioresal] 5 mg PO BID #0 Discontinued lisinopriL [Zestril] 2.5 mg PO DAILY Discharge Medication List Ascorbic Acid [Vitamin C] 500 mg PO DAILY 07/25/15 [History] Atorvastatin [Lipitor] 80 mg PO DAILY 07/25/15 [History] Levothyroxine Sodium [Synthroid] 75 mcg PO DAILY 07/25/15 [History] Nitroglycerin Sl Tabs [Nitrostat] 0.4 mg SL Q5M PRN 07/25/15 [History] buPROPion HCL [Wellbutrin XL] 300 mg PO DAILY 07/25/15 [History] Isosorbide Mononitrate ER [Imdur] 30 mg PO DAILY #30 tab.er.24h 07/30/15 [Rx] Gabapentin [Neurontin] 100 mg PO BID 05/12/19 [History] Primidone [Mysoline] 300 mg PO DAILY 05/12/19 [History] Aspirin 81 mg PO HS #30 tab 05/16/19 [Rx] Albuterol Sulfate [Ventolin HFA] 2 puff INHALATION RT-QID PRN 01/19/20 [History] Budesonide/Formoterol Fumarate [Symbicort 160-4.5 Mcg Inhaler] 2 puff INHALATION RT-BID 01/19/20 [History] Citalopram Hydrobromide [CeleXA] 40 mg PO DAILY 01/19/20 [History] EPINEPHrine (Auto Inject) [Epipen] 0.3 mg IM ONCE PRN 01/19/20 [History] Lidocaine 5% Patch [Lidoderm 5% Patch] 1 patch TOPICAL DAILY PRN 01/19/20 [History] Doxazosin [Cardura] 4 mg PO DAILY 02/20/20 [History] Nicotine 14Mg/24Hr Patch [Habitrol] 1 patch TRANSDERM DAILY 02/20/20 [History] Omeprazole Magnesium [PriLOSEC OTC] 20 mg PO BID 02/20/20 [History] Propranolol LA [Inderal LA] 80 mg PO HS 02/20/20 [History] Baclofen [Lioresal] 5 mg PO BID #0 02/24/20 [Rx] Follow up Appointment(s)/Referral(s): [facility] [facility] [NON-STAFF] - As Needed Lashaun Kang III, MD [Primary Care Provider] - 1-2 days [facility] [NON-STAFF] - As Needed Fredi Connell MD [STAFF PHYSICIAN] - 1 Week [facility] Visiting Nurse, [NON-STAFF] - 1-2 Days Patient Instructions/Handouts: Dehydration (DC) Activity/Diet/Wound Care/Special Instructions: CATHETER TO BE CONTINUED OUTPATIENT. FOLLOW UP 10-14 DAYS AFTER DISCHARGE WITH DR KERNS TO REMOVE. Discharge/Stand Alone Forms: [facility] Discharge Disposition: HOME WITH HOME HEALTH SERVICES
[2020-02-24] MEDS ORDERED: FUROSEMIDE 20 MG TAB PO STA (10:18)
--- NOTE | 2020-02-26 03:58 | CDI ---
Documentation Clarification Form Date: 02/26/2020 From: Jhansirani. Rothman Phone: If you have a question about this query, please contact Yesy Wellington Clinical Engineer at [phone] between 8am and 5pm. Admit Date: 02/20/2020 Discharge Date: 02/24/2020 Patient Name: Bria Vences Visit Number: [id number] ATTENTION: The Clinical Documentation Specialists (CDI) and [facility] Coding Staff appreciate your assistance in clarifying documentation. Please respond to the clarification below the line at the bottom and electronically sign. The CDI & [facility] Coding staff will review the response and follow-up if needed. Please note: Queries are made part of the Legal Health Record. If you have any questions, please contact the author of this message via ITS. Dear Sidra Silverman MD, CHF is documented in the H&P as probably heart failure diastolic dysfunction extended-can start failure chronic diastolic dysfunction with a possible mild acute exacerbation. History/Risk Factors: AUDI, HTN, Dehydration, CAD. VS/Pulse OX: 97, 99. Chest X Ray: Difficult to exclude pulmonary venous hypertension and early interstitial edema. Treatment: No specific treatment. In your professional opinion, can you please clarify the acuity of Diastolic CHF if known? Diastolic Heart Failure: * Acute * Chronic * Acute on Chronic * Unable to Determine * Other, please specify (Last Revision: September 2017) Diastolic Heart Failure: * Acute MTDD
== END 2020-02-24 11:10 | disposition home health service (06) | DRG 682 ==
LOC: EC 14:01 → 1SOBS 17:16 → OBSVTOIN 17:16 → 1SOBS 02-23 20:40
PROVIDERS: ADMIT Hospitalist; ATTEND Hospitalist
DX: N17.9 Acute kidney failure, unspecified (principal); I50.33 Acute on chronic diastolic (congestive) heart failure; E87.1 Hypo-osmolality and hyponatremia; E87.2 Acidosis; R47.01 Aphasia; G20 Parkinson's disease; E86.0 Dehydration; E86.1 Hypovolemia; D72.829 Elevated white blood cell count, unspecified; J44.9 Chronic obstructive pulmonary disease, unspecified; K21.9 Gastro-esophageal reflux disease without esophagitis; I25.10 Atherosclerotic heart disease of native coronary artery without angina pectoris; F32.9 Major depressive disorder, single episode, unspecified; R33.9 Retention of urine, unspecified; R29.6 Repeated falls; I95.2 Hypotension due to drugs; F41.9 Anxiety disorder, unspecified; T43.205A Adverse effect of unspecified antidepressants, initial encounter; T46.4X5A Adverse effect of angiotensin-converting-enzyme inhibitors, initial encounter; T46.5X5A Adverse effect of other antihypertensive drugs, initial encounter; F17.200 Nicotine dependence, unspecified, uncomplicated; G89.29 Other chronic pain; M54.5 Low back pain; I11.0 Hypertensive heart disease with heart failure; E03.9 Hypothyroidism, unspecified; E87.6 Hypokalemia; G25.0 Essential tremor; R82.81 Pyuria; M19.91 Primary osteoarthritis, unspecified site; Z79.51 Long term (current) use of inhaled steroids; Z79.890 Hormone replacement therapy; Z79.899 Other long term (current) drug therapy; Z91.81 History of falling; Z95.1 Presence of aortocoronary bypass graft; Z95.5 Presence of coronary angioplasty implant and graft; Z90.710 Acquired absence of both cervix and uterus; Z98.890 Other specified postprocedural states; Z82.49 Family history of ischemic heart disease and other diseases of the circulatory system; Z82.61 Family history of arthritis; Z82.3 Family history of stroke; Z79.82 Long term (current) use of aspirin; Z91.030 Bee allergy status; I25.2 Old myocardial infarction
CPT/HCPCS: 36415; 51702; 70450; 71045; 80048; 80053; 81001; 82330; 82550; 83605; 83735; 83880; 83930; 83935; 84300; 84443; 84484; 85025; 85027; 85610; 85730; 86850; 86900; 86901; 93005; 94640; 96361; 96374; 99285

== ENCOUNTER 2020-03-12 08:51 | Inpatient (IN) | payer MEDICARE, BC ==
[~2020-03-12 08:51] MED LIST: ACETAMINOPHEN TAB 500 MG TAB PO ONE; HEPARIN SODIUM,PORCINE 5,000 UNIT/ML 1 ML VIAL SQ ONE; LIDOCAINE 1% (10MG/ML) FOR IV START INTRADERMA PRN; ONDANSETRON 4 MG/2 ML VIAL IVP ONE
[2020-03-12] MEDS: LACTATED RINGERS 1,000 ML IV SCH (09:45)
[2020-03-12 10:08] LABS: HCT 37.2 % (34.0-46.0); HGB 11.9 gm/dL (11.4-16.0); Hypochromasia Moderate; MCH 29.4 pg (25.0-35.0); MCHC 31.9 g/dL (31.0-37.0); MCV 92.1 fL (80.0-100.0); Platelet Count 333 k/uL (150-450); RBC 4.03 m/uL (3.80-5.40); RDW 15.9 % (11.5-15.5); WBC 5.9 k/uL (3.8-10.6)
--- NOTE | 2020-03-12 10:27 | P.GSHP ---
History of Present Illness H&P Date: 03/12/20 Chief Complaint: Dysphagia, paraesophageal hernia This is a 85-year-old female who presents today for laparoscopic repair of hiatal hernia. 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 Patient's had issues with dysphagia. Past Medical History Past Medical History: Coronary Artery Disease (CAD), COPD, GERD/Reflux, Hypertension, Myocardial Infarction (PA), Osteoarthritis (OA), Thyroid Disorder Additional Past Medical History / Comment(s): Hx anemia. Parkinson's disease, tremors. Chronic Back pain, scoliosis. Recent admission d/t weakness, dehydration, fecal impaction, urine retention, has gomes. Rh-. Poss Kidney disease, stage 3, family unsure. Varicose veins mild. Anemia. Surgery for 03/04/20 postponed d/t hypotension, Iron added to Rx list, improved. Hanh has "mucous strands," notifiying Dr Kang about his per [facility] staff. Last Myocardial Infarction Date:: 2009 History of Any Multi-Drug Resistant Organisms: None Reported Past Surgical History: Back Surgery, Bladder Surgery, Coronary Bypass/CABG, Hysterectomy, Orthopedic Surgery Additional Past Surgical History / Comment(s): STENT X1 Past Anesthesia/Blood Transfusion Reactions: Postoperative Nausea & Vomiting (PONV) Date of Last Stent Placement:: 2009 Smoking Status: Current every day smoker - Past Family History Mother Family Medical History: CVA/TIA, Myocardial Infarction (PA), Rheumatoid Arthritis (RA) Father Family Medical History: Myocardial Infarction (PA) Additional Family Medical History / Comment(s): ANEURYSM-UNKNOWN LOCATION Sister(s) Family Medical History: Deep Vein Thrombosis (DVT) Son(s) Family Medical History: Cancer Additional Family Medical History / Comment(s): melanoma, mets to kidney Medications and Allergies Home Medications Medication Instructions Recorded Confirmed Type Ascorbic Acid [Vitamin C] 500 mg PO DAILY 07/25/15 03/12/20 History Atorvastatin [Lipitor] 80 mg PO DAILY 07/25/15 03/12/20 History Levothyroxine Sodium [Synthroid] 75 mcg PO DAILY 07/25/15 03/12/20 History Nitroglycerin Sl Tabs [Nitrostat] 0.4 mg SL Q5M PRN 07/25/15 03/12/20 History buPROPion HCL [Wellbutrin XL] 300 mg PO DAILY 07/25/15 03/12/20 History Isosorbide Mononitrate ER [Imdur] 30 mg PO DAILY #30 tab.er.24h 07/30/1503/12 Rx Gabapentin [Neurontin] 100 mg PO BID 05/12/19 03/12/20 History Primidone [Mysoline] 300 mg PO DAILY 05/12/19 03/12/20 History Aspirin 81 mg PO HS #30 tab 05/16/19 03/12/20 Rx Albuterol Sulfate [Ventolin HFA] 2 puff INHALATION RT-QID PRN 01/19/20 03/12/20 History Budesonide/Formoterol Fumarate 2 puff INHALATION RT-BID 01/19/20 03/12/20 History [Symbicort 160-4.5 Mcg Inhaler] Citalopram Hydrobromide [CeleXA] 40 mg PO DAILY 01/19/20 03/12/20 History EPINEPHrine (Auto Inject) [Epipen] 0.3 mg IM ONCE PRN 01/19/20 03/12/20 History Lidocaine 5% Patch [Lidoderm 5% 1 patch TOPICAL DAILY PRN 01/19/20 03/12/20 History Patch] Doxazosin [Cardura] 4 mg PO DAILY 02/20/20 03/12/20 History Nicotine 14Mg/24Hr Patch [Habitrol] 1 patch TRANSDERM DAILY 02/20/20 03/12/20 History Omeprazole Magnesium [PriLOSEC OTC] 20 mg PO BID 02/20/20 03/12/20 History Propranolol LA [Inderal LA] 80 mg PO HS 02/20/20 03/12/20 History Psyllium Husk 100% [Metamucil 6 gm PO Q48H PRN 03/01/20 03/12/20 History Packet] Vitamin D3 (Unknown Dose) 1 tab PO DAILY 03/01/20 03/12/20 History Ferrous Sulfate [Feosol] 325 mg PO DAILY 03/09/20 03/12/20 History Allergies Allergy/AdvReac Type Severity Reaction Status Date / Time venom-honey bee Allergy Anaphylaxis Verified 03/12/20 09:36 [bee venom (honey bee)] Surgical - Exam Vital Signs Temp Pulse Resp BP Pulse Ox 97.5 F L 60 16 145/73 100 03/12/20 09:34 03/12/20 09:34 03/12/20 09:34 03/12/20 09:34 03/12/20 09:34 - General well developed, well nourished, no distress - Eyes PERRL - ENT normal pinna - Neck no masses - Respiratory normal expansion - Cardiovascular Rhythm: regular - Abdomen Abdomen: soft, non tender Results - Labs 03/12/20 09:44 Abnormal Lab Results - Last 24 Hours (Table) 03/12/20 Range/Units 09:44 RDW 15.9 H (11.5-15.5) % Assessment and Plan Assessment: Dysphagia Softer hernia with intrathoracic stomach with gastric volvulus. Patient will undergo laparoscopic repair of hiatal hernia.
[2020-03-12] MEDS ORDERED: LEVOFLOXACIN 500MG-D5W PMX 500 MG in DEXTROSE/WATER 1 100ML.BAG IVPB STA (10:28)
[2020-03-12] MEDS ORDERED: fentaNYL (PF) 50 MCG/ML 2 ML AMP ONE (10:49)
[2020-03-12] MEDS ORDERED: NEOSTIGMINE 1 MG/ML 10 ML VIAL ONE (10:49)
[2020-03-12] MEDS ORDERED: LIDOCAINE 1% INJ 10MG/ML (20 ML MDV) ONE (10:49)
[2020-03-12] MEDS ORDERED: PROPOFOL 10 MG/ML 20 ML VIAL IV ONE (10:49)
[2020-03-12] MEDS ORDERED: SUCCINYLCHOLINE CHLORIDE 100 MG/5 ML SYR IV ONE (10:49)
[2020-03-12] MEDS ORDERED: ROCURONIUM 10 MG/ML (10 ML VIAL) IV ONE (10:49)
[2020-03-12] MEDS ORDERED: PHENYLEPHRINE-0.9% NACL SYG 1 MG/10 ML SYRINGE ONE (10:49)
[2020-03-12] MEDS ORDERED: GLYCOPYRROLATE 0.2 MG/ML 2 ML VIAL ONE (10:49)
[2020-03-12] MEDS ORDERED: MIDAZOLAM 2 MG/2 ML VIAL ONE (10:49)
[2020-03-12] MEDS ORDERED: BUPIVACAINE (PF) 0.5% 30 ML VIAL SQ ONE (11:15)
[2020-03-12] MEDS ORDERED: ONDANSETRON 4 MG/2 ML VIAL IVP PRN (12:21)
--- NOTE | 2020-03-12 12:21 | P.OP ---
Date of Procedure: 03/12/20 Preoperative Diagnosis: Paraesophageal hernia Postoperative Diagnosis: Paraesophageal hernia Procedure(s) Performed: Laparoscopic repair of paraesophageal hernia with mesh Anesthesia: JUDI Surgeon: Scotty Chiang Pathology: none sent Condition: stable Disposition: PACU Description of Procedure: The patient was placed on the operating table in the supine position. She received general anesthesia. She was then placed in dorsal lithotomy position. Her abdomen was prepped and draped in the usual sterile fashion. The skin incision sites were anesthetized with 1% local Xylocaine. The skin was incised in the left periumbilical area with an 11 scalpel. Using a 5 mm blade was trocar under direct visitation the peritoneal cavity was entered. And then insufflated. After adequate insufflation the laparoscope was placed back into the peritoneal cavity. Next a 5 mm trocar was placed in the right epigastric and then the right lateral position. Another 5 mm trochars placed in the left lateral position. Another 5 mm trocar placed in the left epigastric position. And the original left periumbilical trocar was exchanged for a 10 mm trocar. The left lateral lobe liver was retracted. The patient had a large hiatal hernia. Using the Harmonic scissors the crural defect was dissected in the Harmonic scissors were used to dissect the hiatal hernia sac. The fundus of the stomach was completely mobilized by using the Harmonic scissors to divide short gastric vessels. The stomach was reduced into the peritoneal cavity. The crura was dissected with the Harmonic scissors. And then the crural repair was performed using 2-0 Ethibond suture. The [place] bio A mesh was then placed over top of the repair and secured with 2-0 Ethibond suture. Next a 58-[place] bougie dilator was placed the patient's oral pharynx and into the esophagus into the stomach by the CORRESPONDENCE SECTION SUPERVISOR. . The stomach and esophagus were inspected there is known to any injury to the stomach or esophagus. The abdomen was irrigated there is no bleeding seen. The trochars are withdrawn. Skin was closed interrupted 3-0 Monocryl suture. Dermabond was applied. Patient tolerated procedure well and was sent to recovery in stable condition.
[2020-03-12] MEDS: HYDROmorphone 0.5 MG/0.5 ML SYRINGE IVP PRN ×2 (12:40→13:05)
[2020-03-12] MEDS ORDERED: KETOROLAC 15 MG/ML 1 ML VIAL IVP ONE (12:42)
[2020-03-12] MEDS ORDERED: LACTATED RINGERS 1,000 ML IV ONE (13:19)
[2020-03-12] MEDS ORDERED: LIDOCAINE 5% PATCH TOPICAL PRN (15:05)
[2020-03-12] MEDS: SYMBICORT 160-4.5 MCG INHALER INHALATION SCH (19:41)
--- NOTE | 2020-03-12 20:03 | FL ---
EXAMINATION TYPE: FL esophagus cervic/pharynx DATE OF EXAM: 03/12/2020 HISTORY: Status post Sangita fundoplication COMPARISON: NONE TECHNIQUE: A water-soluble single contrast esophagram is performed. FINDINGS: Preliminary gas station cashier radiograph demonstrates numerous kyphoplasty changes. The esophagus shows normal emptying into the stomach. No evidence of hiatal hernia. No evidence of e sophageal stricture or obstruction. No evidence of abnormal contrast extravasation. Total fluoroscopy time 32 seconds. Total images 12. IMPRESSION: Status post Sangita fundoplication. No esophageal obstruction or stricture. No leak.
[2020-03-12] MEDS: D5-0.45% NACL WITH KCL 20MEQ/L 1,000 ML IV SCH (20:36)
[2020-03-12] MEDS: GABAPENTIN 100 MG CAP PO SCH (20:36)
[2020-03-12] MEDS: ASPIRIN 81 MG PO SCH (20:36)
[2020-03-13] MEDS: HYDROmorphone 0.5 MG/0.5 ML SYRINGE IVP PRN ×4 (00:45→21:45)
[2020-03-13] MEDS: D5-0.45% NACL WITH KCL 20MEQ/L 1,000 ML IV SCH ×4 (00:53→20:18)
[2020-03-13] MEDS: LACTATED RINGERS 1,000 ML IV SCH (04:24)
[2020-03-13] MEDS: LEVOTHYROXINE 75 MCG TAB PO SCH (05:40)
[2020-03-13] MEDS: SYMBICORT 160-4.5 MCG INHALER INHALATION SCH ×2 (07:39→19:55)
[2020-03-13] MEDS: PANTOPRAZOLE 40 MG TABLET PO SCH (07:41)
[2020-03-13] MEDS: NITROGLYCERIN SL TABS 0.4 MG TAB SUBLINGUAL PRN ×4 (07:49→15:26)
[2020-03-13] MEDS ORDERED: ASPIRIN 81 MG PO STA (08:10)
[2020-03-13 08:40] LABS: Basophils % (A) 0 %; Eosinophils # (A) 0.1 k/uL (0-0.7); Eosinophils % (A) 2 %; HCT 34.1 % (34.0-46.0); HGB 10.9 gm/dL (11.4-16.0); Hypochromasia Moderate; Lymphocytes # (A) 1.8 k/uL (1.0-4.8); Lymphocytes % (A) 27 %; MCH 29.2 pg (25.0-35.0); MCV 91.2 fL (80.0-100.0); Mean Platelet Volume 7.1; Monocytes # (A) 0.4 k/uL (0-1.0); Monocytes % (A) 6 %; Neutrophils # (A) 4.2 k/uL (1.3-7.7); Neutrophils % (A) 64 %; Platelet Count 288 k/uL (150-450); RBC 3.73 m/uL (3.80-5.40); WBC 6.6 k/uL (3.8-10.6)
[2020-03-13 08:42] LABS: African American GFR (CKD) >90 (>60 ml/min/1.73 sqM); Anion Gap 1 mmol/L; Blood Urea Nitrogen 8 mg/dL (7-17); Calcium 8.4 mg/dL (8.4-10.2); Carbon Dioxide 25 mmol/L (22-30); Chloride 106 mmol/L (98-107); Glucose 118 mg/dL (74-99); Non-African American GFR(CKD) 81 (>60 ml/min/1.73 sqM); Potassium 4.6 mmol/L (3.5-5.1); Sodium 132 mmol/L (137-145)
[2020-03-13] MEDS ORDERED: DOXAZOSIN 4 MG TAB PO SCH (09:00)
[2020-03-13] MEDS ORDERED: buPROPion XL 300 MG TAB.ER.24H PO SCH (09:00)
--- NOTE | 2020-03-13 09:20 | XR ---
EXAMINATION TYPE: XR chest 1V portable DATE OF EXAM: 03/13/2020 COMPARISON: 02/20/2020 HISTORY: Pain TECHNIQUE: Single frontal view of the chest is obtained. FINDINGS: There is distention of stomach. Sternotomy wires noted. Scoliosis with degenerative change s spine. Previous vertebral plasty. Bilateral lower lobe infiltrate. No pneumothorax. Coarsened inter stitium seen. There is a small amount of free air. Report called to the patient's nurse. The patient' s nurse that the patient had abdominal surgery yesterday. IMPRESSION: 1. Small amount of free intraperitoneal air. Report called to the patient's nurse. See above. 2. Bilateral lower lobe infiltrate correlate for mild venous congestion or interstitial pneumonitis.
[2020-03-13] MEDS: ISOSORBIDE MONONITRATE ER 30 MG TAB.ER.24H PO SCH (10:25)
[2020-03-13] MEDS: NICOTINE 14MG/24HR PATCH TRANSDERM SCH (10:25)
[2020-03-13] MEDS: GABAPENTIN 100 MG CAP PO SCH ×2 (10:25→20:17)
[2020-03-13] MEDS: ASCORBIC ACID 500 MG TAB PO SCH (10:25)
[2020-03-13] MEDS: CITALOPRAM HYDROBROMIDE 20 MG TAB PO SCH (10:25)
[2020-03-13] MEDS: ATORVASTATIN 80 MG TAB PO SCH (10:25)
[2020-03-13] MEDS: PRIMIDONE 250 MG TAB PO SCH (10:26)
[2020-03-13] MEDS: PRIMIDONE 50 MG TAB PO SCH (10:26)
--- NOTE | 2020-03-13 10:41 | CT ---
EXAMINATION TYPE: CT angio chest DATE OF EXAM: 03/13/2020 10:13 AM COMPARISON: None HISTORY: Elevated Ddimer CT DLP: 240.5 mGycm Automated exposure control for dose reduction was used. CONTRAST: CTA scan of the thorax is performed with IV Contrast, patient injected with 100 mL of Isovue 370, pul monary embolism protocol. . FINDINGS: LUNGS: There are less than 5% biapical pneumothoraces. Diffuse emphysematous changes are noted there is bilateral pleural effusions and consolidation. 1 cm nodule within the left upper lobe MEDIASTINUM: There is a filling defect on axial image 67 within the third order branch of the right p ulmonary artery extending distally compatible with acute pulmonary embolism. The heart is enlarged and there is coronary artery calcification. OTHER: There is free intraperitoneal air. Patient's nurse was called by telephone. There is thickeni ng of the wall the GE junction. There is radiopaque density in the region of the GE junction. This ma y be related to previous surgery. Cannot exclude acute inflammatory process and there appear to be bu bbles of air which appear to be extraluminal. Correlate clinically. Ruptured viscus not excluded. Thi s extends into the posterior mediastinum. Fluid is seen surrounding the GE junction. Findings could b e related to patient's recent surgery correlate clinically. There is a small amount of air in the sub cutaneous tissues additional. There is a severe compression fracture of the lower thoracic spine with numerous additional compressi on fractures and evidence of vertebroplasty. Diffuse osteopenia is noted and there is evidence of molly rnotomy wires. Multilevel degenerative changes are seen. IMPRESSION: 1. Acute pulmonary embolism third order and distal branches right upper lobe. 2. There is free intraperitoneal air. Marked thickening of the wall of the GE junction and distal eso phagus. Hyperdensity seen in the region of the esophageal gastric junction noted which may be postsur gical but should be correlated clinically. There is fluid surrounding the region which may represent acute inflammatory or postsurgical changes. In addition there appears to be a small amount of air is seen extraluminal surrounding the GE junction and with the posterior mediastinum adjacent to the esop hagus. Patient's nurse was notified by telephone reports the patient had hernia surgery on the prior day. Correlate clinically. 3. Bilateral pleural effusions and basilar infiltrate. 4. Bilateral lower lobe infiltrate and small effusion with diffuse emphysematous changes. 1 cm left u pper lobe pulmonary nodule for which PET scan is recommended.
[2020-03-13] MEDS: buPROPion XL 300 MG TAB.ER.24H PO SCH (10:47)
--- NOTE | 2020-03-13 11:01 | P.CRDCN ---
History of Present Illness Consult date: 03/13/20 Consult reason: chest pain History of present illness: History of present illness: This is an 85-year-old female patient of Dr. Dr. Block with past medical history of coronary artery disease status post CABG in 2009, hypertension, hyperlipidemia, prior inferior wall myocardial infarction, carotid stenosis status post endarterectomy, COPD, urinary retention with chronic Gomes. Patient had recent hospitalization in January at which time she presented for sconstipation and fecal impaction suspicious for large bowel ileus and was seen by cardiology for syncope secondary to bradycardia and high grade AV block probably vasovagal in origin. Echocardiogram at that time revealed EF of 55-60% with moderate concentric left hypertrophy, grade 2 diastolic dysfunction, trace aortic regurgitation, trace mitral regurgitation, mild tricuspid regurgitation. patient had been brought into the hospital by Dr. Chiang and is status post laparoscopic repair of paraesophageal hernia with mesh completed on March 12. daughter patient gives history the patient has had ongoing problems with inability to eat a significant amount of foof, weight loss of greater than 60 pounds over the past 2 years, vomiting. This morning, patient had sudden onset of shortness of breath and chest pain and desatted into the 80s. D-dimer was elevated at 2.7. CTA of the chest revealedacute pulmonary embolism distal right upper lobe. Free intraperitoneal air. Marked thickening of the wall of the GE junction and distal esophagus. Hyperdensity seen in the region of the esophageal gastric junction noted which may be postsurgical but should be correlated clinically. Fluid surrounding the region may represent acute inflam matory or post surgical changes. Small amount of air in the extraluminal surrounding the GE junction and posterior mediastinum adjacent to the esophagus. Bilateral pleural effusions and basilar infiltrate. Bilateral lower lobe infiltrate and small effusion with diffuse emphysematous changes. 1 cm left upper lobe pulmonary nodule for which PET scan is recommended. Patient was transferred to the cardiac stepdown unit and cardiology consult requested. Llab work this morning revealed a d-dimer of 2.7. WBC 6.6, hemoglobin 10.9. Sodium 132 otherwise electrolytes and renal function normal. Blood sugar 118. Troponin 0.012.EKG is a sinus bradycardia with a first-degree AV block with rate of 43. monitoring manager is a sinus bradycardia and heart rate is 63. Review Of Systems: Constitutional: No fever, no chills. reports weakness, reports fatigue. EENT: No headache. No dizziness. Lungs: reports shortness of breath, cough, no sputum production. No wheezing. Cardiovascular: reports chest pain, no lower extremity edema. No palpitations. No paroxysmal nocturnal dyspnea. No orthopnea. No lightheadedness or dizziness. No syncopal episodes. Abdominal: No abdominal pain. No nausea, vomiting. No diarrhea. No constipation. No bloody or tarry stools. reports loss of appetite. Genitourinary: No dysuria. reports urinary retention. Musculoskeletal: No myalgias. No muscle weakness, no gait dysfunction, no frequent falls. No back pain. No neck pain. Integumentary: No wounds, no lesions. No rash or pruritus. No unusual bruising. Neurologic: No aphasia. No facial droop. No change in mentation. No head injury. No headache. No paralysis. No paresthesia. Psychiatric: No depression. No anxiety. Endocrine: No abnormal blood sugars. Physical examination: Gen: This is a thin 85-year-old female. Patient is resting in bed and appears to be comfortable at rest. Daughter is at bedside. VS: afebrile, heart rate 69, blood pressure 131/62, pulse ox 93% on 2 L nasal cannula HEENT: Head is atraumatic, normocephalic. Pupils equal, round. Sclerae is anicteric. NECK: Supple. No JVD. No lymphadenopathy. No thyromegaly. LUNGS: diminished at the bilateral bases. No wheezes or rhonchi. No intercostal retractions. HEART: Regular rate and rhythm. systolic murmur at the left sternal border. ABDOMEN: Soft. Bowel sounds are present. No masses. No tenderness. surgical puncture sites show no signs of infection EXTREMITIES: No pedal edema. No calf tenderness.dorsalis pedis +2 bilaterally. NEUROLOGICAL: Patient is awake, alert and oriented x3. Cranial nerves 2 through 12 are grossly intact. Assessment: acute hypoxic respiratory failure secondary to pulmonary embolism chest pain most likely secondary to pulmonary embolism Status post laparoscopic repair of paraesophageal hernia with mesh on March 12 bradycardia with previous episodes of syncope, currently stable history of coronary artery disease status post CABG Hypertension Hyperlipidemia Carotid stenosis status post endarterectomy COPD Urinary retention Plan: recommend heparin drip Repeat troponins 2 Obtain 2-D echocardiogram and Doppler study to assess right-sided heart strain continue cardiac monitoring for severe bradycardia Further recommendations to follow based upon clinical course Thank you kindly for this consultation. Nurse practitioner note has been reviewed, I agree with documented findings and plan of care. Patient was seen and examined. Past Medical History Past Medical History: Coronary Artery Disease (CAD), COPD, GERD/Reflux, Hypert ension, Myocardial Infarction ([place]), Osteoarthritis (OA), Thyroid Disorder Additional Past Medical History / Comment(s): Hx anemia. Parkinson's disease, tremors. Chronic Back pain, scoliosis. Recent admission d/t weakness, dehydration, fecal impaction, urine retention, has gomes. Rh-. Poss Kidney disease, stage 3, family unsure. Varicose veins mild. Anemia. Surgery for 03/04/20 postponed d/t hypotension, Iron added to Rx list, improved. Hanh has "mucous strands," notifiying Dr Kang about his per [facility] staff. Last Myocardial Infarction Date:: 2009 History of Any Multi-Drug Resistant Organisms: None Reported Past Surgical History: Back Surgery, Bladder Surgery, Coronary Bypass/CABG, Hysterectomy, Orthopedic Surgery Additional Past Surgical History / Comment(s): STENT X1 Past Anesthesia/Blood Transfusion Reactions: Postoperative Nausea & Vomiting (PONV) Date of Last Stent Placement:: 2009 Past Psychological History: Anxiety, Depression Smoking Status: Current some day smoker Past Alcohol Use History: None Reported Additional Past Alcohol Use History / Comment(s): Smoking since 1950, 1/2 ppd Past Drug Use History: None Reported - Past Family History Mother Family Medical History: CVA/TIA, Myocardial Infarction ([place]), Rheumatoid A rthritis ([place]) Father Family Medical History: Myocardial Infarction ([place]) Additional Family Medical History / Comment(s): ANEURYSM-UNKNOWN LOCATION Sister(s) Family Medical History: Deep Vein Thrombosis (DVT) Son(s) Family Medical History: Cancer Additional Family Medical History / Comment(s): melanoma, mets to kidney Medications and Allergies Home Medications Medication Instructions Recorded Confirmed Type Ascorbic Acid [Vitamin C] 500 mg PO DAILY 07/25/15 03/12/20 History Atorvastatin [Lipitor] 80 mg PO DAILY 07/25/15 03/12/20 History Levothyroxine Sodium [Synthroid] 75 mcg PO DAILY 07/25/15 03/12/20 History Nitroglycerin Sl Tabs [Nitrostat] 0.4 mg SL Q5M PRN 07/25/15 03/12/20 History buPROPion HCL [Wellbutrin XL] 300 mg PO DAILY 07/25/15 03/12/20 History Isosorbide Mononitrate ER [Imdur] 30 mg PO DAILY #30 tab.er.24h 07/30/15 03/12/20 Rx Gabapentin [Neurontin] 100 mg PO BID 05/12/19 03/12/20 History Primidone [Mysoline] 300 mg PO DAILY 05/12/19 03/12/20 History Aspirin 81 mg PO HS #30 tab 05/16/19 03/12/20 Rx Albuterol Sulfate [Ventolin HFA] 2 puff INHALATION RT-QID PRN 01/19/20 03/12/20 History Budesonide/Formoterol Fumarate 2 puff INHALATION RT-BID 01/19/20 03/12/20 History [Symbicort 160-4.5 Mcg Inhaler] Citalopram Hydrobromide [CeleXA] 40 mg PO DAILY 01/19/20 03/12/20 History EPINEPHrine (Auto Inject) [Epipen] 0.3 mg IM ONCE PRN 01/19/20 03/12/20 History Lidocaine 5% Patch [Lidoderm 5% 1 patch TOPICAL DAILY PRN 01/19/20 03/12/20 History Patch] Doxazosin [Cardura] 4 mg PO DAILY 02/20/20 03/12/20 History Nicotine 14Mg/24Hr Patch [Habitrol] 1 patch TRANSDERM DAILY 02/20/20 03/12/20 History Omeprazole Magnesium [PriLOSEC OTC] 20 mg PO BID 02/20/20 03/12/20 History Propranolol LA [Inderal LA] 80 mg PO HS 02/20/20 03/12/20 History Psyllium Husk 100% [Metamucil 6 gm PO Q48H PRN 03/01/20 03/12/20 History Packet] Vitamin D3 (Unknown Dose) 1 tab PO DAILY 03/01/20 03/12/20 History Ferrous Sulfate [Feosol] 325 mg PO DAILY 03/09/20 03/12/20 History Allergies Allergy/AdvReac Type Severity Reaction Status Date / Time venom-honey bee Allergy Anaphylaxis Verified 03/12/20 09:36 [bee venom (honey bee)] Physical Exam Vitals: Vital Signs Temp Pulse Pulse Resp BP BP Pulse Ox 03/13/20 07:50 17 03/13/20 07:00 99.0 F 69 17 131/62 93 L 03/13/20 00:33 98.5 F 75 18 154/67 95 03/13/20 00:00 67 18 03/12/20 19:47 97.7 F 67 18 159/75 95 03/12/20 16:00 58 L 16 03/12/20 15:40 41 L 115/66 03/12/20 15:26 43 L 106/53 03/12/20 15:09 41 L 110/64 03/12/20 14:54 42 L 118/65 03/12/20 14:39 40 L 113/64 03/12/20 14:24 44 L 138/66 03/12/20 14:11 45 L 107/54 03/12/20 13:52 97.5 F L 50 L 18 132/55 98 03/12/20 13:20 58 L 16 140/77 100 03/12/20 13:11 50 L 13 132/55 100 03/12/20 13:05 48 L 16 147/63 94 L 03/12/20 12:50 45 L 16 131/63 100 03/12/20 12:35 48 L 16 154/66 100 03/12/20 12:20 58 L 16 146/65 100 03/12/20 12:05 98.4 F 60 18 146/65 95 Intake and Output 03/12/20 03/13/20 03/13/20 22:59 06:59 14:59 Output Total 0 700 Balance 0 -700 Output: Urine 0 700 Other: Voiding Method Indwelling Catheter Indwelling Catheter # Bowel Movements 0 0 Results 03/13/20 08:20 03/13/20 08:20 Cardiac Enzymes 03/13/20 Range/Units 08:20 Troponin I <0.012 (0.000-0.034) ng/mL CBC 03/13/20 Range/Units 08:20 WBC 6.6 (3.8-10.6) k/uL RBC 3.73 L (3.80-5.40) m/uL Hgb 10.9 L (11.4-16.0) gm/dL Hct 34.1 (34.0-46.0) % Plt Count 288 (150-450) k/uL Comprehensive Metabolic Panel 03/13/20 Range/Units 08:20 Sodium 132 L (137-145) mmol/L Potassium 4.6 (3.5-5.1) mmol/L Chloride 106 (98-107) mmol/L Carbon Dioxide 25 (22-30) mmol/L BUN 8 (7-17) mg/dL Creatinine 0.68 (0.52-1.04) mg/dL Glucose 118 H (74-99) mg/dL Calcium 8.4 (8.4-10.2) mg/dL Current Medications Generic Name Dose Route Start Last Admin Trade Name Freq PRN Reason Stop Dose Admin Albuterol Sulfate 2.5 mg 03/12/20 15:05 Albuterol Nebulized 2.5 Mg/3 Ml INHALATION RT-QID PRN Shortness Of Breath Ascorbic Acid 500 mg 03/13/20 09:00 Ascorbic Acid 500 Mg Tab PO DAILY AMBROSIO Aspirin 81 mg 03/12/20 21:00 03/12/20 20:36 Aspirin 81 Mg PO 81 mg HS AMBROSIO Administration Atorvastatin Calcium 80 mg 03/13/20 09:00 Atorvastatin 80 Mg Tab PO DAILY AMBROSIO Budesonide/Formoterol Fumarate 2 puff 03/12/20 20:00 03/13/20 07:39 Symbicort 160-4.5 Mcg Inhaler INHALATION 2 puff RT-BID AMBROSIO Administration Bupropion HCl 300 mg 03/13/20 09:00 Bupropion Xl 300 Mg Tab.Er.24h PO DAILY AMBROSIO Citalopram Hydrobromide 40 mg 03/13/20 09:00 Citalopram Hydrobromide 20 Mg Tab PO DAILY AMBROSIO Doxazosin Mesylate 4 mg 03/13/20 09:00 Doxazosin 4 Mg Tab PO DAILY AMBROSIO Gabapentin 100 mg 03/12/20 21:00 03/12/20 20:36 Gabapentin 100 Mg Cap PO 100 mg BID AMBROSIO Administration Hydromorphone HCl 0.5 mg 03/12/20 12:21 03/13/20 07:41 Hydromorphone 0.5 Mg/0.5 Ml Syringe IVP 0.5 mg Q4HR PRN Administration Pain Lactated Ringer's 1,000 mls @ 20 mls/hr 03/12/20 05:44 03/13/20 04:24 Lactated Ringers IV Not Given .Q24H [facility] Potassium Chloride/Dextrose/Sod Cl 1,000 mls @ 125 mls/hr 03/12/20 12:30 03/13/20 05:51 D5%-1/2ns-Kcl 20 Meq/L Iv Solution IV Not Given .Q8H AMBROSIO Isosorbide Mononitrate 30 mg 03/13/20 09:00 Isosorbide Mononitrate Er 30 Mg Tab.Er.24h PO DAILY AMBROSIO Levothyroxine Sodium 75 mcg 03/13/20 06:30 03/13/20 05:40 Levothyroxine 75 Mcg Tab PO 75 mcg DAILY@0630 AMBROSIO Administration Lidocaine 1 patch 03/12/20 15:05 Lidocaine 5% Patch TOPICAL DAILY PRN Pain Lidocaine HCl 0.1 ml 03/12/20 05:44 Lidocaine 1% (10mg/Ml) For Iv Start INTRADERMA PER PROTOCOL PRN IV Start Nicotine 1 patch 03/13/20 09:00 Nicotine 14mg/24hr Patch TRANSDERM DAILY AMBROSIO Nitroglycerin 0.4 mg 03/12/20 15:05 03/13/20 08:14 Nitroglycerin Sl Tabs 0.4 Mg Tab SUBLINGUAL 0.4 mg Q5M PRN Administration Pain Ondansetron HCl 4 mg 03/12/20 12:21 Ondansetron 4 Mg/2 Ml Vial IVP Q6HR PRN Nausea And Vomiting Pantoprazole Sodium 40 mg 03/13/20 07:30 03/13/20 07:41 Pantoprazole 40 Mg Tablet PO 40 mg [id number] AMBROSIO Administration Primidone 50 mg 03/13/20 09:00 Primidone 50 Mg Tab PO DAILY AMBROSIO Primidone 250 mg 03/13/20 09:00 Primidone 250 Mg Tab PO DAILY AMBROSIO Intake and Output 03/12/20 03/13/20 03/13/20 22:59 06:59 14:59 Output Total 0 700 Balance 0 -700 Output: Urine 0 700 Other: Voiding Method Indwelling Catheter Indwelling Catheter # Bowel Movements 0 0 03/13/20 08:20 03/13/20 08:20
[2020-03-13] MEDS ORDERED: HEPARIN SODIUM,PORCINE 5,000 UNIT/ML 1 ML VIAL IV PRN (11:12)
[2020-03-13] MEDS ORDERED: HEPARIN SOD,PORK IN 0.45% NACL 25,000 UNIT in 0.45% NACL 1 250ML.BAG IV SCH (11:15)
[2020-03-13 11:53] LABS: Basophils % (A) 0 %; Eosinophils # (A) 0.1 k/uL (0-0.7); Eosinophils % (A) 2 %; HCT 35.5 % (34.0-46.0); HGB 10.7 gm/dL (11.4-16.0); Hypochromasia Marked; Lymphocytes # (A) 1.5 k/uL (1.0-4.8); Lymphocytes % (A) 20 %; MCH 27.3 pg (25.0-35.0); MCV 90.9 fL (80.0-100.0); Mean Platelet Volume 6.9; Monocytes # (A) 0.4 k/uL (0-1.0); Monocytes % (A) 5 %; Neutrophils # (A) 5.4 k/uL (1.3-7.7); Neutrophils % (A) 72 %; Platelet Count 284 k/uL (150-450); RBC 3.91 m/uL (3.80-5.40); RDW 15.9 % (11.5-15.5); WBC 7.5 k/uL (3.8-10.6)
[2020-03-13 12:24] LABS: Partial Thromboplastin Time 24.6 sec (22.0-30.0); Prothrombin Time 10.7 sec (9.0-12.0)
--- NOTE | 2020-03-13 13:56 | P.CNPUL ---
History of Present Illness Consult date: 03/13/20 Reason for consult: dyspnea History of present illness: 85-year-old female patient, known history of coronary artery disease and please bypass surgery in 2009 in addition to history of COPD, carotid artery disease with previous endarterectomy along with hypertension and hyperlipidemia as comorbid conditions. The patient was Hospital as back in January 2024 stool impaction and constipation and during the same hospital admission the patient wa s seen by cardiology and the patient was diagnosed having syncope secondary to bradycardia and high degree AV block and at that time the patient had a normal preserved LV function with an ejection fraction of 55-60% along with moderate concentric LVH and diastolic failure and mild MR. The patient was brought into the hospital for laparoscopic repair of a paraesophageal hernia with mesh and the surgery was done on 03/12/2020.The patient was having difficulty with forward an oral intake and she had been losing weight and no other of 60 pounds over the past 2 years. Earlier this morning, the patient became acutely short of breath and she had oxygen saturation with a postobstructive up in the low 80s. Her d-dimer was elevated at 2.7. A CT angiogram was done and the patient was given diagnosis of pulmonary embolism involving the distal right upper lobe pulmonary artery. There was an expected 3 and the protein in air and this was related to her recent surgery. There was also some thickening of the wall of the GE junction and distal esophagus. There was hypodensity seen in the region of the esophageal gastric junction that was thought to be postsurgical in nature. Small amount of air was also seen at the extraluminal surrounding the GE junction and the posterior mediastinal adjacent to the esophagus. Bilateral pleural effusion was also seen. The patient was transferred to the cardiac stepdown. D-dimer was at 2.7 with a white cell count of 6.6 and hemoglobin of 10.9 and troponins were negative. Cardiac rhythm was sinus bradycardia with a first-degree AV block at the rate of 63. The patient was started on IV heparin. The patient is on Dilaudid for pain control. Review of Systems Constitutional: No fever, no chills. reports weakness, reports fatigue. EENT: No headache. No dizziness. Lungs: reports shortness of breath, cough, no sputum production. No wheezing. Cardiovascular: reports chest pain, no lower extremity edema. No palpitations. No paroxysmal nocturnal dyspnea. No orthopnea. No lightheadedness or dizziness. No syncopal episodes. Abdominal: No abdominal pain. No nausea, vomiting. No diarrhea. No constipation. No bloody or tarry stools. reports loss of appetite. Genitourinary: No dysuria. reports urinary retention. Musculoskeletal: No myalgias. No muscle weakness, no gait dysfunction, no frequent falls. No back pain. No neck pain. Integumentary: No wounds, no lesions. No rash or pruritus. No unusual bruising. Neurologic: No aphasia. No facial droop. No change in mentation. No head injury. No headache. No paralysis. No paresthesia. Psychiatric: No depression. No anxiety. Endocrine: No abnormal blood sugars. Past Medical History Past Medical History: Coronary Artery Disease (CAD), COPD, GERD/Reflux, Hypertension, Myocardial Infarction (AL), Osteoarthritis (OA), Thyroid Disorder Additional Past Medical History / Comment(s): Coronary artery disease with previous bypass surgery, Parkinson's disease, history of chronic tremors, hypertension, primary osteoarthritis, history of chronic back pain, hypertension, scoliosis, varicose veins involving lower extremities, hyperlipidemia, carotid artery stenosis bilaterally with previous ENDARTERECTOMY, COPD, chronic urinary retention with a Schafer catheter, paraesophageal hernia, Last Myocardial Infarction Date:: 2009 History of Any Multi-Drug Resistant Organisms: None Reported Past Surgical History: Back Surgery, Bladder Surgery, Coronary Bypass/CABG, Hysterectomy, Orthopedic Surgery Additional Past Surgical History / Comment(s): STENT X1 Past Anesthesia/Blood Transfusion Reactions: Postoperative Nausea & Vomiting (P ONV) Date of Last Stent Placement:: 2009 Past Psychological History: Anxiety, Depression Smoking Status: Current some day smoker Past Alcohol Use History: None Reported Additional Past Alcohol Use History / Comment(s): Smoking since 1950, 1/2 ppd Past Drug Use History: None Reported - Past Family History Mother Family Medical History: CVA/TIA, Myocardial Infarction (AL), Rheumatoid Arthritis (RA) Father Family Medical History: Myocardial Infarction (AL) Additional Family Medical History / Comment(s): ANEURYSM-UNKNOWN LOCATION Sister(s) Family Medical History: Deep Vein Thrombosis (DVT) Son(s) Family Medical History: Cancer Additional Family Medical History / Comment(s): melanoma, mets to kidney Medications and Allergies Home Medications Medication Instructions Recorded Confirmed Type Ascorbic Acid [Vitamin C] 500 mg PO DAILY 07/25/15 03/12/20 History Atorvastatin [Lipitor] 80 mg PO DAILY 07/25/15 03/12/20 History Levothyroxine Sodium [Synthroid] 75 mcg PO DAILY 07/25/15 03/12/20 History Nitroglycerin Sl Tabs [Nitrostat] 0.4 mg SL Q5M PRN 07/25/15 03/12/20 History buPROPion HCL [Wellbutrin XL] 300 mg PO DAILY 07/25/15 03/12/20 History Isosorbide Mononitrate ER [Imdur] 30 mg PO DAILY #30 tab.er.24h 07/30/15 03/12/20 Rx Gabapentin [Neurontin] 100 mg PO BID 05/12/19 03/12/20 History Primidone [Mysoline] 300 mg PO DAILY 05/12/19 03/12/20 History Aspirin 81 mg PO HS #30 tab 05/16/19 03/12/20 Rx Albuterol Sulfate [Ventolin HFA] 2 puff INHALATION RT-QID PRN 01/19/20 03/12/20 History Budesonide/Formoterol Fumarate 2 puff INHALATION RT-BID 01/19/20 03/12/20 Histor y [Symbicort 160-4.5 Mcg Inhaler] Citalopram Hydrobromide [CeleXA] 40 mg PO DAILY 01/19/20 03/12/20 History EPINEPHrine (Auto Inject) [Epipen] 0.3 mg IM ONCE PRN 01/19/20 03/12/20 History Lidocaine 5% Patch [Lidoderm 5% 1 patch TOPICAL DAILY PRN 01/19/20 03/12/20 History Patch] Doxazosin [Cardura] 4 mg PO DAILY 02/20/20 03/12/20 History Nicotine 14Mg/24Hr Patch [Habitrol] 1 patch TRANSDERM DAILY 02/20/20 03/12/20 History Omeprazole Magnesium [PriLOSEC OTC] 20 mg PO BID 02/20/20 03/12/20 History Propranolol LA [Inderal LA] 80 mg PO HS 02/20/20 03/12/20 History Psyllium Husk 100% [Metamucil 6 gm PO Q48H PRN 03/01/20 03/12/20 History Packet] Vitamin D3 (Unknown Dose) 1 tab PO DAILY 03/01/20 03/12/20 History Ferrous Sulfate [Feosol] 325 mg PO DAILY 03/09/20 03/12/20 History Allergies Allergy/AdvReac Type Severity Reaction Status Date / Time venom-honey bee Allergy Anaphylaxis Verified 03/12/20 09:36 [bee venom (honey bee)] Physical Exam Vitals: Vital Signs Temp Pulse Pulse Resp BP BP Pulse Ox 03/13/20 12:15 98.5 F 66 18 145/66 97 03/13/20 07:50 17 03/13/20 07:00 99.0 F 69 17 131/62 93 L 03/13/20 00:33 98.5 F 75 18 154/67 95 03/13/20 00:00 67 18 03/12/20 19:47 97.7 F 67 18 159/75 95 03/12/20 16:00 58 L 16 03/12/20 15:40 41 L 115/66 03/12/20 15:26 43 L 106/53 03/12/20 15:09 41 L 110/64 03/12/20 14:54 42 L 118/65 03/12/20 14:39 40 L 113/64 03/12/20 14:24 44 L 138/66 03/12/20 14:11 45 L 107/54 03/12/20 13:52 97.5 F L 50 L 18 132/55 98 03/12/20 13:20 58 L 16 140/77 100 03/12/20 13:11 50 L 13 132/55 100 Intake and Output 03/12/20 03/13/20 03/13/20 22:59 06:59 14:59 Output Total 0 700 Balance 0 -700 Output: Urine 0 700 Other: Voiding Method Indwelling Catheter Indwelling Catheter # Bowel Movements 0 0 Gen: Appearance the patient is calm comfortable active distress. Not using excessive muscle breathing. VS: afebrile, heart rate 69, blood pressure 131/62, pulse ox 93% on 2 L nasal cannula Head exam was generally normal. There was no scleral icterus or corneal arcus. Mucous membranes were moist. Neck was supple and without jugular venous distension, thyromegaly, or carotid bruits. Carotids were easily palpable bilaterally. There was no adenopathy. LUNGS: diminished at the bilateral bases. No wheezes or rhonchi. No intercostal retractions. HEART: Regular rate and rhythm. systolic murmur at the left sternal border. ABDOMEN: Soft. Bowel sounds are present. No masses. No tenderness. surgical puncture sites show no signs of infection EXTREMITIES: No pedal edema. No calf tenderness.dorsalis pedis +2 bilaterally. NEUROLOGICAL: Patient is awake, alert and oriented x3. Cranial nerves 2 through 12 are grossly intact. Results - Laboratory Findings CBC and BMP: 03/13/20 11:38 03/13/20 08:20 PT/INR, D-dimer PT 10.7 sec (9.0-12.0) 03/13/20 11:38 INR 1.0 (<1.2) 03/13/20 11:38 D-Dimer 2.70 mg/L FEU (<0.60) H 03/13/20 08:20 Abnormal lab findings: Abnormal Labs 03/12/20 03/13/20 03/13/20 09:44 08:20 08:20 RBC 3.73 L Hgb 10.9 L MCHC RDW 15.9 H 16.0 H D-Dimer 2.70 H Sodium Glucose 03/13/20 03/13/20 08:20 11:38 RBC Hgb 10.7 L MCHC 30.0 L RDW 15.9 H D-Dimer Sodium 132 L Glucose 118 H - Diagnostic Findings CT scan - chest: image reviewed Assessment and Plan Plan: 1 acute hypoxic respiratory failure, currently on feeds about 2 by nasal cannula. This occurred following a repair of a paraesophageal hernia that was done on 03/12/2020. CT angios gram of the chest was done. I highly doubt the possibility of pulmonary embolism. Doppler of the lower extremities in progress and the patient is currently on IV heparin. Aspiration is possible as the patient has bilateral lower lobe pulmonary infiltrates and small pleural effusions. The postoperative changes in the distal esophagus was also noted as the patient has some increased hyperdensity in the region of the is of congealed gastric junction in addition to some thickening without evidence of any clear leak. This should be considered and watch for over the next 24 hours. 2 chest pain/ shortness of breath secondary to above 3 paraesophageal hernia and the patient underwent laparoscopic repair and the patient is postop day #1 4 coronary artery disease with previous bypass surgery 5 COPD 6 hypertension 7 hyperlipidemia 8 carotid artery stenosis and previous endarterectomy 9 chronic urinary retention 10 with Cardizem 11 Parkinson's disease 12 history of smoking 13 chronic anxiety/depression Plan Continue IV heparin Add IV Zosyn for possibility of aspiration pneumonia Check Dopplers of the lower extremity Oxygen therapy at these is minute nasal cannula May need a upper GI series ordered a swallow evaluation/esophagram should there be any concern for any leak at the level of the GE junction. This will be discussed further with general surgery 12-lead EKG Troponins 3 We'll continue to follow
--- NOTE | 2020-03-13 14:04 | US ---
EXAMINATION TYPE: US chest DATE OF EXAM: 03/13/2020 COMPARISON: CT CLINICAL HISTORY: pl effusion. TECHNIQUE: Targeted ultrasound of the posterior lower bilateral hemithoraces EXAM MEASUREMENTS: Right Pleural Effusion pocket size: 3.8 cm Right skin surface to fluid distance: 1.6 cm Left Pleural Effusion pocket size: 2.3 cm Left skin surface to fluid distance: 1.4 cm Right side marked for possible thoracentesis outside the dept. Left side marked for possible thoracentesis outside the dept. Pulmonologists are able to review the images in the patient?s EMR. IMPRESSIONS: Small bilateral pleural effusions
--- NOTE | 2020-03-13 14:05 | US ---
EXAMINATION TYPE: US venous doppler duplex LE DATE OF EXAM: 03/13/2020 12:01 PM COMPARISON: NONE CLINICAL HISTORY: Rule out DVT. Known PE. SIDE PERFORMED: Bilateral TECHNIQUE: The lower extremity deep venous system is examined utilizing real time linear array sonog clyde with graded compression, doppler sonography and color-flow sonography. VESSELS IMAGED: External Iliac Vein (EIV) Common Femoral Vein Deep Femoral Vein Greater Saphenous Vein * Femoral Vein Popliteal Vein Small Saphenous Vein * Proximal Calf Veins (* superficial vessels) Right Leg: Negative for DVT Left Leg: Negative for DVT IMPRESSION: Grayscale, color doppler, spectral doppler imaging performed of the deep veins of the lo wer extremities. There is normal flow, compressibility, vascular waveforms.
[2020-03-13] MEDS: PIPERACILLIN-TAZOBACTAM 3.375 GM in SODIUM CHLORIDE 0.9% 100 ML IVPB SCH ×2 (14:24→23:42)
--- NOTE | 2020-03-13 14:59 | ECHOF ---
Referral Reason:right heart strain, PE MEASUREMENTS -------- HEIGHT: 152.4 cm WEIGHT: 49.4 kg BP: 131/62 RVIDd: 4.0 cm (< 3.3) IVSd: 1.4 cm (0.6 - 1.1) LVIDd: 3.8 cm (3.9 - 5.3) LVPWd: 1.2 cm (0.6 - 1.1) IVSs: 1.8 cm LVIDs: 1.9 cm LVPWs: 2.3 cm LAESV Index (A-L): 46.08 ml/m Ao Diam: 2.6 cm (2.0 - 3.7) AV Cusp: 1.9 cm (1.5 - 2.6) MV EXCURSION: 19.458 mm (> 18.000) MV EF SLOPE: 65 mm/s (70 - 150) EPSS: 0.3 cm MV E Lewis: 1.06 m/s MV DecT: 157 ms MV A Lewis: 0.99 m/s MV E/A Ratio: 1.08 RAP: 5.00 mmHg RVSP: 16.65 mmHg FINDINGS -------- This was a technically adequate study. The left ventricular size is normal. There is moderate concentric left ventricular hypertrophy. O verall left ventricular systolic function is normal with, an EF between 55 - 60 %. The diastolic fi lling pattern is normal for the age of the patient {E/E'}. The right ventricle is mildly enlarged. LA is midly dilated 29-33ml/m2. The right atrium is mildly enlarged. Interatrial and interventricular septum intact. The aortic valve is trileaflet and appears structurally normal. There is no evidence of aortic regu rgitation. There is no evidence of aortic stenosis. Mild mitral regurgitation is present. Mild tricuspid regurgitation present. There is no evidence of pulmonary hypertension. The right v entricular systolic pressure, as measured by Doppler, is 16.65mmHg. There is no pulmonic regurgitation present. The aortic root size is normal. IVC Not well visulized. There is no pericardial effusion. CONCLUSIONS -------- 1. The left ventricular size is normal. 2. There is moderate concentric left ventricular hypertrophy. 3. Overall left ventricular systolic function is normal with, an EF between 55 - 60 %. 4. The diastolic filling pattern is normal for the age of the patient {E/E'} 5. The right ventricle is mildly enlarged. 6. LA is midly dilated 29-33ml/m2. 7. The right atrium is mildly enlarged. 8. Mild mitral regurgitation is present. 9. Mild tricuspid regurgitation present. DIGITAL ART DIRECTOR: Krista Leong RDCS
--- NOTE | 2020-03-13 15:15 | P.PN ---
Subjective Progress Note Date: 03/13/20 CHIEF COMPLAINT: Paraesophageal hiatal hernia repair HISTORY OF PRESENT ILLNESS: The patient is a 85-year-old female status post paraesophageal hiatal hernia repair. Her daughter is at bedside. Patient's daughter reports seeing prior esophagram before surgery. Patient has pre- existing history of COPD. With patient's baseline history of COPD, "I have problems taking deep breaths." She has symptoms of dyspnea from her COPD. She denies any troubles with swallowing. She has pre-existing anemia. She had acute event requiring A team assessment. She had additional assessment with CT chest demonstrating pulmonary embolism. She is being evaluated by cardiology. ROS: No reports of nausea and vomiting. No fevers or chills. No productive sputum PHYSICAL EXAM: VITAL SIGNS: Reviewed CONSTITUTIONAL: Well developed and in no acute distress. EYES: Conjuctivae without sclera icterus. Extraocular movements grossly intact. HEAD, EARS, NOSE, THROAT: Moist buccal mucosa. Head is atraumatic, n ormocephalic. Hears conversational speech. No nasal drainage. NECK: Supple. No thyroidomegaly. RESPIRATORY: Non-labored respirations and equal bilateral excursions. CARDIOVASCULAR: Palpable 2+ radial pulses. ABDOMEN: Soft. No peritonitis. MUSCULOSKELETAL: No gross deformity of the lower extremities noted. No clubbing. No cyanosis. SKIN: Good skin turgor. Well perfused. NEUROLOGIC: Cranial nerves II through XII grossly intact. No focal or lateralizing signs. PSYCH: Appropriate affect. Alert and oriented to person, place and time. CLINICAL LABS: White blood cell count normal, 7.5 STUDIES: CT of the chest and pelvis reviewed by me with findings of very small bilateral apical pneumothorax. Has bilateral features of atelectasis. ASSESSMENT: 1. Paraesophageal hiatal hernia 2. Acute pulmonary embolism 3. COPD 4. Bilateral apical pneumothoraces PLAN: 1. At this time, no oral anticoagulant such as Eliquis recommended for recent surgery less than 24 hours ago. 2. Agreeable was IV heparin. 3. Continue hospitalization. 4. Pulmonary consultation 5. Recommend Sangita clear liquid diet. Objective - Vital Signs Vital signs: Vital Signs Temp 98.5 F 03/13/20 12:15 Pulse 66 03/13/20 12:15 Resp 18 03/13/20 12:15 BP 145/66 10/10/20 12:15 Pulse Ox 97 03/13/20 12:15 Intake & Output 03/12/20 03/13/20 03/13/20 18:59 06:59 18:59 Intake Total 1050 1000 Output Total 210 700 500 Balance 840 -700 500 Weight 49.442 kg Intake: IV 1050 1000 D5-0.45% NaCl with KCl 1000 20Meq/l 1,000 ml @ 75 mls /hr IV .[id number] AMBROSIO Rx#: [id number] Output: Urine 200 700 500 Estimated Blood Loss 10 Other: Voiding Method Indwelling Catheter Indwelling Catheter # Bowel Movements 0 - Labs CBC & Chem 7: 03/13/20 11:38 03/13/20 08:20 Labs: Abnormal Lab Results - Last 24 Hours (Table) 03/13/20 03/13/20 03/13/20 Range/Units 08:20 08:20 08:20 RBC 3.73 L (3.80-5.40) m/uL Hgb 10.9 L (11.4-16.0) gm/dL MCHC (31.0-37.0) g/dL RDW 16.0 H (11.5-15.5) % D-Dimer 2.70 H (<0.60) mg/L FEU Sodium 132 L (137-145) mmol/L Glucose 118 H (74-99) mg/dL 03/13/20 Range/Units 11:38 RBC (3.80-5.40) m/uL Hgb 10.7 L (11.4-16.0) gm/dL MCHC 30.0 L (31.0-37.0) g/dL RDW 15.9 H (11.5-15.5) % D-Dimer (<0.60) mg/L FEU Sodium (137-145) mmol/L Glucose (74-99) mg/dL Assessment and Plan (1) Pneumothorax, postprocedural Current Visit: Yes Status: Acute Code(s): J95.811 - POSTPROCEDURAL PNEUMOTHORAX SNOMED Code(s): 660782483 (2) Pulmonary embolism Current Visit: Yes Status: Acute Code(s): I26.99 - OTHER PULMONARY EMBOLISM WITHOUT ACUTE COR PULMONALE SNOMED Code(s): 04536646 (3) COPD (chronic obstructive pulmonary disease) Current Visit: Yes Status: Acute Code(s): J44.9 - CHRONIC OBSTRUCTIVE PU LMONARY DISEASE, UNSPECIFIED SNOMED Code(s): 54188044 (4) Paraesophageal hernia Current Visit: Yes Status: Acute Code(s): K44.9 - DIAPHRAGMATIC HERNIA WITHOUT OBSTRUCTION OR GANGRENE SNOMED Code(s): 8455946 (5) Anemia, iron deficiency Current Visit: Yes Status: Acute Code(s): D50.9 - IRON DEFICIENCY ANEMIA, UNSPECIFIED SNOMED Code(s): 89096235
[2020-03-13] MEDS: ALBUTEROL NEBULIZED 2.5 MG/3 ML INHALATION PRN ×2 (15:38→19:47)
--- NOTE | 2020-03-13 16:40 | P.CONS ---
History of Present Illness - History of Present Illness this is a pleasant 85 years old female with a known history of coronary artery disease, COPD, hypertension, hyperlipidemia. she was admitted for laparoscopic repair of her hiatal hernia and large paraesophageal hiatal hernia . Today is postop day #1 This morning patient was short of breath and chest pain about 9/10, d-dimer was checked was elevated, so CTA of the chest showing pulmonary embolism and patient was started on heparin drip When I saw the patient she states that her dyspnea and chest pain has improved significantly and her chest pain is 0/10. pulmonary team were consulted and they had low suspicion for PE, however aspiration pneumonia is suspected more. Review of Systems CONSTITUTIONAL: No fever, no malaise, no fatigue. HEENT: No recent visual problems or hearing problems. Denied any sore throat. CARDIOVASCULAR: No orthopnea, PND, no palpitations, no syncope. PULMONARY: no chest wall tenderness, no hemoptysis. GASTROINTESTINAL: No diarrhea, no nausea, no vomiting, no abdominal pain. Normoactive bowel sounds. NEUROLOGICAL: No headaches, no weakness, no numbness. HEMATOLOGICAL: Denies any bleeding or petechiae. GENITOURINARY: Denies any burning micturition, frequency, or urgency. MUSCULOSKELETAL/RHEUMATOLOGICAL: Denies any joint pain, swelling, or any muscle pain. ENDOCRINE: Denies any polyuria or polydipsia. Past Medical History Past Medical History: Coronary Artery Disease (CAD), COPD, GERD/Reflux, Hypertension, Myocardial Infarction ([place]), Osteoarthritis (OA), Thyroid Disorder Additional Past Medical History / Comment(s): Coronary artery disease with previous bypass surgery, Parkinson's disease, history of chronic tremors, h ypertension, primary osteoarthritis, history of chronic back pain, hypertension, scoliosis, varicose veins involving lower extremities, hyperlipidemia, carotid artery stenosis bilaterally with previous ENDARTERECTOMY, COPD, chronic urinary retention with a Schafer catheter, paraesophageal hernia, Last Myocardial Infarction Date:: 2009 History of Any Multi-Drug Resistant Organisms: None Reported Past Surgical History: Back Surgery, Bladder Surgery, Coronary Bypass/CABG, Hysterectomy, Orthopedic Surgery Additional Past Surgical History / Comment(s): STENT X1 Past Anesthesia/Blood Transfusion Reactions: Postoperative Nausea & Vomiting (PONV) Date of Last Stent Placement:: 2009 Past Psychological History: Anxiety, Depression Smoking Status: Current some day smoker Past Alcohol Use History: None Reported Additional Past Alcohol Use History / Comment(s): Smoking since 1950, 1/2 ppd Past Drug Use History: None Reported - Past Family History Mother Family Medical History: CVA/TIA, Myocardial Infarction ([place]), Rheumatoid Arthritis ([place]) Father Family Medical History: Myocardial Infarction ([place]) Additional Family Medical History / Comment(s): ANEURYSM-UNKNOWN LOCATION Sister(s) Family Medical History: Deep Vein Thrombosis (DVT) Son(s) Family Medical History: Cancer Additional Family Medical History / Comment(s): melanoma, mets to kidney Medications and Allergies Home Medications Medication Instructions Recorded Confirmed Type Ascorbic Acid [Vitamin C] 500 mg PO DAILY 07/25/15 03/12/20 History Atorvastatin [Lipitor] 80 mg PO DAILY 07/25/15 03/12/20 History Levothyroxine Sodium [Synthroid] 75 mcg PO DAILY 07/25/15 03/12/20 History Nitroglycerin Sl Tabs [Nitrostat] 0.4 mg SL Q5M PRN 07/25/15 03/12/20 History buPROPion HCL [Wellbutrin XL] 300 mg PO DAILY 07/25/15 03/12/20 History Isosorbide Mononitrate ER [Imdur] 30 mg PO DAILY #30 tab.er.24h 07/30/15 03/12/20 Rx Gabapentin [Neurontin] 100 mg PO BID 05/12/19 03/12/20 History Primidone [Mysoline] 300 mg PO DAILY 05/12/19 03/12/20 History Aspirin 81 mg PO HS #30 tab 05/16/19 03/12/20 Rx Albuterol Sulfate [Ventolin HFA] 2 puff INHALATION RT-QID PRN 01/19/20 03/12/20 History Budesonide/Formoterol Fumarate 2 puff INHALATION RT-BID 01/19/20 03/12/20 History [Symbicort 160-4.5 Mcg Inhaler] Citalopram Hydrobromide [CeleXA] 40 mg PO DAILY 01/19/20 03/12/20 History EPINEPHrine (Auto Inject) [Epipen] 0.3 mg IM ONCE PRN 01/19/20 03/12/20 History Lidocaine 5% Patch [Lidoderm 5% 1 patch TOPICAL DAILY PRN 01/19/20 03/12/20 History Patch] Doxazosin [Cardura] 4 mg PO DAILY 02/20/20 03/12/20 History Nicotine 14Mg/24Hr Patch [Habitrol] 1 patch TRANSDERM DAILY 02/20/20 03/12/20 History Omeprazole Magnesium [PriLOSEC OTC] 20 mg PO BID 02/20/20 03/12/20 History Propranolol LA [Inderal LA] 80 mg PO HS 02/20/20 03/12/20 History Psyllium Husk 100% [Metamucil 6 gm PO Q48H PRN 03/01/20 03/12/20 History Packet] Vitamin D3 (Unknown Dose) 1 tab PO DAILY 03/01/20 03/12/20 History Ferrous Sulfate [Feosol] 325 mg PO DAILY 03/09/20 03/12/20 History Allergies Allergy/AdvReac Type Severity Reaction Status Date / Time venom-honey bee Allergy Anaphylaxis Verified 03/12/20 09:36 [bee venom (honey bee)] Physical Exam Vitals: Vital Signs Temp Pulse Pulse Resp BP Pulse Ox 03/13/20 15:50 85 94 L 03/13/20 15:40 83 03/13/20 12:15 98.5 F 66 18 145/66 97 03/13/20 07:50 17 03/13/20 07:00 99.0 F 69 17 131/62 93 L 03/13/20 00:33 98.5 F 75 18 154/67 95 03/13/20 00:00 67 18 03/12/20 19:47 97.7 F 67 18 159/75 95 Intake and Output 03/13/20 03/13/20 03/13/20 06:59 14:59 22:59 Intake Total 1000 Output Total 700 500 Balance -700 500 Intake: IV 1000 D5-0.45% NaCl with KCl 1000 20Meq/l 1,000 ml @ 75 mls /hr IV .[id number] [facility] Rx#: [id number] Output: Urine 700 500 Other: Voiding Method Indwelling Catheter Indwelling Catheter # Bowel Movements 0 GENERAL: The patient is alert and oriented x3, not in any acute distress. Well developed, well nourished. HEENT: Pupils are round and equally reacting to light. EOMI. No scleral icterus. No conjunctival pallor. Normocephalic, atraumatic. No pharyngeal erythema. No thyromegaly. CARDIOVASCULAR: S1 and S2 present. No murmurs, rubs, or gallops. PULMONARY: Chest is clear to auscultation, no wheezing or crackles. -ABDOMEN: Soft, nontender, nondistended, normoactive bowel sounds. No palpable organomegaly. laparoscopic once are intactand healing MUSCULOSKELETAL: No joint swelling or deformity. EXTREMITIES: No cyanosis, clubbing, or pedal edema. NEUROLOGICAL: Gross neurological examination did not reveal any focal deficits. SKIN: No rashes. No petechiae Results CBC & Chem 7: 03/13/20 11:38 03/13/20 08:20 Labs: Abnormal Lab Results - Last 24 Hours (Table) 03/13/20 03/13/20 03/13/20 Range/Units 08:20 08:20 08:20 RBC 3.73 L (3.80-5.40) m/uL Hgb 10.9 L (11.4-16.0) gm/dL MCHC (31.0-37.0) g/dL RDW 16.0 H (11.5-15.5) % D-Dimer 2.70 H (<0.60) mg/L FEU Sodium 132 L (137-145) mmol/L Glucose 118 H (74-99) mg/dL 03/13/20 Range/Units 11:38 RBC (3.80-5.40) m/uL Hgb 10.7 L (11.4-16.0) gm/dL MCHC 30.0 L (31.0-37.0) g/dL RDW 15.9 H (11.5-15.5) % D-Dimer (<0.60) mg/L FEU Sodium (137-145) mmol/L Glucose (74-99) mg/dL Assessment and Plan Assessment: paraesophageal hernia status post laparoscopic repair hypertension Hyperlipidemia History of coronary artery disease with history of CABG COPD, no acute exacerbation History of carotid artery stenosis status post and direct ectomy Parkinson disease Anxiety and depression, not in active tissue Plan: this is a pleasant 85 years old female who presents for laparoscopic hiatal hernia repair. Complicated by chest pain or dyspnea, pulmonary consult is appr eciated, they recommended to start the patient on Zosyn for possible aspiration pneumonia, follow-up Doppler of the lower extremity. Labs and medication were reviewed.. Continue same treatment. Continue with symptomatic treatment. Resume home medication. Monitor lytes and vitals. DVT and GI prophylaxis. Further recommendations depends on the clinical course of the patient DVT prophylaxis: heparin GI Prophylaxis: Ppi PT/OT: Pending Prognosis is guarded
[2020-03-13 16:48] LABS: Glucose,Whole Blood 132 mg/dL (75-99)
--- NOTE | 2020-03-13 18:16 | XR ---
EXAMINATION TYPE: XR abdomen 1V DATE OF EXAM: 03/13/2020 COMPARISON: Hernia repair. Pain. IMPRESSION: There is some infiltrate and atelectasis left lung base. There is some contrast in the large bowel. T here is no sign of a bowel obstruction. I see no definite evidence for abdominal free air. There are distended gas-filled loops of bowel. IMPRESSION: Infiltrate and atelectasis left lung base unchanged. There is evidence for some mild intestinal ileus . No evidence of any significant pneumoperitoneum.
[2020-03-13] MEDS: ASPIRIN 81 MG PO SCH (20:17)
[2020-03-14 04:03] LABS: Anisocytosis Slight; Basophils % (A) 0 %; Eosinophils # (A) 0.3 k/uL (0-0.7); Eosinophils % (A) 5 %; HCT 33.2 % (34.0-46.0); HGB 10.2 gm/dL (11.4-16.0); Hypochromasia Marked; Lymphocytes # (A) 1.8 k/uL (1.0-4.8); Lymphocytes % (A) 31 %; MCH 27.6 pg (25.0-35.0); MCHC 30.8 g/dL (31.0-37.0); MCV 89.6 fL (80.0-100.0); Monocytes # (A) 0.4 k/uL (0-1.0); Monocytes % (A) 6 %; Neutrophils # (A) 3.3 k/uL (1.3-7.7); Neutrophils % (A) 56 %; Platelet Count 228 k/uL (150-450); WBC 5.8 k/uL (3.8-10.6)
[2020-03-14 04:11] LABS: African American GFR (CKD) >90 (>60 ml/min/1.73 sqM); Anion Gap 3 mmol/L; Blood Urea Nitrogen 7 mg/dL (7-17); Calcium 8.4 mg/dL (8.4-10.2); Carbon Dioxide 25 mmol/L (22-30); Chloride 105 mmol/L (98-107); Glucose 95 mg/dL (74-99); Non-African American GFR(CKD) 81 (>60 ml/min/1.73 sqM); Potassium 4.8 mmol/L (3.5-5.1); Sodium 133 mmol/L (137-145)
[2020-03-14] MEDS: PANTOPRAZOLE 40 MG TABLET PO SCH (06:31)
[2020-03-14] MEDS: LEVOTHYROXINE 75 MCG TAB PO SCH (06:31)
--- NOTE | 2020-03-14 07:05 | XR ---
EXAMINATION TYPE: XR chest 1V portable DATE OF EXAM: 03/14/2020 HISTORY: Shortness of breath. COMPARISON: Contusions within the TECHNIQUE: Single view of the chest is submitted. FINDINGS: Demonstrated are scattered senescent parenchymal change. Interval development of perihilar and basilar infiltrates. Correlate for underlying pneumonia. Progre ss studies are advised The heart is stable. Hilar and mediastinal structures are within normal limits. Degenerative changes are seen of the dorsal spine. IMPRESSION: 1. Interval development of perihilar and basilar infiltrates. Correlate for underlying pneumonia. Pr ogress studies are advised
[2020-03-14] MEDS: SYMBICORT 160-4.5 MCG INHALER INHALATION SCH ×2 (08:07→20:04)
[2020-03-14] MEDS: ALBUTEROL NEBULIZED 2.5 MG/3 ML INHALATION PRN (08:07)
[2020-03-14] MEDS: PIPERACILLIN-TAZOBACTAM 3.375 GM in SODIUM CHLORIDE 0.9% 100 ML IVPB SCH ×3 (09:34→23:38)
[2020-03-14] MEDS: ENOXAPARIN 40 MG/0.4 ML SYRINGE SQ SCH (09:35)
[2020-03-14] MEDS: NICOTINE 14MG/24HR PATCH TRANSDERM SCH (09:36)
[2020-03-14] MEDS: ASCORBIC ACID 500 MG TAB PO SCH (09:39)
[2020-03-14] MEDS: GABAPENTIN 100 MG CAP PO SCH ×2 (09:39→20:06)
[2020-03-14] MEDS: ATORVASTATIN 80 MG TAB PO SCH (09:39)
[2020-03-14] MEDS: ISOSORBIDE MONONITRATE ER 30 MG TAB.ER.24H PO SCH (09:39)
[2020-03-14] MEDS: PRIMIDONE 250 MG TAB PO SCH (09:39)
[2020-03-14] MEDS: CITALOPRAM HYDROBROMIDE 20 MG TAB PO SCH (09:39)
[2020-03-14] MEDS: buPROPion XL 150 MG TAB.ER.24H PO SCH (09:39)
[2020-03-14] MEDS: D5-0.45% NACL WITH KCL 20MEQ/L 1,000 ML IV SCH (09:39)
[2020-03-14] MEDS: PRIMIDONE 50 MG TAB PO SCH (09:39)
--- NOTE | 2020-03-14 09:46 | P.PN ---
Subjective Progress Note Date: 03/14/20 History of present illness: This is an 85-year-old female patient of Dr. Dr. Block with past medical history of coronary artery disease status post CABG in 2009, hype rtension, hyperlipidemia, prior inferior wall myocardial infarction, carotid stenosis status post endarterectomy, COPD, urinary retention with chronic Schafer. Patient had recent hospitalization in January at which time she presented for sconstipation and fecal impaction suspicious for large bowel ileus and was seen by cardiology for syncope secondary to bradycardia and high grade AV block probably vasovagal in origin. Echocardiogram at that time revealed EF of 55-60% with moderate concentric left hypertrophy, grade 2 diastolic dysfunction, trace aortic regurgitation, trace mitral regurgitation, mild tricuspid regurgitation. Patient had been brought into the hospital by Dr. Chiang and is status post laparoscopic repair of paraesophageal hernia with mesh completed on March 12. daughter patient gives history the patient has had ongoing problems with inability to eat a significant amount of foof, weight loss of greater than 60 pounds over the past 2 years, vomiting. This morning, patient had sudden onset of shortness of breath and chest pain and desatted into the 80s. D-dimer was el evated at 2.7. CTA of the chest revealedacute pulmonary embolism distal right upper lobe. Free intraperitoneal air. Marked thickening of the wall of the GE junction and distal esophagus. Hyperdensity seen in the region of the esophageal gastric junction noted which may be postsurgical but should be correlated clinically. Fluid surrounding the region may represent acute inflammatory or post surgical changes. Small amount of air in the extraluminal surrounding the GE junction and posterior mediastinum adjacent to the esophagus. Bilateral pleural effusions and basilar infiltrate. Bilateral lower lobe infiltrate and small effusion with diffuse emphysematous changes. 1 cm left upper lobe pulmonary nodule for which PET scan is recommended. Patient was transferred to the cardiac stepdown unit and cardiology consult requested. Llab work this morning revealed a d-dimer of 2.7. WBC 6.6, hemoglobin 10.9. Sodium 132 otherwise electrolytes and renal function normal. Blood sugar 118. Troponin 0.012.EKG is a sinus bradycardia with a first-degree AV block with rate of 43. cardiac catheterization technician is a sinus bradycardia and heart rate is 63. 03/14/2020 An seen and examined. Patient transferred to the ICU for closer monitoring. Blood pressure remains stable and patient on nasal cannula. Discussed CT findings with pulmonary and pulmonary does not feel that CT represents PE. Therefore heparin drip was stopped and patient placed on Lovenox prophylaxis. Troponins have been negative and echo showed normal left ventricular ejection fraction. Patient admits to some chest pain but only with deep inspiration. Patient states overall she is feeling much better. She did have a chest x-ray which shows bilateral infiltrates concerning for aspiration pneumonia. Physical examination: Gen: This is a thin 85-year-old female. Patient is resting in bed and appears to be comfortable at rest. Daughter is at bedside. VS: afebrile, blood pressure 157/63, heart rate 72, 92% on 2 L HEENT: Head is atraumatic, normocephalic. Pupils equal, round. Sclerae is an icteric. NECK: Supple. No JVD. No lymphadenopathy. No thyromegaly. LUNGS: diminished at the bilateral bases. No wheezes or rhonchi. No intercostal retractions. HEART: Regular rate and rhythm. systolic murmur at the left sternal border. ABDOMEN: Soft. Bowel sounds are present. No masses. No tenderness. surgical puncture sites show no signs of infection EXTREMITIES: No pedal edema. No calf tenderness.dorsalis pedis +2 bilaterally. NEUROLOGICAL: Patient is awake, alert and oriented x3. Cranial nerves 2 through 12 are grossly intact. Assessment: acute hypoxic respiratory failure. CT read out as pulmonary embolism however pulmonary examined films and does not feel this is a PE. Anticoagulation stopped. Bilateral pulmonary infiltrates likely related to aspiration pneumonia Status post laparoscopic repair of paraesophageal hernia with mesh on March 12 bradycardia with previous episodes of syncope, currently stable history of coronary artery disease status post CABG Hypertension Hyperlipidemia Carotid stenosis status post endarterectomy COPD Urinary retention Pleuritic chest pain, troponins have been negative and acute coronary syndrome has been ruled out Plan: Echocardiogram reviewed with normal left ventricular ejection fraction. No significant elevated RVSP or right ventricular strain. Pulmonary does not feel the CT represents a pulmonary embolism and anticoagulation was stopped and she was placed on prophylactic Lovenox. Acute coronary syndrome has been ruled out. Continue treatment for aspiration pneumonia. Chest pain is pleuritic and likely related to surgery and aspiration pneumonia. Continue current medical regimen. No further recommendations at this time. Please call with any questions. Objective - Vital Signs Vital signs: Vital Signs Temp 98.2 F 03/14/20 08:00 Pulse 72 03/14/20 09:00 Resp 21 03/14/20 09:00 BP 157/63 03/14/20 09:00 Pulse Ox 92 L 03/14/20 09:00 Intake & Output 03/13/20 03/14/20 03/14/20 18:59 06:59 18:59 Intake Total 1075 1298.185 225 Output Total 590 1225 1050 Balance 485 73.185 -825 Weight 52.4 kg Intake: IV 1075 900 225 D5-0.45% NaCl with KCl 1075 900 225 20Meq/l 1,000 ml @ 75 mls /hr IV .[id number] [facility] Rx#: [id number] Intake, IV Titration 148.185 Amount Heparin Sod,Pork in 0.45% 148.185 NaCl 25,000 unit In 0.45 % NaCl 1 250ml.bag @ 18 UNITS/KG/HR 8.9 mls/hr IV .Q24H [facility] Rx#:[id number] Oral 250 Output: Urine 590 1225 1050 Other: Voiding Method Indwelling Catheter Indwelling Catheter # Bowel Movements 0 - Labs CBC & Chem 7: 03/14/20 03:15 03/14/20 03:15 Labs: Abnormal Lab Results - Last 24 Hours (Table) 03/13/20 03/13/20 03/13/20 Range/Units 11:38 16:46 17:15 RBC (3.80-5.40) m/uL Hgb 10.7 L (11.4-16.0) gm/dL Hct (34.0-46.0) % MCHC 30.0 L (31.0-37.0) g/dL RDW 15.9 H (11.5-15.5) % APTT 53.5 H (22.0-30.0) sec Sodium (137-145) mmol/L POC Glucose (mg/dL) 132 H (75-99) mg/dL 03/14/20 03/14/20 03/14/20 Range/Units 03:15 03:15 03:15 RBC 3.70 L (3.80-5.40) m/uL Hgb 10.2 L (11.4-16.0) gm/dL Hct 33.2 L (34.0-46.0) % MCHC 30.8 L (31.0-37.0) g/dL RDW 16.0 H (11.5-15.5) % APTT 116.9 H* (22.0-30.0) sec Sodium 133 L (137-145) mmol/L POC Glucose (mg/dL) (75-99) mg/dL
--- NOTE | 2020-03-14 11:02 | P.PN ---
Subjective Progress Note Date: 03/14/20 85-year-old female patient, known history of coronary artery disease and please bypass surgery in 2009 in addition to history of COPD, carotid artery disease with previous endarterectomy along with hypertension and hyperlipidemia as comorbid conditions. The patient was Hospital as back in January 2024 stool impaction and constipation and during the same hospital admission the patient was seen by cardiology and the patient was diagnosed having syncope secondary to bradycardia and high degree AV block and at that time the patient had a normal preserved LV function with an ejection fraction of 55-60% along with moderate concentric LVH and diastolic failure and mild MR. The patient was brought into the hospital for laparoscopic repair of a paraesophageal hernia with mesh and the surgery was done on 03/12/2020.The patient was having difficulty with forward an oral intake and she had been losing weight and no other of 60 pounds over the past 2 years. Earlier this morning, the patient became acutely short of breath and she had oxygen saturation with a postobstructive up in the low 80s. Her d-dimer was elevated at 2.7. A CT angiogram was done and the patient was given diagnosis of pulmonary embolism involving the distal right upper lobe pulmonary artery. There was an expected 3 and the protein in air and this was related to her recent surgery. There was also some thickening of the wall of the GE junction and distal esophagus. There was hypodensity seen in the region of the esopha geal gastric junction that was thought to be postsurgical in nature. Small amount of air was also seen at the extraluminal surrounding the GE junction and the posterior mediastinal adjacent to the esophagus. Bilateral pleural effusion was also seen. The patient was transferred to the cardiac stepdown. D-dimer was at 2.7 with a white cell count of 6.6 and hemoglobin of 10.9 and troponins were negative. Cardiac rhythm was sinus bradycardia with a first-degree AV block at the rate of 63. The patient was started on IV heparin. The patient is on Dilaudid for pain control. On today's evaluation of 03/14/2020, the patient is feeling slightly better. Overnight she was having some pain with breathing and some cough and congestion. Nevertheless this has subsided. I put the patient IV Zosyn. I'm also going to stop the IV heparin. There is no clear indication for pulmonary embolism. Ec hocardiac showed no evidence of any right-sided failure and LV function was within normal limits. Doppler of the lower extremity was negative. Chest x-ray showed interval development of perihilar and basilar infiltrate consistent with pneumonia. The patient is currently on IV Zosyn. She is tolerating clear liquid diet. No swelling lower extremities. Doppler of the lower extremities also negative. Objective - Vital Signs Vital signs: Vital Signs Temp 98.2 F 03/14/20 08:00 Pulse 77 03/14/20 10:00 Resp 23 03/14/20 10:00 BP 138/56 03/14/20 10:00 Pulse Ox 94 L 03/14/20 10:00 Intake & Output 03/13/20 03/14/20 03/14/20 18:59 06:59 18:59 Intake Total 1075 1298.185 375 Output Total 590 1225 1400 Balance 485 73.185 -1025 Weight 52.4 kg Intake: IV 1075 900 375 D5-0.45% NaCl with KCl 1075 900 375 20Meq/l 1,000 ml @ 75 mls /hr IV .[id number] [facility] Rx#: [id number] Intake, IV Titration 148.185 Amount Heparin Sod,Pork in 0.45% 148.185 NaCl 25,000 unit In 0.45 % NaCl 1 250ml.bag @ 18 UNITS/KG/HR 8.9 mls/hr IV .Q24H [facility] Rx#:[id number] Oral 250 Output: Urine 590 1225 1400 Other: Voiding Method Indwelling Catheter Indwelling Catheter Indwelling Catheter # Bowel Movements 0 - Exam Gen: Appearance the patient is calm comfortable active distress. Not using excessive muscle breathing. VS: afebrile, heart rate 69, blood pressure 131/62, pulse ox 93% on 2 L nasal cannula Head exam was generally normal. There was no scleral icterus or corneal arcus. Mucous membranes were moist. Neck was supple and without jugular venous distension, thyromegaly, or carotid bruits. Carotids were easily palpable bilaterally. There was no adenopathy. LUNGS: diminished at the bilateral bases. No wheezes or rhonchi. No intercostal retractions. HEART: Regular rate and rhythm. systolic murmur at the left sternal border. ABDOMEN: Soft. Bowel sounds are present. No masses. No tenderness. surgical puncture sites show no signs of infection EXTREMITIES: No pedal edema. No calf tenderness.dorsalis pedis +2 bilaterally. NEUROLOGICAL: Patient is awake, alert and oriented x3. Cranial nerves 2 through 12 are grossly intact. Results - Labs CBC & Chem 7: 03/14/20 03:15 03/14/20 03:15 Labs: Abnormal Lab Results - Last 24 Hours (Table) 03/13/20 03/13/20 03/13/20 Range/Units 11:38 16:46 17:15 RBC (3.80-5.40) m/uL Hgb 10.7 L (11.4-16.0) gm/dL Hct (34.0-46.0) % MCHC 30.0 L (31.0-37.0) g/dL RDW 15.9 H (11.5-15.5) % APTT 53.5 H (22.0-30.0) sec Sodium (137-145) mmol/L POC Glucose (mg/dL) 132 H (75-99) mg/dL 03/14/20 03/14/20 03/14/20 Range/Units 03:15 03:15 03:15 RBC 3.70 L (3.80-5.40) m/uL Hgb 10.2 L (11.4-16.0) gm/dL Hct 33.2 L (34.0-46.0) % MCHC 30.8 L (31.0-37.0) g/dL RDW 16.0 H (11.5-15.5) % APTT 116.9 H* (22.0-30.0) sec Sodium 133 L (137-145) mmol/L POC Glucose (mg/dL) (75-99) mg/dL Assessment and Plan Plan: 1 acute hypoxic respiratory failure, currently on feeds about 2 by nasal cannula. This occurred following a repair of a paraesophageal hernia that was done on 03/12/2020. CT angios gram of the chest was done. I highly doubt the possibility of pulmonary embolism. Doppler of the lower extremities in progress and the patient is currently on IV heparin. Aspiration is possible as the patient has bilateral lower lobe pulmonary infiltrates and small pleural effusions. The postoperative changes in the distal esophagus was also noted as the patient has some increased hyperdensity in the region of the is of congealed gastric junction in addition to some thickening without evidence of any clear leak. This should be considered and watch for over the next 24 hours. On today's evaluation of 03/14/2020, it's more clear to me that the patient is an aspiration pneumonia. The patient has perihilar pulmonary infiltrates bilaterally. The patient on IV Zosyn. Clinically improved. She is able to take clear liquid diet. Her symptoms improved and the patient is breathing has improved and she is less sore and she is in less pain. She remains on oxygen 2 L per minute nasal cannula. She remains on IV Zosyn. She remains on IV heparin. The echocardiogram showed no evidence of any right ventricular strain pattern and the patient has a preserved LV function. Doppler of the lower extremity has been also negative. 2 chest pain/ shortness of breath secondary to above 3 paraesophageal hernia and the patient underwent laparoscopic repair and the patient is postop day #2 4 coronary artery disease with previous bypass surgery 5 COPD 6 hypertension 7 hyperlipidemia 8 carotid artery stenosis and previous endarterectomy 9 chronic urinary retention 10 with Cardizem 11 Parkinson's disease 12 history of smoking 13 chronic anxiety/depression Plan Stop IV heparin Replaced this patient to Lovenox 40 mg subcu for DVT prophylaxis IV Zosyn for possibility of aspiration pneumonia Check Dopplers of the lower extremity was negative Echocardiogram was noted Oxygen therapy at 2 L minute nasal cannula May need a upper GI series ordered a swallow evaluation/esophagram should there be any concern for any leak at the level of the GE junction. This will be discussed further with general surgery Cardiac enzymes were negative, EKG was negative We'll continue to follow
--- NOTE | 2020-03-14 17:22 | P.PN ---
Subjective Progress Note Date: 03/14/20 CHIEF COMPLAINT: Paraesophageal hiatal hernia repair HISTORY OF PRESENT ILLNESS: The patient is a 85-year-old female status post paraesophageal hiatal hernia repair. She developed dyspnea following her procedure. An A-team protocol was performed including CTA demonstrating possible right pulmonary embolus. As a result the patient was placed on heparin drip. Patient was transferred to the intensive care unit. Pulmonary/critical care team is following. Patient is sitting up at bedside and eating a popsicle. Family is at bedside. She denies any increased abdominal pain. She reports pre-existing difficulty with inspirations due to her COPD. She denies new complaints. ROS: No reports of nausea and vomiting. No fevers or chills. No productive sputum PHYSICAL EXAM: VITAL SIGNS: Reviewed CONSTITUTIONAL: Well developed and in no acute distress. EYES: Conjuctivae without sclera icterus. Extraocular movements grossly intact. HEAD, EARS, NOSE, THROAT: Moist buccal mucosa. Head is atraumatic, normocephalic. Hears conversational speech. No nasal drainage. NECK: Supple. No thyroidomegaly. RESPIRATORY: Non-labored respirations and equal bilateral excursions. CARDIOVASCULAR: Palpable 2+ radial pulses. ABDOMEN: Soft. No peritonitis. MUSCULOSKELETAL: No gross deformity of the lower extremities noted. No clubbing. No cyanosis. SKIN: Good skin turgor. Well perfused. NEUROLOGIC: Cranial nerves II through XII grossly intact. No focal or lateralizing signs. PSYCH: Appropriate affect. Alert and oriented to person, place and time. CLINICAL LABS: White blood cell count normal, 5.8 RADIOLOGY: Chest X-ray report demonstrates new basilar questionable infiltrates. STUDIES: Postoperative esophagram independent review demonstrated no evidence of leaks. No evidence of recurrent hiatal hernia. ASSESSMENT: 1. Paraesophageal hiatal hernia 2. Acute pulmonary embolism per CT 3. COPD 4. Bilateral apical pneumothoraces 5. Bibasilar infiltrates PLAN: 1. Per discussion with patient including family at bedside, patient has been discontinued from heparin drip. 2. At this time, continue Sangita clear liquid diet. 3. May advance diet tomorrow to full liquid diet pending pulmonary stability Objective - Vital Signs Vital signs: Vital Signs Temp 98.3 F 03/14/20 16:00 Pulse 70 03/14/20 17:00 Resp 22 03/14/20 17:00 BP 142/69 03/14/20 17:00 Pulse Ox 95 03/14/20 17:00 Intake & Output 03/13/20 03/14/20 03/14/20 18:59 06:59 18:59 Intake Total 1075 3872.755 8626 Output Total 590 1225 2095 Balance 485 73.185 -1070 Weight 52.4 kg Intake: IV 2584 590 1407 D5-0.45% NaCl with KCl 1075 900 825 20Meq/l 1,000 ml @ 75 mls /hr IV .[id number] [facility] Rx#: [id number] Piperacillin-Tazobactam 3 200 .375 gm In Sodium Chloride 0.9% 100 ml @ 25 mls/hr IVPB Q8HR [facility] Rx# :[id number] Intake, IV Titration 148.185 Amount Heparin Sod,Pork in 0.45% 148.185 NaCl 25,000 unit In 0.45 % NaCl 1 250ml.bag @ 18 UNITS/KG/HR 8.9 mls/hr IV .Q24H [facility] Rx#:[id number] Oral 250 Output: Urine 590 1225 2095 Other: Voiding Method Indwelling Catheter Indwelling Catheter Indwelling Catheter # Bowel Movements 0 - Labs CBC & Chem 7: 03/14/20 03:15 03/14/20 03:15 Labs: Abnormal Lab Results - Last 24 Hours (Table) 03/13/20 03/14/20 03/14/20 Range/Units 17:15 03:15 03:15 RBC 3.70 L (3.80-5.40) m/uL Hgb 10.2 L (11.4-16.0) gm/dL Hct 33.2 L (34.0-46.0) % MCHC 30.8 L (31.0-37.0) g/dL RDW 16.0 H (11.5-15.5) % APTT 53.5 H 116.9 H* (22.0-30.0) sec Sodium (137-145) mmol/L 03/14/20 Range/Units 03:15 RBC (3.80-5.40) m/uL Hgb (11.4-16.0) gm/dL Hct (34.0-46.0) % MCHC (31.0-37.0) g/dL RDW (11.5-15.5) % APTT (22.0-30.0) sec Sodium 133 L (137-145) mmol/L Assessment and Plan (1) Pneumothorax, postprocedural Current Visit: Yes Status: Acute Code(s): J95.811 - POSTPROCEDURAL PNEUMOTHORAX SNOMED Code(s): 916848284 (2) Pulmonary embolism Current Visit: Yes Status: Acute Code(s): I26.99 - OTHER PULMONARY EMBOLISM WITHOUT ACUTE COR PULMONALE SNOMED Code(s): 06205870 (3) COPD (chronic obstructive pulmonary disease) Current Visit: Yes Status: Acute Code(s): J44.9 - CHRONIC OBSTRUCTIVE PULMONARY DISEASE, UNSPECIFIED SNOMED Code(s): 11418912 (4) Paraesophageal hernia Current Visit: Yes Status: Acute Code(s): K44.9 - DIAPHRAGMATIC HERNIA WITHOUT OBSTRUCTION OR GANGRENE SNOMED Code(s): 7573760 (5) Anemia, iron deficiency Current Visit: Yes Status: Acute Code(s): D50.9 - IRON DEFICIENCY ANEMIA, UNSPECIFIED SNOMED Code(s): 50555033
[2020-03-14] MEDS: ASPIRIN 81 MG PO SCH (20:06)
--- NOTE | 2020-03-14 22:31 | P.PN ---
Subjective this is a pleasant 85 years old female with a known history of coronary artery disease, COPD, hypertension, hyperlipidemia. she was admitted for laparoscopic repair of her hiatal hernia and large paraesophageal hiatal hernia . Today is postop day #1 This morning patient was short of breath and chest pain about 9/10, d-dimer was checked was elevated, so CTA of the chest showing pulmonary embolism and patient was started on heparin drip When I saw the patient she states that her dyspnea and chest pain has improved significantly and her chest pain is 0/10. pulmonary team were consulted and they had low suspicion for PE, however aspiration pneumonia is suspected more. 03/14/2020 Patient is seen and examined in the ICU, she is sitting on the chair comfortable, not dyspneic or tachypneic. Patient denies chest pain or dyspnea. She denies any difficulty swallowing or pain on swallowing. Surgery team on the case and the plan to advance diet tomorrow. The suspicion for PE is very low power pulmonary service, Doppler of the lower extremity is negative for DVT, heparin drip was stopped and she was started on Lovenox for DVT prophylaxis. Cardiology on the case and serial troponins and EKG were unremarkable. Echocardiogram showed ejection fraction of 55-60% with normal diastolic patern. CAT scan of the chest showing thickening of the GE junction with a stable postsurgical changes versus air leak and barium swallow studies could be considered for surgery team. Continue with Zosyn for possible aspiration pneumonia Also has left upper lobe nodule about 1 cm that needs follow-up as an outpatient Also patient has Schafer catheter placed by her urologist Dr. Suarez as an outpatient for urinary retention Review of Systems CONSTITUTIONAL: No fever, no malaise, no fatigue. HEENT: No recent visual problems or hearing problems. Denied any sore throat. CARDIOVASCULAR: No orthopnea, PND, no palpitations, no syncope. PULMONARY: no chest wall tenderness, no hemoptysis. GASTROINTESTINAL: No diarrhea, no nausea, no vomiting, no abdominal pain. Normoactive bowel sounds. NEUROLOGICAL: No headaches, no weakness, no numbness. Active Medications Generic Name Dose Route Start Last Admin Trade Name Freq PRN Reason Stop Dose Admin Albuterol Sulfate 2.5 mg 03/12/20 15:05 03/14/20 08:07 Albuterol Nebulized 2.5 Mg/3 Ml INHALATION 2.5 mg RT-QID PRN Administration Shortness Of Breath Ascorbic Acid 500 mg 03/13/20 09:00 03/14/20 09:39 Ascorbic Acid 500 Mg Tab PO 500 mg DAILY [facility] Administration Aspirin 81 mg 03/12/20 21:00 03/14/20 20:06 Aspirin 81 Mg PO 81 mg HS [facility] Administration Atorvastatin Calcium 80 mg 03/13/20 09:00 03/14/20 09:39 Atorvastatin 80 Mg Tab PO 80 mg DAILY [facility] Administration Budesonide/Formoterol Fumarate 2 puff 03/12/20 20:00 03/14/20 20:04 Symbicort 160-4.5 Mcg Inhaler INHALATION 2 puff RT-BID [facility] Administration Bupropion HCl 300 mg 03/13/20 09:00 03/13/20 10:47 Bupropion Xl 300 Mg Tab.Er.24h PO 300 mg Q48H [facility] Administration Bupropion HCl 150 mg 03/14/20 09:00 03/14/20 09:39 Bupropion Xl 150 Mg Tab.Er.24h PO 150 mg Q48H [facility] Administration Citalopram Hydrobromide 40 mg 03/13/20 09:00 03/14/20 09:39 Citalopram Hydrobromide 20 Mg Tab PO 40 mg DAILY [facility] Administration Enoxaparin Sodium 40 mg 03/14/20 10:00 03/14/20 09:35 Enoxaparin 40 Mg/0.4 Ml Syringe SQ 40 mg DAILY [facility] Administration Gabapentin 100 mg 03/12/20 21:00 03/14/20 20:06 Gabapentin 100 Mg Cap PO 100 mg BID [facility] Administration Hydromorphone HCl 0.5 mg 03/12/20 12:21 03/13/20 21:45 Hydromorphone 0.5 Mg/0.5 Ml Syringe IVP 0.5 mg Q4HR PRN Administration Pain Potassium Chloride/Dextrose/Sod Cl 1,000 mls @ 75 mls/hr 03/12/20 12:30 03/14/20 09:39 D5%-1/2ns-Kcl 20 Meq/L Iv Solution IV 75 mls/hr .[id number] [facility] Administration Piperacillin Sod/Tazobactam 100 mls @ 25 mls/hr 03/13/20 14:00 03/14/20 16:52 Sod 3.375 gm/ Sodium Chloride IVPB 25 mls/hr Q8HR [facility] Administration Isosorbide Mononitrate 30 mg 03/13/20 09:00 03/14/20 09:39 Isosorbide Mononitrate Er 30 Mg Tab.Er.24h PO 30 mg DAILY [facility] Administration Levothyroxine Sodium 75 mcg 03/13/20 06:30 03/14/20 06:31 Levothyroxine 75 Mcg Tab PO 75 mcg DAILY@0630 [facility] Administration Lidocaine 1 patch 03/12/20 15:05 Lidocaine 5% Patch TOPICAL DAILY PRN Pain Lidocaine HCl 0.1 ml 03/12/20 05:44 Lidocaine 1% (10mg/Ml) For Iv Start INTRADERMA PER PROTOCOL PRN IV Start Nicotine 1 patch 03/13/20 09:00 03/14/20 09:36 Nicotine 14mg/24hr Patch TRANSDERM 1 patch DAILY [facility] Administration Nitroglycerin 0.4 mg 03/12/20 15:05 03/13/20 15:26 Nitroglycerin Sl Tabs 0.4 Mg Tab SUBLINGUAL 0.4 mg Q5M PRN Administration Pain Ondansetron HCl 4 mg 03/12/20 12:21 Ondansetron 4 Mg/2 Ml Vial IVP Q6HR PRN Nausea And Vomiting Pantoprazole Sodium 40 mg 03/13/20 07:30 03/14/20 06:31 Pantoprazole 40 Mg Tablet PO 40 mg [id number] [facility] Administration Primidone 50 mg 03/13/20 09:00 03/14/20 09:39 Primidone 50 Mg Tab PO 50 mg DAILY [facility] Administration Primidone 250 mg 03/13/20 09:00 03/14/20 09:39 Primidone 250 Mg Tab PO 250 mg DAILY [facility] Administration Objective - Vital Signs Vital signs: Vital Signs Temp 98.3 F 03/14/20 16:00 Pulse 70 03/14/20 17:00 Resp 22 03/14/20 17:00 BP 142/69 03/14/20 17:00 Pulse Ox 95 03/14/20 17:00 Intake & Output 03/13/20 03/14/20 03/14/20 18:59 06:59 18:59 Intake Total 1075 2989.063 4240 Output Total 590 1225 2095 Balance 485 73.185 -1070 Weight 52.4 kg Intake: IV 9616 135 1698 D5-0.45% NaCl with KCl 1075 900 825 20Meq/l 1,000 ml @ 75 mls /hr IV .[id number] [facility] Rx#: [id number] Piperacillin-Tazobactam 3 200 .375 gm In Sodium Chloride 0.9% 100 ml @ 25 mls/hr IVPB Q8HR [facility] Rx# :[id number] Intake, IV Titration 148.185 Amount Heparin Sod,Pork in 0.45% 148.185 NaCl 25,000 unit In 0.45 % NaCl 1 250ml.bag @ 18 UNITS/KG/HR 8.9 mls/hr IV .Q24H [facility] Rx#:[id number] Oral 250 Output: Urine 590 1225 2095 Other: Voiding Method Indwelling Catheter Indwelling Catheter Indwelling Catheter # Bowel Movements 0 - Exam GENERAL: The patient is alert and oriented x3, not in any acute distress. Well developed, well nourished. HEENT: Pupils are round and equally reacting to light. EOMI. No scleral icterus. No conjunctival pallor. Normocephalic, atraumatic. No pharyngeal erythema. No thyromegaly. CARDIOVASCULAR: S1 and S2 present. No murmurs, rubs, or gallops. PULMONARY: Chest is clear to auscultation, no wheezing or crackles. -ABDOMEN: Soft, nontender, nondistended, normoactive bowel sounds. No palpable organomegaly. laparoscopic wounds are intactand healing. Schafer catheter is in place MUSCULOSKELETAL: No joint swelling or deformity. EXTREMITIES: No cyanosis, clubbing, or pedal edema. NEUROLOGICAL: Gross neurological examination did not reveal any focal deficits. SKIN: No rashes. No petechiae - Labs CBC & Chem 7: 03/14/20 03:15 03/14/20 03:15 Labs: Abnormal Lab Results - Last 24 Hours (Table) 03/13/20 03/14/20 03/14/20 Range/Units 17:15 03:15 03:15 RBC 3.70 L (3.80-5.40) m/uL Hgb 10.2 L (11.4-16.0) gm/dL Hct 33.2 L (34.0-46.0) % MCHC 30.8 L (31.0-37.0) g/dL RDW 16.0 H (11.5-15.5) % APTT 53.5 H 116.9 H* (22.0-30.0) sec Sodium (137-145) mmol/L 03/14/20 Range/Units 03:15 RBC (3.80-5.40) m/uL Hgb (11.4-16.0) gm/dL Hct (34.0-46.0) % MCHC (31.0-37.0) g/dL RDW (11.5-15.5) % APTT (22.0-30.0) sec Sodium 133 L (137-145) mmol/L Assessment and Plan Assessment: paraesophageal hernia status post laparoscopic repair Episodic chest pain or dyspnea, suspicion of PE is very low per pulmonary services. Aspiration pneumonia is suspected but patient is on antibiotic Left upper lobe pulmonary nodule about 1 cm that needs follow-up as an outpatient Thickening of the GE junction, possible postsurgical changes versus air leak Chronic urinary retention status post Schafer catheter. Patient follow-up with Dr. Connell as an outpatient hypertension Hyperlipidemia History of coronary artery disease with history of CABG COPD, no acute exacerbation History of carotid artery stenosis status post and direct ectomy Parkinson disease Anxiety and depression, not in active tissue Plan: this is a pleasant 85 years old female who presents for laparoscopic hiatal hernia repair. Complicated by chest pain or dyspnea, pulmonary consult is appreciated, they recommended to start the patient on Zosyn for possible aspiration pneumonia, also follow-up recommendation by cardiology, and surgery primary team. Labs and medication were reviewed.. Continue same treatment. Continue with symptomatic treatment. Resume home medication. Monitor lytes and vitals. DVT and GI prophylaxis. Further recommendations depends on the clinical course of the patient DVT prophylaxis: SC Lovenox GI Prophylaxis: Ppi PT/OT: Pending Thank you for consulting us
[2020-03-15] MEDS: D5-0.45% NACL WITH KCL 20MEQ/L 1,000 ML IV SCH ×2 (02:12→08:58)
[2020-03-15 03:37] LABS: Anisocytosis Slight; Basophils % (A) 0 %; Eosinophils # (A) 0.4 k/uL (0-0.7); Eosinophils % (A) 10 %; HCT 29.6 % (34.0-46.0); HGB 9.3 gm/dL (11.4-16.0); Hypochromasia Moderate; Lymphocytes # (A) 1.3 k/uL (1.0-4.8); Lymphocytes % (A) 31 %; MCH 28.4 pg (25.0-35.0); MCHC 31.3 g/dL (31.0-37.0); MCV 90.8 fL (80.0-100.0); Mean Platelet Volume 7.2; Monocytes # (A) 0.3 k/uL (0-1.0); Monocytes % (A) 7 %; Neutrophils # (A) 2.2 k/uL (1.3-7.7); Neutrophils % (A) 50 %; Platelet Count 219 k/uL (150-450); RBC 3.26 m/uL (3.80-5.40); RDW 16.3 % (11.5-15.5); WBC 4.3 k/uL (3.8-10.6)
[2020-03-15 03:45] LABS: African American GFR (CKD) >90 (>60 ml/min/1.73 sqM); Anion Gap 2 mmol/L; Blood Urea Nitrogen 4 mg/dL (7-17); Calcium 8.2 mg/dL (8.4-10.2); Carbon Dioxide 25 mmol/L (22-30); Chloride 106 mmol/L (98-107); Glucose 98 mg/dL (74-99); Non-African American GFR(CKD) 81 (>60 ml/min/1.73 sqM); Potassium 4.1 mmol/L (3.5-5.1); Sodium 133 mmol/L (137-145)
[2020-03-15] MEDS: LEVOTHYROXINE 75 MCG TAB PO SCH (06:33)
[2020-03-15] MEDS: PANTOPRAZOLE 40 MG TABLET PO SCH (06:33)
[2020-03-15] MEDS: ALBUTEROL NEBULIZED 2.5 MG/3 ML INHALATION PRN ×2 (08:04→11:40)
[2020-03-15] MEDS: NICOTINE 14MG/24HR PATCH TRANSDERM SCH (08:57)
[2020-03-15] MEDS: PIPERACILLIN-TAZOBACTAM 3.375 GM in SODIUM CHLORIDE 0.9% 100 ML IVPB SCH ×2 (08:57→16:06)
[2020-03-15] MEDS: ATORVASTATIN 80 MG TAB PO SCH (09:06)
[2020-03-15] MEDS: ASCORBIC ACID 500 MG TAB PO SCH (09:06)
[2020-03-15] MEDS: CITALOPRAM HYDROBROMIDE 20 MG TAB PO SCH (09:06)
[2020-03-15] MEDS: buPROPion XL 300 MG TAB.ER.24H PO SCH (09:06)
[2020-03-15] MEDS: ISOSORBIDE MONONITRATE ER 30 MG TAB.ER.24H PO SCH (09:07)
[2020-03-15] MEDS: ENOXAPARIN 40 MG/0.4 ML SYRINGE SQ SCH (09:07)
[2020-03-15] MEDS: PRIMIDONE 50 MG TAB PO SCH (09:07)
[2020-03-15] MEDS: GABAPENTIN 100 MG CAP PO SCH ×2 (09:07→21:27)
[2020-03-15] MEDS: PRIMIDONE 250 MG TAB PO SCH (09:08)
--- NOTE | 2020-03-15 10:06 | XR ---
EXAMINATION TYPE: XR chest 1V portable DATE OF EXAM: 03/15/2020 CLINICAL HISTORY: Pneumonia TECHNIQUE: Portable semiupright view of the chest COMPARISON: None FINDINGS: Sternotomy wires. The cardiomediastinal silhouette is within normal limits for size. Pulmon nesha vasculature is normal. Persistent perihilar airspace opacities, mildly decreased in the left onelia hilar region. No pneumothorax seen. Redemonstrated kyphoplasty changes. IMPRESSION: Persistent perihilar airspace opacities, mildly decreased on the left versus 03/14/2020.
--- NOTE | 2020-03-15 10:48 | P.PN ---
Subjective Progress Note Date: 03/15/20 CHIEF COMPLAINT: Paraesophageal hernia HISTORY OF PRESENT ILLNESS: Status post Laparoscopic repair of paraesophageal hernia with mesh. She developed dyspnea following her procedure. An A-team protocol was performed including CTA demonstrating possible right pulmonary embolus. As a result the patient was placed on heparin drip. Patient was transferred to the intensive care unit. Pulmonary/critical care team is following. They felt patient likely did not have a PE. There are concerns about aspiration pneumonia. She's on antibiotics. And she is being evaluated by speech therapy for swallow evaluation. Patient is sitting up in bed. She does report pain with taking a deep breath. She is having flatus. Denies bowel movement. Denies any nausea or vomiting. She denies any difficulty with swallowing. She denies coughing with swallowing. She is currently on Sangita clears. Afebrile. WBC 4.3 hemoglobin 9.3 Chest x-ray persistent perihilar airspace opacities, mildly decreased on the l eft PHYSICAL EXAM: VITAL SIGNS: Reviewed. GENERAL: Well-developed in no acute distress. HEENT: No sclera icterus. Extraocular movements grossly intact. Moist buccal mucosa. Head is atraumatic, normocephalic. ABDOMEN: Soft. Nondistended. Incision sites clean dry and intact NEUROLOGIC: Alert and oriented. Cranial nerves II through XII grossly intact. ASSESSMENT: 1. Paraesophageal hiatal hernia status post laparoscopic repair with mesh postop day #3 2. Aspiration pneumonia 3. COPD PLAN: -Speech therapy to evaluate patient's swallowing due to concerns for possible aspiration pneumonia -Continue antibiotics per pulmonary service Physician [employer] Auditor note has been reviewed by physician. Signing provider agrees with the documented findings, assessment, and plan of care. Objective - Vital Signs Vital signs: Vital Signs Temp 98.4 F 03/15/20 08:00 Pulse 76 03/15/20 08:15 Resp 19 03/15/20 08:00 BP 146/52 03/15/20 08:00 Pulse Ox 95 03/15/20 08:00 Intake & Output 03/14/20 03/15/20 03/15/20 18:59 06:59 18:59 Intake Total 1100 1150 235 Output Total 0552 7339 590 Balance -1085 -965 -355 Weight 51.2 kg Intake: IV 1100 900 135 D5-0.45% NaCl with KCl 900 900 135 20Meq/l 1,000 ml @ 75 mls /hr IV .[id number] [facility] Rx#: [id number] Piperacillin-Tazobactam 3 200 .375 gm In Sodium Chloride 0.9% 100 ml @ 25 mls/hr IVPB Q8HR [facility] Rx# :[id number] Intake, IV Titration 100 Amount Piperacillin-Tazobactam 3 100 .375 gm In Sodium Chloride 0.9% 100 ml @ 25 mls/hr IVPB Q8HR [facility] Rx# :[id number] Oral 250 Output: Urine 2185 2115 590 Other: Voiding Method Indwelling Catheter Indwelling Catheter Indwelling Catheter # Bowel Movements 0 0 - Labs CBC & Chem 7: 03/15/20 03:20 03/15/20 03:20 Labs: Abnormal Lab Results - Last 24 Hours (Table) 03/15/20 03/15/20 Range/Units 03:20 03:20 RBC 3.26 L (3.80-5.40) m/uL Hgb 9.3 L (11.4-16.0) gm/dL Hct 29.6 L (34.0-46.0) % RDW 16.3 H (11.5-15.5) % Sodium 133 L (137-145) mmol/L BUN 4 L (7-17) mg/dL Calcium 8.2 L (8.4-10.2) mg/dL
[2020-03-15] MEDS: SYMBICORT 160-4.5 MCG INHALER INHALATION SCH ×2 (11:39→19:06)
--- NOTE | 2020-03-15 12:53 | P.PN ---
Subjective Progress Note Date: 03/15/20 Principal diagnosis: Acute hypoxic respiratory failure, suspect aspiration pneumonia 85-year-old female patient, known history of coronary artery disease and please bypass surgery in 2009 in addition to history of COPD, carotid artery disease with previous endarterectomy along with hypertension and hyperlipidemia as comorbid conditions. The patient was Hospital as back in January 2024 stool impaction and constipation and during the same hospital admission the patient was seen by cardiology and the patient was diagnosed having syncope secondary to bradycardia and high degree AV block and at that time the patient had a normal preserved LV function with an ejection fraction of 55-60% along with moderate concentric LVH and diastolic failure and mild MR. The patient was brought into the hospital for laparoscopic repair of a paraesophageal hernia with mesh and the surgery was done on 03/12/2020.The patient was having difficulty with forward an oral intake and she had been losing weight and no other of 60 pounds over the past 2 years. Earlier this morning, the patient became acutely short of breath and she had oxygen saturation with a postobstructive up in the low 80s. Her d-dimer was elevated at 2.7. A CT angiogram was done and the patient was given diagnosis of pulmonary embolism involving the distal right upper lobe pulmonary artery. There was an expected 3 and the protein in air and this was related to her recent surgery. There was also some thickening of the wall of the GE junction and distal esophagus. There was hypodensity seen in the region of the esophageal gastric junction that was thought to be postsurgical in nature. Small amount of air was also seen at the extraluminal surrounding the GE junction and the posterior mediastinal adjacent to the esophagus. Bilateral pleural effusion was also seen. The patient was transferred to the cardiac stepdown. D-dimer was at 2.7 with a white cell count of 6.6 and hemoglobin of 10.9 and troponins were negative. Cardiac rhythm was sinus bradycardia with a first-degree AV block at the rate of 63. The patient was started on IV heparin. The patient is on Dilaudid for pain control. On today's evaluation of 03/14/2020, the patient is feeling slightly better. Overnight she was having some pain with breathing and some cough and congestion. Nevertheless this has subsided. I put the patient IV Zosyn. I'm also going to stop the IV heparin. There is no clear indication for pulmonary embolism. Echocardiac showed no evidence of any right-sided failure and LV function was within normal limits. Doppler of the lower extremity was negative. Chest x-ray showed interval development of perihilar and basilar infiltrate consistent with pneumonia. The patient is currently on IV Zosyn. She is tolerating clear liquid diet. No swelling lower extremities. Doppler of the lower extremities also negative. Patient was reevaluated today on 03/15/20, remains in the ICU, patient is being treated for aspiration pneumonia, remains on Zosyn. She is to be seen by speech pathologist for evaluation of aspiration and assessment of swallowing mechanism. Patient is on 2 L nasal cannula with O2 saturation 94%, hemodynamically stable, not requiring any pressors, she is on Lovenox at 40 mg subcu daily. Her IV heparin was discontinued as index of suspicion for pulmonary embolism is rather low. Patient is comfortable, she is status post laparoscopic hernia repair on 03/22/20. His also known to have history of GERD and esophagitis. CBC today is relatively normal hemoglobin is 9.3 electrolytes are normal renal profile is normal. Chest x-ray showed persistent perihilar airspace opacities most consistent with aspiration pneumonia Objective - Vital Signs Vital signs: Vital Signs Temp 98.4 F 03/15/20 12:00 Pulse 81 03/15/20 12:00 Resp 18 03/15/20 12:00 BP 138/64 03/15/20 12:00 Pulse Ox 96 03/15/20 12:00 Intake & Output 03/14/20 03/15/20 03/15/20 18:59 06:59 18:59 Intake Total 1100 1150 275 Output Total 2185 2115 890 Balance -1085 -965 -615 Weight 51.2 kg Intake: IV 1100 900 175 D5-0.45% NaCl with KCl 900 900 175 20Meq/l 1,000 ml @ 75 mls /hr IV .[id number] [facility] Rx#: [id number] Piperacillin-Tazobactam 3 200 .375 gm In Sodium Chloride 0.9% 100 ml @ 25 mls/hr IVPB Q8HR [facility] Rx# :[id number] Intake, IV Titration 100 Amount Piperacillin-Tazobactam 3 100 .375 gm In Sodium Chloride 0.9% 100 ml @ 25 mls/hr IVPB Q8HR [facility] Rx# :[id number] Oral 250 Output: Urine 2185 2113 890 Other: Voiding Method Indwelling Catheter Indwelling Catheter Indwelling Catheter # Bowel Movements 0 0 - Exam GENERAL: Revealed an 85-year-old female, pleasant, in no distress. On 2 L nasal cannula. Head: Atraumatic, normocephalic. HEENT: PERRLA, EOMI, neck is supple, dry mucous membranes. CARDIOVASCULAR: Normal S1 and S2, no S3 gallop. No murmur. Chest: Symmetrical chest expansion, no crackles or rhonchi or wheezes. ABDOMEN: Soft, nontender, nondistended, normoactive bowel sounds. No palpable organomegaly. laparoscopic wounds are intactand healing. Schafer catheter is in place MUSCULOSKEL: no deformities, normal range of motion. EXTREMITIES: no clubbing, edema or cyanosis. Neurological: Alert and oriented 3 focal deficits. SKIN: No rashes. No petechiae - Labs CBC & Chem 7: 03/15/20 03:20 03/15/20 03:20 Labs: Abnormal Lab Results - Last 24 Hours (Table) 03/15/20 03/15/20 Range/Units 03:20 03:20 RBC 3.26 L (3.80-5.40) m/uL Hgb 9.3 L (11.4-16.0) gm/dL Hct 29.6 L (34.0-46.0) % RDW 16.3 H (11.5-15.5) % Sodium 133 L (137-145) mmol/L BUN 4 L (7-17) mg/dL Calcium 8.2 L (8.4-10.2) mg/dL Assessment and Plan Assessment: Impression: Acute hypoxic respiratory failure, most likely secondary to aspiration pneumonia, clinically strongly doubt pulmonary embolism. Paraesophageal hernia and status post laparoscopic repair patient is postoperative day #3. Coronary artery disease and previous CABG. Underlying COPD but relatively inactive Benign essential hypertension. Dyslipidemia. Carotid artery stenosis and previous endarterectomy. Parkinson's disease. Generalized anxiety disorder. Recommendation: Continue Zosyn for aspiration pneumonia. Speech therapy to evaluate. Continue Lovenox subcu for DVT prophylaxis. Continue oxygen and titrate accordingly. Surgery to evaluate and possibly consider esophagogram if there is a concern about leak at the GE junction. We'll continue to follow, Transfer patient out of the ICU to a surgical floor. Incentive spirometry. Early ambulation Time with Patient: Less than 30
[2020-03-15 15:25] VITALS: BMI 22.0
[2020-03-15] MEDS: ASPIRIN 81 MG PO SCH (20:26)
--- NOTE | 2020-03-15 20:53 | P.PN ---
Subjective this is a pleasant 85 years old female with a known history of coronary artery disease, COPD, hypertension, hyperlipidemia. she was admitted for laparoscopic repair of her hiatal hernia and large paraesophageal hiatal hernia . Today is postop day #1 This morning patient was short of breath and chest pain about 9/10, d-dimer was checked was elevated, so CTA of the chest showing pulmonary embolism and patient was started on heparin drip When I saw the patient she states that her dyspnea and chest pain has improved significantly and her chest pain is 0/10. pulmonary team were consulted and they had low suspicion for PE, however aspiration pneumonia is suspected more. 03/14/2020 Patient is seen and examined in the ICU, she is sitting on the chair comfortable, not dyspneic or tachypneic. Patient denies chest pain or dyspnea. She denies any difficulty swallowing or pain on swallowing. Surgery team on the case and the plan to advance diet tomorrow. The suspicion for PE is very low power pulmonary service, Doppler of the lower extremity is negative for DVT, heparin drip was stopped and she was started on Lovenox for DVT prophylaxis. Cardiology on the case and serial troponins and EKG were unremarkable. Echocardiogram showed ejection fraction of 55-60% with normal diastolic patern. CAT scan of the chest showing thickening of the GE junction with a stable postsurgical changes versus air leak and barium swallow studies could be considered for surgery team. Continue with Zosyn for possible aspiration pneumonia Also has left upper lobe nodule about 1 cm that needs follow-up as an outpatient Also patient has Schafer catheter placed by her urologist Dr. Suarez as an outpatient for urinary retention 03/15/2020 Patient remains in the ICU with no chest pain or dyspnea, she little bit generally weak however she is fully awake and oriented, daughter at bedside and they refuse going to rehab upon discharge Vital signs REVIEWED the looks stable, she is saturating 90 cm oxygen. Heparin drip was stopped and she continue on subcutaneous Lovenox. Wellbutrin is been tapered down Patient remains on Zosyn for spell aspiration pneumonia Pulmonary and surgery team on the case Review of Systems CONSTITUTIONAL: No fever, no malaise, no fatigue. HEENT: No recent visual problems or hearing problems. Denied any sore throat. CARDIOVASCULAR: No orthopnea, PND, no palpitations, no syncope. PULMONARY: no chest wall tenderness, no hemoptysis. GASTROINTESTINAL: No diarrhea, no nausea, no vomiting, no abdominal pain. Normoactive bowel sounds. NEUROLOGICAL: No headaches, no weakness, no numbness. Active Medications Generic Name Dose Route Start Last Admin Trade Name Freq PRN Reason Stop Dose Admin Albuterol Sulfate 2.5 mg 03/12/20 15:05 03/15/20 11:40 Albuterol Nebulized 2.5 Mg/3 Ml INHALATION 2.5 mg RT-QID PRN Administration Shortness Of Breath Ascorbic Acid 500 mg 03/13/20 09:00 03/15/20 09:06 Ascorbic Acid 500 Mg Tab PO 500 mg DAILY [facility] Administration Aspirin 81 mg 03/12/20 21:00 03/15/20 20:26 Aspirin 81 Mg PO 81 mg HS [facility] Administration Atorvastatin Calcium 80 mg 03/13/20 09:00 03/15/20 09:06 Atorvastatin 80 Mg Tab PO 80 mg DAILY [facility] Administration Budesonide/Formoterol Fumarate 2 puff 03/12/20 20:00 03/15/20 19:06 Symbicort 160-4.5 Mcg Inhaler INHALATION 2 puff RT-BID [facility] Administration Bupropion HCl 300 mg 03/13/20 09:00 03/15/20 09:06 Bupropion Xl 300 Mg Tab.Er.24h PO 300 mg Q48H [facility] Administration Bupropion HCl 150 mg 03/14/20 09:00 03/14/20 09:39 Bupropion Xl 150 Mg Tab.Er.24h PO 150 mg Q48H [facility] Administration Citalopram Hydrobromide 40 mg 03/13/20 09:00 03/15/20 09:06 Citalopram Hydrobromide 20 Mg Tab PO 40 mg DAILY [facility] Administration Enoxaparin Sodium 40 mg 03/14/20 10:00 03/15/20 09:07 Enoxaparin 40 Mg/0.4 Ml Syringe SQ 40 mg DAILY [facility] Administration Gabapentin 100 mg 03/12/20 21:00 03/15/20 09:07 Gabapentin 100 Mg Cap PO 100 mg BID [facility] Administration Hydromorphone HCl 0.5 mg 03/12/20 12:21 03/13/20 21:45 Hydromorphone 0.5 Mg/0.5 Ml Syringe IVP 0.5 mg Q4HR PRN Administration Pain Piperacillin Sod/Tazobactam 100 mls @ 25 mls/hr 03/13/20 14:00 03/15/20 16:06 Sod 3.375 gm/ Sodium Chloride IVPB 25 mls/hr Q8HR [facility] Administration Potassium Chloride/Dextrose/Sod Cl 1,000 mls @ 20 mls/hr 03/15/20 08:45 03/15/20 08:58 D5%-1/2ns-Kcl 20 Meq/L Iv Solution IV Not Given .Q24H [facility] Isosorbide Mononitrate 30 mg 03/13/20 09:00 03/15/20 09:07 Isosorbide Mononitrate Er 30 Mg Tab.Er.24h PO 30 mg DAILY [facility] Administration Levothyroxine Sodium 75 mcg 03/13/20 06:30 03/15/20 06:33 Levothyroxine 75 Mcg Tab PO 75 mcg DAILY@0630 [facility] Administration Lidocaine 1 patch 03/12/20 15:05 Lidocaine 5% Patch TOPICAL DAILY PRN Pain Lidocaine HCl 0.1 ml 03/12/20 05:44 Lidocaine 1% (10mg/Ml) For Iv Start INTRADERMA PER PROTOCOL PRN IV Start Nicotine 1 patch 03/13/20 09:00 03/15/20 08:57 Nicotine 14mg/24hr Patch TRANSDERM 1 patch DAILY [facility] Administration Nitroglycerin 0.4 mg 03/12/20 15:05 03/13/20 15:26 Nitroglycerin Sl Tabs 0.4 Mg Tab SUBLINGUAL 0.4 mg Q5M PRN Administration Pain Ondansetron HCl 4 mg 03/12/20 12:21 Ondansetron 4 Mg/2 Ml Vial IVP Q6HR PRN Nausea And Vomiting Pantoprazole Sodium 40 mg 03/13/20 07:30 03/15/20 06:33 Pantoprazole 40 Mg Tablet PO 40 mg AC-[id number] [facility] Administration Primidone 50 mg 03/13/20 09:00 03/15/20 09:07 Primidone 50 Mg Tab PO 50 mg DAILY [facility] Administration Primidone 250 mg 03/13/20 09:00 03/15/20 09:08 Primidone 250 Mg Tab PO 250 mg DAILY [facility] Administration Objective - Vital Signs Vital signs: Vital Signs Temp 98.4 F 03/15/20 16:00 Pulse 81 03/15/20 16:00 Resp 19 03/15/20 16:00 BP 140/61 03/15/20 16:00 Pulse Ox 95 03/15/20 16:00 Intake & Output 03/14/20 03/15/20 03/15/20 18:59 06:59 18:59 Intake Total 1100 1150 505 Output Total 2185 2115 1170 Balance -1085 -965 -665 Weight 51.2 kg 51.2 kg Intake: IV 1100 900 255 D5-0.45% NaCl with KCl 900 900 255 20Meq/l 1,000 ml @ 75 mls /hr IV .[id number] [facility] Rx#: [id number] Piperacillin-Tazobactam 3 200 .375 gm In Sodium Chloride 0.9% 100 ml @ 25 mls/hr IVPB Q8HR [facility] Rx# :[id number] Intake, IV Titration 200 Amount Piperacillin-Tazobactam 3 200 .375 gm In Sodium Chloride 0.9% 100 ml @ 25 mls/hr IVPB Q8HR [facility] Rx# :[id number] Oral 250 50 Output: Urine 2185 2115 1170 Other: Voiding Method Indwelling Catheter Indwelling Catheter Indwelling Catheter # Bowel Movements 0 0 - Exam GENERAL: The patient is alert and oriented x3, not in any acute distress. Well developed, well nourished. HEENT: Pupils are round and equally reacting to light. EOMI. No scleral icterus. No conjunctival pallor. Normocephalic, atraumatic. No pharyngeal erythema. No thyromegaly. CARDIOVASCULAR: S1 and S2 present. No murmurs, rubs, or gallops. PULMONARY: Chest is clear to auscultation, no wheezing or crackles. -ABDOMEN: Soft, nontender, nondistended, normoactive bowel sounds. No palpable organomegaly. laparoscopic wounds are intactand healing. Schafer catheter is in place MUSCULOSKELETAL: No joint swelling or deformity. EXTREMITIES: No cyanosis, clubbing, or pedal edema. NEUROLOGICAL: Gross neurological examination did not reveal any focal deficits. SKIN: No rashes. No petechiae - Labs CBC & Chem 7: 03/15/20 03:20 03/15/20 03:20 Labs: Abnormal Lab Results - Last 24 Hours (Table) 03/15/20 03/15/20 Range/Units 03:20 03:20 RBC 3.26 L (3.80-5.40) m/uL Hgb 9.3 L (11.4-16.0) gm/dL Hct 29.6 L (34.0-46.0) % RDW 16.3 H (11.5-15.5) % Sodium 133 L (137-145) mmol/L BUN 4 L (7-17) mg/dL Calcium 8.2 L (8.4-10.2) mg/dL Assessment and Plan Assessment: paraesophageal hernia status post laparoscopic repair Episodic chest pain or dyspnea, suspicion of PE is very low per pulmonary services. Aspiration pneumonia is suspected but patient is on antibiotic Left upper lobe pulmonary nodule about 1 cm that needs follow-up as an outpatient Thickening of the GE junction, possible postsurgical changes versus air leak Chronic urinary retention status post Schafer catheter. Patient follow-up with Dr. Connell as an outpatient hypertension Hyperlipidemia History of coronary artery disease with history of CABG COPD, no acute exacerbation History of carotid artery stenosis status post and direct ectomy Parkinson disease Anxiety and depression, not in active tissue Plan: this is a pleasant 85 years old female who presents for laparoscopic hiatal hernia repair. Complicated by chest pain or dyspnea, pulmonary consult is appreciated, they recommended to start the patient on Zosyn for possible aspiration pneumonia, also follow-up recommendation by cardiology, and surgery primary team. Labs and medication were reviewed.. Continue same treatment. Continue with symptomatic treatment. Resume home medication. Monitor lytes and vitals. DVT and GI prophylaxis. Further recommendations depends on the clinical course of the patient DVT prophylaxis: SC Lovenox GI Prophylaxis: Ppi PT/OT: Pending Thank you for consulting us
[2020-03-16] MEDS: PIPERACILLIN-TAZOBACTAM 3.375 GM in SODIUM CHLORIDE 0.9% 100 ML IVPB SCH ×4 (00:34→23:53)
[2020-03-16 03:48] LABS: Anisocytosis Slight; Basophils % (A) 0 %; Eosinophils # (A) 0.5 k/uL (0-0.7); Eosinophils % (A) 8 %; HCT 33.1 % (34.0-46.0); HGB 10.6 gm/dL (11.4-16.0); Hypochromasia Moderate; Lymphocytes # (A) 1.1 k/uL (1.0-4.8); Lymphocytes % (A) 18 %; MCHC 32.1 g/dL (31.0-37.0); MCV 90.4 fL (80.0-100.0); Mean Platelet Volume 7.1; Monocytes # (A) 0.4 k/uL (0-1.0); Monocytes % (A) 6 %; Neutrophils # (A) 4.2 k/uL (1.3-7.7); Neutrophils % (A) 67 %; Platelet Count 228 k/uL (150-450); RBC 3.66 m/uL (3.80-5.40); RDW 16.4 % (11.5-15.5); WBC 6.3 k/uL (3.8-10.6)
[2020-03-16 04:04] LABS: African American GFR (CKD) >90 (>60 ml/min/1.73 sqM); Anion Gap 5 mmol/L; Blood Urea Nitrogen 5 mg/dL (7-17); Calcium 8.6 mg/dL (8.4-10.2); Carbon Dioxide 21 mmol/L (22-30); Chloride 108 mmol/L (98-107); Glucose 94 mg/dL (74-99); Non-African American GFR(CKD) 80 (>60 ml/min/1.73 sqM); Potassium 4.3 mmol/L (3.5-5.1); Sodium 134 mmol/L (137-145)
[2020-03-16] MEDS: PANTOPRAZOLE 40 MG TABLET PO SCH (06:10)
[2020-03-16] MEDS: LEVOTHYROXINE 75 MCG TAB PO SCH (06:10)
[2020-03-16] MEDS: SYMBICORT 160-4.5 MCG INHALER INHALATION SCH ×2 (09:06→20:36)
[2020-03-16] MEDS: PRIMIDONE 50 MG TAB PO SCH (09:17)
[2020-03-16] MEDS: CITALOPRAM HYDROBROMIDE 20 MG TAB PO SCH (09:17)
[2020-03-16] MEDS: buPROPion XL 150 MG TAB.ER.24H PO SCH (09:18)
[2020-03-16] MEDS: GABAPENTIN 100 MG CAP PO SCH ×2 (09:18→19:55)
[2020-03-16] MEDS: ENOXAPARIN 40 MG/0.4 ML SYRINGE SQ SCH (09:18)
[2020-03-16] MEDS: NICOTINE 14MG/24HR PATCH TRANSDERM SCH (09:18)
[2020-03-16] MEDS: ISOSORBIDE MONONITRATE ER 30 MG TAB.ER.24H PO SCH (09:18)
[2020-03-16] MEDS: ASCORBIC ACID 500 MG TAB PO SCH (09:18)
[2020-03-16] MEDS: ATORVASTATIN 80 MG TAB PO SCH (09:18)
[2020-03-16] MEDS: PRIMIDONE 250 MG TAB PO SCH (09:19)
[2020-03-16] MEDS: D5-0.45% NACL WITH KCL 20MEQ/L 1,000 ML IV SCH (09:19)
--- NOTE | 2020-03-16 09:24 | XR ---
EXAMINATION TYPE: XR chest 1V portable DATE OF EXAM: 03/16/2020 CLINICAL HISTORY: Pneumonia TECHNIQUE: Portable semiupright view of the chest COMPARISON: 03/15/2020 FINDINGS: Sternotomy wires. The cardiomediastinal silhouette is within normal limits for size. Chron ic interstitial coarsening. Perihilar airspace opacities appear similar to 03/15/2020. Small left ple ural effusion. No pneumothorax. The osseous structures are intact. IMPRESSION: Perihilar airspace opacities appear similar to 03/15/2020. Small left pleural effusion.
--- NOTE | 2020-03-16 12:17 | P.PN ---
Subjective Progress Note Date: 03/16/20 Principal diagnosis: Acute hypoxic respiratory failure, suspect aspiration pneumonia 85-year-old female patient, known history of coronary artery disease and please bypass surgery in 2009 in addition to history of COPD, carotid artery disease with previous endarterectomy along with hypertension and hyperlipidemia as comorbid conditions. The patient was Hospital as back in January 2024 stool impaction and constipation and during the same hospital admission the patient was seen by cardiology and the patient was diagnosed having syncope secondary to bradycardia and high degree AV block and at that time the patient had a normal preserved LV function with an ejection fraction of 55-60% along with moderate concentric LVH and diastolic failure and mild MR. The patient was brought into the hospital for laparoscopic repair of a paraesophageal hernia with mesh and the surgery was done on 03/12/2020.The patient was having difficulty with forward an oral intake and she had been losing weight and no other of 60 pounds over the past 2 years. Earlier this morning, the patient became acutely short of breath and she had oxygen saturation with a postobstructive up in the low 80s. Her d-dimer was elevated at 2.7. A CT angiogram was done and the patient was given diagnosis of pulmonary embolism involving the distal right upper lobe pulmonary artery. There was an expected 3 and the protein in air and this was related to her recent surgery. There was also some thickening of the wall of the GE junction and distal esophagus. There was hypodensity seen in the region of the esophageal gastric junction that was thought to be postsurgical in nature. Small amount of air was also seen at the extraluminal surrounding the GE junction and the posterior mediastinal adjacent to the esophagus. Bilateral pleural effusion was also seen. The patient was transferred to the cardiac stepdown. D-dimer was at 2.7 with a white cell count of 6.6 and hemoglobin of 10.9 and troponins were negative. Cardiac rhythm was sinus bradycardia with a first-degree AV block at the rate of 63. The patient was started on IV heparin. The patient is on Dilaudid for pain control. On today's evaluation of 03/14/2020, the patient is feeling slightly better. Overnight she was having some pain with breathing and some cough and congestion. Nevertheless this has subsided. I put the patient IV Zosyn. I'm also going to stop the IV heparin. There is no clear indication for pulmonary embolism. Echocardiac showed no evidence of any right-sided failure and LV function was within normal limits. Doppler of the lower extremity was negative. Chest x-ray showed interval development of perihilar and basilar infiltrate consistent with pneumonia. The patient is currently on IV Zosyn. She is tolerating clear liquid diet. No swelling lower extremities. Doppler of the lower extremities also negative. Patient was reevaluated today on 03/15/20, remains in the ICU, patient is being treated for aspiration pneumonia, remains on Zosyn. She is to be seen by speech pathologist for evaluation of aspiration and assessment of swallowing mechanism. Patient is on 2 L nasal cannula with O2 saturation 94%, hemodynamically stable, not requiring any pressors, she is on Lovenox at 40 mg subcu daily. Her IV heparin was discontinued as index of suspicion for pulmonary embolism is rather low. Patient is comfortable, she is status post laparoscopic hernia repair on 03/22/20. His also known to have history of GERD and esophagitis. CBC today is relatively normal hemoglobin is 9.3 electrolytes are normal renal profile is normal. Chest x-ray showed persistent perihilar airspace opacities most consistent with aspiration pneumonia Reevaluated today on 03/16/20, patient is in the ICU as an overflow. Patient is doing great, is presently on room air with O2 saturation of 92%. IV fluids at KVO D5 45. She is hemodynamically stable, she is in sinus rhythm rate of 97. She is status post paraesophageal hernia repair and she developed postoperative aspiration pneumonia. Chest x-ray continues to show by basilar infiltrates. I plan to transfer the patient out of the ICU to a regular medical floor today. Chest x-ray was reviewed CBC is relatively normal no evidence of leukocytosis. Electrolytes are normal and renal profile is normal. Objective - Vital Signs Vital signs: Vital Signs Temp 98 F 03/16/20 08:00 Pulse 66 03/16/20 08:00 Resp 19 03/16/20 08:00 BP 157/57 03/16/20 08:00 Pulse Ox 94 L 03/16/20 08:00 Intake & Output 03/15/20 03/16/20 03/16/20 18:59 06:59 18:59 Intake Total 505 260 100 Output Total 1170 880 500 Balance -665 -620 -400 Weight 51.2 kg 50.4 kg Intake: IV 255 180 100 D5-0.45% NaCl with KCl 255 80 20Meq/l 1,000 ml @ 75 mls /hr IV .[id number] [facility] Rx#: [id number] Piperacillin-Tazobactam 3 100 100 .375 gm In Sodium Chloride 0.9% 100 ml @ 25 mls/hr IVPB Q8HR [facility] Rx# :[id number] Intake, IV Titration 200 80 Amount D5-0.45% NaCl with KCl 80 20Meq/l 1,000 ml @ 20 mls /hr IV .Q24H [facility] Rx#: [id number] Piperacillin-Tazobactam 3 200 .375 gm In Sodium Chloride 0.9% 100 ml @ 25 mls/hr IVPB Q8HR [facility] Rx# :[id number] Oral 50 Output: Urine 1170 880 500 Other: Voiding Method Indwelling Catheter Indwelling Catheter Indwelling Catheter # Bowel Movements 0 - Exam GENERAL: Revealed an 85-year-old female, pleasant, in no distress. Presently on room air. Head: Atraumatic, normocephalic. HEENT: PERRLA, EOMI, neck is supple, moist mucous membranes. CARDIOVASCULAR: Normal S1 and S2, no S3 gallop. No murmur. Chest: Symmetrical chest expansion, very fine crackles at the right base. No rhonchi, no wheezes. ABDOMEN: Soft, nontender, nondistended, normoactive bowel sounds. No palpable organomegaly. laparoscopic wounds are healing Schafer catheter is in place MUSCULOSKEL: no deformities, normal range of motion. EXTREMITIES: no clubbing, edema or cyanosis. Neurological: Alert and oriented 3 focal deficits. SKIN: No rashes. No petechiae - Labs CBC & Chem 7: 03/16/20 03:27 03/16/20 03:27 Labs: Abnormal Lab Results - Last 24 Hours (Table) 03/16/20 03/16/20 Range/Units 03:27 03:27 RBC 3.66 L (3.80-5.40) m/uL Hgb 10.6 L (11.4-16.0) gm/dL Hct 33.1 L (34.0-46.0) % RDW 16.4 H (11.5-15.5) % Sodium 134 L (137-145) mmol/L Chloride 108 H (98-107) mmol/L Carbon Dioxide 21 L (22-30) mmol/L BUN 5 L (7-17) mg/dL Assessment and Plan Assessment: Impression: Acute hypoxic respiratory failure, most likely secondary to aspiration pneumonia, clinically strongly doubt pulmonary embolism. Paraesophageal hernia and status post laparoscopic repair patient is postopera tive day #4 Coronary artery disease and previous CABG. Underlying COPD but relatively inactive Benign essential hypertension. Dyslipidemia. Carotid artery stenosis and previous endarterectomy. Parkinson's disease. Generalized anxiety disorder. Recommendation: Continue Zosyn for aspiration pneumonia. Advanced feeding as tolerated. And as recommended by speech pathology. Continue DVT prophylaxis. Discontinue oxygen. Transfer to a medical surgical floor today. Incentive spirometry. Ambulate. We will continue to follow Time with Patient: Less than 30
--- NOTE | 2020-03-16 12:26 | P.PN ---
Subjective Progress Note Date: 03/16/20 CHIEF COMPLAINT: Paraesophageal hernia HISTORY OF PRESENT ILLNESS: Status post Laparoscopic repair of paraesophageal hernia with mesh. She developed dyspnea following her procedure. patient did pass her swallow evaluation. She had an esophagram After her surgery on 03/12/2020 which showed no evidence of leak. Patient's pain is controlled. Denies any nausea or vomiting. She is afebrile. White count 6.3 PHYSICAL EXAM: VITAL SIGNS: Reviewed. GENERAL: Well-developed in no acute distress. HEENT: No sclera icterus. Extraocular movements grossly intact. Moist buccal mucosa. Head is atraumatic, normocephalic. ABDOMEN: Soft. Nondistended. Incision sites clean dry and intact NEUROLOGIC: Alert and oriented. Cranial nerves II through XII grossly intact. ASSESSMENT: 1. Paraesophageal hiatal hernia status post laparoscopic repair with mesh postop day #4 2. Aspiration pneumonia 3. COPD PLAN: -Continue ICU management -Continue antibiotics per pulmonary service Physician Shank Maker note has been reviewed by physician. Signing provider agrees with the documented findings, assessment, and plan of care. Objective - Vital Signs Vital signs: Vital Signs Temp 98 F 03/16/20 08:00 Pulse 66 03/16/20 08:00 Resp 19 03/16/20 08:00 BP 157/57 03/16/20 08:00 Pulse Ox 94 L 03/16/20 08:00 Intake & Output 03/15/20 03/16/20 03/16/20 18:59 06:59 18:59 Intake Total 505 260 100 Output Total 1170 880 500 Balance -665 -620 -400 Weight 51.2 kg 50.4 kg Intake: IV 255 180 100 D5-0.45% NaCl with KCl 255 80 20Meq/l 1,000 ml @ 75 mls /hr IV .[id number] [facility] Rx#: [id number] Piperacillin-Tazobactam 3 100 100 .375 gm In Sodium Chloride 0.9% 100 ml @ 25 mls/hr IVPB Q8HR [facility] Rx# :[id number] Intake, IV Titration 200 80 Amount D5-0.45% NaCl with KCl 80 20Meq/l 1,000 ml @ 20 mls /hr IV .Q24H [facility] Rx#: [id number] Piperacillin-Tazobactam 3 200 .375 gm In Sodium Chloride 0.9% 100 ml @ 25 mls/hr IVPB Q8HR [facility] Rx# :[id number] Oral 50 Output: Urine 1170 880 500 Other: Voiding Method Indwelling Catheter Indwelling Catheter Indwelling Catheter # Bowel Movements 0 - Labs CBC & Chem 7: 03/16/20 03:27 03/16/20 03:27 Labs: Abnormal Lab Results - Last 24 Hours (Table) 03/16/20 03/16/20 Range/Units 03:27 03:27 RBC 3.66 L (3.80-5.40) m/uL Hgb 10.6 L (11.4-16.0) gm/dL Hct 33.1 L (34.0-46.0) % RDW 16.4 H (11.5-15.5) % Sodium 134 L (137-145) mmol/L Chloride 108 H (98-107) mmol/L Carbon Dioxide 21 L (22-30) mmol/L BUN 5 L (7-17) mg/dL
[2020-03-16 19:45] VITALS: RESP 14
[2020-03-16] MEDS: ASPIRIN 81 MG PO SCH (19:55)
--- NOTE | 2020-03-16 22:18 | P.PN ---
Subjective this is a pleasant 85 years old female with a known history of coronary artery disease, COPD, hypertension, hyperlipidemia. she was admitted for laparoscopic repair of her hiatal hernia and large paraesophageal hiatal hernia . Today is postop day #1 This morning patient was short of breath and chest pain about 9/10, d-dimer was checked was elevated, so CTA of the chest showing pulmonary embolism and patient was started on heparin drip When I saw the patient she states that her dyspnea and chest pain has improved significantly and her chest pain is 0/10. pulmonary team were consulted and they had low suspicion for PE, however aspiration pneumonia is suspected more. 03/14/2020 Patient is seen and examined in the ICU, she is sitting on the chair comfortable, not dyspneic or tachypneic. Patient denies chest pain or dyspnea. She denies any difficulty swallowing or pain on swallowing. Surgery team on the case and the plan to advance diet tomorrow. The suspicion for PE is very low power pulmonary service, Doppler of the lower extremity is negative for DVT, heparin drip was stopped and she was started on Lovenox for DVT prophylaxis. Cardiology on the case and serial troponins and EKG were unremarkable. Echocardiogram showed ejection fraction of 55-60% with normal diastolic patern. CAT scan of the chest showing thickening of the GE junction with a stable postsurgical changes versus air leak and barium swallow studies could be considered for surgery team. Continue with Zosyn for possible aspiration pneumonia Also has left upper lobe nodule about 1 cm that needs follow-up as an outpatient Also patient has Schafer catheter placed by her urologist Dr. Suarez as an outpatient for urinary retention 03/15/2020 Patient remains in the ICU with no chest pain or dyspnea, she little bit generally weak however she is fully awake and oriented, daughter at bedside and they refuse going to rehab upon discharge Vital signs REVIEWED the looks stable, she is saturating 90 cm oxygen. Heparin drip was stopped and she continue on subcutaneous Lovenox. Wellbutrin is been tapered down Patient remains on Zosyn for spell aspiration pneumonia Pulmonary and surgery team on the case 03/16/2020 pt remains in ICU, no new complaint, no chest pain or dyspnea, diet is been advanced discontinue oxygen by pulmonary service, not on heparin drip welbutrin is been tapered off because it is thought it might be contributing to her tremor, she is on welbutrin for smoke cessation pt can be moved out of icu today as per pulmonary team recommendation Review of Systems CONSTITUTIONAL: No fever, no malaise, no fatigue. HEENT: No recent visual problems or hearing problems. Denied any sore throat. CARDIOVASCULAR: No orthopnea, PND, no palpitations, no syncope. PULMONARY: no chest wall tenderness, no hemoptysis. GASTROINTESTINAL: No diarrhea, no nausea, no vomiting, no abdominal pain. Normoactive bowel sounds. NEUROLOGICAL: No headaches, no weakness, no numbness. Active Medications Generic Name Dose Route Start Last Admin Trade Name Freq PRN Reason Stop Dose Admin Albuterol Sulfate 2.5 mg 03/12/20 15:05 03/15/20 11:40 Albuterol Nebulized 2.5 Mg/3 Ml INHALATION 2.5 mg RT-QID PRN Administration Shortness Of Breath Ascorbic Acid 500 mg 03/13/20 09:00 03/16/20 09:18 Ascorbic Acid 500 Mg Tab PO 500 mg DAILY [facility] Administration Aspirin 81 mg 03/12/20 21:00 03/16/20 19:55 Aspirin 81 Mg PO 81 mg HS [facility] Administration Atorvastatin Calcium 80 mg 03/13/20 09:00 03/16/20 09:18 Atorvastatin 80 Mg Tab PO 80 mg DAILY [facility] Administration Budesonide/Formoterol Fumarate 2 puff 03/12/20 20:00 03/16/20 20:36 Symbicort 160-4.5 Mcg Inhaler INHALATION 2 puff RT-BID [facility] Administration Bupropion HCl 300 mg 03/13/20 09:00 03/15/20 09:06 Bupropion Xl 300 Mg Tab.Er.24h PO 300 mg Q48H [facility] Administration Bupropion HCl 150 mg 03/14/20 09:00 03/16/20 09:18 Bupropion Xl 150 Mg Tab.Er.24h PO 150 mg Q48H [facility] Administration Citalopram Hydrobromide 40 mg 03/13/20 09:00 03/16/20 09:17 Citalopram Hydrobromide 20 Mg Tab PO 40 mg DAILY [facility] Administration Enoxaparin Sodium 40 mg 03/14/20 10:00 03/16/20 09:18 Enoxaparin 40 Mg/0.4 Ml Syringe SQ 40 mg DAILY [facility] Administration Gabapentin 100 mg 03/12/20 21:00 03/16/20 19:55 Gabapentin 100 Mg Cap PO 100 mg BID [facility] Administration Hydromorphone HCl 0.5 mg 03/12/20 12:21 03/13/20 21:45 Hydromorphone 0.5 Mg/0.5 Ml Syringe IVP 0.5 mg Q4HR PRN Administration Pain Piperacillin Sod/Tazobactam 100 mls @ 25 mls/hr 03/13/20 14:00 03/16/20 16:45 Sod 3.375 gm/ Sodium Chloride IVPB 25 mls/hr Q8HR [facility] Administration Potassium Chloride/Dextrose/Sod Cl 1,000 mls @ 20 mls/hr 03/15/20 08:45 03/16/20 09:19 D5%-1/2ns-Kcl 20 Meq/L Iv Solution IV 20 mls/hr .Q24H [facility] Administration Isosorbide Mononitrate 30 mg 03/13/20 09:00 03/16/20 09:18 Isosorbide Mononitrate Er 30 Mg Tab.Er.24h PO 30 mg DAILY [facility] Administration Levothyroxine Sodium 75 mcg 03/13/20 06:30 03/16/20 06:10 Levothyroxine 75 Mcg Tab PO 75 mcg DAILY@0630 [facility] Administration Lidocaine 1 patch 03/12/20 15:05 Lidocaine 5% Patch TOPICAL DAILY PRN Pain Lidocaine HCl 0.1 ml 03/12/20 05:44 Lidocaine 1% (10mg/Ml) For Iv Start INTRADERMA PER PROTOCOL PRN IV Start Nicotine 1 patch 03/13/20 09:00 03/16/20 09:18 Nicotine 14mg/24hr Patch TRANSDERM 1 patch DAILY [facility] Administration Nitroglycerin 0.4 mg 03/12/20 15:05 03/13/20 15:26 Nitroglycerin Sl Tabs 0.4 Mg Tab SUBLINGUAL 0.4 mg Q5M PRN Administration Pain Ondansetron HCl 4 mg 03/12/20 12:21 Ondansetron 4 Mg/2 Ml Vial IVP Q6HR PRN Nausea And Vomiting Pantoprazole Sodium 40 mg 03/13/20 07:30 03/16/20 06:10 Pantoprazole 40 Mg Tablet PO 40 mg AC-[id number] [facility] Administration Primidone 50 mg 03/13/20 09:00 03/16/20 09:17 Primidone 50 Mg Tab PO 50 mg DAILY [facility] Administration Primidone 250 mg 03/13/20 09:00 03/16/20 09:19 Primidone 250 Mg Tab PO 250 mg DAILY [facility] Administration Objective - Vital Signs Vital signs: Vital Signs Temp 98 F 03/16/20 08:00 Pulse 66 03/16/20 08:00 Resp 19 03/16/20 08:00 BP 157/57 03/16/20 08:00 Pulse Ox 94 L 03/16/20 08:00 Intake & Output 03/15/20 03/16/20 03/16/20 18:59 06:59 18:59 Intake Total 505 260 100 Output Total 1170 880 500 Balance -665 -620 -400 Weight 51.2 kg 50.4 kg Intake: IV 255 180 100 D5-0.45% NaCl with KCl 255 80 20Meq/l 1,000 ml @ 75 mls /hr IV .[id number] [facility] Rx#: [id number] Piperacillin-Tazobactam 3 100 100 .375 gm In Sodium Chloride 0.9% 100 ml @ 25 mls/hr IVPB Q8HR [facility] Rx# :[id number] Intake, IV Titration 200 80 Amount D5-0.45% NaCl with KCl 80 20Meq/l 1,000 ml @ 20 mls /hr IV .Q24H [facility] Rx#: [id number] Piperacillin-Tazobactam 3 200 .375 gm In Sodium Chloride 0.9% 100 ml @ 25 mls/hr IVPB Q8HR [facility] Rx# :[id number] Oral 50 Output: Urine 1170 880 500 Other: Voiding Method Indwelling Catheter Indwelling Catheter Indwelling Catheter # Bowel Movements 0 - Exam GENERAL: The patient is alert and oriented x3, not in any acute distress. Well developed, well nourished. HEENT: Pupils are round and equally reacting to light. EOMI. No scleral icterus. No conjunctival pallor. Normocephalic, atraumatic. No pharyngeal erythema. No thyromegaly. CARDIOVASCULAR: S1 and S2 present. No murmurs, rubs, or gallops. PULMONARY: Chest is clear to auscultation, no wheezing or crackles. -ABDOMEN: Soft, nontender, nondistended, normoactive bowel sounds. No palpable organomegaly. laparoscopic wounds are intactand healing. Schafer catheter is in place MUSCULOSKELETAL: No joint swelling or deformity. EXTREMITIES: No cyanosis, clubbing, or pedal edema. NEUROLOGICAL: Gross neurological examination did not reveal any focal deficits. SKIN: No rashes. No petechiae - Labs CBC & Chem 7: 03/16/20 03:27 03/16/20 03:27 Labs: Abnormal Lab Results - Last 24 Hours (Table) 03/16/20 03/16/20 Range/Units 03:27 03:27 RBC 3.66 L (3.80-5.40) m/uL Hgb 10.6 L (11.4-16.0) gm/dL Hct 33.1 L (34.0-46.0) % RDW 16.4 H (11.5-15.5) % Sodium 134 L (137-145) mmol/L Chloride 108 H (98-107) mmol/L Carbon Dioxide 21 L (22-30) mmol/L BUN 5 L (7-17) mg/dL Assessment and Plan Assessment: paraesophageal hernia status post laparoscopic repair Episodic chest pain or dyspnea, suspicion of PE is very low per pulmonary services. Aspiration pneumonia is suspected but patient is on antibiotic Left upper lobe pulmonary nodule about 1 cm that needs follow-up as an outpatient Thickening of the GE junction, possible postsurgical changes versus air leak Chronic urinary retention status post Schafer catheter. Patient follow-up with Dr. Connell as an outpatient hypertension Hyperlipidemia History of coronary artery disease with history of CABG COPD, no acute exacerbation History of carotid artery stenosis status post and direct ectomy Parkinson disease Anxiety and depression, not in active tissue Plan: this is a pleasant 85 years old female who presents for laparoscopic hiatal hernia repair. Complicated by chest pain or dyspnea, pulmonary consult is appreciated, they recommended to start the patient on Zosyn for possible aspiration pneumonia, also follow-up recommendation by cardiology, and surgery primary team. Labs and medication were reviewed.. Continue same treatment. Continue with symptomatic treatment. Resume home medication. Monitor lytes and vitals. DVT and GI prophylaxis. Further recommendations depends on the clinical course of the patient DVT prophylaxis: SC Lovenox GI Prophylaxis: Ppi PT/OT: Pending Thank you for consulting us
[2020-03-17 06:28] VITALS: BP 147/67; TEMP 98.3
[2020-03-17] MEDS: LEVOTHYROXINE 75 MCG TAB PO SCH (06:28)
[2020-03-17] MEDS: PANTOPRAZOLE 40 MG TABLET PO SCH (06:28)
[2020-03-17] MEDS: ALBUTEROL NEBULIZED 2.5 MG/3 ML INHALATION PRN (08:21)
[2020-03-17] MEDS: SYMBICORT 160-4.5 MCG INHALER INHALATION SCH (08:21)
[2020-03-17] MEDS: PIPERACILLIN-TAZOBACTAM 3.375 GM in SODIUM CHLORIDE 0.9% 100 ML IVPB SCH (08:28)
[2020-03-17] MEDS: ATORVASTATIN 80 MG TAB PO SCH (08:34)
[2020-03-17] MEDS: ASCORBIC ACID 500 MG TAB PO SCH (08:34)
[2020-03-17] MEDS: buPROPion XL 300 MG TAB.ER.24H PO SCH (08:35)
[2020-03-17] MEDS: CITALOPRAM HYDROBROMIDE 20 MG TAB PO SCH (08:35)
[2020-03-17] MEDS: NICOTINE 14MG/24HR PATCH TRANSDERM SCH (08:36)
[2020-03-17] MEDS: GABAPENTIN 100 MG CAP PO SCH (08:36)
[2020-03-17] MEDS: ISOSORBIDE MONONITRATE ER 30 MG TAB.ER.24H PO SCH (08:36)
[2020-03-17] MEDS: PRIMIDONE 50 MG TAB PO SCH (08:36)
[2020-03-17] MEDS: ENOXAPARIN 40 MG/0.4 ML SYRINGE SQ SCH (08:36)
[2020-03-17] MEDS: PRIMIDONE 250 MG TAB PO SCH (08:42)
[2020-03-17 10:01] VITALS: PULSE 73
[2020-03-17] MEDS: D5-0.45% NACL WITH KCL 20MEQ/L 1,000 ML IV SCH (10:46)
--- NOTE | 2020-03-17 11:33 | P.PN ---
Subjective this is a pleasant 85 years old female with a known history of coronary artery disease, COPD, hypertension, hyperlipidemia. she was admitted for laparoscopic repair of her hiatal hernia and large paraesophageal hiatal hernia . Today is postop day #1 This morning patient was short of breath and chest pain about 9/10, d-dimer was checked was elevated, so CTA of the chest showing pulmonary embolism and patient was started on heparin drip When I saw the patient she states that her dyspnea and chest pain has improved significantly and her chest pain is 0/10. pulmonary team were consulted and they had low suspicion for PE, however aspiration pneumonia is suspected more. 03/14/2020 Patient is seen and examined in the ICU, she is sitting on the chair comfortable, not dyspneic or tachypneic. Patient denies chest pain or dyspnea. She denies any difficulty swallowing or pain on swallowing. Surgery team on the case and the plan to advance diet tomorrow. The suspicion for PE is very low power pulmonary service, Doppler of the lower extremity is negative for DVT, heparin drip was stopped and she was started on Lovenox for DVT prophylaxis. Cardiology on the case and serial troponins and EKG were unremarkable. Echocardiogram showed ejection fraction of 55-60% with normal diastolic patern. CAT scan of the chest showing thickening of the GE junction with a stable postsurgical changes versus air leak and barium swallow studies could be considered for surgery team. Continue with Zosyn for possible aspiration pneumonia Also has left upper lobe nodule about 1 cm that needs follow-up as an outpatient Also patient has Schafer catheter placed by her urologist Dr. Suarez as an outpatient for urinary retention 03/15/2020 Patient remains in the ICU with no chest pain or dyspnea, she little bit generally weak however she is fully awake and oriented, daughter at bedside and they refuse going to rehab upon discharge Vital signs REVIEWED the looks stable, she is saturating 90 cm oxygen. Heparin drip was stopped and she continue on subcutaneous Lovenox. Wellbutrin is been tapered down Patient remains on Zosyn for spell aspiration pneumonia Pulmonary and surgery team on the case 03/16/2020 pt remains in ICU, no new complaint, no chest pain or dyspnea, diet is been advanced discontinue oxygen by pulmonary service, not on heparin drip welbutrin is been tapered off because it is thought it might be contributing to her tremor, she is on welbutrin for smoke cessation pt can be moved out of icu today as per pulmonary team recommendation 03/17/2020 This morning patient looks comfortable, she denies any symptoms no chest pain or dyspnea or abdominal complaints, she has regular bowel movement and tolerating diet well with no vomiting, no headache. She was staying in bed for the last few days. She denies any swallowing a problem. Patient is been asking to be discharged home today. vitals and labs look stable today. she remains on Zosyn for possible aspiration pneumonia and chest x-ray from today showing perihilar airspace opacities appear similar to 03/15/2020 with small left pleural effusion Review of Systems CONSTITUTIONAL: No fever, no malaise, no fatigue. HEENT: No recent visual problems or hearing problems. Denied any sore throat. CARDIOVASCULAR: No orthopnea, PND, no palpitations, no syncope. PULMONARY: no chest wall tenderness, no hemoptysis. GASTROINTESTINAL: No diarrhea, no nausea, no vomiting, no abdominal pain. Normoactive bowel sounds. NEUROLOGICAL: No headaches, no weakness, no numbness. Active Medications Generic Name Dose Route Start Last Admin Trade Name Freq PRN Reason Stop Dose Admin Albuterol Sulfate 2.5 mg 03/12/20 15:05 03/17/20 08:21 Albuterol Nebulized 2.5 Mg/3 Ml INHALATION 2.5 mg RT-QID PRN Administration Shortness Of Breath Amoxicillin/Clavulanate Potassium 1 each 03/17/20 21:00 Amoxic-Pot Clav 875-125mg 1 Each Tab PO 03/24/20 21:01 Q12HR [facility] Ascorbic Acid 500 mg 03/13/20 09:00 03/17/20 08:34 Ascorbic Acid 500 Mg Tab PO 500 mg DAILY [facility] Administration Aspirin 81 mg 03/12/20 21:00 03/16/20 19:55 Aspirin 81 Mg PO 81 mg HS [facility] Administration Atorvastatin Calcium 80 mg 03/13/20 09:00 03/17/20 08:34 Atorvastatin 80 Mg Tab PO 80 mg DAILY [facility] Administration Budesonide/Formoterol Fumarate 2 puff 03/12/20 20:00 03/17/20 08:21 Symbicort 160-4.5 Mcg Inhaler INHALATION 2 puff RT-BID [facility] Administration Bupropion HCl 300 mg 03/13/20 09:00 03/17/20 08:35 Bupropion Xl 300 Mg Tab.Er.24h PO 300 mg Q48H [facility] Administration Bupropion HCl 150 mg 03/14/20 09:00 03/16/20 09:18 Bupropion Xl 150 Mg Tab.Er.24h PO 150 mg Q48H [facility] Administration Citalopram Hydrobromide 40 mg 03/13/20 09:00 03/17/20 08:35 Citalopram Hydrobromide 20 Mg Tab PO 40 mg DAILY [facility] Administration Enoxaparin Sodium 40 mg 03/14/20 10:00 03/17/20 08:36 Enoxaparin 40 Mg/0.4 Ml Syringe SQ 40 mg DAILY [facility] Administration Gabapentin 100 mg 03/12/20 21:00 03/17/20 08:36 Gabapentin 100 Mg Cap PO 100 mg BID [facility] Administration Hydromorphone HCl 0.5 mg 03/12/20 12:21 03/13/20 21:45 Hydromorphone 0.5 Mg/0.5 Ml Syringe IVP 0.5 mg Q4HR PRN Administration Pain Potassium Chloride/Dextrose/Sod Cl 1,000 mls @ 20 mls/hr 03/15/20 08:45 03/17/20 10:46 D5%-1/2ns-Kcl 20 Meq/L Iv Solution IV Not Given .Q24H [facility] Isosorbide Mononitrate 30 mg 03/13/20 09:00 03/17/20 08:36 Isosorbide Mononitrate Er 30 Mg Tab.Er.24h PO 30 mg DAILY [facility] Administration Levothyroxine Sodium 75 mcg 03/13/20 06:30 03/17/20 06:28 Levothyroxine 75 Mcg Tab PO 75 mcg DAILY@0630 [facility] Administration Lidocaine 1 patch 03/12/20 15:05 Lidocaine 5% Patch TOPICAL DAILY PRN Pain Lidocaine HCl 0.1 ml 03/12/20 05:44 Lidocaine 1% (10mg/Ml) For Iv Start INTRADERMA PER PROTOCOL PRN IV Start Nicotine 1 patch 03/13/20 09:00 03/17/20 08:36 Nicotine 14mg/24hr Patch TRANSDERM 1 patch DAILY [facility] Administration Nitroglycerin 0.4 mg 03/12/20 15:05 03/13/20 15:26 Nitroglycerin Sl Tabs 0.4 Mg Tab SUBLINGUAL 0.4 mg Q5M PRN Administration Pain Ondansetron HCl 4 mg 03/12/20 12:21 Ondansetron 4 Mg/2 Ml Vial IVP Q6HR PRN Nausea And Vomiting Pantoprazole Sodium 40 mg 03/13/20 07:30 03/17/20 06:28 Pantoprazole 40 Mg Tablet PO 40 mg AC-BRKFST [facility] Administration Primidone 50 mg 03/13/20 09:00 03/17/20 08:36 Primidone 50 Mg Tab PO 50 mg DAILY [facility] Administration Primidone 250 mg 03/13/20 09:00 03/17/20 08:42 Primidone 250 Mg Tab PO 250 mg DAILY [facility] Administration Objective - Vital Signs Vital signs: Vital Signs Temp 98.3 F 03/17/20 06:27 Pulse 75 03/17/20 08:32 Resp 14 03/17/20 06:27 BP 147/67 03/17/20 06:27 Pulse Ox 92 L 03/17/20 06:27 Intake & Output 03/16/20 03/17/20 03/17/20 18:59 06:59 18:59 Intake Total 280 Output Total 785 900 Balance -505 -900 Intake: IV 200 Piperacillin-Tazobactam 3 200 .375 gm In Sodium Chloride 0.9% 100 ml @ 25 mls/hr IVPB Q8HR [facility] Rx# :[id number] Intake, IV Titration 80 Amount D5-0.45% NaCl with KCl 80 20Meq/l 1,000 ml @ 20 mls /hr IV .Q24H [facility] Rx#: [id number] Output: Urine 785 900 Other: Voiding Method Indwelling Catheter Indwelling Catheter Indwelling Catheter # Bowel Movements 1 - Exam GENERAL: The patient is alert and oriented x3, not in any acute distress. Well developed, well nourished. HEENT: Pupils are round and equally reacting to light. EOMI. No scleral icterus. No conjunctival pallor. Normocephalic, atraumatic. No pharyngeal erythema. No thyromegaly. CARDIOVASCULAR: S1 and S2 present. No murmurs, rubs, or gallops. PULMONARY: Chest is clear to auscultation, no wheezing or crackles. -ABDOMEN: Soft, nontender, nondistended, normoactive bowel sounds. No palpable organomegaly. laparoscopic wounds are intactand healing. Schafer catheter is in place MUSCULOSKELETAL: No joint swelling or deformity. EXTREMITIES: No cyanosis, clubbing, or pedal edema. NEUROLOGICAL: Gross neurological examination did not reveal any focal deficits. SKIN: No rashes. No petechiae - Labs CBC & Chem 7: 03/16/20 03:27 03/16/20 03:27 Assessment and Plan Assessment: paraesophageal hernia status post laparoscopic repair Episodic chest pain or dyspnea, suspicion of PE is very low per pulmonary services. Aspiration pneumonia is suspected but patient is on antibiotic Left upper lobe pulmonary nodule about 1 cm that needs follow-up as an outpati ent Thickening of the GE junction, possible postsurgical changes versus air leak Chronic urinary retention status post Schafer catheter. Patient follow-up with Dr. Connell as an outpatient hypertension Hyperlipidemia History of coronary artery disease with history of CABG COPD, no acute exacerbation History of carotid artery stenosis status post and direct ectomy Parkinson disease Anxiety and depression, not in active tissue Plan: this is a pleasant 85 years old female who presents for laparoscopic hiatal hernia repair. Complicated by chest pain or dyspnea, pulmonary consult is appreciated, they recommended to start the patient on Zosyn for possible aspiration pneumonia, also follow-up recommendation by cardiology, and surgery primary team. patient looks medically stable. Labs and medication were reviewed.. Continue same treatment. Continue with symptomatic treatment. Resume home medication. Monitor lytes and vitals. DVT and GI prophylaxis. Further recommendations depends on the clinical course of the patient DVT prophylaxis: SC Lovenox GI Prophylaxis: Ppi PT/OT: Pending patient was instructed to follow up with her PCP Dr. Kang in one week, she asked the medical staff to make her appointment, see discharge instructions Thank you for consulting us
--- NOTE | 2020-03-17 12:45 | P.DS ---
Providers Date of admission: 03/13/20 13:06 Expected date of discharge: 03/17/20 Attending physician: Scotty Chiang Consults: 03/12/20 12:21 Consult Physician Routine Consulting Provider: Sidra Mello Consult Reason/Comments: Medical management Do you want consulting provider notified?: Yes 03/13/20 08:06 Consult Physician Stat Consulting Provider: Daniel Marcelo Consult Reason/Comments: chest pain Do you want consulting provider notified?: Yes 03/13/20 10:48 Consult Physician Routine Consulting Provider: Duy Menchaca Consult Reason/Comments: right sided PE, bilateral pneumothorax <5% Do you want consulting provider notified?: Yes 03/13/20 15:56 Consult Physician Routine Consulting Provider: Duy Menchaca Consult Reason/Comments: ICU MANAGEMENT Do you want consulting provider notified?: Already Contacted Primary care physician: Lashaun Kang Hospital Course: Discharge diagnosis 1. 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 Postoperative Aspiration pneumonia 3. Acute hypoxic respiratory failure likely secondary to aspiration pneumonia 4. COPD Hospital course This 85-year-old female with a known Paraesophageal hiatal hernia status post laparoscopic repair with mesh. During patient's hospital cessation she became short of breath and she had a decrease in oxygen saturations. D-dimer was elevated. A CTA was completed with concerns of a possible PE. She was evaluated by pulmonary service who felt that most likely this is not a PE. The IV heparin was discontinued. She was placed on antibiotics for aspiration pneumonia. She was evaluated by speech therapy no evidence of aspiration during their exam. Patient also had upper GI After her surgery which showed no evidence of obstruction or stricture. No evidence of leak. Patient is tolerating full liquid diet. She's been cleared by consultants for discharge. She denies any pain. She's afebrile. She is up and ambulating. She is stable for discharge. Physician [employer] note has been reviewed by physician. Signing provider agrees with the documented findings, assessment, and plan of care. Patient Condition at Discharge: Stable Plan - Discharge Summary Discharge Rx Participant: Yes New Discharge Prescriptions: New Acetaminophen Tab [Tylenol Tab] 650 mg PO Q4H PRN #30 tablet PRN Reason: Pain Amoxic-Pot Clav 875-125Mg [Augmentin 875-125] 1 each PO Q12HR #14 tab No Action Nitroglycerin Sl Tabs [Nitrostat] 0.4 mg SL Q5M PRN PRN Reason: Pain buPROPion HCL [Wellbutrin XL] 300 mg PO DAILY Levothyroxine Sodium [Synthroid] 75 mcg PO DAILY Atorvastatin [Lipitor] 80 mg PO DAILY Ascorbic Acid [Vitamin C] 500 mg PO DAILY Isosorbide Mononitrate ER [Imdur] 30 mg PO DAILY #30 tab.er.24h Primidone [Mysoline] 300 mg PO DAILY Gabapentin [Neurontin] 100 mg PO BID Aspirin 81 mg PO HS #30 tab Albuterol Sulfate [Ventolin HFA] 2 puff INHALATION RT-QID PRN PRN Reason: Shortness Of Breath Citalopram Hydrobromide [CeleXA] 40 mg PO DAILY Budesonide/Formoterol Fumarate [Symbicort 160-4.5 Mcg Inhaler] 2 puff INHALATION RT-BID EPINEPHrine (Auto Inject) [Epipen] 0.3 mg IM ONCE PRN PRN Reason: Anaphylaxis Lidocaine 5% Patch [Lidoderm 5% Patch] 1 patch TOPICAL DAILY PRN PRN Reason: Pain Propranolol LA [Inderal LA] 80 mg PO HS Omeprazole Magnesium [PriLOSEC OTC] 20 mg PO BID Nicotine 14Mg/24Hr Patch [Habitrol] 1 patch TRANSDERM DAILY Doxazosin [Cardura] 4 mg PO DAILY Vitamin D3 (Unknown Dose) 1 tab PO DAILY Psyllium Husk 100% [Metamucil Packet] 6 gm PO Q48H PRN PRN Reason: Constipation Ferrous Sulfate [Feosol] 325 mg PO DAILY Discharge Medication List Ascorbic Acid [Vitamin C] 500 mg PO DAILY 07/25/15 [History] Atorvastatin [Lipitor] 80 mg PO DAILY 07/25/15 [History] Levothyroxine Sodium [Synthroid] 75 mcg PO DAILY 07/25/15 [History] Nitroglycerin Sl Tabs [Nitrostat] 0.4 mg SL Q5M PRN 07/25/15 [History] buPROPion HCL [Wellbutrin XL] 300 mg PO DAILY 07/25/15 [History] Isosorbide Mononitrate ER [Imdur] 30 mg PO DAILY #30 tab.er.24h 07/30/15 [Rx] Gabapentin [Neurontin] 100 mg PO BID 05/12/19 [History] Primidone [Mysoline] 300 mg PO DAILY 05/12/19 [History] Aspirin 81 mg PO HS #30 tab 05/16/19 [Rx] Albuterol Sulfate [Ventolin HFA] 2 puff INHALATION RT-QID PRN 01/19/20 [History] Budesonide/Formoterol Fumarate [Symbicort 160-4.5 Mcg Inhaler] 2 puff INHALATION RT-BID 01/19/20 [History] Citalopram Hydrobromide [CeleXA] 40 mg PO DAILY 01/19/20 [History] EPINEPHrine (Auto Inject) [Epipen] 0.3 mg IM ONCE PRN 01/19/20 [History] Lidocaine 5% Patch [Lidoderm 5% Patch] 1 patch TOPICAL DAILY PRN 01/19/20 [History] Doxazosin [Cardura] 4 mg PO DAILY 02/20/20 [History] Nicotine 14Mg/24Hr Patch [Habitrol] 1 patch TRANSDERM DAILY 02/20/20 [History] Omeprazole Magnesium [PriLOSEC OTC] 20 mg PO BID 02/20/20 [History] Propranolol LA [Inderal LA] 80 mg PO HS 02/20/20 [History] Psyllium Husk 100% [Metamucil Packet] 6 gm PO Q48H PRN 03/01/20 [History] Vitamin D3 (Unknown Dose) 1 tab PO DAILY 03/01/20 [History] Ferrous Sulfate [Feosol] 325 mg PO DAILY 03/09/20 [History] Acetaminophen Tab [Tylenol Tab] 650 mg PO Q4H PRN #30 tablet 03/17/20 [Rx] Amoxic-Pot Clav 875-125Mg [Augmentin 875-125] 1 each PO Q12HR #14 tab 03/17/20 [Rx] Follow up Appointment(s)/Referral(s): Jared Kumar MD [STAFF PHYSICIAN] - 03/30/20 1:30 pm Lashaun Kang III, MD [Primary Care Provider] - 03/25/20 10:30 am [facility] Visiting Nurse, [NON-STAFF] - Scotty Chiang MD [STAFF PHYSICIAN] - 03/25/20 2:30 pm Patient Instructions/Handouts: Gastroesophageal Reflux Disease (DC), Laparoscopic Hiatal Hernia Repair (DC) Activity/Diet/Wound Care/Special Instructions: Medicine to complete med rec for discharge Diet full liquids No lifting over 10 pounds You may shower. No soaking or tub baths For 2 weeks Very light activity until you are reevaluated at your follow up appointment with your surgeon Discharge Disposition: HOME WITH HOME HEALTH SERVICES
--- NOTE | 2020-03-17 12:46 | P.PN ---
Subjective Progress Note Date: 03/17/20 Principal diagnosis: Acute hypoxic respiratory failure, suspect aspiration pneumonia 85-year-old female patient, known history of coronary artery disease and please bypass surgery in 2009 in addition to history of COPD, carotid artery disease with previous endarterectomy along with hypertension and hyperlipidemia as comorbid conditions. The patient was Hospital as back in January 2024 stool impaction and constipation and during the same hospital admission the patient was seen by cardiology and the patient was diagnosed having syncope secondary to bradycardia and high degree AV block and at that time the patient had a normal preserved LV function with an ejection fraction of 55-60% along with moderate concentric LVH and diastolic failure and mild MR. The patient was brought into the hospital for laparoscopic repair of a paraesophageal hernia with mesh and the surgery was done on 03/12/2020.The patient was having difficulty with forward an oral intake and she had been losing weight and no other of 60 pounds over the past 2 years. Earlier this morning, the patient became acutely short of breath and she had oxygen saturation with a postobstructive up in the low 80s. Her d-dimer was elevated at 2.7. A CT angiogram was done and the patient was given diagnosis of pulmonary embolism involving the distal right upper lobe pulmonary artery. There was an expected 3 and the protein in air and this was related to her recent surgery. There was also some thickening of the wall of the GE junction and distal esophagus. There was hypodensity seen in the region of the esophageal gastric junction that was thought to be postsurgical in nature. Small amount of air was also seen at the extraluminal surrounding the GE junction and the posterior mediastinal adjacent to the esophagus. Bilateral pleural effusion was also seen. The patient was transferred to the cardiac stepdown. D-dimer was at 2.7 with a white cell count of 6.6 and hemoglobin of 10.9 and troponins were negative. Cardiac rhythm was sinus bradycardia with a first-degree AV block at the rate of 63. The patient was started on IV heparin. The patient is on Dilaudid for pain control. On today's evaluation of 03/14/2020, the patient is feeling slightly better. Overnight she was having some pain with breathing and some cough and congestion. Nevertheless this has subsided. I put the patient IV Zosyn. I'm also going to stop the IV heparin. There is no clear indication for pulmonary embolism. Echocardiac showed no evidence of any right-sided failure and LV function was within normal limits. Doppler of the lower extremity was negative. Chest x-ray showed interval development of perihilar and basilar infiltrate consistent with pneumonia. The patient is currently on IV Zosyn. She is tolerating clear liquid diet. No swelling lower extremities. Doppler of the lower extremities also negative. Patient was reevaluated today on 03/15/20, remains in the ICU, patient is being treated for aspiration pneumonia, remains on Zosyn. She is to be seen by speech pathologist for evaluation of aspiration and assessment of swallowing mechanism. Patient is on 2 L nasal cannula with O2 saturation 94%, hemodynamically stable, not requiring any pressors, she is on Lovenox at 40 mg subcu daily. Her IV heparin was discontinued as index of suspicion for pulmonary embolism is rather low. Patient is comfortable, she is status post laparoscopic hernia repair on 03/22/20. His also known to have history of GERD and esophagitis. CBC today is relatively normal hemoglobin is 9.3 electrolytes are normal renal profile is normal. Chest x-ray showed persistent perihilar airspace opacities most consistent with aspiration pneumonia Reevaluated today on 03/16/20, patient is in the ICU as an overflow. Patient is doing great, is presently on room air with O2 saturation of 92%. IV fluids at KVO D5 45. She is hemodynamically stable, she is in sinus rhythm rate of 97. She is status post paraesophageal hernia repair and she developed postoperative aspiration pneumonia. Chest x-ray continues to show by basilar infiltrates. I plan to transfer the patient out of the ICU to a regular medical floor today. Chest x-ray was reviewed CBC is relatively normal no evidence of leukocytosis. Electrolytes are normal and renal profile is normal. Reevaluated today on 03/17/20, patient remains as an overflow in the ICU, she is doing absolutely great. No cough no wheezing or shortness of breath, agent is on room air, she is hemodynamically stable, all labs today are reassuring. Hence I will clear the patient to be discharged home today. Objective - Vital Signs Vital signs: Vital Signs Temp 98.3 F 03/17/20 06:27 Pulse 75 03/17/20 08:32 Resp 14 03/17/20 06:27 BP 147/67 03/17/20 06:27 Pulse Ox 92 L 03/17/20 06:27 Intake & Output 03/16/20 03/17/20 03/17/20 18:59 06:59 18:59 Intake Total 280 Output Total 785 900 Balance -505 -900 Intake: IV 200 Piperacillin-Tazobactam 3 200 .375 gm In Sodium Chloride 0.9% 100 ml @ 25 mls/hr IVPB Q8HR [facility] Rx# :[id number] Intake, IV Titration 80 Amount D5-0.45% NaCl with KCl 80 20Meq/l 1,000 ml @ 20 mls /hr IV .Q24H [facility] Rx#: [id number] Output: Urine 785 900 Other: Voiding Method Indwelling Catheter Indwelling Catheter Indwelling Catheter # Bowel Movements 1 - Exam GENERAL: Revealed an 85-year-old female, pleasant, in no distress. Presently on room air. Head: Atraumatic, normocephalic. HEENT: PERRLA, EOMI, neck is supple, moist mucous membranes. CARDIOVASCULAR: Normal S1 and S2, no S3 gallop. No murmur. Chest: Symmetrical chest expansion, very fine crackles at the right base. No rhonchi, no wheezes. ABDOMEN: Soft, nontender, nondistended, normoactive bowel sounds. No palpable organomegaly. laparoscopic wounds are healing Schafer catheter is in place MUSCULOSKEL: no deformities, normal range of motion. EXTREMITIES: no clubbing, edema or cyanosis. Neurological: Alert and oriented 3 focal deficits. SKIN: No rashes. No petechiae - Labs CBC & Chem 7: 03/16/20 03:27 03/16/20 03:27 Assessment and Plan Assessment: Impression: Acute hypoxic respiratory failure, most likely secondary to aspiration pneumonia, clinically strongly doubt pulmonary embolism. Paraesophageal hernia and status post laparoscopic repair patient is postoperative day #5 Coronary artery disease and previous CABG. Underlying COPD but relatively inactive Benign essential hypertension. Dyslipidemia. Carotid artery stenosis and previous endarterectomy. Parkinson's disease. Generalized anxiety disorder. Recommendation: Change Zosyn to Augmentin. Advanced diet as tolerates. Discontinue oxygen. Agree with discharge planning. Incentive spirometry. Time with Patient: Less than 30
[2020-03-17] MEDS ORDERED: AMOXIC-POT CLAV 875-125MG 1 EACH TAB PO SCH (21:00)
== END 2020-03-17 13:37 | disposition home health service (06) | DRG 326 ==
LOC: OR 08:51 → 4SSUR 12:05 → 3SCARD 03-13 08:39 → OR 03-13 09:43 → 3SCARD 03-13 09:43 → OBSVTOIN 03-13 13:06 → 3SCARD 03-13 15:19 → 2SICU 03-13 16:26
PROVIDERS: ADMIT Surgery; ATTEND Surgery
PROC: 0BUT4JZ Supplement Diaphragm with Synthetic Substitute, Percutaneous Endoscopic Approach (ICD-10-PCS; principal; 2020-03-12 10:30)
DX: K44.9 Diaphragmatic hernia without obstruction or gangrene (principal); J96.01 Acute respiratory failure with hypoxia; J69.0 Pneumonitis due to inhalation of food and vomit; K56.2 Volvulus; J93.9 Pneumothorax, unspecified; J90 Pleural effusion, not elsewhere classified; I25.10 Atherosclerotic heart disease of native coronary artery without angina pectoris; I44.0 Atrioventricular block, first degree; I10 Essential (primary) hypertension; G20 Parkinson's disease; F41.1 Generalized anxiety disorder; F32.9 Major depressive disorder, single episode, unspecified; E78.5 Hyperlipidemia, unspecified; D50.9 Iron deficiency anemia, unspecified; F17.200 Nicotine dependence, unspecified, uncomplicated; J44.9 Chronic obstructive pulmonary disease, unspecified; K21.9 Gastro-esophageal reflux disease without esophagitis; M19.90 Unspecified osteoarthritis, unspecified site; M41.9 Scoliosis, unspecified; K56.41 Fecal impaction; R13.10 Dysphagia, unspecified; I65.29 Occlusion and stenosis of unspecified carotid artery; R33.9 Retention of urine, unspecified; Z79.899 Other long term (current) drug therapy; I25.2 Old myocardial infarction; Z79.890 Hormone replacement therapy; Z79.82 Long term (current) use of aspirin; Z79.51 Long term (current) use of inhaled steroids; Z95.1 Presence of aortocoronary bypass graft; Z90.710 Acquired absence of both cervix and uterus; Z86.711 Personal history of pulmonary embolism; Z82.49 Family history of ischemic heart disease and other diseases of the circulatory system; Z80.8 Family history of malignant neoplasm of other organs or systems; Z82.3 Family history of stroke; Z82.61 Family history of arthritis; Z80.51 Family history of malignant neoplasm of kidney; Z91.030 Bee allergy status
CPT/HCPCS: 71045; 71275; 74018; 74210; 76604; 80048; 83605; 84484; 85025; 85027; 85379; 85610; 85730; 93005; 93306; 93970; 94640; 94760

== ENCOUNTER → 2020-06-21 | Outpatient (CLI) | payer MEDICARE, BC ==
[2020-06-21 10:40] LABS: African American GFR (CKD) >90 (>60 ml/min/1.73 sqM); Blood Urea Nitrogen 11 mg/dL (7-17); Non-African American GFR(CKD) 80 (>60 ml/min/1.73 sqM)
--- NOTE | 2020-06-21 12:07 | CT ---
EXAMINATION TYPE: CT angio chest DATE OF EXAM: 06/21/2020 11:47 AM COMPARISON: CTA chest March 13, 2020 HISTORY: Pulmonary Embolism CT DLP: 183.2 mGycm Automated exposure control for dose reduction was used. CONTRAST: CTA scan of the thorax is performed with IV Contrast, patient injected with 58 mL of Isovue 370, pulm onary embolism protocol. MIP images are created and reviewed. FINDINGS: LUNGS: Mild to moderate underlying emphysematous change bilaterally is redemonstrated. Mild scattered linear scarring. Interval resolution of bilateral pleural effusions. New 7 by 6 mm pulmonary nodule lateral right lower lobe axial image 86. No pleural effusion currently. No pneumothorax seen currentl y. Stable 12 x 7 mm left upper lobe nodule axial image 33. MEDIASTINUM: There is slightly suboptimal bolus when compared with prior study but no convincing evid ence of new or residual pulmonary emboli. There are no new greater than 1 cm hilar or mediastinal ly mph nodes. No pericardial effusion is seen. Post-CABG changes with mediastinal clips and sternal wires redemonstrated. Underlying Sternal malunio n and nonunion noted. Persistent cardiomegaly with moderate biatrial dilatation. OTHER: Osseous structures redemonstrated demineralized. Multiple compression type fracture deformiti es near the thoracolumbar junction redemonstrated with multilevel vertebroplasty. No significant gaytan ge from prior CT. Underlying S-shaped scoliosis. IMPRESSION: 1. No new or residual pulmonary embolism. 2. Interval resolution of free air and tiny apical pneumothoraces. Interval resolution of small bilat eral pleural effusions. Background mild to moderate emphysematous change and cardiomegaly without margarita picious acute pulmonary process currently. 3. Stable 1.2 x 0.7 cm left upper lobe nodule. New 7 x 6 mm right lower lobe nodule. Consider PET/CT follow-up based on clinical correlation. Differential includes metastatic disease.
== END | disposition home or self-care (01) ==
LOC: RADCTMAIN 09:40
PROVIDERS: ATTEND Internal Medicine Critical Care Medicine
DX: J43.9 Emphysema, unspecified (principal); R91.8 Other nonspecific abnormal finding of lung field
CPT/HCPCS: 82565; 84520; 71275; 36415; Q9967

== ENCOUNTER → 2020-10-01 | Outpatient (CLI) | payer MEDICARE, BC ==
--- NOTE | 2020-10-01 14:13 | PE ---
Nuclear medicine PET/CT HISTORY: R 91.1, solitary pulmonary nodule Correlation to CT chest 06/21/2020 CT abdomen pelvis 01/19/2020, CT lumbar spine 04/07/2010 Patient received 10.2 mCi F-18 FDG intravenously delayed scanning was performed from the skull base t o the mid thighs. Localization and attenuation correction CT scan was performed. Chest and neck: There is emphysematous change present within the lungs. Left upper lobe lung nodule a ppears stable as does the right lower lobe pulmonary nodule. There is no significant hypermetabolic u ptake. No pleural or pericardial effusion. Patient is post median sternotomy. There is dense coronary artery calcification. No mediastinal, axillary, or hilar adenopathy, no supraclavicular or cervical adenopathy. ABDOMEN: There is no evident adrenal mass. No retroperitoneal adenopathy, no evident liver mass. Aort a is dense and shows atheromatous calcification. No pelvic adenopathy or free fluid. Osseous structures show extensive facet arthropathy, postop changes, degenerative disc disease in the lower spine. No lytic lesion, no suspicious hypermetabolic uptake. Sclerotic focus in the left ilium does not show associated uptake posteriorly and is stable compared to prior CT dated 2019 and 2009 IMPRESSION: Stable pulmonary nodules. No suspicious hypermetabolic uptake
== END | disposition home or self-care (01) ==
LOC: RADPETMAIN 09:30
PROVIDERS: ATTEND Internal Medicine Critical Care Medicine
DX: R91.8 Other nonspecific abnormal finding of lung field (principal)
CPT/HCPCS: 78815; A9552

== ENCOUNTER 2021-05-10 04:07 | Emergency (ER) | payer MEDICARE, BC ==
[2021-05-10 04:18] VITALS: TEMP 98
--- NOTE | 2021-05-10 04:28 | ED ---
Female Urogenital HPI - General Chief complaint: Urogenital Stated complaint: Catheter fell out Time Seen by Provider: 05/10/21 04:08 Source: patient, RN notes reviewed, old records reviewed, Caregiver Mode of arrival: ambulatory Limitations: no limitations - History of Present Illness Initial comments: This is an 86-year-old female to the ER for catheter placed today for urinary retention. Patient's catheter came out earlier today and patient is unable to urinate since symptoms began. Patient has no other complaints of severe abdominal pain with nausea secondary to pain MD Complaint: dysuria -: hour(s) Location: perineum, suprapubic Severity: moderate, severe Severity scale (1-10): 10 Quality: cramping, sharp Consistency: constant Improves with: none Worsens with: none (time) Patient : No Associated Symptoms: abdominal pain, nausea/vomiting, weakness - Related Data Sexually active: No Home Medications Medication Instructions Recorded Confirmed Ascorbic Acid [Vitamin C] 500 mg PO DAILY 07/25/15 03/12/20 Atorvastatin [Lipitor] 80 mg PO DAILY 07/25/15 03/12/20 Levothyroxine Sodium [Synthroid] 75 mcg PO DAILY 07/25/15 03/12/20 Nitroglycerin Sl Tabs [Nitrostat] 0.4 mg SL Q5M PRN 07/25/15 03/12/20 Gabapentin [Neurontin] 100 mg PO BID 05/12/19 03/12/20 Primidone [Mysoline] 300 mg PO DAILY 05/12/19 03/12/20 Albuterol Sulfate [Ventolin HFA] 2 puff INHALATION RT-QID PRN 01/19/20 03/12/20 Budesonide/Formoterol Fumarate 2 puff INHALATION RT-BID 01/19/20 03/12/20 [Symbicort 160-4.5 Mcg Inhaler] Citalopram Hydrobromide [CeleXA] 40 mg PO DAILY 01/19/20 03/12/20 EPINEPHrine (Auto Inject) [Epipen] 0.3 mg IM ONCE PRN 01/19/20 03/12/20 Lidocaine 5% Patch [Lidoderm 5% 1 patch TOPICAL DAILY PRN 01/19/20 03/12/20 Patch] Nicotine 14Mg/24Hr Patch [Habitrol] 1 patch TRANSDERM DAILY 02/20/20 03/12/20 Omeprazole Magnesium [PriLOSEC OTC] 20 mg PO BID 02/20/20 03/12/20 Propranolol LA [Inderal LA] 80 mg PO HS 02/20/20 03/12/20 Psyllium Husk 100% [Metamucil 6 gm PO Q48H PRN 03/01/20 03/12/20 Packet] Vitamin D3 (Unknown Dose) 1 tab PO DAILY 03/01/20 03/12/20 Ferrous Sulfate [Iron (65 MG 325 mg PO DAILY 03/09/20 03/12/20 Elemental)] Previous Rx's Medication Instructions Recorded Isosorbide Mononitrate ER [Imdur] 30 mg PO DAILY #30 tab.er.24h 07/30/15 Aspirin 81 mg PO HS #30 tab 05/16/19 Acetaminophen Tab [Tylenol Tab] 650 mg PO Q4H PRN #30 tablet 03/17/20 Amoxic-Pot Clav 875-125Mg 1 each PO Q12HR #14 tab 03/17/20 [Augmentin 875-125] buPROPion XL [Wellbutrin XL] 150 mg PO Q48H #7 tab.er.24h 03/17/20 Allergies Allergy/AdvReac Type Severity Reaction Status Date / Time venom-honey bee Allergy Anaphylaxis Verified 05/10/21 04:18 [bee venom (honey bee)] Review of Systems ROS Statement: Those systems with pertinent positive or pertinent negative responses have been documented in the HPI. ROS Other: All systems not noted in ROS Statement are negative. Past Medical History Past Medical History: Coronary Artery Disease (CAD), COPD, GERD/Reflux, Hypertension, Myocardial Infarction (CO), Osteoarthritis (OA), Thyroid Disorder Additional Past Medical History / Comment(s): Coronary artery disease with previous bypass surgery, Parkinson's disease, history of chronic tremors, hypertension, primary osteoarthritis, history of chronic back pain, hypertension, scoliosis, varicose veins involving lower extremities, hyperlipidemia, carotid artery stenosis bilaterally with previous ENDARTERECTOMY, COPD, chronic urinary retention with a Schafer catheter, paraesophageal hernia, Last Myocardial Infarction Date:: 2009 History of Any Multi-Drug Resistant Organisms: None Reported Past Surgical History: Back Surgery, Bladder Surgery, Coronary Bypass/CABG, Hysterectomy, Orthopedic Surgery Additional Past Surgical History / Comment(s): STENT X1 Past Anesthesia/Blood Transfusion Reactions: Postoperative Nausea & Vomiting (PONV) Date of Last Stent Placement:: 2009 Past Psychological History: Anxiety, Depression Smoking Status: Current some day smoker Past Alcohol Use History: None Reported Past Drug Use History: None Reported - Past Family History Mother Family Medical History: CVA/TIA, Myocardial Infarction (CO), Rheumatoid Arthritis (RA) Father Family Medical History: Myocardial Infarction ([place]) Additional Family Medical History / Comment(s): ANEURYSM-UNKNOWN LOCATION Sister(s) Family Medical History: Deep Vein Thrombosis (DVT) Son(s) Family Medical History: Cancer Additional Family Medical History / Comment(s): melanoma, mets to kidney General Exam Limitations: no limitations General appearance: alert, in no apparent distress, anxious Head exam: Present: atraumatic, normocephalic, normal inspection Eye exam: Present: normal appearance, PERRL, EOMI. Absent: scleral icterus, conjunctival injection, periorbital swelling ENT exam: Present: normal exam, mucous membranes moist Neck exam: Present: normal inspection. Absent: tenderness, meningismus, lymphadenopathy Respiratory exam: Present: normal lung sounds bilaterally. Absent: respiratory distress, wheezes, rales, rhonchi, stridor Cardiovascular Exam: Present: regular rate, normal rhythm, normal heart sounds. Absent: systolic murmur, diastolic murmur, rubs, gallop, clicks GI/Abdominal exam: Present: soft, normal bowel sounds. Absent: distended, tenderness, guarding, rebound, rigid Extremities exam: Present: normal inspection, full ROM, normal capillary refill. Absent: tenderness, pedal edema, joint swelling, calf tenderness Back exam: Present: normal inspection Neurological exam: Present: alert, oriented X3, CN II-XII intact Psychiatric exam: Present: normal affect, normal mood Skin exam: Present: warm, dry, intact, normal color. Absent: rash Course Vital Signs 05/10/21 05/10/21 04:15 04:59 Temperature 98.0 F Pulse Rate 85 64 Respiratory 16 18 Rate Blood Pressure 165/79 149/78 O2 Sat by Pulse 96 96 Oximetry - Reevaluation(s) Reevaluation #1: Medical record is reviewed Patient symptoms are significantly improved here in the ER Patient informed results and questions answered Medical Decision Making - Medical Decision Making 86 female to the ER for evaluation of significant abdominal pain secondary to urinary retention secondary to failure urinary catheter blood catheter was placed in the ER with resolution of symptoms Disposition Clinical Impression: Urinary retention Disposition: HOME SELF-CARE Condition: Good Instructions (If sedation given, give patient instructions): Acute Urinary Retention in Women (ED) Is patient prescribed a controlled substance at d/c from ED?: No Referrals: Lashaun Kang III, MD [Primary Care Provider] - 1-2 days
[2021-05-10 05:02] VITALS: BP 149/78; PULSE 64; RESP 18
== END 2021-05-10 05:05 | disposition home or self-care (01) ==
LOC: EC 04:07
DX: R33.9 Retention of urine, unspecified (principal); R10.30 Lower abdominal pain, unspecified; R11.2 Nausea with vomiting, unspecified; F17.200 Nicotine dependence, unspecified, uncomplicated; I25.2 Old myocardial infarction; I10 Essential (primary) hypertension; J44.9 Chronic obstructive pulmonary disease, unspecified; K21.9 Gastro-esophageal reflux disease without esophagitis; E07.9 Disorder of thyroid, unspecified; E78.5 Hyperlipidemia, unspecified; Z91.030 Bee allergy status; Z79.899 Other long term (current) drug therapy; Z79.890 Hormone replacement therapy; Z79.51 Long term (current) use of inhaled steroids
CPT/HCPCS: 51702; 99283